=== PATIENT | male | born 1935 | race Caucasian/White ===

== ENCOUNTER 2016-10-09 11:25 | Inpatient (IN) | payer OTHER ==
[2016-10-09 11:46] VITALS: BMI 24.5
[2016-10-09] MEDS ORDERED: Sodium Chloride 0.9% 500 ML IV STA (12:02)
[2016-10-09] MEDS ORDERED: Iohexol 240 (50 ml) PO ONE (12:37)
[2016-10-09] MEDS ORDERED: Pantoprazole 40 MG in Sodium Chloride 0.9% 100 ML IVPB SCH (12:45)
--- NOTE | 2016-10-09 13:08 | ED PDOC ---
HPI: Abdomen Time Seen by Provider: 10/09/16 11:50 Chief Complaint (Nursing): Abdominal Pain Chief Complaint (Provider): Bloody Stool History Per: Patient History/Exam Limitations: no limitations Onset/Duration Of Symptoms: Days (x1) Current Symptoms Are (Timing): Still Present Severity: Mild Associated Symptoms: denies: Vomiting Additional Complaint(s): Patient is an 81 year old male, who has a history of GI bleed presents to the ED complaining of blood stool since yesterday. Patient also complains of red blood from his rectum and fatigue today. Patient states he has had shortness of breath for a while now. Denies abdominal pain, but states he had abdominal cramping last night. Denies vomiting or chest pain. PMD: none Past Medical History Reviewed: Historical Data, Nursing Documentation, Vital Signs Vital Signs: Last Vital Signs Temp 96.8 F L 10/09/16 15:05 Pulse 65 10/09/16 15:46 Resp 19 10/09/16 15:05 BP 118/59 L 10/09/16 15:05 Pulse Ox 100 10/09/16 15:46 - Medical History PMH: Arthritis, Diverticulitis, Emphysema, Fractures (Hx of Compression Vertebral Fx at T and L spine), HTN, Hypothyroidism, Osteoporosis (Chronically elevated WBCs) Denies: Chronic Kidney Disease - Surgical History Surgical History: Cholecystectomy - Family History Family History: States: No Known Family Hx - Home Medications Home Medications: Ambulatory Orders Medication Instructions Recorded Levothyroxine Sodium [Synthroid] 0.125 mg PO DAILY #30 tab 06/16/14 Allopurinol 100 mg PO DAILY 03/23/15 oxyCODONE/Acetaminophen [Percocet 1 ea PO Q6 #15 tab 03/23/15 5/325 mg Tab] - Allergies Allergies/Adverse Reactions: Allergies Allergy/AdvReac Type Severity Reaction Status Date / Time morphine Allergy URTICARIA Verified 10/09/16 11:55 vancomycin Allergy RASH Verified 10/09/16 11:55 Review of Systems ROS Statement: Except As Marked, All Systems Reviewed And Found Negative Cardiovascular: Negative for: Chest Pain Respiratory: Positive for: Shortness of Breath (chronic) Gastrointestinal: Positive for: Hematochezia. Negative for: Abdominal Pain Physical Exam - Reviewed Nursing Documentation Reviewed: Yes Vital Signs Reviewed: Yes - Physical Exam Appears: Positive for: Well, Non-toxic, No Acute Distress Head Exam: Positive for: ATRAUMATIC, NORMAL INSPECTION, NORMOCEPHALIC Skin: Positive for: Warm, Pallor Eye Exam: Positive for: EOMI, Normal appearance, PERRL Neck: Positive for: Normal, Painless ROM Cardiovascular/Chest: Positive for: Regular Rate, Rhythm. Negative for: Gallop , Murmur Respiratory: Positive for: Normal Breath Sounds. Negative for: Accessory Muscle Use, Rhonchi, Respiratory Distress Gastrointestinal/Abdominal: Positive for: Normal Exam, Soft. 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 Negative for: Black Stool, Hemorrhoids Extremity: Positive for: Normal ROM Neurologic/Psych: Positive for: Alert, Oriented - Laboratory Results Result Diagrams: 10/09/16 12:33 10/09/16 15:58 - ECG ECG: Positive for: Interpreted By Me, Viewed By Me ECG Rhythm: Positive for: Normal QRS, Normal ST Segment, Sinus Rhythm, Nonspecific Changes Rate: 65 O2 Sat by Pulse Oximetry: 100 (RA) Pulse Ox Interpretation: Normal - Radiology X-Ray: Viewed By Me, Read By Radiologist X-Ray Interpretation: No Acute Disease, Other (pulmonary nodule) - Critical Care Total Time (In Min): 60 Documented Critical Care: Time excludes all time spent performint seperately billable procedures Medical Decision Making Medical Decision Making: Time: 11:52 Impression: upper GI bleed v lower GI bleed Plan: Blood Type and Screen CT A/P EKG CMP Troponin CBC PTT/PT CXR IVF Pantoprazole 80 mg IV 14:35 Crossmatch blood Packed Cells Leukoreduced CT A/P Critical care consult PICC Albuterol 2.5 mg INH Calcium Gluconate IV Dextrose 50 ml IV Insulin human Regular 5 units IV Piperacillin IV Blood Culture calcium gluconate IV insulin 5 units and D50 IV albuterol INH ordered 14:40 Case discussed with critical care. Spoke with Dr. Sosa and will admit to ICU. Case discussed with family resident to admit to his service. Awaiting call from Dr. Vale. [address] Vale who will be on consult. Critical care note: Patient has one SIRS criteria WBC from worsened chronic leucocytosis (malignancy ?) and does not qualify for sepsis. Elevated lactic acid and hypotension is contributed by hemorrhagic shock from acute blood loss. Impression Hypovolemic hemorrhagic shock Scribe Attestation: Documented by Silva Walter acting as a scribe for Jesse Turner MD. Scribe Attestation: All medical record entries made by the Scribe were at my direction and personally dictated by me. I have reviewed the chart and agree that the record accurately reflects my personal performance of the history, physical exam, medical decision making, and the department course for this patient. I have also personally directed, reviewed, and agree with the discharge instructions and disposition. Disposition - Clinical Impression Clinical Impression: GI bleed, Hemorrhagic shock, Leukocytosis, Renal failure (ARF), acute on chronic, Hypovolemic shock, Elevated INR - Patient ED Disposition Is Patient to be Admitted: Yes Discussed With : Tato Lloyd Doctor Will See Patient In The: ED Counseled Patient/Family Regarding: Studies Performed, Diagnosis - Disposition Disposition Time: 14:00 Condition: CRITICAL - Pt Status Changed To: Hospital Disposition Of: Inpatient - Admit Certification Admit to Inpatient:: After my assessment, the patient will require hospitalization for at least two midnights. This is because of the severity of symptoms shown, intensity of services needed, and/or the medical risk in this patient being treated as an outpatient. - POA Present On Arrival: None
[2016-10-09 13:11] LABS: MEAN CORPUSCULAR HEMOGLOBIN 29.9 pg (27.0-31.0); MEAN PLATELET VOLUME 10.9 fl (7.2-11.7)
[2016-10-09 13:15] LABS: BASO # 0.4 K/uL (0.0-0.2); BASO % 0.7 % (0.0-2.0); EOS # 0.5 K/uL (0.0-0.7); EOS % 0.8 % (0.0-4.0); HEMATOCRIT 21.5 % (35.0-51.0); LYMPH # 3.2 K/uL (1.0-4.3); LYMPH % 4.9 % (20.0-40.0); MEAN CELL VOLUME 107.2 fl (80.0-94.0); MEAN CORPUSCULAR HGB CONC 27.9 g/dL (33.0-37.0); MONO # 2.7 K/uL (0.0-0.8); MONO % 4.1 % (0.0-10.0); NEUT # 58.6 K/uL (1.8-7.0); NEUT % 89.5 % (50.0-75.0); PLATELET COUNT 538 K/uL (130-400); RED CELL DISTRIBUTION WIDTH 19.4 % (11.5-14.5)
[2016-10-09 13:18] LABS: WHITE BLOOD COUNT 65.4 K/uL (4.8-10.8)
[2016-10-09 13:20] LABS: ALB/GLOB RATIO 1.1 (1.0-2.1); ALKALINE PHOSPHATASE 101 U/L (38-126); ALT/SGPT 20 U/L (21-72); AST/SGOT 33 U/L (17-59); BILIRUBIN,TOTAL 0.5 mg/dl (0.2-1.3); BLOOD UREA NITROGEN 62 mg/dl (9-20); CALCIUM 7.7 mg/dL (8.4-10.2); CHLORIDE 110 mmol/L (98-107); GFR AFRICAN-AMERICAN 33; GLUCOSE,RANDOM 84 mg/dL (75-110); SODIUM 142 mmol/l (132-148); TOTAL PROTEIN 6.4 G/DL (6.3-8.2)
[2016-10-09 13:25] LABS: PARTIAL THROMBOPLASTIN TIME 35.7 SECONDS (23.3-32.5)
[2016-10-09 13:34] LABS: VENOUS BLOOD GAS BASE EXCESS -13.6 mmol/L (0.0-2.0); VENOUS BLOOD GAS PCO2 39 mmHg (40-60); VENOUS BLOOD PH 7.16 (7.32-7.43)
[2016-10-09 13:39] LABS: CARBON DIOXIDE 11 mmol/L (22-30); POTASSIUM 6.3 MMOL/L (3.6-5.0)
--- NOTE | 2016-10-09 13:42 | RAD ---
HISTORY: dyspnea COMPARISON: 09/21/2014 FINDINGS: LUNGS: No infiltrate. 11 mm nodular opacity at left lung base, laterally. Possible nipple shadow. Recommend repeat radiograph with nipple markers. No other pulmonary nodule appreciated. PLEURA: No significant pleural effusion identified, no pneumothorax apparent. CARDIOVASCULAR: Normal. OSSEOUS STRUCTURES: No significant abnormalities. VISUALIZED UPPER ABDOMEN: Normal. OTHER FINDINGS: None. IMPRESSION: No infiltrate. 11 mm nodular opacity at left lung base. Possible nipple shadow. Recommend repeat frontal radiograph with nipple markers.
[2016-10-09] MEDS ORDERED: Piperacillin/Tazobact 3.375 GM in Sodium Chloride 0.9% 100 ML IVPB STA (14:12)
[2016-10-09] MEDS ORDERED: Iohexol 240 (50 ml) ONE (14:14)
[2016-10-09] MEDS ORDERED: Insulin Regular 100 units/ml IV STA (14:15)
[2016-10-09] MEDS ORDERED: Dextrose 50% SYRINGE Inj (50 ml) IVP ONE (14:15)
--- NOTE | 2016-10-09 14:23 | CARD ---
APPROVED REPORT EKG Measurement Heart [id number] <Conclusion> Sinus rhythm with premature supraventricular complexes Anterior infarct, age undetermined ST & T wave abnormality, consider lateral ischemia Abnormal ECG
[2016-10-09 14:24] LABS: EOSINOPHIL 1 % (0-7); METAMYELOCYTE 2 % (0-0); NEUTROPHIL 73 % (42-75)
[2016-10-09 14:25] LABS: GIANT PLATELETS PRESENT; LARGE PLATELETS PRESENT
[2016-10-09] MEDS ORDERED: Albuterol 0.083% Inhal Sol (2.5 mg/3 mL) UD INH ONE (14:26)
[2016-10-09 14:27] LABS: TOTAL CELLS COUNTED 100
[2016-10-09 14:31] LABS: MYELOCYTE 3 % (0-0)
[2016-10-09] MEDS ORDERED: Lidocaine 1% Inj (20ml) ONE (14:44)
--- NOTE | 2016-10-09 15:10 | CP.PCM.HP ---
History of Present Illness - History of Present Illness History of Present Illness: 81 yo , m , PMhx/o HTN, Diverticulitis, Emphysema, Arthritis, Gout, myelofibrosis, Hypothyroidism, Osteoporosis, Fractures (Hx of Compression Vertebral Fx at T and L spine), (Chronically elevated WBCs) presents to ED c/o bright bloody diarrhea started on saturday, small amount x 4 yesterday and 4 diarrhea today in the morning. Last diarrhea 9 am today. Patient also reports weakness since yesterday and SOB this morning. Denies Abd pain, Nausea, Vomiting, Hematemesis, fever, chest pain, palpitation, heartburn, abd trauma, dysuria. Denies sick contact, odd food. Reports recent travel from [facility] 3 weeks ago. PCP: Dr Lety Almazan PMHx: PMhx/o HTN, Diverticulitis, Emphysema, Arthritis, Gout, myelofibrosis, Hypothyroidism, Osteoporosis, Fractures (Hx of Compression Vertebral Fx at T and L spine), (Chronically elevated WBCs) Allergies: Morphine, Vancomycin Meds: Levothyroxine Sodium [Synthroid] 0.125 mg PO DAILY, Allopurinol 100 mg PO DAILY PSurgHx: Cholecystectomy,B/L knee meniscal tear PSHx: + ETOH, heavy drinker x 30 years. quit 6 years ago, smoker 2 PPD x 65 years. neg rect drugs. ED Course: VS: Stable Labs: WBC: 65.4 H.0 PLt: 538 INR: 1.56 AVG: PH 7.16 PCO2 39 HCO3: 13.7 Lactate: 6.1 K : 6.1 BUN/CR 65/2.2 Ca: 7.2 Ph: 6.3 Trop : neg EKG: sinus rhythm. buddy vent complex.ant infarct age undetermined. XR: 11 mm nodule left lung base. possible nipple shadow Present on Admission - Present on Admission Any Indicators Present on Admission: No History of DVT/PE: No History of Uncontrolled Diabetes: No Urinary Catheter: No Decubitus Ulcer Present: No Review of Systems - Constitutional Constitutional: As Per HPI - Gastrointestinal Gastrointestinal: Diarrhea. absent: Abdominal Pain, Dyspepsia, Dysphagia, Vomiting Additional comments: enterorrhagia Past Patient History - Infectious Disease Hx of Infectious Diseases: None - Tetanus Immunizations Tetanus Immunization: Unknown - Past Medical History & Family History Past Medical History?: Yes - Past Social History Smoking Status: Former Smoker - CARDIAC Hx Hypertension: Yes - PULMONARY Hx Emphysema: Yes - NEUROLOGICAL Hx Neurological Disorder: No - HEENT Other/Comment: red eyes - RENAL Hx Chronic Kidney Disease: No - ENDOCRINE/METABOLIC Hx Hypothyroidism: Yes - HEMATOLOGICAL/ONCOLOGICAL Hx Blood Disorders: Yes (chronic leukocytosis) - INTEGUMENTARY Hx Dermatological Problems: Yes Hx Psoriasis: Yes - MUSCULOSKELETAL/RHEUMATOLOGICAL Hx Arthritis: Yes Hx Fractures: Yes (Hx of Compression Vertebral Fx at T and L spine) Hx Osteoporosis: Yes (Chronically elevated WBCs) - GASTROINTESTINAL Hx Diverticulitis: Yes - GENITOURINARY/GYNECOLOGICAL Hx Genitourinary Disorders: No - PSYCHIATRIC Hx Psychophysiologic Disorder: No Hx Substance Use: No - SURGICAL HISTORY Hx Cholecystectomy: Yes - ANESTHESIA Hx Anesthesia: Yes Hx Anesthesia Reactions: No Meds Allergies/Adverse Reactions: Allergies Allergy/AdvReac Type Severity Reaction Status Date / Time morphine Allergy URTICARIA Verified 10/09/16 11:55 vancomycin Allergy RASH Verified 10/09/16 11:55 Physical Exam - Constitutional Appears: No Acute Distress - Head Exam Head Exam: ATRAUMATIC, NORMOCEPHALIC - Respiratory Exam Respiratory Exam: Rales. absent: Rhonchi, Wheezes Additional comments: right lung base rales - Cardiovascular Exam Cardiovascular Exam: +S1, +S2, Systolic Murmur Additional comments: Systolic murmur 3/6 - GI/Abdominal Exam GI & Abdominal Exam: Normal Bowel Sounds, Soft. absent: Guarding, Rebound Additional comments: RUQ surgical scar with ventral herniation - Rectal Exam Rectal Exam: absent: Hemorrhoids Additional comments: Perianal rectal bright blood. no active bleeding, no external hemorrhoids visible. - Extremities Exam Extremities exam: Positive for: normal inspection. Negative for: pedal edema Additional comments: right basilic vein PICC placed - Neurological Exam Neurological exam: Alert - Psychiatric Exam Psychiatric exam: Normal Affect - Skin Skin Exam: Intact, Pallor Results - Vital Signs Recent Vital Signs: Last Vital Signs Temp 97 F L 10/09/16 11:44 Pulse 62 10/09/16 13:22 Resp 16 10/09/16 13:22 BP 105/59 L 10/09/16 13:22 Pulse Ox 100 10/09/16 15:09 - Labs Result Diagrams: 10/09/16 12:33 10/09/16 15:58 Assessment & Plan - Assessment and Plan (Free Text) Plan: 81 yo , m , PMhx/o HTN, Diverticulitis, Emphysema, Arthritis, Gout, myelofibrosis, Hypothyroidism, Osteoporosis, Fractures (Hx of Compression Vertebral Fx at T and L spine), (Chronically elevated WBCs) presents to ED c/o bright bloody diarrhea Assessment/Plan 81 yo , m , PMhx/o HTN, Diverticulitis, Emphysema, Arthritis, Gout, myelofibrosis, Hypothyroidism, Osteoporosis, Fractures (Hx of Compression Vertebral Fx at T and L spine), (Chronically elevated WBCs) presents to ED c/o bright bloody diarrhea 1) Acute Lower GI Bleeding -Hx/o diverticulosis. possible secondary to diverticulosis or internal hemorrhoids. -CT Abd: 03/18/14 showed liver cirrhosis and possible portal HTN. 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 Last documented Heme/Onc consultation in February [address] Mcmahon with plan for hydroxyurea 500mg every other day but patient has not seen Heme/Onc provider since. -Hem-Onc consult suggested 8) Gout -Uric Acid - Allopurinol 100 mg P o daily 9) DVT Prophylaxis -SCD 10) GI prophylaxis -Pantoprazole 40 mg IV -
--- NOTE | 2016-10-09 15:11 | PCM.SURG1 ---
Surgeon's Initial Post Op Note - Surgeon's Notes Surgeon: Paula [employer] Assistant: None Type of Anesthesia: Local Pre-Operative Diagnosis: Sepsis Operative Findings: Patent right basilic vein Post-Operative Diagnosis: Sepsis Operation Performed: Right basilic vein 5F DL 32cm PICC placed. Specimen/Specimens Removed: None Estimated Blood Loss: EBL {In ML}: 1 Date of Surgery/Procedure: 10/09/16 Time of Surgery/Procedure: 15:05
[2016-10-09] MEDS ORDERED: Albuterol 0.083% Inhal Sol (2.5 mg/3 mL) UD ONE (15:25)
[2016-10-09] MEDS ORDERED: Piperacillin/Tazobact 3.375 gm Inj IVPB ONE (15:25)
[2016-10-09] MEDS ORDERED: Dextrose 50% SYRINGE Inj (50 ml) ONE (15:25)
[2016-10-09 16:20] LABS: CALCIUM 7.2 mg/dL (8.4-10.2); MAGNESIUM 1.8 MG/DL (1.6-2.3); PHOSPHOROUS 6.3 mg/dl (2.5-4.5)
[2016-10-09 16:28] LABS: POTASSIUM 6.1 MMOL/L (3.6-5.0)
--- NOTE | 2016-10-09 17:10 | CP.PCM.CON ---
<Mikal Hollingsworth - Last Filed: 10/09/16 17:18> History of Present Illness - History of Present Illness History of Present Illness: PGY4 GI Fellow Consult Note Patient is an 81yo Beninese-speaking male with PMHx significant for EtOH cirrhosis, ? myeloproliferative d/o with persistently elevated WBC (today 65K), gout, OA and hypothyroidism who presented to the ED with complaint of rectal bleeding. The patient suddenly developed bright red, loose stool yesterday and went on to have 9-10 episodes over the course of the day. This continued throughout the night and in to today with up to ten more episodes, becomming more watery with each episode. He was going up the staircase at home when he noted he was profoundly dyspneic and lightheaded. At that time, his convinced him to come to the ED for further evaluation. Initial lab work revealed a HGB of 6. Patient denies any weight loss, nausea, vomiting, hematemesis, dysphagia, h/o variceal banding. 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 absent: Chest Pain, Palpitations, Rapid Heart Rate - Respiratory Respiratory: Dyspnea, Dyspnea on Exertion. absent: Cough, Excessive Mucous Production - Gastrointestinal Gastrointestinal: Change in Bowel Habits, Cramping, Diarrhea, Hematochezia, Loose Stools. absent: Abdominal Pain, Coffee Ground Emesis, Constipation, Dyspepsia, Dysphagia, Hematemesis, Melena, Nausea, Odynophagia, Vomiting - Genitourinary Genitourinary: absent: Dysuria, Urinary Frequency, Urinary Urgency - Musculoskeletal Musculoskeletal: absent: Back Pain, Neck Pain - Integumentary Integumentary: absent: New Lesions, Rash - Neurological Neurological: absent: Dizziness, Numbness, Focal Weakness - Psychiatric Psychiatric: absent: Anxiety, Depression - Endocrine Endocrine: absent: Polydipsia, Polyphagia, Polyuria - Hematologic/Lymphatic Hematologic: absent: Easy Bleeding, Easy Bruising, Lymphadenopathy Past Patient History - Infectious Disease Hx of Infectious Diseases: None - Tetanus Immunizations Tetanus Immunization: Unknown - Past Medical History & Family History Past Medical History?: Yes - Past Social History Smoking Status: Former Smoker - CARDIAC Hx Hypertension: Yes - PULMONARY Hx Emphysema: Yes - NEUROLOGICAL Hx Neurological Disorder: No - HEENT Other/Comment: red eyes - RENAL Hx Chronic Kidney Disease: No - ENDOCRINE/METABOLIC Hx Hypothyroidism: Yes - HEMATOLOGICAL/ONCOLOGICAL Hx Blood Disorders: Yes (chronic leukocytosis) - INTEGUMENTARY Hx Dermatological Problems: Yes Hx Psoriasis: Yes - MUSCULOSKELETAL/RHEUMATOLOGICAL Hx Arthritis: Yes Hx Fractures: Yes (Hx of Compression Vertebral Fx at T and L spine) Hx Osteoporosis: Yes (Chronically elevated WBCs) - GASTROINTESTINAL Hx Diverticulitis: Yes - GENITOURINARY/GYNECOLOGICAL Hx Genitourinary Disorders: No - PSYCHIATRIC Hx Psychophysiologic Disorder: No Hx Substance Use: No - SURGICAL HISTORY Hx Cholecystectomy: Yes - ANESTHESIA Hx Anesthesia: Yes Hx Anesthesia Reactions: No Meds Allergies/Adverse Reactions: Allergies Allergy/AdvReac Type Severity Reaction Status Date / Time morphine Allergy URTICARIA Verified 10/09/16 11:55 vancomycin Allergy RASH Verified 10/09/16 11:55 - Medications Medications: Current Medications Pantoprazole Sodium 40 mg/ (Sodium Chloride) 100 mls @ 20 mls/hr IVPB CONT SATURNINO PRN Reason: 8 MG/HR Physical Exam - Constitutional Appears: In Acute Distress (dyspneic) - Eye Exam Eye Exam: EOMI, PERRL - ENT Exam ENT Exam: Mucous Membranes Dry - Respiratory Exam Respiratory Exam: Clear to Auscultation Bilateral. absent: Rales, Rhonchi, Wheezes - Cardiovascular Exam Cardiovascular Exam: Tachycardia, +S1, +S2, Systolic Murmur - GI/Abdominal Exam GI & Abdominal Exam: Hyperactive Bowel Sounds, Soft. absent: Distended, Firm, Guarding, Rigid, Tenderness - Rectal Exam Rectal Exam: Bloody Stool. absent: Hemorrhoids - Extremities Exam Extremities exam: Positive for: normal inspection. Negative for: pedal edema - Neurological Exam Neurological exam: Alert, Oriented x3 - Psychiatric Exam Psychiatric exam: Normal Affect, Normal Mood - Skin Skin Exam: Dry, Warm Results - Vital Signs Recent Vital Signs: Last Vital Signs Temp 96.8 F L 10/09/16 15:05 Pulse 65 10/09/16 15:46 Resp 19 10/09/16 15:05 BP 118/59 L 10/09/16 15:05 Pulse Ox 100 10/09/16 15:46 - Labs Result Diagrams: 10/09/16 12:33 10/09/16 15:58 Labs: Laboratory Results - last 24 hr 10/09/16 15:58 Sodium 134 Potassium 6.1 H Chloride 110 H Carbon Dioxide 14 L Anion Gap 16 BUN 65 H Creatinine 2.2 H Est GFR ( Amer) 35 Est GFR (Non-Af Amer) 29 Random Glucose 94 Calcium 7.2 L Phosphorus 6.3 H Magnesium 1.8 Assessment & Plan - Assessment and Plan (Free Text) Assessment: Patient is an 81yo Beninese-speaking male with PMHx significant for EtOH cirrhosis, ? myeloproliferative d/o with persistently elevated WBC (today 65K), gout, OA and hypothyroidism who presented to the ED with complaint of rectal bleeding. 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 -Unclear myeloproliferative D/O - family state w/u performed in [place] without clear etiology (included BM bx) -Thrombocytosis, reactive vs myeloproliferative Plan: -Pt s/p PICC line insertion by IR -Recommend aggressive IVF resuscitation -Patient needs stat PRBC transfusion, 3 units ordered -Will need to transfuse 1 unit FFP given coagulopathy 2/2 underlying cirrhosis -Patient will benefit from urgent EGD tomorrow morning once he has been adequately resuscitated -NPO after MN -Will also require colonoscopy (likely ) once patient can safely be given bowel purge -CT A/P recommended; eval liver given cirrhosis hx -Recommend ICU placement/monitoring -Recommend hematology consultation given ongoing, profound leukocytosis -Monitor CBC, CMP, INR *MELD-Na: 22 - Date & Time Date: 10/09/16 Time: 17:27 <Billy Vale MD - Last Filed: 10/09/16 21:53> Meds - Medications Medications: Current Medications Pantoprazole Sodium 40 mg/ (Sodium Chloride) 100 mls @ 20 mls/hr IVPB CONT SATURNINO PRN Reason: 8 MG/HR Last Admin: 10/09/16 20:16 Dose: 20 mls/hr Sodium Bicarbonate 150 meq/ (Dextrose) 1,150 mls @ 100 mls/hr IV .[id number] SATURNINO Last Admin: 10/09/16 18:25 Dose: 100 mls/hr Octreotide Acetate 1,250 mcg/ (Sodium Chloride) 252.5 mls @ 10.1 mls/hr IV .Q24H SATURNINO PRN Reason: 50 MCG/HR Stop: 10/14/16 18:46 Last Admin: 10/09/16 21:00 Dose: 10.1 mls/hr Levothyroxine Sodium (Synthroid) 50 mcg IVP DAILY SATURNINO Results - Vital Signs Recent Vital Signs: Last Vital Signs Temp 97.9 F 10/09/16 20:00 Pulse 58 L 10/09/16 21:00 Resp 18 10/09/16 21:00 BP 118/58 L 10/09/16 21:00 Pulse Ox 100 10/09/16 21:00 - Labs Result Diagrams: 10/09/16 12:33 10/09/16 15:58 Labs: Laboratory Results - last 24 hr 10/09/16 15:58 Sodium 134 Potassium 6.1 H Chloride 110 H Carbon Dioxide 14 L Anion Gap 16 BUN 65 H Creatinine 2.2 H Est GFR ( Amer) 35 Est GFR (Non-Af Amer) 29 Random Glucose 94 Calcium 7.2 L Phosphorus 6.3 H Magnesium 1.8 Attending/Attestation - Attestation I have personally seen and examined this patient.: Yes I have fully participated in the care of the patient.: Yes I have reviewed all pertinent clinical information: Yes Notes (Text): 10/09/16 21:47 Patient seen and examined this evening with GI fellow in [facility] this evening. Essentially this is a 81yo Beninese-speaking male with PMHx significant for EtOH cirrhosis, ? myeloproliferative d/o with persistently elevated WBC (today 65K), gout, OA and hypothyroidism who presented to the ED with complaint of rectal bleeding. H/Hct dropped by 4 gm/dl with BRBPR. Needs aggresive resuscitation as per cardiac and respiratory status prior to EGD in am. 2 large bore lines and MICU admission. Needs FFP transfusion given coagulopathy. If EGD is negative will plan on colonoscopy for . MELD 22. Recommend hematology consult. NPO and octreotide drip with bolus. Will follow closely
[2016-10-09] MEDS ORDERED: Insulin Regular 100 units/ml ONE (17:18)
[2016-10-09] MEDS ORDERED: Sodium Bicarbonate 8.4% 150 MEQ in Dextrose 5% In Water 1,000 ML IV SCH ×2 (18:00)
--- NOTE | 2016-10-09 18:07 | CT ---
PROCEDURE: CT Abdomen and Pelvis without IV contrast. HISTORY: abdominal pain GI bleed COMPARISON: CT abdomen and pelvis performed 06/11/13, CT abdomen performed 03/18/14 TECHNIQUE: Contiguous axial images of the abdomen and pelvis. Oral contrast was administered. No IV contrast given. Coronal and Sagittal reformats generated and reviewed. Radiation dose: Total exam DLP = 716.11 mGy-cm. FINDINGS: There is limited evaluation of the solid organs without the administration of IV contrast. LOWER THORAX: Small bilateral pleural effusions. Bibasilar atelectasis. No visible pneumothorax. Low attenuation of the cardiac chambers and aorta consistent with anemia. Correlate clinically. Small hiatal hernia/distal esophageal wall thickening. LIVER: Unremarkable unenhanced appearance. GALLBLADDER AND BILE DUCTS: Cholecystectomy. PANCREAS: Atrophy. SPLEEN: Marked splenomegaly. ADRENALS: Bilateral nodular adrenal gland hypertrophy. KIDNEYS AND URETERS: Innumerable low-density renal lesions, indeterminate. No hydronephrosis. No obstructing calculus. BLADDER: Thick-walled under distended urinary bladder. REPRODUCTIVE: Enlarged heterogeneous prostate gland. APPENDIX: The appendix is not identified. No secondary signs of acute appendicitis. BOWEL: The stomach is nondistended. Large bowel containing right anterior abdominal wall hernia without evidence of obstruction. Extensive diverticulosis of the sigmoid colon with subtle adjacent inflammatory changes; correlate clinically for possibility of acute diverticulitis. PERITONEUM: No significant free fluid. No definite free air. LYMPH NODES: Extensive indeterminate paraspinal soft tissue evident most notably at the T8 through L1 levels as well as L3 through S1 levels. Presacral soft tissue present. Soft tissue neoplasm possibly related to etiology such is leukemia/ lymphoma or bulky lymphadenopathy are considerations. VASCULATURE: Dense atherosclerotic calcifications of the aorta and branches. Linear calcification traversing the medial aspect of the left common iliac artery lumen may reflect small focal dissection versus calcification related to thrombus. BONES: Diffuse osseous demineralization limits evaluation for acute fracture lines. Severe L1 and L3 compression fracture deformities, age indeterminate. Right hip arthroplasty hardware with resultant streak artifact. OTHER FINDINGS: None. IMPRESSION: Extensive indeterminate paraspinal soft tissue evident most notably at the T8 through L1 levels as well as L3 through S1 levels. Presacral soft tissue present. Soft tissue neoplasm possibly related to etiology such is leukemia/ lymphoma or bulky lymphadenopathy are considerations. Large bowel containing right anterior abdominal wall hernia without evidence of obstruction. Extensive diverticulosis of the sigmoid colon with subtle adjacent inflammatory changes; correlate clinically for possibility of acute diverticulitis. Low attenuation of the cardiac chambers and aorta consistent with anemia. Correlate clinically. Marked splenomegaly. Extensive diverticulosis of the sigmoid colon with subtle adjacent inflammatory changes; correlate clinically for possibility of acute diverticulitis. Severe L1 and L3 compression fracture deformities, age indeterminate. Linear calcification traversing the medial aspect of the left common iliac artery lumen may reflect small focal dissection versus calcification related to thrombus. Similar findings evident on CT performed 03/18/14 Innumerable low-density renal lesions, indeterminate. Enlarged heterogeneous prostate gland. Recommend correlation with PSA. Additional incidental findings as above. Findings discussed with Dr. Turner on 10/09/16 at 6:03 p.m.
--- NOTE | 2016-10-09 18:17 | CP.PCM.CON ---
History of Present Illness - History of Present Illness History of Present Illness: This is an 81 year old male with PMH of "blood cancer" diagnosed 4 years ago at [facility]?, hypothyroidism, arthritis, cholecystectomy and bilateral meniscus removal of the knees in the past comes to the hospital after having bowel movements with fresh blood for the past week, neck, bilateral shoulder, lower back, toes pain as well. His jarvis noticed him being pale. The patient feels weak, mental status is wnl. Denies fever, petechia, anticoagulant ingestion. As per the the patient was told 4 years ago that he had a blood malignancy , but after a biopsy (taken from the back) he was told that no malignancy was seen in the biopsy, no follow up since then. Last laboratory results are from 2014 and show renal failure with Cr of 1.7, wbc count 39-79, uric acid elevated. Current labs show worsening of renal failure, hyperphosphatemia, hyperkalemia, decreased bicarbonate. History of alcohol abuse, sober for 15 years. Home meds: allopurinol 100 mg daily eutirox 100 mcg daily tylenol prn Please note that patient HALLUCINATES WITH MORPHINE AND BECOMES AGGRESSIVE 10 ros asked and negative except for above pe: bp 113/52 mmhg, hr 69 bpm, rr 16 bpm, O2 100% on 2 L NC, afebrile thin, pale elderly male lying in bed, does not seem to be in any acute distress aaox3 s1, s2 rrr lungs good bilateral air of entry abdomen soft, non tender, right upper quadrant mass, soft, chronic, seem to be a hernia mild leg edema skin old healed surgical ulcers, pale skin a/p: gi bleed for the past week protonix drip, npo, blood transfusion, coagulation profile with minimal elevation, will not benefit from FFP, add octreotide in view of prior history of cirrhosis. GI consulted patient. 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 spoke to Dr. Charlton, discussed case. Hyperkalemia most likely related to renal failure: bicarbonate drip, will also improve bicarbonate, check bmp every 6 hours. Hyperphosphatemia: due to renal failure. Hold calcium to keep Ph/Ca product down. Consulted renal in case he needs dialysis. Past Patient History - Infectious Disease Hx of Infectious Diseases: None - Tetanus Immunizations Tetanus Immunization: Unknown - Past Medical History & Family History Past Medical History?: Yes - Past Social History Smoking Status: Former Smoker - CARDIAC Hx Hypertension: Yes - PULMONARY Hx Emphysema: Yes - NEUROLOGICAL Hx Neurological Disorder: No - HEENT Other/Comment: red eyes - RENAL Hx Chronic Kidney Disease: No - ENDOCRINE/METABOLIC Hx Hypothyroidism: Yes - HEMATOLOGICAL/ONCOLOGICAL Hx Blood Disorders: Yes (chronic leukocytosis) - INTEGUMENTARY Hx Dermatological Problems: Yes Hx Psoriasis: Yes - MUSCULOSKELETAL/RHEUMATOLOGICAL Hx Arthritis: Yes Hx Fractures: Yes (Hx of Compression Vertebral Fx at T and L spine) Hx Osteoporosis: Yes (Chronically elevated WBCs) - GASTROINTESTINAL Hx Diverticulitis: Yes - GENITOURINARY/GYNECOLOGICAL Hx Genitourinary Disorders: No - PSYCHIATRIC Hx Psychophysiologic Disorder: No Hx Substance Use: No - SURGICAL HISTORY Hx Cholecystectomy: Yes - ANESTHESIA Hx Anesthesia: Yes Hx Anesthesia Reactions: No Meds Allergies/Adverse Reactions: Allergies Allergy/AdvReac Type Severity Reaction Status Date / Time morphine Allergy URTICARIA Verified 10/09/16 11:55 vancomycin Allergy RASH Verified 10/09/16 11:55 - Medications Medications: Current Medications Heparin Sodium (Porcine) (Heparin) 5,000 units SC Q8 SATURNINO PRN Reason: Protocol Pantoprazole Sodium 40 mg/ (Sodium Chloride) 100 mls @ 20 mls/hr IVPB CONT SATURNINO PRN Reason: 8 MG/HR Calcium Gluconate 1,000 mg/ (Sodium Chloride) 110 mls @ 110 mls/hr IV ONCE ONE Stop: 10/09/16 18:59 Sodium Bicarbonate 150 meq/ (Dextrose) 1,150 mls @ 100 mls/hr IV .[id number] [facility] Pantoprazole Sodium (Protonix Inj) 40 mg IVP DAILY [facility] Results - Vital Signs Recent Vital Signs: Last Vital Signs Temp 96.8 F L 10/09/16 15:05 Pulse 65 10/09/16 17:17 Resp 19 10/09/16 15:05 BP 118/59 L 10/09/16 15:05 Pulse Ox 100 10/09/16 17:17 - Labs Result Diagrams: 10/09/16 12:33 10/09/16 15:58 Labs: Laboratory Results - last 24 hr 10/09/16 15:58 Sodium 134 Potassium 6.1 H Chloride 110 H Carbon Dioxide 14 L Anion Gap 16 BUN 65 H Creatinine 2.2 H Est GFR ( Amer) 35 Est GFR (Non-Af Amer) 29 Random Glucose 94 Calcium 7.2 L Phosphorus 6.3 H Magnesium 1.8
[2016-10-09] MEDS: Pantoprazole 40 MG in Sodium Chloride 0.9% 100 ML IVPB SCH (20:16)
[2016-10-10 00:15] LABS: CALCIUM 7.1 mg/dL (8.4-10.2); URIC ACID 8.4 mg/Dl (3.5-8.5)
[2016-10-10 00:44] LABS: POTASSIUM 5.5 MMOL/L (3.6-5.0)
[2016-10-10] MEDS ORDERED: Sodium Bicarbonate 8.4% 150 MEQ in Dextrose 5% In Water 1,000 ML IV SCH (00:47)
[2016-10-10] MEDS: Pantoprazole 40 MG in Sodium Chloride 0.9% 100 ML IVPB SCH ×4 (01:20→20:00)
--- NOTE | 2016-10-10 02:00 | CP.PCM.CON ---
History of Present Illness - History of Present Illness History of Present Illness: 81 year old male with a history of ?myelofibrosis, admitted to GI bleeding, anemia, leukocytosis, coagulopathy. Per the patients family, he has been experiencing bloody bowel movements for several days. Due to progressive fatigue and weakness he was brought to the hospital and found to have a hgb of 6 and WBC of 65,000. A CT A/P revealed paraspinal soft tissue, renal lesions, and splenomegaly. His daughter reports his WBC has been high for over 10 years. He underwent bone marrow evaluation at [facility] and is unclear what the diagnosis was but did not require treatment. He has been losing weight and had night sweats. Past medical history: myelofibrosis Past surgical history: None Family history: Denies hematologic and oncologic problems Social history: Former tobacco and alcohol abuse. Allergies: Morphine, vancomycin Review of systems: All remaining review of systems including HEENT, cardiovascular, respiratory, gastrointestinal, genitourinary, musculoskeletal, dermatologic, neurologic, and psychiatric are negative unless mentioned in the history of present illness. Past Patient History - Infectious Disease Hx of Infectious Diseases: None - Tetanus Immunizations Tetanus Immunization: Unknown - Past Medical History & Family History Past Medical History?: Yes - Past Social History Smoking Status: Former Smoker - CARDIAC Hx Hypertension: Yes - PULMONARY Hx Emphysema: Yes Other/Comment: FORMER SMOKER - NEUROLOGICAL Hx Neurological Disorder: No - HEENT Other/Comment: red eyes - RENAL Other/Comment: CHRONIC KIDNEY DISEASE - ENDOCRINE/METABOLIC Hx Hypothyroidism: Yes - HEMATOLOGICAL/ONCOLOGICAL Hx Blood Disorders: Yes (chronic leukocytosis) - INTEGUMENTARY Hx Dermatological Problems: Yes Hx Psoriasis: Yes - MUSCULOSKELETAL/RHEUMATOLOGICAL Hx Arthritis: Yes Hx Falls: Yes Hx Fractures: Yes (Hx of Compression Vertebral Fx at T and L spine) Hx Gout: Yes Hx Osteoporosis: (Chronically elevated WBCs) - GASTROINTESTINAL Hx Diverticulitis: Yes Other/Comment: LIVER CIRRHOSIS - GENITOURINARY/GYNECOLOGICAL Hx Genitourinary Disorders: No - PSYCHIATRIC Hx Psychophysiologic Disorder: No Hx Substance Use: No - SURGICAL HISTORY Hx Cholecystectomy: Yes - ANESTHESIA Hx Anesthesia: Yes Hx Anesthesia Reactions: No Meds Allergies/Adverse Reactions: Allergies Allergy/AdvReac Type Severity Reaction Status Date / Time morphine Allergy URTICARIA Verified 10/09/16 11:55 vancomycin Allergy RASH Verified 10/09/16 11:55 - Medications Medications: Current Medications Pantoprazole Sodium 40 mg/ (Sodium Chloride) 100 mls @ 20 mls/hr IVPB CONT SATURNINO PRN Reason: 8 MG/HR Last Admin: 10/10/16 01:20 Dose: 20 mls/hr Octreotide Acetate 1,250 mcg/ (Sodium Chloride) 252.5 mls @ 10.1 mls/hr IV .Q24H SATRUNINO PRN Reason: 50 MCG/HR Stop: 10/14/16 18:46 Last Admin: 10/09/16 21:00 Dose: 10.1 mls/hr Sodium Bicarbonate 150 meq/ (Dextrose) 1,150 mls @ 150 mls/hr IV .Q7H40M SATURNINO Stop: 10/10/16 08:26 Levothyroxine Sodium (Synthroid) 50 mcg IVP DAILY [facility] Physical Exam - Head Exam Head Exam: ATRAUMATIC - Eye Exam Eye Exam: Normal appearance - ENT Exam ENT Exam: Mucous Membranes Dry - Respiratory Exam Respiratory Exam: NORMAL BREATHING PATTERN - Cardiovascular Exam Cardiovascular Exam: +S1, +S2 - GI/Abdominal Exam GI & Abdominal Exam: Normal Bowel Sounds - Extremities Exam Extremities exam: Positive for: pedal edema - Neurological Exam Neurological exam: Oriented x3 - Psychiatric Exam Psychiatric exam: Normal Affect, Normal Mood - Skin Skin Exam: Warm Results - Vital Signs Recent Vital Signs: Last Vital Signs Temp 98.5 F 10/10/16 00:00 Pulse 68 10/10/16 00:00 Resp 23 10/10/16 00:00 BP 108/52 L 10/10/16 00:00 Pulse Ox 100 10/10/16 00:00 - Labs Result Diagrams: 10/09/16 12:33 10/09/16 23:58 Labs: Laboratory Results - last 24 hr 10/09/16 10/09/16 15:58 23:58 Sodium 134 132 Potassium 6.1 H 5.5 H Chloride 110 H 109 H Carbon Dioxide 14 L 15 L Anion Gap 16 14 BUN 65 H 60 H Creatinine 2.2 H 2.2 H Est GFR ( Amer) 35 35 Est GFR (Non-Af Amer) 29 29 Random Glucose 94 106 Uric Acid 8.4 Calcium 7.2 L 7.1 L Phosphorus 6.3 H Magnesium 1.8 Assessment & Plan (1) Leukocytosis Assessment and Plan: likely related to myelofibrosis flow cytometery on peripheral blood sent may need bone marrow evaluation Status: Acute Priority: High (2) Anemia Assessment and Plan: GI bleeding will send ferritin, retic count, b12, folate, FOBT myelofibrosis Status: Acute (3) Coagulopathy Assessment and Plan: likely nutritional Thank you for this interesting consult. Status: Acute
[2016-10-10 02:07] LABS: BASO # 0.1 K/uL (0.0-0.2); BASO % 0.3 % (0.0-2.0); EOS # 0.2 K/uL (0.0-0.7); EOS % 0.8 % (0.0-4.0); HEMATOCRIT 19.5 % (35.0-51.0); LYMPH # 1.9 K/uL (1.0-4.3); LYMPH % 6.4 % (20.0-40.0); MEAN CELL VOLUME 94.8 fl (80.0-94.0); MEAN CORPUSCULAR HEMOGLOBIN 30.9 pg (27.0-31.0); MEAN CORPUSCULAR HGB CONC 32.6 g/dL (33.0-37.0); MEAN PLATELET VOLUME 9.8 fl (7.2-11.7); MONO # 1.9 K/uL (0.0-0.8); MONO % 6.6 % (0.0-10.0); NEUT # 24.7 K/uL (1.8-7.0); NEUT % 85.9 % (50.0-75.0); RED CELL DISTRIBUTION WIDTH 16.8 % (11.5-14.5); WHITE BLOOD COUNT 28.8 K/uL (4.8-10.8)
--- NOTE | 2016-10-10 07:34 | CP.CCUPN ---
<Dutch Agudelo T - Last Filed: 10/10/16 13:09> CCU Subjective - Physician Review Subjective (Free Text): Pt seen and examined at bedside in the ICU. Pt lying comfortably, AAO x3, w one episode of bright red blood per rectum. Additionally, he denies fevers/chills, n /v/d/c, headaches, dizziness, cp, sob, cough, abd pain, hematuria, dysuria, or myalgias. CCU Objective - Vital Signs / Intake & Output Vital Signs (Last 4 hours): Vital Signs Temp Pulse Resp BP Pulse Ox 10/10/16 06:00 98.3 F 69 23 114/64 100 10/10/16 04:00 68 18 112/55 L 100 Intake and Output (Last 8hrs): Intake & Output 10/09/16 10/10/16 10/10/16 22:59 06:59 14:59 Intake Total 695 1990 Output Total 780 Balance 695 1210 Weight 124 lb Intake: IV 300 1100 Intake, Piggyback 70 240 Blood Product 325 650 Output: Urine 780 Urine, Voided 780 Other: # Voids Urine, Voided 1 # Bowel Movements 1 - Physical Exam Head: Positive for: Atraumatic, Normocephalic Pupils: Positive for: PERRL Extroacular Muscles: Positive for: EOMI Conjunctiva: Positive for: Normal Mouth: Positive for: Dry Neck: Positive for: Normal Range of Motion. Negative for: MIDLINE TENDERNESS, JVD Respiratory/Chest: Positive for: Good Air Exchange. Negative for: Rales, Rhonchi Cardiovascular: Positive for: Regular Rate and Rhythm. Negative for: Tachycardic, Bradycardic Abdomen: Positive for: Normal Bowel Sounds. Negative for: Tenderness, Distention Upper Extremity: Positive for: Normal Inspection, Normal ROM. Negative for: Edema Lower Extremity: Positive for: Normal Inspection, Normal ROM. Negative for: Edema Neurological: Positive for: GCS=15, CN II-XII Intact Psychiatric: Positive for: Alert, Oriented x 3 - Medications Active Medications: Active Medications Generic Name Dose Route Start Last Admin Trade Name Freq PRN Reason Stop Dose Admin Pantoprazole Sodium 40 mg/ 100 mls @ 20 mls/hr 10/09/16 12:45 10/10/16 06:11 Sodium Chloride IVPB 20 mls/hr CONT SATURNINO Administration 8 MG/HR Octreotide Acetate 1,250 mcg/ 252.5 mls @ 10.1 mls/hr 10/09/16 18:45 10/09/16 21:00 Sodium Chloride IV 10/14/16 18:46 10.1 mls/hr .Q24H SATURNINO Administration 50 MCG/HR Sodium Bicarbonate 150 meq/ 1,150 mls @ 150 mls/hr 10/10/16 00:47 10/10/16 04: 00 Dextrose IV 10/10/16 08:26 150 mls/hr .Q7H40M SATURNINO Administration Levothyroxine Sodium 50 mcg 10/10/16 09:00 Synthroid IVP DAILY SATURNINO - Patient Studies Lab Studies: Lab Studies 10/10/16 10/09/16 10/09/16 Range/Units 02:03 23:58 15:58 WBC 28.8 H D (4.8-10.8) K/uL RBC 2.06 L (4.40-5.90) Mil/uL Hgb 6.4 L* (12.0-18.0) g/dL Hct 19.5 L (35.0-51.0) % MCV 94.8 H D (80.0-94.0) fl MCH 30.9 (27.0-31.0) pg MCHC 32.6 L (33.0-37.0) g/dL RDW 16.8 H (11.5-14.5) % Plt Count 362 D (130-400) K/uL MPV 9.8 (7.2-11.7) fl Neut % (Auto) 85.9 H (50.0-75.0) % Lymph % (Auto) 6.4 L (20.0-40.0) % [place] % (Auto) 6.6 (0.0-10.0) % Eos % (Auto) 0.8 (0.0-4.0) % Baso % (Auto) 0.3 (0.0-2.0) % Neut # 24.7 H (1.8-7.0) K/uL Lymph # 1.9 (1.0-4.3) K/uL [place] # 1.9 H (0.0-0.8) K/uL Eos # 0.2 (0.0-0.7) K/uL Baso # 0.1 (0.0-0.2) K/uL Sodium 132 134 (132-148) mmol/l Potassium 5.5 H 6.1 H (3.6-5.0) MMOL/L Chloride 109 H 110 H (98-107) mmol/L Carbon Dioxide 15 L 14 L (22-30) mmol/L Anion Gap 14 16 (10-20) BUN 60 H 65 H (9-20) mg/dl Creatinine 2.2 H 2.2 H (0.8-1.5) mg/dL Est GFR ( Amer) 35 35 Est GFR (Non-Af Amer) 29 29 Random Glucose 106 94 (75-110) mg/dL Uric Acid 8.4 (3.5-8.5) mg/Dl Calcium 7.1 L 7.2 L (8.4-10.2) mg/dL Phosphorus 6.3 H (2.5-4.5) mg/dl Magnesium 1.8 (1.6-2.3) MG/DL Laboratory Results - last 24 hr 10/09/16 10/09/16 10/10/16 15:58 23:58 02:03 WBC 28.8 H D RBC 2.06 L Hgb 6.4 L* Hct 19.5 L MCV 94.8 H D MCH 30.9 MCHC 32.6 L RDW 16.8 H Plt Count 362 D MPV 9.8 Neut % (Auto) 85.9 H Lymph % (Auto) 6.4 L [place] % (Auto) 6.6 Eos % (Auto) 0.8 Baso % (Auto) 0.3 Neut # 24.7 H Lymph # 1.9 [place] # 1.9 H Eos # 0.2 Baso # 0.1 Sodium 134 132 Potassium 6.1 H 5.5 H Chloride 110 H 109 H Carbon Dioxide 14 L 15 L Anion Gap 16 14 BUN 65 H 60 H Creatinine 2.2 H 2.2 H Est GFR ( Amer) 35 35 Est GFR (Non-Af Amer) 29 29 Random Glucose 94 106 Uric Acid 8.4 Calcium 7.2 L 7.1 L Phosphorus 6.3 H Magnesium 1.8 Review of Systems - Review of Systems Review of Systems: see HPI Critical Care Progress Note - Nutrition Nutrition: Nutrition Category Date Time Status NPO Diet [DIET] Diets 10/10/16 Breakfast Active Assessment/Plan - Assessment and Plan (Free Text) Plan: 81yo M w PMHx of CML, EtOH cirrhosis, gout, and hypothyroidism is admitted to ICU for GI bleed w an H/H 6.4/19.5 1) GI Bleed -Bright Red blood per rectum this AM -H/H 6.7/20.3 as of 8am following 3u pRCs, up from 6.4/19.5 at 2am -Octreotide 1250mcg @ 50 mcg/hr due to liver dysfunction -Hold off scope until h/h has increased to appropriate levels, GI will revisit topic tomorrow -FFP to be given to briefly increase coags for scope -Additional pRBCs and FFP were held due transfusion reaction -f/u Tag Bleeding Scan, as per GI -f/u Labs 2) Transfusion Reaction -Shortly after 10am, pt developed mild urticaria < 30 minutes after FFP transfusion -First pRBC had been given yesterday at 5pm -Benadryl 50mg IVP STAT given at first sign of reaction, transfusions momentarily held, and symptoms quickly resolved. Temp never jose c above 97.3F. -Pt briefly became tired w some slurring of speech within 1-2 minutes of receiving the Benadryl, but it resolved < 1 hr -Vitals remained normal, AAOx3 throughout, no focal deficits seen during serial examinations -Will continue transfusions w Solumedrol and Tylenol given before resuming -f/u CT Head to rule out differentials 3) CML -Hem/Onc Onboard 4) Hypothyroid -Levothyroxine 50mcg IVP Daily 5) DVT Prophylaxis -SCDs 6) PICC Line <Jw Sharif - Last Filed: 10/10/16 15:03> CCU Subjective - Physician Review Subjective (Free Text): Attestation: Patient seen and examined at the bedside with Resident Dr. Beatriz Agudelo; and I agree with his outline of plans and management documented below as discussed on AM rounds reflecting my review of all applicable clinical data, and participation in the care of the patient throughout the day in ICU; today, October 10, 2016. Re- Mr. Heath: All Nursing and Physician documentation reviewed to date. Discussed recent events this AM with GI- to transfuse additional PRBCs and FFP. Possible transfusion related allergic event with only mild symptoms involving localized urticaria macular erythematous skin changes over torso, relieved by IV Benadryl. But, possible new reaction to Benadryl noted involving mild speech slurring, which resolved within an hour. CT Brain obtained and negative for acute CARBIDE DIE MAKER event. Instead of anticipated EGD, patient will have a Nuclear tagged -RBC scan to try to delineate bleeding site. Additional PRBCs ordered after transfusion-reaction re-assessment for any new antibodies are negative. In any event, will also pre-medicate with Steroids, and acetaminophen before administering any blood-products and reserve [id number] for any acute urticaria. Repeat lactate level is 1.2 from 6.1 yesterday. Serial BUN/Cr levels show improvement with ongoing IVF hydration.
--- NOTE | 2016-10-10 07:52 | CP.PCM.PN ---
Subjective - Date & Time of Evaluation Date of Evaluation: 10/10/16 Time of Evaluation: 07:30 - Subjective Subjective: Patient seen and examined bedside. Looks more comfortable today. AAO x3. Denies abdominal pain, nausea, vomiting. 2 BM small bright red diarrhea last night. NPO. Scheduled for EGD today Objective - Vital Signs/Intake and Output Vital Signs (last 24 hours): Temp Pulse Resp BP Pulse Ox 98.3 F 69 23 114/64 100 10/10/16 06:00 10/10/16 06:00 10/10/16 06:00 10/10/16 06:00 10/10/16 06:00 Intake and Output: 10/10/16 10/10/16 06:59 18:59 Intake Total 2685 Output Total 780 Balance 1905 - Medications Medications: Current Medications Pantoprazole Sodium 40 mg/ (Sodium Chloride) 100 mls @ 20 mls/hr IVPB CONT SATURNINO PRN Reason: 8 MG/HR Last Admin: 10/10/16 06:11 Dose: 20 mls/hr Octreotide Acetate 1,250 mcg/ (Sodium Chloride) 252.5 mls @ 10.1 mls/hr IV .Q24H SATURNINO PRN Reason: 50 MCG/HR Stop: 10/14/16 18:46 Last Admin: 10/09/16 21:00 Dose: 10.1 mls/hr Sodium Bicarbonate 150 meq/ (Dextrose) 1,150 mls @ 150 mls/hr IV .Q7H40M SATURNINO Stop: 10/10/16 08:26 Last Admin: 10/10/16 04:00 Dose: 150 mls/hr Levothyroxine Sodium (Synthroid) 50 mcg IVP DAILY SATURNINO - Labs Labs: 10/10/16 02:03 10/09/16 23:58 PT 16.2 SECONDS (9.6-11.2) H 10/09/16 12:33 INR 1.56 (0.92-1.08) H 10/09/16 12:33 APTT 35.7 SECONDS (23.3-32.5) H 10/09/16 12:33 - Constitutional Appears: No Acute Distress - Respiratory Exam Respiratory Exam: Clear to Ausculation Bilateral. absent: Rales, Wheezes - Cardiovascular Exam Cardiovascular Exam: +S1, +S2, Murmur Additional comments: 3/6 systolic murmur - GI/Abdominal Exam GI & Abdominal Exam: Soft, Normal Bowel Sounds, Organomegaly. absent: Tenderness Additional comments: RUQ bulging secondary to ventral hernia. large splenomegaly - Extremities Exam Extremities Exam: Normal Inspection. absent: Pedal Edema - Neurological Exam Neurological Exam: Alert, Awake, Oriented x3 - Psychiatric Exam Psychiatric exam: Normal Mood - Skin Skin Exam: Intact, Pallor Assessment and Plan - Assessment and Plan (Free Text) Plan: 81 yo , m , PMhx/o HTN, Diverticulitis, Emphysema, Arthritis, Gout, myelofibrosis, Hypothyroidism, Osteoporosis, Fractures (Hx of Compression Vertebral Fx at T and L spine), (Chronically elevated WBCs) presents to ED c/o bright red bloody diarrhea 1) Acute Lower GI Bleeding -Hx/o diverticulosis. possible secondary to diverticulosis or internal hemorrhoids. -CT Abd: 03/18/14 showed liver cirrhosis and possible portal HTN. CT abd: 10/09: Diverticulosis of the sigmoid colon with subtle adjacent inflammatory changes; correlate clinically for possibility of acute diverticulitis. Marked splenomegaly.Severe L1 and L3 compression fracture deformities, age indeterminate.Enlarged heterogeneous prostate gland. Recommend correlation with PSA. Large bowel containing right anterior abdominal wall hernia without evidence of obstruction -Hb.0 on admission -S/P Transfused 3U rPBC. Hgb: 6.7. Possible hemodilution -GI consult appreciated: schedule EGD today and recommends colonoscopy -Octreotide Acetate IV 253.5 ml daily -Admit ICU -F/U CBC/Hct 2) Acute on chronic Anemia -secondary to low GI bleeding -Hgb: 6.0 on admission -Hgb: 02/24/16 10.8. 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 GFR 30 today -GFR 11/18/14 39 6) Hypothyroidism -TSH 0.3 02/24/16 - continue meds Synthroid 125 mcg PO daily 7) Hx/o Myelofibrosis -08/31/14 wbc baseline from 79 to 39.4 -PLT 538 -ECW Chart documents were reviewed revealing known history of chronic neutrophilia with baseline WBC in 40-50k range as far back as 2006. Last documented Heme/Onc consultation in February [address] Mcmahon with plan for hydroxyurea 500mg every other day but patient has not seen Heme/Onc provider since. -Hem-Onc consult appreciated: recommened flow cytometry, periph blood smear, bone marrow eval. Ferritin, ret count, B12, folate, FOBT 8) Gout -Uric Acid - Allopurinol 100 mg P o daily 9) DVT Prophylaxis -SCD 10) GI prophylaxis -Pantoprazole 40 mg IV -
[2016-10-10 08:44] LABS: HEMATOCRIT 20.3 % (35.0-51.0); MEAN CELL VOLUME 92.9 fl (80.0-94.0); MEAN CORPUSCULAR HEMOGLOBIN 30.5 pg (27.0-31.0); MEAN CORPUSCULAR HGB CONC 32.8 g/dL (33.0-37.0); RED CELL DISTRIBUTION WIDTH 16.7 % (11.5-14.5); WHITE BLOOD COUNT 24.8 K/uL (4.8-10.8)
[2016-10-10 08:56] LABS: ALKALINE PHOSPHATASE 72 U/L (38-126); ALT/SGPT 22 U/L (21-72); AST/SGOT 25 U/L (17-59); BILIRUBIN,TOTAL 0.3 mg/dl (0.2-1.3); BLOOD UREA NITROGEN 53 mg/dl (9-20); CARBON DIOXIDE 22 mmol/L (22-30); CHLORIDE 108 mmol/L (98-107); GFR AFRICAN-AMERICAN 37; GLUCOSE,RANDOM 145 mg/dL (75-110); POTASSIUM 4.5 MMOL/L (3.6-5.0); SODIUM 137 mmol/l (132-148); TOTAL PROTEIN 4.6 G/DL (6.3-8.2)
[2016-10-10 09:27] LABS: THYROID STIMULATING HORMONE 1.96 mIU/ML (0.46-4.68)
[2016-10-10] MEDS ORDERED: DiphenhydrAMINE 50 mg/ml Inj IVP STA (10:28)
[2016-10-10 11:30] LABS: HEMATOCRIT 19.8 % (35.0-51.0); MEAN CORPUSCULAR HEMOGLOBIN 31.3 pg (27.0-31.0); WHITE BLOOD COUNT 24.4 K/uL (4.8-10.8)
[2016-10-10 11:36] LABS: BILIRUBIN,TOTAL 0.4 mg/dl (0.2-1.3)
[2016-10-10] MEDS: Levothyroxine 100 mcg (0.1 mg) Inj IVP SCH (12:12)
[2016-10-10] MEDS ORDERED: Acetaminophen 650mg/20.3ml solution UD PO ONE (12:23)
[2016-10-10] MEDS ORDERED: methylPREDNISolone 40 MG in Sodium Chloride 0.9% 50 ML IVPB ONE (12:24)
[2016-10-10] MEDS ORDERED: MethylPREDNISolone 40 mg Vial ONE (12:50)
[2016-10-10 13:01] LABS: RBC URINE < 1 /hpf (0-3); URINE BILIRUBIN NEGATIVE (NEGATIVE); URINE BLOOD SMALL (NEGATIVE); URINE COLOR YELLOW (YELLOW); URINE GLUCOSE (UA) NEG (Normal); URINE KETONE NEGATIVE (NEGATIVE); URINE LEUKOCYTE ESTERASE NEG Leu/uL (Negative); URINE PROTEIN NEGATIVE (NEGATIVE); URINE UROBILINOGEN 0.2-1.0 mg/dL (0.2-1.0); WBC URINE < 1 /hpf (0-5)
--- NOTE | 2016-10-10 13:41 | CT ---
PROCEDURE: CT HEAD WITHOUT CONTRAST. HISTORY: r/in benadryl response COMPARISON: 03/16/2008 TECHNIQUE: Axial computed tomography images were obtained through the head/brain without intravenous contrast. Radiation dose: Total exam DLP = 956.30 mGy-cm. FINDINGS: HEMORRHAGE: No intracranial hemorrhage. BRAIN: No mass effect or edema. Mild to moderate diffuse age-appropriate atrophy. Moderate periventricular white matter lucency consistent with chronic microvascular ischemic change. No evidence of acute infarct. VENTRICLES: Unremarkable. No hydrocephalus. CALVARIUM: Unremarkable. PARANASAL SINUSES: There is extensive mucoperiosteal thickening in the right sphenoid sinus with thickening and sclerosis of the sinus larose, new since 2007. No expansion. Chronic left maxillary sinusitis peer MASTOID AIR CELLS: Unremarkable as visualized. No inflammatory changes. OTHER FINDINGS: None. IMPRESSION: No intracranial mass, hemorrhage or evidence of acute infarct. Age-appropriate involutional changes. Chronic paranasal sinusitis as above.
--- NOTE | 2016-10-10 16:27 | NM ---
PROCEDURE: Nuclear medicine gastrointestinal bleeding scan. HISTORY: GI bleed, hgb 6 COMPARISON: None available. TECHNIQUE: 4 cc of patient blood was withdrawn and mixed with 21 mCi of technetium ultra tagged. Images of the abdomen and pelvis were obtained in the anterior and posterior projection at 1 min intervals over a period of 45 min. FINDINGS: No abnormal extravasation of tracer was observed throughout the exam to indicate active bleeding within or outside the gastrointestinal tract. Physiologic activity was seen in the heart, liver, spleen and blood vessels. IMPRESSION: No evidence of active gastrointestinal bleeding.
--- NOTE | 2016-10-10 17:29 | CP.PCM.CON ---
History of Present Illness - History of Present Illness History of Present Illness: 81 y/o male with Hx/o Myelofibrosis,chronic leukocytosis,chronic kidney dis, Alcohol use & liver cirrhosis, Hypothyroidism,Osteoporosis with comression fractures of thoracic & lumbar spine, Gout is admitted to [facility] of lower GI bleed with low Hb. renal consultation is requested for evaluation of abnormal kidney function Family denied Hx/o kidney dis in the family. Past Patient History - Infectious Disease Hx of Infectious Diseases: None - Tetanus Immunizations Tetanus Immunization: Unknown - Past Medical History & Family History Past Medical History?: Yes - Past Social History Smoking Status: Former Smoker - CARDIAC Hx Hypertension: Yes - PULMONARY Hx Emphysema: Yes Other/Comment: FORMER SMOKER - NEUROLOGICAL Hx Neurological Disorder: No - HEENT Other/Comment: red eyes - RENAL Other/Comment: CHRONIC KIDNEY DISEASE - ENDOCRINE/METABOLIC Hx Hypothyroidism: Yes - HEMATOLOGICAL/ONCOLOGICAL Hx Blood Disorders: Yes (chronic leukocytosis) - INTEGUMENTARY Hx Dermatological Problems: Yes Hx Psoriasis: Yes - MUSCULOSKELETAL/RHEUMATOLOGICAL Hx Arthritis: Yes Hx Falls: Yes Hx Fractures: Yes (Hx of Compression Vertebral Fx at T and L spine) Hx Gout: Yes Hx Osteoporosis: (Chronically elevated WBCs) - GASTROINTESTINAL Hx Diverticulitis: Yes Other/Comment: LIVER CIRRHOSIS - GENITOURINARY/GYNECOLOGICAL Hx Genitourinary Disorders: No - PSYCHIATRIC Hx Psychophysiologic Disorder: No Hx Substance Use: No - SURGICAL HISTORY Hx Cholecystectomy: Yes - ANESTHESIA Hx Anesthesia: Yes Hx Anesthesia Reactions: No Meds Allergies/Adverse Reactions: Allergies Allergy/AdvReac Type Severity Reaction Status Date / Time morphine Allergy URTICARIA Verified 10/09/16 11:55 vancomycin Allergy RASH Verified 10/09/16 11:55 - Medications Medications: Current Medications Acetaminophen (Tylenol 650 Mg Supp) 650 mg HI ONCE PRN PRN Reason: Other Octreotide Acetate 1,250 mcg/ (Sodium Chloride) 252.5 mls @ 10.1 mls/hr IV .Q24H SATURNINO PRN Reason: 50 MCG/HR Stop: 10/14/16 18:46 Last Admin: 10/09/16 21:00 Dose: 10.1 mls/hr Pantoprazole Sodium 40 mg/ (Sodium Chloride) 100 mls @ 20 mls/hr IVPB Q5H SATURNINO PRN Reason: 8 MG/HR Levothyroxine Sodium (Synthroid) 50 mcg IVP DAILY [facility] Last Admin: 10/10/16 12:12 Dose: 50 mcg Physical Exam - Constitutional Appears: Chronically Ill - Head Exam Head Exam: ATRAUMATIC, NORMOCEPHALIC - Eye Exam Additional comments: Comjunctiva pale. Sclerae anicteric - ENT Exam ENT Exam: Mucous Membranes Moist - Neck Exam Neck exam: Positive for: Normal Inspection - Respiratory Exam Additional comments: Lungs clear - Cardiovascular Exam Cardiovascular Exam: REGULAR RHYTHM, Systolic Murmur Additional comments: harsh systolic murmur @ LSB - GI/Abdominal Exam GI & Abdominal Exam: Soft Additional comments: Abd nontender. No CVA tenderness - Rectal Exam Rectal Exam: Deferred - Extremities Exam Additional comments: No edema or cyanosis Results - Vital Signs Recent Vital Signs: Last Vital Signs Temp 97.7 F 10/10/16 12:00 Pulse 59 L 10/10/16 12:00 Resp 11 L 10/10/16 12:00 BP 112/53 L 10/10/16 12:00 Pulse Ox 100 10/10/16 12:00 - Labs Result Diagrams: 10/10/16 10:45 10/10/16 10:45 Labs: Laboratory Results - last 24 hr 10/09/16 10/09/16 10/10/16 16:00 23:58 02:03 WBC 28.8 H D RBC 2.06 L Hgb 6.4 L* Hct 19.5 L MCV 94.8 H D MCH 30.9 MCHC 32.6 L RDW 16.8 H Plt Count 362 D MPV 9.8 Neut % (Auto) 85.9 H Lymph % (Auto) 6.4 L [place] % (Auto) 6.6 Eos % (Auto) 0.8 Baso % (Auto) 0.3 Neut # 24.7 H Lymph # 1.9 [place] # 1.9 H Eos # 0.2 Baso # 0.1 Retic Count PT INR APTT Sodium 132 Potassium 5.5 H Chloride 109 H Carbon Dioxide 15 L Anion Gap 14 BUN 60 H Creatinine 2.2 H Est GFR ( Amer) 35 Est GFR (Non-Af Amer) 29 Random Glucose 106 Lactic Acid Uric Acid 8.4 Calcium 7.1 L Ferritin Total Bilirubin AST ALT Alkaline Phosphatase Total Protein Albumin Globulin Albumin/Globulin Ratio Vitamin B12 TSH 3rd Generation Urine Color Urine Clarity Urine pH Ur Specific [place] Urine Protein Urine Glucose (UA) Urine Ketones Urine Blood Urine Nitrate Urine Bilirubin Urine Urobilinogen Ur Leukocyte Esterase Urine RBC (Auto) Urine Microscopic WBC Hepatitis A IgM Ab Negative Hep Bs Antigen Negative Hep B Core IgM Ab Negative Hepatitis C Antibody Negative Reaction Clerical Check Pre-Trans Blood Type Pre-Trans Bld Appearanc Pre-Trans GREG[place]IA Post-Trans Blood Type Post-Trans Spec Appear Post-Trans G[place]IA 10/10/16 10/10/16 10/10/16 08:33 10:45 Unknown WBC 24.8 H 24.4 H RBC 2.18 L 2.15 L Hgb 6.7 L 6.7 L Hct 20.3 L 19.8 L MCV 92.9 92.0 MCH 30.5 31.3 H MCHC 32.8 L 34.0 RDW 16.7 H 17.0 H Plt Count 328 320 MPV Neut % (Auto) Lymph % (Auto) [place] % (Auto) Eos % (Auto) Baso % (Auto) Neut # Lymph # [place] # Eos # Baso # Retic Count 1.2 PT 17.1 H INR 1.64 H APTT 38.5 H Sodium 137 Potassium 4.5 Chloride 108 H Carbon Dioxide 22 Anion Gap 12 BUN 53 H 52 H Creatinine 2.1 H 2.0 H Est GFR ( Amer) 37 39 Est GFR (Non-Af Amer) 30 32 Random Glucose 145 H Lactic Acid 1.2 Uric Acid Calcium 7.0 L Ferritin 154.0 Total Bilirubin 0.3 0.4 AST 25 ALT 22 Alkaline Phosphatase 72 Total Protein 4.6 L Albumin 2.3 L D Globulin 2.3 Albumin/Globulin Ratio 1.0 Vitamin B12 > 1000 H TSH 3rd Generation 1.96 Urine Color Yellow Urine Clarity Clear Urine pH 8.0 Ur Specific [place] 1.006 Urine Protein Negative Urine Glucose (UA) Neg Urine Ketones Negative Urine Blood Small Urine Nitrate Negative Urine Bilirubin Negative Urine Urobilinogen 0.2-1.0 Ur Leukocyte Esterase Neg Urine RBC (Auto) < 1 Urine Microscopic WBC < 1 Hepatitis A IgM Ab Hep Bs Antigen Hep B Core IgM Ab Hepatitis C Antibody Reaction Clerical Check No discrepancy Pre-Trans Blood Type A POSITIVE Pre-Trans Bld [place] No hemolysis Pre-Trans [place] Negative Post-Trans Blood Type A POSITIVE Post-Trans Spec Appear No hemolysis Post-Trans [place] Negative Assessment & Plan - Assessment and Plan (Free Text) Assessment: Acute on chronic renal failure may be sec to GI bleed low density kidney lesions Lower GI bleed Liver Cirrhosis, coagulopathy Leukocytosis, Myelofibrosis Plan: Monitor renal function. Urine out put good CT of abdomen & pelvis report reviewed. Pt has numerous low density lesions in both kidneys. Will order renal US to evaluate for cysts
--- NOTE | 2016-10-10 18:24 | CP.PCM.PN ---
Subjective - Date & Time of Evaluation Date of Evaluation: 10/10/16 Time of Evaluation: 14:00 - Subjective Subjective: Tried to see patient. He was in Ct scan. Scheduled for EGd which was rescheduled for am due to neurology deficit and neurology clearance. Bleeding scan recommended for ongoing rectal bleeding. Will follow Objective - Vital Signs/Intake and Output Vital Signs (last 24 hours): Temp Pulse Resp BP Pulse Ox 97.7 F 59 L 11 L 112/53 L 100 10/10/16 12:00 10/10/16 12:00 10/10/16 12:00 10/10/16 12:00 10/10/16 12:00 Intake and Output: 10/10/16 10/10/16 06:59 18:59 Intake Total 2685 1165 Output Total 780 1100 Balance 1905 65 - Medications Medications: Current Medications Acetaminophen (Tylenol 650 Mg Supp) 650 mg MI ONCE PRN PRN Reason: Other Last Admin: 10/10/16 13:20 Dose: 650 mg Octreotide Acetate 1,250 mcg/ (Sodium Chloride) 252.5 mls @ 10.1 mls/hr IV .Q24H SATURNINO PRN Reason: 50 MCG/HR Stop: 10/14/16 18:46 Last Admin: 10/09/16 21:00 Dose: 10.1 mls/hr Pantoprazole Sodium 40 mg/ (Sodium Chloride) 100 mls @ 20 mls/hr IVPB Q5H SATURNINO PRN Reason: 8 MG/HR Levothyroxine Sodium (Synthroid) 50 mcg IVP DAILY SATURNINO Last Admin: 10/10/16 12:12 Dose: 50 mcg - Labs Labs: 10/10/16 10:45 10/10/16 10:45 PT 17.1 SECONDS (9.6-11.2) H 10/10/16 08:33 INR 1.64 (0.92-1.08) H 10/10/16 08:33 APTT 38.5 SECONDS (23.3-32.5) H 10/10/16 10:45
[2016-10-10 18:46] LABS: FOLATE > 20.0 ng/mL
[2016-10-11] MEDS: Pantoprazole 40 MG in Sodium Chloride 0.9% 100 ML IVPB SCH ×6 (00:23→22:51)
[2016-10-11 01:35] LABS: BASO # 0.3 K/uL (0.0-0.2); BASO % 0.7 % (0.0-2.0); EOS # 0.2 K/uL (0.0-0.7); EOS % 0.5 % (0.0-4.0); HEMATOCRIT 28.5 % (35.0-51.0); LYMPH # 1.9 K/uL (1.0-4.3); LYMPH % 4.1 % (20.0-40.0); MEAN CELL VOLUME 92.7 fl (80.0-94.0); MEAN CORPUSCULAR HGB CONC 31.2 g/dL (33.0-37.0); MEAN PLATELET VOLUME 10.4 fl (7.2-11.7); MONO # 0.9 K/uL (0.0-0.8); MONO % 1.9 % (0.0-10.0); NEUT # 42.4 K/uL (1.8-7.0); NEUT % 92.8 % (50.0-75.0); NRBC % 0.1 % (0.0-0.0); PLATELET COUNT 322 K/uL (130-400); RED CELL DISTRIBUTION WIDTH 17.3 % (11.5-14.5)
[2016-10-11 01:46] LABS: WHITE BLOOD COUNT 45.7 K/uL (4.8-10.8)
[2016-10-11 05:24] LABS: NEUTROPHIL 82 % (42-75); TOTAL CELLS COUNTED 100
[2016-10-11 06:56] LABS: BILIRUBIN,TOTAL 0.5 mg/dl (0.2-1.3); CALCIUM 7.4 mg/dL (8.4-10.2); POTASSIUM 4.5 MMOL/L (3.6-5.0); TOTAL PROTEIN 5.3 G/DL (6.3-8.2)
--- NOTE | 2016-10-11 07:27 | CP.CCUPN ---
CCU Subjective - Physician Review Subjective (Free Text): Pt seen and examined at bedside in the ICU. Pt states he had one episode yesterday evening and another early this morning of bright red blood per rectum. Currently, he denies fevers/chills, n/v/d/c, headaches, dizziness, cp, sob, cough, abd pain, hematuria, dysuria, or myalgias. CCU Objective - Vital Signs / Intake & Output Vital Signs (Last 4 hours): Vital Signs Temp Pulse Resp BP Pulse Ox 10/11/16 06:00 97.8 F 62 18 129/52 L 100 10/11/16 04:00 46 L 14 135/54 L 100 Intake and Output (Last 8hrs): Intake & Output 10/10/16 10/11/16 10/11/16 22:59 06:59 14:59 Intake Total 1140 450 Output Total 1125 450 Balance 15 0 Intake: IV 90 300 Oral 300 Blood Product 750 150 Output: Urine 1125 100 Urine, Voided 1125 100 Urine/Stool Mix 350 Other: # Voids Urine, Voided 2 # Bowel Movements 1 - Physical Exam Head: Positive for: Atraumatic, Normocephalic Pupils: Positive for: PERRL Extroacular Muscles: Positive for: EOMI Conjunctiva: Positive for: Normal Mouth: Positive for: Dry Neck: Positive for: Normal Range of Motion. Negative for: MIDLINE TENDERNESS, JVD Respiratory/Chest: Positive for: Good Air Exchange. Negative for: Rales, Rhonchi Cardiovascular: Positive for: Regular Rate and Rhythm. Negative for: Tachycardic, Bradycardic Abdomen: Positive for: Normal Bowel Sounds. Negative for: Tenderness, Distention Upper Extremity: Positive for: Normal Inspection, Normal ROM. Negative for: Edema Lower Extremity: Positive for: Normal Inspection, Normal ROM. Negative for: Edema Neurological: Positive for: GCS=15, CN II-XII Intact Psychiatric: Positive for: Alert, Oriented x 3 - Medications Active Medications: Active Medications Generic Name Dose Route Start Last Admin Trade Name Freq PRN Reason Stop Dose Admin Acetaminophen 650 mg 10/10/16 12:55 10/10/16 13:20 Tylenol 650 Mg Supp MS 650 mg ONCE PRN Administration Other Octreotide Acetate 1,250 mcg/ 252.5 mls @ 10.1 mls/hr 10/09/16 18:45 10/09/16 21:00 Sodium Chloride IV 10/14/16 18:46 10.1 mls/hr .Q24H SATURNINO Administration 50 MCG/HR Pantoprazole Sodium 40 mg/ 100 mls @ 20 mls/hr 10/10/16 13:00 10/11/16 06:40 Sodium Chloride IVPB 20 mls/hr Q5H SATURNINO Administration 8 MG/HR Levothyroxine Sodium 50 mcg 10/10/16 09:00 10/10/16 12:12 Synthroid IVP 50 mcg DAILY SATURNINO Administration - Patient Studies Lab Studies: Lab Studies 10/11/16 10/11/16 10/10/16 Range/Units 06:34 01:00 Unknown WBC 45.7 H* D (4.8-10.8) K/uL RBC 3.07 L (4.40-5.90) Mil/uL Hgb 8.9 L D (12.0-18.0) g/dL Hct 28.5 L (35.0-51.0) % MCV 92.7 (80.0-94.0) fl MCH 29.0 (27.0-31.0) pg MCHC 31.2 L (33.0-37.0) g/dL RDW 17.3 H (11.5-14.5) % Plt Count 322 (130-400) K/uL MPV 10.4 (7.2-11.7) fl Neut % (Auto) 92.8 H (50.0-75.0) % Lymph % (Auto) 4.1 L (20.0-40.0) % Maury % (Auto) 1.9 (0.0-10.0) % Eos % (Auto) 0.5 (0.0-4.0) % Baso % (Auto) 0.7 (0.0-2.0) % Neut # 42.4 H (1.8-7.0) K/uL Lymph # 1.9 (1.0-4.3) K/uL Maury # 0.9 H (0.0-0.8) K/uL Eos # 0.2 (0.0-0.7) K/uL Baso # 0.3 H (0.0-0.2) K/uL Neutrophils % (Manual) 82 H (42-75) % Band Neutrophils % 12 H* (0-2) % Lymphocytes % (Manual) 3 L (20-50) % Monocytes % (Manual) 3 (0-10) % Platelet Estimate Normal (NORMAL) Anisocytosis (manual) Slight Tear Drop Cells Slight Ovalocytes Slight Angel Cells Slight Schistocytes Slight Retic Count (0.5-1.5) % PT (9.6-11.2) SECONDS INR (0.92-1.08) APTT (23.3-32.5) SECONDS Sodium 139 (132-148) mmol/l Potassium 4.5 (3.6-5.0) MMOL/L Chloride 109 H (98-107) mmol/L Carbon Dioxide 20 L (22-30) mmol/L Anion Gap 15 (10-20) BUN 42 H (9-20) mg/dl Creatinine 1.9 H (0.8-1.5) mg/dL Est GFR ( Amer) 41 Est GFR (Non-Af Amer) 34 Random Glucose 126 H (75-110) mg/dL Lactic Acid (0.7-2.1) MMOL/L Calcium 7.4 L (8.4-10.2) mg/dL Ferritin ng/mL Total Bilirubin 0.5 (0.2-1.3) mg/dl AST 34 (17-59) U/L ALT 29 (21-72) U/L Alkaline Phosphatase 117 (38-126) U/L Total Protein 5.3 L (6.3-8.2) G/DL Albumin 2.7 L (3.5-5.0) g/dL Globulin 2.6 (2.2-3.9) gm/dL Albumin/Globulin Ratio 1.0 (1.0-2.1) Vitamin B12 (239-931) pg/mL Folate ng/mL TSH 3rd Generation (0.46-4.68) mIU/ML Urine Color Yellow (YELLOW) Urine Clarity Clear (Clear) Urine pH 8.0 (5.0-8.0) Ur Specific Nora 1.006 (1.003-1.030) Urine Protein Negative (NEGATIVE) mg/dL Urine Glucose (UA) Neg (Normal) mg/dL Urine Ketones Negative (NEGATIVE) mg/dL Urine Blood Small (NEGATIVE) Urine Nitrate Negative (NEGATIVE) Urine Bilirubin Negative (NEGATIVE) Urine Urobilinogen 0.2-1.0 (0.2-1.0) mg/dL Ur Leukocyte Esterase Neg (Negative) Valerie/uL Urine RBC (Auto) < 1 (0-3) /hpf Urine Microscopic WBC < 1 (0-5) /hpf Hepatitis A IgM Ab (NEGATIVE) Hep Bs Antigen (NEGATIVE) Hep B Core IgM Ab (NEGATIVE) Hepatitis C Antibody (NEGATIVE) Reaction Clerical Check (NO DISCREPA) Pre-Trans Blood Type Pre-Trans Bld Appearanc (NO HEMOLYSI) Pre-Trans GREGORIA (NEGATIVE) Post-Trans Blood Type Post-Trans Spec Appear (NO HEMOLYSI) Post-Trans GREG[place]IA (NEGATIVE) 10/10/16 10/10/16 10/09/16 Range/Units 10:45 08:33 16:00 WBC 24.4 H 24.8 H (4.8-10.8) K/uL RBC 2.15 L 2.18 L (4.40-5.90) Mil/uL Hgb 6.7 L 6.7 L (12.0-18.0) g/dL Hct 19.8 L 20.3 L (35.0-51.0) % MCV 92.0 92.9 (80.0-94.0) fl MCH 31.3 H 30.5 (27.0-31.0) pg MCHC 34.0 32.8 L (33.0-37.0) g/dL RDW 17.0 H 16.7 H (11.5-14.5) % Plt Count 320 328 (130-400) K/uL MPV (7.2-11.7) fl Neut % (Auto) (50.0-75.0) % Lymph % (Auto) (20.0-40.0) % Maury % (Auto) (0.0-10.0) % Eos % (Auto) (0.0-4.0) % Baso % (Auto) (0.0-2.0) % Neut # (1.8-7.0) K/uL Lymph # (1.0-4.3) K/uL Maury # (0.0-0.8) K/uL Eos # (0.0-0.7) K/uL Baso # (0.0-0.2) K/uL Neutrophils % (Manual) (42-75) % Band Neutrophils % (0-2) % Lymphocytes % (Manual) (20-50) % Monocytes % (Manual) (0-10) % Platelet Estimate (NORMAL) Anisocytosis (manual) Tear Drop Cells Ovalocytes Angel Cells Schistocytes Retic Count 1.2 (0.5-1.5) % PT 17.1 H (9.6-11.2) SECONDS INR 1.64 H (0.92-1.08) APTT 38.5 H (23.3-32.5) SECONDS Sodium 137 (132-148) mmol/l Potassium 4.5 (3.6-5.0) MMOL/L Chloride 108 H (98-107) mmol/L Carbon Dioxide 22 (22-30) mmol/L Anion Gap 12 (10-20) BUN 52 H 53 H (9-20) mg/dl Creatinine 2.0 H 2.1 H (0.8-1.5) mg/dL Est GFR ( Amer) 39 37 Est GFR (Non-Af Amer) 32 30 Random Glucose 145 H (75-110) mg/dL Lactic Acid 1.2 (0.7-2.1) MMOL/L Calcium 7.0 L (8.4-10.2) mg/dL Ferritin 154.0 ng/mL Total Bilirubin 0.4 0.3 (0.2-1.3) mg/dl AST 25 (17-59) U/L ALT 22 (21-72) U/L Alkaline Phosphatase 72 (38-126) U/L Total Protein 4.6 L (6.3-8.2) G/DL Albumin 2.3 L D (3.5-5.0) g/dL Globulin 2.3 (2.2-3.9) gm/dL Albumin/Globulin Ratio 1.0 (1.0-2.1) Vitamin B12 > 1000 H (239-931) pg/mL Folate > 20.0 ng/mL TSH 3rd Generation 1.96 (0.46-4.68) mIU/ML Urine Color (YELLOW) Urine Clarity (Clear) Urine pH (5.0-8.0) Ur Specific Nora (1.003-1.030) Urine Protein (NEGATIVE) mg/dL Urine Glucose (UA) (Normal) mg/dL Urine Ketones (NEGATIVE) mg/dL Urine Blood (NEGATIVE) Urine Nitrate (NEGATIVE) Urine Bilirubin (NEGATIVE) Urine Urobilinogen (0.2-1.0) mg/dL Ur Leukocyte Esterase (Negative) Valerie/uL Urine RBC (Auto) (0-3) /hpf Urine Microscopic WBC (0-5) /hpf Hepatitis A IgM Ab Negative (NEGATIVE) Hep Bs Antigen Negative (NEGATIVE) Hep B Core IgM Ab Negative (NEGATIVE) Hepatitis C Antibody Negative (NEGATIVE) Reaction Clerical Check No discrepancy (NO DISCREPA) Pre-Trans Blood Type A POSITIVE Pre-Trans Bld Appearanc No hemolysis (NO HEMOLYSI) Pre-Trans GREG[place]IA Negative (NEGATIVE) Post-Trans Blood Type A POSITIVE Post-Trans Spec Appear No hemolysis (NO HEMOLYSI) Post-Trans GREG[place]IA Negative (NEGATIVE) Laboratory Results - last 24 hr 10/09/16 10/10/16 10/10/16 16:00 08:33 10:45 WBC 24.8 H 24.4 H RBC 2.18 L 2.15 L Hgb 6.7 L 6.7 L Hct 20.3 L 19.8 L MCV 92.9 92.0 MCH 30.5 31.3 H MCHC 32.8 L 34.0 RDW 16.7 H 17.0 H Plt Count 328 320 MPV Neut % (Auto) Lymph % (Auto) Maury % (Auto) Eos % (Auto) Baso % (Auto) Neut # Lymph # Maury # Eos # Baso # Neutrophils % (Manual) Band Neutrophils % Lymphocytes % (Manual) Monocytes % (Manual) Platelet Estimate Anisocytosis (manual) Tear Drop Cells Ovalocytes Angel Cells Schistocytes Retic Count 1.2 PT 17.1 H INR 1.64 H APTT 38.5 H Sodium 137 Potassium 4.5 Chloride 108 H Carbon Dioxide 22 Anion Gap 12 BUN 53 H 52 H Creatinine 2.1 H 2.0 H Est GFR ( Amer) 37 39 Est GFR (Non-Af Amer) 30 32 Random Glucose 145 H Lactic Acid 1.2 Calcium 7.0 L Ferritin 154.0 Total Bilirubin 0.3 0.4 AST 25 ALT 22 Alkaline Phosphatase 72 Total Protein 4.6 L Albumin 2.3 L D Globulin 2.3 Albumin/Globulin Ratio 1.0 Vitamin B12 > 1000 H Folate > 20.0 TSH 3rd Generation 1.96 Urine Color Urine Clarity Urine pH Ur Specific Nora Urine Protein Urine Glucose (UA) Urine Ketones Urine Blood Urine Nitrate Urine Bilirubin Urine Urobilinogen Ur Leukocyte Esterase Urine RBC (Auto) Urine Microscopic WBC Hepatitis A IgM Ab Negative Hep Bs Antigen Negative Hep B Core IgM Ab Negative Hepatitis C Antibody Negative Reaction Clerical Check No discrepancy Pre-Trans Blood Type A POSITIVE Pre-Trans Bld Appearanc No hemolysis Pre-Trans GREG[place]IA Negative Post-Trans Blood Type A POSITIVE Post-Trans Spec Appear No hemolysis Post-Trans GREG[place]IA Negative 10/10/16 10/11/16 10/11/16 Unknown 01:00 06:34 WBC 45.7 H* D RBC 3.07 L Hgb 8.9 L D Hct 28.5 L MCV 92.7 MCH 29.0 MCHC 31.2 L RDW 17.3 H Plt Count 322 MPV 10.4 Neut % (Auto) 92.8 H Lymph % (Auto) 4.1 L Maury % (Auto) 1.9 Eos % (Auto) 0.5 Baso % (Auto) 0.7 Neut # 42.4 H Lymph # 1.9 Maury # 0.9 H Eos # 0.2 Baso # 0.3 H Neutrophils % (Manual) 82 H Band Neutrophils % 12 H* Lymphocytes % (Manual) 3 L Monocytes % (Manual) 3 Platelet Estimate Normal Anisocytosis (manual) Slight Tear Drop Cells Slight Ovalocytes Slight [place] Cells Slight Schistocytes Slight Retic Count PT INR APTT Sodium 139 Potassium 4.5 Chloride 109 H Carbon Dioxide 20 L Anion Gap 15 BUN 42 H Creatinine 1.9 H Est GFR ( Amer) 41 Est GFR (Non-Af Amer) 34 Random Glucose 126 H Lactic Acid Calcium 7.4 L Ferritin Total Bilirubin 0.5 AST 34 ALT 29 Alkaline Phosphatase 117 Total Protein 5.3 L Albumin 2.7 L Globulin 2.6 Albumin/Globulin Ratio 1.0 Vitamin B12 Folate TSH 3rd Generation Urine Color Yellow Urine Clarity Clear Urine pH 8.0 Ur Specific Nora 1.006 Urine Protein Negative Urine Glucose (UA) Neg Urine Ketones Negative Urine Blood Small Urine Nitrate Negative Urine Bilirubin Negative Urine Urobilinogen 0.2-1.0 Ur Leukocyte Esterase Neg Urine RBC (Auto) < 1 Urine Microscopic WBC < 1 Hepatitis A IgM Ab Hep Bs Antigen Hep B Core IgM Ab Hepatitis C Antibody Reaction Clerical Check Pre-Trans Blood Type Pre-Trans Bld Appearanc Pre-Trans GREGORIA Post-Trans Blood Type Post-Trans Spec Appear Post-Trans GREGORIA Review of Systems - Review of Systems Review of Systems: see HPI Critical Care Progress Note - Nutrition Nutrition: Nutrition Category Date Time Status Liquid Diet [DIET] Diets 10/10/16 Lunch Active Assessment/Plan - Assessment and Plan (Free Text) Plan: 81yo M w PMHx of CML, EtOH cirrhosis, gout, and hypothyroidism is admitted to ICU for GI bleed w an H/H 6.4/19.5 1) GI Bleed -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 Pt had been scheduled and brought to endoscopy suite, but egd was cancelled due to bradycardia that was noticed at the time. -Total of 5u pRBCs and 2 FFPs given thus far -H/H 9.2/28.6 as of this AM -PT/INR/PTT: 16.6 / 1.60 / 34.5 -[employer] GI Bleed Scan: No active GI bleed at the time --d/c'ed Octreotide on suspicion of being the culprit in the recent bradycardia -Ordered additional 2u FFP to provide additional clotting factors and prevent further bleeding with the d/c of Octreotide -f/u Labs 2) Bradycardia -d/c'ed Octreotide due to likelihood of causing bradycardia; upon chart review, pulse dipped shortly after administration of Octreotide -f/u Vitals -f/u TSH, FT3, FT4 -f/u Cardio Consult 3) CML -WBC 51.5 -Hem/Onc Onboard 4) Hypothyroid -Levothyroxine 50mcg IVP Daily -f/u TSH, T4 5) DVT Prophylaxis -SCDs 6) PICC Line
[2016-10-11 07:42] LABS: BASO # 0.2 K/uL (0.0-0.2); BASO % 0.3 % (0.0-2.0); EOS # 0.2 K/uL (0.0-0.7); EOS % 0.5 % (0.0-4.0); HEMATOCRIT 28.6 % (35.0-51.0); LYMPH # 1.2 K/uL (1.0-4.3); LYMPH % 2.3 % (20.0-40.0); MEAN CELL VOLUME 94.2 fl (80.0-94.0); MEAN CORPUSCULAR HEMOGLOBIN 30.2 pg (27.0-31.0); MEAN CORPUSCULAR HGB CONC 32.1 g/dL (33.0-37.0); MEAN PLATELET VOLUME 10.4 fl (7.2-11.7); MONO # 1.5 K/uL (0.0-0.8); MONO % 2.9 % (0.0-10.0); NEUT # 48.5 K/uL (1.8-7.0); NRBC % 0.1 % (0.0-0.0); RED CELL DISTRIBUTION WIDTH 17.7 % (11.5-14.5)
[2016-10-11 07:48] LABS: WHITE BLOOD COUNT 51.5 K/uL (4.8-10.8)
[2016-10-11] MEDS ORDERED: Etomidate 20 mg/10ml Inj IV ONE (08:18)
[2016-10-11] MEDS ORDERED: Propofol 10 mg/ml Inj (20 ML) ONE (08:18)
[2016-10-11] MEDS ORDERED: Sodium Chloride 0.9% 250 ML IV ONE (08:22)
[2016-10-11] MEDS: Levothyroxine 100 mcg (0.1 mg) Inj IVP SCH (09:38)
[2016-10-11 10:02] LABS: PARTIAL THROMBOPLASTIN TIME 34.5 SECONDS (23.3-32.5)
--- NOTE | 2016-10-11 10:44 | CP.PCM.CON ---
History of Present Illness - History of Present Illness History of Present Illness: Full Note Dictated GI Bleed (?? Source) ETOH induced Cirrhosis of the liver Aortic Stenosis Hypothyroidism Gout Myeloproliferative Disorder (??) Drug induced Bradycardia Reviewed Echo of 2013 ( Mild ), preserved LVEF Echo ordered Past Patient History - Infectious Disease Hx of Infectious Diseases: None - Tetanus Immunizations Tetanus Immunization: Unknown - Past Medical History & Family History Past Medical History?: Yes - Past Social History Smoking Status: Former Smoker - CARDIAC Hx Hypertension: Yes - PULMONARY Hx Emphysema: Yes Other/Comment: FORMER SMOKER - NEUROLOGICAL Hx Neurological Disorder: No - HEENT Other/Comment: red eyes - RENAL Other/Comment: CHRONIC KIDNEY DISEASE - ENDOCRINE/METABOLIC Hx Hypothyroidism: Yes - HEMATOLOGICAL/ONCOLOGICAL Hx Blood Disorders: Yes (chronic leukocytosis) - INTEGUMENTARY Hx Dermatological Problems: Yes Hx Psoriasis: Yes - MUSCULOSKELETAL/RHEUMATOLOGICAL Hx Arthritis: Yes Hx Falls: Yes Hx Fractures: Yes (Hx of Compression Vertebral Fx at T and L spine) Hx Gout: Yes Hx Osteoporosis: (Chronically elevated WBCs) - GASTROINTESTINAL Hx Diverticulitis: Yes Other/Comment: LIVER CIRRHOSIS - GENITOURINARY/GYNECOLOGICAL Hx Genitourinary Disorders: No - PSYCHIATRIC Hx Psychophysiologic Disorder: No Hx Substance Use: No - SURGICAL HISTORY Hx Cholecystectomy: Yes - ANESTHESIA Hx Anesthesia: Yes Hx Anesthesia Reactions: No Meds Allergies/Adverse Reactions: Allergies Allergy/AdvReac Type Severity Reaction Status Date / Time morphine Allergy URTICARIA Verified 10/09/16 11:55 vancomycin Allergy RASH Verified 10/09/16 11:55 - Medications Medications: Current Medications Acetaminophen (Tylenol 650 Mg Supp) 650 mg MD ONCE PRN PRN Reason: Other Last Admin: 10/10/16 13:20 Dose: 650 mg Pantoprazole Sodium 40 mg/ (Sodium Chloride) 100 mls @ 20 mls/hr IVPB Q5H SATURNINO PRN Reason: 8 MG/HR Last Admin: 10/11/16 06:40 Dose: 20 mls/hr Levothyroxine Sodium (Synthroid) 50 mcg IVP DAILY SATURNINO Last Admin: 10/11/16 09:38 Dose: 50 mcg Results - Vital Signs Recent Vital Signs: Last Vital Signs Temp 98.4 F 10/11/16 08:24 Pulse 40 L 10/11/16 08:24 Resp 19 10/11/16 08:24 BP 133/66 10/11/16 08:24 Pulse Ox 99 10/11/16 08:24 - Labs Result Diagrams: 10/11/16 06:34 10/11/16 06:34 Labs: Laboratory Results - last 24 hr 10/09/16 10/10/16 10/10/16 16:00 08:33 10:45 WBC 24.4 H RBC 2.15 L Hgb 6.7 L Hct 19.8 L MCV 92.0 MCH 31.3 H MCHC 34.0 RDW 17.0 H Plt Count 320 MPV Neut % (Auto) Lymph % (Auto) Swisher % (Auto) Eos % (Auto) Baso % (Auto) Neut # Lymph # Swisher # Eos # Baso # Total Counted Neutrophils % (Manual) Band Neutrophils % Lymphocytes % (Manual) Reactive Lymphs % Monocytes % (Manual) Eosinophils % (Manual) Basophils % (Manual) Metamyelocytes % Myelocytes % Promyelocytes % Blast Cells % Plasma Cell % (Manual) Nucleated RBC % Hypersegmented Polys Smudge Cells Toxic Granulation Dohle Bodies Dominga Rods Platelet Estimate Plt Clumps, EDTA Large Platelets Giant Platelets RBC Morphology Polychromasia Hypochromasia (manual) Poikilocytosis (manual Basophilic Stippling Anisocytosis (manual) Microcytosis (manual) Macrocytosis (manual) Spherocytes Sickle Cells Target Cells Tear Drop Cells Ovalocytes Stomatocytes Helmet Cells [place] Bodies Angel Cells Acanthocytes (Spur) Rouleaux Schistocytes PT INR APTT 38.5 H Sodium Potassium Chloride Carbon Dioxide Anion Gap BUN 52 H Creatinine 2.0 H Est GFR ( Amer) 39 Est GFR (Non-Af Amer) 32 Random Glucose Calcium Total Bilirubin 0.4 AST ALT Alkaline Phosphatase Total Protein Albumin Globulin Albumin/Globulin Ratio Folate > 20.0 Urine Color Urine Clarity Urine pH Ur Specific [place] Urine Protein Urine Glucose (UA) Urine Ketones Urine Blood Urine Nitrate Urine Bilirubin Urine Urobilinogen Ur Leukocyte Esterase Urine RBC (Auto) Urine Microscopic WBC Hepatitis A IgM Ab Negative Hep Bs Antigen Negative Hep B Core IgM Ab Negative Hepatitis C Antibody Negative Reaction Clerical Check No discrepancy Pre-Trans Blood Type A POSITIVE Pre-Trans Bld Appearanc No hemolysis Pre-Trans GREGORIA Negative Post-Trans Blood Type A POSITIVE Post-Trans Spec Appear No hemolysis Post-Trans GREG[place]IA Negative 10/10/16 10/11/16 10/11/16 Unknown 01:00 06:34 WBC 45.7 H* D 51.5 H* RBC 3.07 L 3.03 L Hgb 8.9 L D 9.2 L Hct 28.5 L 28.6 L MCV 92.7 94.2 H MCH 29.0 30.2 MCHC 31.2 L 32.1 L RDW 17.3 H 17.7 H Plt Count 322 351 MPV 10.4 10.4 Neut % (Auto) 92.8 H 94.0 H Lymph % (Auto) 4.1 L 2.3 L Swisher % (Auto) 1.9 2.9 Eos % (Auto) 0.5 0.5 Baso % (Auto) 0.7 0.3 Neut # 42.4 H 48.5 H Lymph # 1.9 1.2 Swisher # 0.9 H 1.5 H Eos # 0.2 0.2 Baso # 0.3 H 0.2 Total Counted Cancelled Neutrophils % (Manual) 82 H Cancelled Band Neutrophils % 12 H* Cancelled Lymphocytes % (Manual) 3 L Cancelled Reactive Lymphs % Cancelled Monocytes % (Manual) 3 Cancelled Eosinophils % (Manual) Cancelled Basophils % (Manual) Cancelled Metamyelocytes % Cancelled Myelocytes % Cancelled Promyelocytes % Cancelled Blast Cells % Cancelled Plasma Cell % (Manual) Cancelled Nucleated RBC % Cancelled Hypersegmented Polys Cancelled Smudge Cells Cancelled Toxic Granulation Cancelled Dohle Bodies Cancelled Dominga Rods Cancelled Platelet Estimate Normal Cancelled Plt Clumps, EDTA Cancelled Large Platelets Cancelled Giant Platelets Cancelled RBC Morphology Cancelled Polychromasia Cancelled Hypochromasia (manual) Cancelled Poikilocytosis (manual Cancelled Basophilic Stippling Cancelled Anisocytosis (manual) Slight Cancelled Microcytosis (manual) Cancelled Macrocytosis (manual) Cancelled Spherocytes Cancelled Sickle Cells Cancelled Target Cells Cancelled Tear Drop Cells Slight Cancelled Ovalocytes Slight Cancelled Stomatocytes Cancelled Helmet Cells Cancelled [place] Bodies Cancelled [place] Cells Slight Cancelled Acanthocytes (Spur) Cancelled Rouleaux Cancelled Schistocytes Slight Cancelled PT 16.6 H INR 1.60 H APTT 34.5 H Sodium 139 Potassium 4.5 Chloride 109 H Carbon Dioxide 20 L Anion Gap 15 BUN 42 H Creatinine 1.9 H Est GFR ( Amer) 41 Est GFR (Non-Af Amer) 34 Random Glucose 126 H Calcium 7.4 L Total Bilirubin 0.5 AST 34 ALT 29 Alkaline Phosphatase 117 Total Protein 5.3 L Albumin 2.7 L Globulin 2.6 Albumin/Globulin Ratio 1.0 Folate Urine Color Yellow Urine Clarity Clear Urine pH 8.0 Ur Specific [place] 1.006 Urine Protein Negative Urine Glucose (UA) Neg Urine Ketones Negative Urine Blood Small Urine Nitrate Negative Urine Bilirubin Negative Urine Urobilinogen 0.2-1.0 Ur Leukocyte Esterase Neg Urine RBC (Auto) < 1 Urine Microscopic WBC < 1 Hepatitis A IgM Ab Hep Bs Antigen Hep B Core IgM Ab Hepatitis C Antibody Reaction Clerical Check Pre-Trans Blood Type Pre-Trans Bld Appearanc Pre-Trans GREGORIA Post-Trans Blood Type Post-Trans Spec Appear Post-Trans GREGORIA
--- NOTE | 2016-10-11 11:46 | CP.PCM.PN ---
Subjective - Date & Time of Evaluation Date of Evaluation: 10/11/16 Time of Evaluation: 07:25 - Subjective Subjective: Patient seen and examined bedside. Agitation and combative last night. Haldol given. Patient had 1 rectal bleeding yesterday and today in the morning with visible moderate bright red rectal bleeding. AAO x3 now , responsive. Patient aware that is having rectal bleeding. Denies chest pain, SOB, nausea, vomiting. Objective - Vital Signs/Intake and Output Vital Signs (last 24 hours): Temp Pulse Resp BP Pulse Ox 98.4 F 40 L 19 133/66 99 10/11/16 08:24 10/11/16 08:24 10/11/16 08:24 10/11/16 08:24 10/11/16 08:24 Intake and Output: 10/11/16 10/11/16 06:59 18:59 Intake Total 780 0 Output Total 875 Balance -95 0 - Medications Medications: Current Medications Acetaminophen (Tylenol 650 Mg Supp) 650 mg IA ONCE PRN PRN Reason: Other Last Admin: 10/10/16 13:20 Dose: 650 mg Pantoprazole Sodium 40 mg/ (Sodium Chloride) 100 mls @ 20 mls/hr IVPB Q5H SATURNINO PRN Reason: 8 MG/HR Last Admin: 10/11/16 06:40 Dose: 20 mls/hr Levothyroxine Sodium (Synthroid) 50 mcg IVP DAILY [facility] Last Admin: 10/11/16 09:38 Dose: 50 mcg - Labs Labs: 10/11/16 06:34 10/11/16 06:34 PT 16.6 SECONDS (9.6-11.2) H 10/11/16 06:34 INR 1.60 (0.92-1.08) H 10/11/16 06:34 APTT 34.5 SECONDS (23.3-32.5) H 10/11/16 06:34 - Constitutional Appears: Non-toxic, No Acute Distress - Head Exam Head Exam: ATRAUMATIC - Respiratory Exam Respiratory Exam: Clear to Ausculation Bilateral. absent: Rales, Rhonchi, Wheezes - Cardiovascular Exam Cardiovascular Exam: REGULAR RHYTHM, +S1, +S2 Additional comments: 3/6 systolic murmur - GI/Abdominal Exam GI & Abdominal Exam: Soft, Normal Bowel Sounds, Organomegaly. absent: Tenderness, Rebound Additional comments: RUQ: bulging secondary to ventral hernia. splenomegaly - Extremities Exam Extremities Exam: Normal Inspection. absent: Calf Tenderness, Pedal Edema - Neurological Exam Neurological Exam: Alert, Awake, Oriented x3 - Psychiatric Exam Psychiatric exam: Normal Affect, Normal Mood - Skin Skin Exam: Intact Assessment and Plan - Assessment and Plan (Free Text) Plan: 81 yo , m , PMhx/o HTN, Diverticulitis, Emphysema, Arthritis, Gout, myelofibrosis, Hypothyroidism, Osteoporosis, Fractures (Hx of Compression Vertebral Fx at T and L spine), (Chronically elevated WBCs) presents to ED c/o bright red bloody diarrhea 1) Acute Lower GI Bleeding -Hx/o diverticulosis. possible secondary to diverticulosis, internal hemorrhoids or angiodysplasia. -CT Abd: 03/18/14 showed liver cirrhosis and possible portal HTN. CT abd: 10/09: Diverticulosis of the sigmoid colon with subtle adjacent inflammatory changes; correlate clinically for possibility of acute diverticulitis. Marked splenomegaly.Severe L1 and L3 compression fracture deformities, age indeterminate.Enlarged heterogeneous prostate gland. Recommend correlation with PSA. Large bowel containing right anterior abdominal wall hernia without evidence of obstruction -S/P Transfused 2 U rPBC yesterday . Hgb: 9.2 -GI consult appreciated: GI bleeding scan neg. EGD cancelled today due to bradycardia possible secondary to medication Octreotide -Octreotide Acetate hold -Cardio Consult Appreciated. Echo ordered -F/U CBC/Hct 2) Acute on chronic Anemia -secondary to low GI bleeding - s/p Transfused 2 U rPBC -Hgb: 9.2 -Hgb: 02/24/16 10.8. Hx/o myelofibrosis 3) Delirium Hyperactive -resolved. 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 GFR 34 today -GFR 11/18/14 39 -Nephro consult appreciated: Recommends renal US. 6) Hypothyroidism -TSH 0.3 02/24/16 - continue meds Synthroid 125 mcg PO daily 7) Hx/o Myelofibrosis -08/31/14 wbc baseline from 79 to 39.4 -PLT 538 -ECW Chart documents were reviewed revealing known history of chronic neutrophilia with baseline WBC in 40-50k range as far back as 2006. Last documented Heme/Onc consultation in February [address] Mcmahon with plan for hydroxyurea 500mg every other day but patient has not seen Heme/Onc provider since. -Hem-Onc consult appreciated: recommened flow cytometry, periph blood smear, bone marrow eval. Ferritin, ret count, B12, folate, FOBT -Serum protein electrophoresis 8) Gout -Uric Acid - Allopurinol 100 mg P o daily 9) DVT Prophylaxis -SCD 10) GI prophylaxis -Pantoprazole 40 mg IV -
--- NOTE | 2016-10-11 12:17 | CON ---
DATE: 10/11/2016 He is hospitalized under Dr. Strong's care in ICU. HISTORY OF PRESENT ILLNESS: An 81-year-old man came into the hospital with bouts of bright red recta l bleeding. He has a past history of alcohol-induced cirrhosis and hypothyroidism as well as gout. He has also history of possible myeloproliferative disorder. During today's endoscopic examination, the patient developed bradycardia and was promptly brought back to the intensive care unit. The proc edure was aborted. The patient was octreotide to control his rectal bleed. The patient was examined in the intensive care unit with his family around him. The history indicates that the patient has b een taking thyroid replacement medication and medication for gout for a number of years. He was not hypertensive or diabetic, was not a smoker, did not have prior heart illness, never suffered a myocar dial infarction or symptoms of congestive cardiac failure. The patient was hospitalized here in 2013 and underwent an echocardiogram at that time. PHYSICAL EXAMINATION: GENERAL: Shows an elderly man, lying comfortably in bed with sinus rhythm in the range of 45-55 beat s per minute, occasional premature atrial beat was noticed, a blocked premature atrial beat created a longer sinus pause. VITAL SIGNS: His blood pressure was 136/70 mmHg. NECK: His jugular venous pressure was not elevated. EXTREMITIES: There was no edema over his lower extremity. The pedal pulses were well felt. Extremi ties are warm, nailbeds are pink. There was no central or peripheral cyanosis. There was no clubbin g. HEART: The apex was in the 5th space. The first heart sound was normal. The second heart sound was virtually absent. There was an ejection systolic murmur in the aortic area conducted to the base of the neck. There was no S3 gallop. LUNGS: There were no rales. ABDOMEN: Soft. Liver and spleen were not palpable. His electrocardiogram taken this morning shows sinus rhythm with a QT interval of 475 milliseconds. The heart rate was 51 beats per minute while on octreotide, otherwise there were ST-T abnormalities, which were nonspecific. No Q-waves were detected indicative of a prior myocardial infarction. Carol sun of his echocardiogram from 2013 shows evidence of aortic valve sclerosis and a peak aortic valve gr adient of 35 mmHg with a mean aortic valve gradient of 19 mmHg. This translated in aortic valve area of approximately 1.5 square cm. His left ventricular systolic function was preserved. LABORATORY DATA: Noted. IMPRESSION: At this time is sinus bradycardia, probably drug induced with aortic stenosis in a patie nt with gastrointestinal bleed, possibly secondary to ethanol induced cirrhosis. The possibility of colonic AV malformations in presence of severe aortic stenosis should be kept in mind. This was disc ussed with the fire chief's aide. Also a diagnosis of possible myeloproliferative disease. At this juncture, the patient is not actively bleeding. He is hemodynamically stable. I have requested an echocardiogram to assess his left ventricular systolic function and his aortic valve gradient. The p atient has not had any symptoms pertaining to aortic valve in the form of chest pain or syncope or sy mptoms of heart failure. The pocket tried has been withheld. Luis Sevilla MD cc: 23 TT: 10/11/2016 12:16:41 Confirmation # [id number] Dictation # [id number]
--- NOTE | 2016-10-11 12:57 | CP.PCM.PN ---
Subjective - Date & Time of Evaluation Date of Evaluation: 10/11/16 Time of Evaluation: 10:00 - Subjective Subjective: Patient seen and examined in endoscopy this morning with daughter at bedside. Patient was scheduled for EGd yesterday which was cancelled by ansthesia for slurred speech and neurology clearance. Today EGd was scheduled again cancelled in event of severe bradycardia in endoscopy with PVC. Cardiology consult and ECHO pending. No overt GI bleeding currently. Objective - Vital Signs/Intake and Output Vital Signs (last 24 hours): Temp Pulse Resp BP Pulse Ox 98.4 F 40 L 19 133/66 99 10/11/16 08:24 10/11/16 08:24 10/11/16 08:24 10/11/16 08:24 10/11/16 08:24 Intake and Output: 10/11/16 10/11/16 06:59 18:59 Intake Total 780 0 Output Total 875 Balance -95 0 - Medications Medications: Current Medications Acetaminophen (Tylenol 650 Mg Supp) 650 mg LA ONCE PRN PRN Reason: Other Last Admin: 10/10/16 13:20 Dose: 650 mg Pantoprazole Sodium 40 mg/ (Sodium Chloride) 100 mls @ 20 mls/hr IVPB Q5H SATURNINO PRN Reason: 8 MG/HR Last Admin: 10/11/16 12:43 Dose: 20 mls/hr Levothyroxine Sodium (Synthroid) 50 mcg IVP DAILY [facility] Last Admin: 10/11/16 09:38 Dose: 50 mcg - Labs Labs: 10/11/16 06:34 10/11/16 06:34 PT 16.6 SECONDS (9.6-11.2) H 10/11/16 06:34 INR 1.60 (0.92-1.08) H 10/11/16 06:34 APTT 34.5 SECONDS (23.3-32.5) H 10/11/16 06:34 - Constitutional Appears: Well, No Acute Distress, Cachectic - Eye Exam Eye Exam: EOMI, Normal appearance, PERRL - Respiratory Exam Respiratory Exam: Clear to Ausculation Bilateral, NORMAL BREATHING PATTERN - Cardiovascular Exam Cardiovascular Exam: REGULAR RHYTHM, +S1, +S2. absent: Murmur - GI/Abdominal Exam GI & Abdominal Exam: Soft, Normal Bowel Sounds. absent: Tenderness - Neurological Exam Neurological Exam: Alert, Awake - Skin Skin Exam: Dry, Intact, Normal Color, Warm Assessment and Plan - Assessment and Plan (Free Text) Assessment: 81 yr old M with , myeloproliferative disorder and diverticulosis on colonoscopy and alcoholic cirrhosis admitted with rectal bleeidng. Bleeidng has progressively been decreasing. Responded to 3 units PRBC. EGd cancelled twice by anesthesia due to slurred speech and today due to severe bradycardia and PVC in endoscopy unit. Had detailed discussion with the daughter at the bedside- does not want invasive procedures unless cardiology has cleared him and if its high risk Plan: - Trend daily H/Hct - Transfusion as cardiac status permits - Reverse coagulopathy - Diet as tolerated - Prompt cardiology evaluation appreciated - ECHO - Rest of plan as per MICu and cardiology - If patient is cleared by cardiology will need anesthesia pre op assessment prior to scheduling and family has to agree - Bleeding scan done yesterday is negative - Will sign off now and please reconsult prn once above issues are resolved
--- NOTE | 2016-10-11 14:11 | CP.PCM.PN ---
Subjective - Date & Time of Evaluation Date of Evaluation: 10/11/16 Time of Evaluation: 02:00 - Subjective Subjective: Appears comfortable in bed BP 118/53 Objective - Vital Signs/Intake and Output Vital Signs (last 24 hours): Temp Pulse Resp BP Pulse Ox 98.4 F 40 L 19 133/66 99 10/11/16 08:24 10/11/16 08:24 10/11/16 08:24 10/11/16 08:24 10/11/16 08:24 Intake and Output: 10/11/16 10/11/16 06:59 18:59 Intake Total 780 0 Output Total 875 Balance -95 0 - Medications Medications: Current Medications Acetaminophen (Tylenol 650 Mg Supp) 650 mg SD ONCE PRN PRN Reason: Other Last Admin: 10/10/16 13:20 Dose: 650 mg Pantoprazole Sodium 40 mg/ (Sodium Chloride) 100 mls @ 20 mls/hr IVPB Q5H SATURNINO PRN Reason: 8 MG/HR Last Admin: 10/11/16 12:43 Dose: 20 mls/hr Levothyroxine Sodium (Synthroid) 50 mcg IVP DAILY [facility]URNINO Last Admin: 10/11/16 09:38 Dose: 50 mcg - Labs Labs: 10/11/16 06:34 10/11/16 06:34 PT 16.6 SECONDS (9.6-11.2) H 10/11/16 06:34 INR 1.60 (0.92-1.08) H 10/11/16 06:34 APTT 34.5 SECONDS (23.3-32.5) H 10/11/16 06:34 - Respiratory Exam Additional comments: Lungs cllear - Cardiovascular Exam Cardiovascular Exam: REGULAR RHYTHM Additional comments: SM @ LSB - GI/Abdominal Exam GI & Abdominal Exam: Soft - Extremities Exam Additional comments: No edema Assessment and Plan - Assessment and Plan (Free Text) Assessment: Acute on CRF Renal function continues to improve Renal cysts Lower GI bleed Liver cirrhosis Plan: Continue to monitor renal functionb Renal US pending
--- NOTE | 2016-10-11 15:11 | VASCULAR ---
Procedure: Ultrasound and fluoroscopically placed Right upper extremity PICC. Clinical indication: Long-term IV antibiotics. Technique: The relative risks and indications of the procedure were explained to the patient and written informed consent obtained. The patient was placed supine on the angiographic table and the right arm prepped and draped in the usual sterile fashion. A tourniquet was applied to the right axilla. 1% lidocaine was used to anesthetize the skin and soft tissues at the puncture site above the elbow. The right basilic vein was punctured under direct ultrasound guidance with a micropuncture set. A permanent image was stored. A 0.018 guidewire was advanced centrally and used to measure the length to the SVC/RA junction. A 5 Lithuanian dual-lumen PICC, size 32 cm, was advanced to the SVC/RA junction under fluoroscopic guidance. The catheter was flushed and secured. The patient tolerated the procedure well. Postprocedure chest image was obtained to ensure location of the catheter tip at the SVC right atrial junction. Impression: Ultrasound and fluoroscopically placed right upper extremity PICC. A 5 Lithuanian dual-lumen PICC, size 32 cm was advanced to the SVC/RA junction. PICC ready for use.
--- NOTE | 2016-10-11 18:21 | US ---
PROCEDURE: Ultrasound of the Kidneys HISTORY: renal lesions, SERGE COMPARISON: None available. TECHNIQUE: Sonogram of the kidneys. FINDINGS: RIGHT KIDNEY: Measures: 8.2 cm. Small in size in size and there is diffuse increased echogenicity. No stone, solid mass lesion or hydronephrosis visualized. There is a 1.2 x 0.9 x 1.3 cm simple cyst in the interpolar region and a 2.3 x 1.7 x 1.2 cm cyst in the upper pole. LEFT KIDNEY: Measures: 9.8 cm. Normal in size and there is diffuse increased echogenicity. No stone, solid mass lesion or hydronephrosis visualized. There is a 9 x 6 x 8 mm simple cyst in the interpolar region. OTHER FINDINGS: None. IMPRESSION: Medical renal disease and small right kidney. Few simple cysts in both kidneys, the largest in the right upper pole measures 2.3 cm.
--- NOTE | 2016-10-11 22:20 | CP.PCM.PN ---
Subjective - Date & Time of Evaluation Date of Evaluation: 10/11/16 Time of Evaluation: 19:40 - Subjective Subjective: No complaints, appears comfortable Objective - Vital Signs/Intake and Output Vital Signs (last 24 hours): Temp Pulse Resp BP Pulse Ox 97.7 F 58 L 15 113/81 100 10/11/16 20:00 10/11/16 20:00 10/11/16 20:00 10/11/16 20:00 10/11/16 20:00 Intake and Output: 10/11/16 10/12/16 18:59 06:59 Intake Total 0 314 Output Total 400 Balance -400 314 - Medications Medications: Current Medications Acetaminophen (Tylenol 650 Mg Supp) 650 mg MO ONCE PRN PRN Reason: Other Last Admin: 10/10/16 13:20 Dose: 650 mg Haloperidol Lactate (Haldol) 0.5 mg IVP Q6 PRN PRN Reason: Agitation Pantoprazole Sodium 40 mg/ (Sodium Chloride) 100 mls @ 20 mls/hr IVPB Q5H SATURNINO PRN Reason: 8 MG/HR Last Admin: 10/11/16 17:47 Dose: 20 mls/hr Levothyroxine Sodium (Synthroid) 50 mcg IVP DAILY [facility] [place] Last Admin: 10/11/16 09:38 Dose: 50 mcg - Labs Labs: 10/11/16 06:34 10/11/16 06:34 PT 16.6 SECONDS (9.6-11.2) H 10/11/16 06:34 INR 1.60 (0.92-1.08) H 10/11/16 06:34 APTT 34.5 SECONDS (23.3-32.5) H 10/11/16 06:34 - Head Exam Head Exam: ATRAUMATIC - Eye Exam Eye Exam: Normal appearance - ENT Exam ENT Exam: Mucous Membranes Dry - Respiratory Exam Respiratory Exam: NORMAL BREATHING PATTERN - Cardiovascular Exam Cardiovascular Exam: +S1, +S2 - GI/Abdominal Exam GI & Abdominal Exam: Normal Bowel Sounds - Extremities Exam Extremities Exam: Pedal Edema Assessment and Plan (1) Leukocytosis Assessment & Plan: chronic, likely from myelofibrosis Status: Acute (2) Anemia Assessment & Plan: GI blood loss GI evaluation H/H fairly stable with PRBC transfusion Status: Acute (3) Coagulopathy Assessment & Plan: nutritional Status: Acute
[2016-10-12] MEDS: Pantoprazole 40 MG in Sodium Chloride 0.9% 100 ML IVPB SCH ×4 (03:39→20:41)
[2016-10-12 05:47] LABS: BASO # 0.1 K/uL (0.0-0.2); BASO % 0.2 % (0.0-2.0); EOS # 0.3 K/uL (0.0-0.7); EOS % 0.7 % (0.0-4.0); HEMATOCRIT 27.1 % (35.0-51.0); LYMPH # 1.5 K/uL (1.0-4.3); LYMPH % 4.3 % (20.0-40.0); MEAN CELL VOLUME 93.7 fl (80.0-94.0); MEAN CORPUSCULAR HEMOGLOBIN 30.2 pg (27.0-31.0); MEAN CORPUSCULAR HGB CONC 32.2 g/dL (33.0-37.0); MEAN PLATELET VOLUME 9.3 fl (7.2-11.7); MONO # 0.1 K/uL (0.0-0.8); MONO % 0.2 % (0.0-10.0); NEUT # 34.1 K/uL (1.8-7.0); NEUT % 94.6 % (50.0-75.0); NRBC % 0.1 % (0.0-0.0); PLATELET COUNT 272 K/uL (130-400); RED CELL DISTRIBUTION WIDTH 17.1 % (11.5-14.5)
[2016-10-12 05:56] LABS: BILIRUBIN,TOTAL 0.4 mg/dl (0.2-1.3); CALCIUM 7.4 mg/dL (8.4-10.2); POTASSIUM 4.6 MMOL/L (3.6-5.0); TOTAL PROTEIN 5.3 G/DL (6.3-8.2)
--- NOTE | 2016-10-12 08:01 | CP.PCM.PN ---
Subjective - Date & Time of Evaluation Date of Evaluation: 10/12/16 Time of Evaluation: 07:20 - Subjective Subjective: Patient seen and examined bedside felling better. Reports he had 1 event of bright red rectal bleeding small amount last night 8 pm. No overnight events. AAO x3. Denies chest pain, palpitation, SOB, nausea, abd pain. Grandson present during interview. Objective - Vital Signs/Intake and Output Vital Signs (last 24 hours): Temp Pulse Resp BP Pulse Ox 99.6 F 58 L 17 139/63 98 10/12/16 06:00 10/12/16 06:00 10/12/16 06:00 10/12/16 06:00 10/12/16 06:00 Intake and Output: 10/12/16 10/12/16 06:59 18:59 Intake Total 434 Output Total 520 100 Balance -86 -100 - Medications Medications: Current Medications Acetaminophen (Tylenol 650 Mg Supp) 650 mg IN ONCE PRN PRN Reason: Other Last Admin: 10/10/16 13:20 Dose: 650 mg Haloperidol Lactate (Haldol) 0.5 mg IVP Q6 PRN PRN Reason: Agitation Pantoprazole Sodium 40 mg/ (Sodium Chloride) 100 mls @ 20 mls/hr IVPB Q5H SATURNINO PRN Reason: 8 MG/HR Last Admin: 10/12/16 03:39 Dose: 20 mls/hr Levothyroxine Sodium (Synthroid) 50 mcg IVP DAILY [facility] Last Admin: 10/11/16 09:38 Dose: 50 mcg - Labs Labs: 10/12/16 04:30 10/12/16 04:30 PT 16.6 SECONDS (9.6-11.2) H 10/11/16 06:34 INR 1.60 (0.92-1.08) H 10/11/16 06:34 APTT 34.5 SECONDS (23.3-32.5) H 10/11/16 06:34 - Constitutional Appears: Non-toxic, No Acute Distress - Head Exam Head Exam: ATRAUMATIC, NORMOCEPHALIC - Respiratory Exam Respiratory Exam: absent: Rales, Rhonchi, Wheezes Additional comments: Picc line - Cardiovascular Exam Cardiovascular Exam: REGULAR RHYTHM, +S1, +S2, Murmur Additional comments: systolic murmur 3/6 - GI/Abdominal Exam GI & Abdominal Exam: Soft, Normal Bowel Sounds. absent: Tenderness Additional comments: RUQ bulging secondary to ventral hernia - Extremities Exam Extremities Exam: Normal Inspection. absent: Pedal Edema - Neurological Exam Neurological Exam: Alert, Awake, Oriented x3 - Psychiatric Exam Psychiatric exam: Normal Affect - Skin Skin Exam: Pallor Assessment and Plan - Assessment and Plan (Free Text) Plan: 81 yo , m , PMhx/o HTN, Diverticulitis, Emphysema, Arthritis, Gout, myelofibrosis, Hypothyroidism, Osteoporosis, Fractures (Hx of Compression Vertebral Fx at T and L spine), (Chronically elevated WBCs) presents to ED c/o bright red bloody diarrhea 1) Acute Lower GI Bleeding -Hx/o diverticulosis. possible secondary to diverticulosis, internal hemorrhoids or angiodysplasia. -CT Abd: 03/18/14 showed liver cirrhosis and possible portal HTN. CT abd: 10/09: Diverticulosis of the sigmoid colon with subtle adjacent inflammatory changes; correlate clinically for possibility of acute diverticulitis. Marked splenomegaly.Severe L1 and L3 compression fracture deformities, age indeterminate.Enlarged heterogeneous prostate gland. Recommend correlation with PSA. Large bowel containing right anterior abdominal wall hernia without evidence of obstruction -S/P Transfusion 3 U in ER and 2 U ICU rPBC . Hgb: 8.7 -GI consult appreciated: GI bleeding scan neg. EGD elective for Saturday -Octreotide Acetate hold -Cardio Consult Appreciated. cleared for EGD -F/U CBC/Hct 2) Acute on chronic Anemia -secondary to lower GI bleeding - s/p Transfused 2 U rPBC -Hgb: 8.7 -Hgb: 10.8 on 02/24/16 Hx/o myelofibrosis 3) Delirium Hyperactive -resolved. -Haldol Prn 4) Bradycardia -HR: 56 -possible secondary to octreotide administration -Cardologist consult appreciated Echo: Severe aortic valve stenosis. 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 7) Hypothyroidism -TSH 0.3 02/24/16 - continue meds Synthroid 125 mcg PO daily 8) Hx/o Myelofibrosis -08/31/14 wbc baseline from 79 to 39.4 -WBC 36 -PLT 351 -ECW Chart documents were reviewed revealing known history of chronic neutrophilia with baseline WBC in 40-50k range as far back as 2006. Last documented Heme/Onc consultation in February [address] Mcmahon with plan for hydroxyurea 500mg every other day but patient has not seen Heme/Onc provider since. -Hem-Onc consult appreciated: recommend flow cytometry, periph blood smear, bone marrow eval. Ferritin, ret count, B12, folate, FOBT -Serum protein electrophoresis 9) Gout -Uric Acid - Allopurinol 100 mg P o daily 10) DVT Prophylaxis -SCD 11) GI prophylaxis -Pantoprazole 40 mg IV
--- NOTE | 2016-10-12 08:04 | CP.CCUPN ---
<Dutch Agudelo T - Last Filed: 10/12/16 12:37> CCU Subjective - Physician Review Subjective (Free Text): Pt seen and examined at bedside in the ICU. Pt states he had one episode of nonbloody, regular stool yesterday evening and denies any bright red blood per rectum. Currently, he denies fevers/chills, n/v/d/c, headaches, dizziness, cp, sob, cough, abd pain, hematuria, dysuria, or myalgias. CCU Objective - Vital Signs / Intake & Output Vital Signs (Last 4 hours): Vital Signs Temp Pulse Resp BP Pulse Ox 10/12/16 06:00 99.6 F 58 L 17 139/63 98 10/12/16 04:00 98.5 F 52 L 15 153/56 H 100 Intake and Output (Last 8hrs): Intake & Output 10/11/16 10/12/16 10/12/16 22:59 06:59 14:59 Intake Total 314 120 Output Total 400 520 100 Balance -86 -400 -100 Intake: Intake, Piggyback 60 120 Blood Product 254 Output: Urine 400 520 100 Urine, Voided 400 520 100 Other: # Voids Urine, Voided 2 1 # Bowel Movements 1 - Physical Exam Head: Positive for: Atraumatic, Normocephalic Pupils: Positive for: PERRL Extroacular Muscles: Positive for: EOMI Conjunctiva: Positive for: Normal Mouth: Positive for: Dry Neck: Positive for: Normal Range of Motion. Negative for: MIDLINE TENDERNESS, JVD Respiratory/Chest: Positive for: Good Air Exchange. Negative for: Rales, Rhonchi Cardiovascular: Positive for: Regular Rate and Rhythm. Negative for: Tachycardic, Bradycardic Abdomen: Positive for: Normal Bowel Sounds. Negative for: Tenderness, Distention Upper Extremity: Positive for: Normal Inspection, Normal ROM. Negative for: Edema Lower Extremity: Positive for: Normal Inspection, Normal ROM. Negative for: Edema Neurological: Positive for: GCS=15, CN II-XII Intact Psychiatric: Positive for: Alert, Oriented x 3 - Medications Active Medications: Active Medications Generic Name Dose Route Start Last Admin Trade Name Freq PRN Reason Stop Dose Admin Acetaminophen 650 mg 10/10/16 12:55 10/10/16 13:20 Tylenol 650 Mg Supp [place] 650 mg ONCE PRN Administration Other Haloperidol Lactate 0.5 mg 10/11/16 17:26 Haldol IVP Q6 PRN Agitation Pantoprazole Sodium 40 mg/ 100 mls @ 20 mls/hr 10/10/16 13:00 10/12/16 03:39 Sodium Chloride IVPB 20 mls/hr Q5H SATURNINO Administration 8 MG/HR Levothyroxine Sodium 50 mcg 10/10/16 09:00 10/11/16 09:38 Synthroid IVP 50 mcg DAILY SATURNINO Administration - Patient Studies Lab Studies: Microbiology Studies 10/09/16 20:30 MRSA Culture (Admit) - Final Naris MRSA NOT DETECTED Lab Studies 10/12/16 10/11/16 10/11/16 Range/Units 04:30 11:35 11:01 WBC 36.0 H (4.8-10.8) K/uL RBC 2.89 L (4.40-5.90) Mil/uL Hgb 8.7 L (12.0-18.0) g/dL Hct 27.1 L (35.0-51.0) % MCV 93.7 (80.0-94.0) fl MCH 30.2 (27.0-31.0) pg MCHC 32.2 L (33.0-37.0) g/dL RDW 17.1 H (11.5-14.5) % Plt Count 272 (130-400) K/uL MPV 9.3 (7.2-11.7) fl Neut % (Auto) 94.6 H (50.0-75.0) % Lymph % (Auto) 4.3 L (20.0-40.0) % [place] % (Auto) 0.2 (0.0-10.0) % Eos % (Auto) 0.7 (0.0-4.0) % Baso % (Auto) 0.2 (0.0-2.0) % Neut # 34.1 H (1.8-7.0) K/uL Lymph # 1.5 (1.0-4.3) K/uL [place] # 0.1 (0.0-0.8) K/uL Eos # 0.3 (0.0-0.7) K/uL Baso # 0.1 (0.0-0.2) K/uL Total Counted Neutrophils % (Manual) Band Neutrophils % Lymphocytes % (Manual) Reactive Lymphs % Monocytes % (Manual) Eosinophils % (Manual) Basophils % (Manual) Metamyelocytes % Myelocytes % Promyelocytes % Blast Cells % Plasma Cell % (Manual) Nucleated RBC % Hypersegmented Polys Smudge Cells Toxic Granulation Dohle Bodies [place] Rods Platelet Estimate Plt Clumps, EDTA Large Platelets Giant Platelets RBC Morphology Polychromasia Hypochromasia (manual) Poikilocytosis (manual Basophilic Stippling Anisocytosis (manual) Microcytosis (manual) Macrocytosis (manual) Spherocytes Sickle Cells Target Cells Tear Drop Cells Ovalocytes Stomatocytes Helmet Cells [place] Bodies [place] Cells Acanthocytes (Spur) Rouleaux Schistocytes PT (9.6-11.2) SECONDS INR (0.92-1.08) APTT (23.3-32.5) SECONDS Sodium 142 (132-148) mmol/l Potassium 4.6 (3.6-5.0) MMOL/L Chloride 109 H (98-107) mmol/L Carbon Dioxide 24 (22-30) mmol/L Anion Gap 14 (10-20) BUN 39 H (9-20) mg/dl Creatinine 2.1 H (0.8-1.5) mg/dL Est GFR ( Amer) 37 Est GFR (Non-Af Amer) 30 Random Glucose 92 (75-110) mg/dL Calcium 7.4 L (8.4-10.2) mg/dL Total Bilirubin 0.4 (0.2-1.3) mg/dl AST 26 (17-59) U/L ALT 29 (21-72) U/L Alkaline Phosphatase 83 (38-126) U/L Total Protein 5.3 L (6.3-8.2) G/DL Albumin 2.7 L (3.5-5.0) g/dL Globulin 2.6 (2.2-3.9) gm/dL Albumin/Globulin Ratio 1.0 (1.0-2.1) Free T4 1.13 (0.78-2.19) ng/dL TSH 3rd Generation 0.79 (0.46-4.68) mIU/ML Blood Type A POSITIVE Antibody Screen Negative BBK History Checked Patient has bt 03/23/17 Range/Units 06:34 WBC 51.5 H* (4.8-10.8) K/uL RBC 3.03 L (4.40-5.90) Mil/uL Hgb 9.2 L (12.0-18.0) g/dL Hct 28.6 L (35.0-51.0) % MCV 94.2 H (80.0-94.0) fl MCH 30.2 (27.0-31.0) pg MCHC 32.1 L (33.0-37.0) g/dL RDW 17.7 H (11.5-14.5) % Plt Count 351 (130-400) K/uL MPV 10.4 (7.2-11.7) fl Neut % (Auto) 94.0 H (50.0-75.0) % Lymph % (Auto) 2.3 L (20.0-40.0) % [place] % (Auto) 2.9 (0.0-10.0) % Eos % (Auto) 0.5 (0.0-4.0) % Baso % (Auto) 0.3 (0.0-2.0) % Neut # 48.5 H (1.8-7.0) K/uL Lymph # 1.2 (1.0-4.3) K/uL [place] # 1.5 H (0.0-0.8) K/uL Eos # 0.2 (0.0-0.7) K/uL Baso # 0.2 (0.0-0.2) K/uL Total Counted Cancelled Neutrophils % (Manual) Cancelled Band Neutrophils % Cancelled Lymphocytes % (Manual) Cancelled Reactive Lymphs % Cancelled Monocytes % (Manual) Cancelled Eosinophils % (Manual) Cancelled Basophils % (Manual) Cancelled Metamyelocytes % Cancelled Myelocytes % Cancelled Promyelocytes % Cancelled Blast Cells % Cancelled Plasma Cell % (Manual) Cancelled Nucleated RBC % Cancelled Hypersegmented Polys Cancelled Smudge Cells Cancelled Toxic Granulation Cancelled Dohle Bodies Cancelled [place] Rods Cancelled Platelet Estimate Cancelled Plt Clumps, EDTA Cancelled Large Platelets Cancelled Giant Platelets Cancelled RBC Morphology Cancelled Polychromasia Cancelled Hypochromasia (manual) Cancelled Poikilocytosis (manual Cancelled Basophilic Stippling Cancelled Anisocytosis (manual) Cancelled Microcytosis (manual) Cancelled Macrocytosis (manual) Cancelled Spherocytes Cancelled Sickle Cells Cancelled Target Cells Cancelled Tear Drop Cells Cancelled Ovalocytes Cancelled Stomatocytes Cancelled Helmet Cells Cancelled [place] Bodies Cancelled [place] Cells Cancelled Acanthocytes (Spur) Cancelled Rouleaux Cancelled Schistocytes Cancelled PT 16.6 H (9.6-11.2) SECONDS INR 1.60 H (0.92-1.08) APTT 34.5 H (23.3-32.5) SECONDS Sodium (132-148) mmol/l Potassium (3.6-5.0) MMOL/L Chloride (98-107) mmol/L Carbon Dioxide (22-30) mmol/L Anion Gap (10-20) BUN (9-20) mg/dl Creatinine (0.8-1.5) mg/dL Est GFR ( Amer) Est GFR (Non-Af Amer) Random Glucose (75-110) mg/dL Calcium (8.4-10.2) mg/dL Total Bilirubin (0.2-1.3) mg/dl AST (17-59) U/L ALT (21-72) U/L Alkaline Phosphatase (38-126) U/L Total Protein (6.3-8.2) G/DL Albumin (3.5-5.0) g/dL Globulin (2.2-3.9) gm/dL Albumin/Globulin Ratio (1.0-2.1) Free T4 (0.78-2.19) ng/dL TSH 3rd Generation (0.46-4.68) mIU/ML Blood Type Antibody Screen BBK History Checked Laboratory Results - last 24 hr 10/11/16 10/11/16 10/11/16 06:34 11:01 11:35 WBC 51.5 H* RBC 3.03 L Hgb 9.2 L Hct 28.6 L MCV 94.2 H MCH 30.2 MCHC 32.1 L RDW 17.7 H Plt Count 351 MPV 10.4 Neut % (Auto) 94.0 H Lymph % (Auto) 2.3 L [place] % (Auto) 2.9 Eos % (Auto) 0.5 Baso % (Auto) 0.3 Neut # 48.5 H Lymph # 1.2 [place] # 1.5 H Eos # 0.2 Baso # 0.2 Total Counted Cancelled Neutrophils % (Manual) Cancelled Band Neutrophils % Cancelled Lymphocytes % (Manual) Cancelled Reactive Lymphs % Cancelled Monocytes % (Manual) Cancelled Eosinophils % (Manual) Cancelled Basophils % (Manual) Cancelled Metamyelocytes % Cancelled Myelocytes % Cancelled Promyelocytes % Cancelled Blast Cells % Cancelled Plasma Cell % (Manual) Cancelled Nucleated RBC % Cancelled Hypersegmented Polys Cancelled Smudge Cells Cancelled Toxic Granulation Cancelled Dohle Bodies Cancelled [place] Rods Cancelled Platelet Estimate Cancelled Plt Clumps, EDTA Cancelled Large Platelets Cancelled Giant Platelets Cancelled RBC Morphology Cancelled Polychromasia Cancelled Hypochromasia (manual) Cancelled Poikilocytosis (manual Cancelled Basophilic Stippling Cancelled Anisocytosis (manual) Cancelled Microcytosis (manual) Cancelled Macrocytosis (manual) Cancelled Spherocytes Cancelled Sickle Cells Cancelled Target Cells Cancelled Tear Drop Cells Cancelled Ovalocytes Cancelled Stomatocytes Cancelled Helmet Cells Cancelled [place] Bodies Cancelled [place] Cells Cancelled Acanthocytes (Spur) Cancelled Rouleaux Cancelled Schistocytes Cancelled PT 16.6 H INR 1.60 H APTT 34.5 H Sodium Potassium Chloride Carbon Dioxide Anion Gap BUN Creatinine Est GFR ( Amer) Est GFR (Non-Af Amer) Random Glucose Calcium Total Bilirubin AST ALT Alkaline Phosphatase Total Protein Albumin Globulin Albumin/Globulin Ratio Free T4 1.13 TSH 3rd Generation 0.79 Blood Type A POSITIVE Antibody Screen Negative BBK History Checked Patient has bt 10/12/16 04:30 WBC 36.0 H RBC 2.89 L Hgb 8.7 L Hct 27.1 L MCV 93.7 MCH 30.2 MCHC 32.2 L RDW 17.1 H Plt Count 272 MPV 9.3 Neut % (Auto) 94.6 H Lymph % (Auto) 4.3 L [place] % (Auto) 0.2 Eos % (Auto) 0.7 Baso % (Auto) 0.2 Neut # 34.1 H Lymph # 1.5 [place] # 0.1 Eos # 0.3 Baso # 0.1 Total Counted Neutrophils % (Manual) Band Neutrophils % Lymphocytes % (Manual) Reactive Lymphs % Monocytes % (Manual) Eosinophils % (Manual) Basophils % (Manual) Metamyelocytes % Myelocytes % Promyelocytes % Blast Cells % Plasma Cell % (Manual) Nucleated RBC % Hypersegmented Polys Smudge Cells Toxic Granulation Dohle Bodies [place] Rods Platelet Estimate Plt Clumps, EDTA Large Platelets Giant Platelets RBC Morphology Polychromasia Hypochromasia (manual) Poikilocytosis (manual Basophilic Stippling Anisocytosis (manual) Microcytosis (manual) Macrocytosis (manual) Spherocytes Sickle Cells Target Cells Tear Drop Cells Ovalocytes Stomatocytes Helmet Cells [place] Bodies [place] Cells Acanthocytes (Spur) Rouleaux Schistocytes PT INR APTT Sodium 142 Potassium 4.6 Chloride 109 H Carbon Dioxide 24 Anion Gap 14 BUN 39 H Creatinine 2.1 H Est GFR ( Amer) 37 Est GFR (Non-Af Amer) 30 Random Glucose 92 Calcium 7.4 L Total Bilirubin 0.4 AST 26 ALT 29 Alkaline Phosphatase 83 Total Protein 5.3 L Albumin 2.7 L Globulin 2.6 Albumin/Globulin Ratio 1.0 Free T4 TSH 3rd Generation Blood Type Antibody Screen BBK History Checked Review of Systems - Review of Systems Review of Systems: see HPI Critical Care Progress Note - Nutrition Nutrition: Nutrition Category Date Time Status Regular Diet [DIET] Diets 10/11/16 Lunch Active Assessment/Plan - Assessment and Plan (Free Text) Plan: 81yo M w PMHx of CML, EtOH cirrhosis, gout, and hypothyroidism is admitted to ICU for GI bleed w an H/H 6.4/19.5 1) GI Bleed -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; pt has h/o aortic stenosis and intermittent GI bleeding -No episodes of acute bleeding overnight, though 1 dark BM -Due to bradycardia, egd has been postponed until this can be addressed -Octreotide d/efrem yesterday due to bradycardia, as it is a known side effect -2u FFPs given yesterday afternoon/evening in place of octreotide -H/H 8.7/27.7 as of this AM -PT/INR/PTT: 16.6 / 1.60 / 34.5 -f/u Labs -f/u GI Consult -f/u Cardio Consult 2) Bradycardia -50s - 60s today -Octreotide d/c'ed due to likelihood of causing bradycardia; upon chart review, pulse did drop after administration of Octreotide -TSH, FT4: wnl -Cardiac Echo (10/11): Severe aortic valve stenosis. LV normal size, thickness, LF fcn is low-normal, EF 45-50% -f/u Vitals -f/u Cardio Consult 3) Leukocytosis w ?h/o CML -WBC 51.5 -Consider BCR-ABL, will f/u w Hem/Onc -f/u Flow Results 4) Moderate CKD; Stage 3B -GFR 30 this AM, GFR 34 yesterday 5) Hypothyroid -Levothyroxine 50mcg IVP Daily -TSH, FT4: wnl 6) DVT Prophylaxis -SCDs -b/l LE U/S to r/o any new DVTs 7) PICC Line <Jw Sharif - Last Filed: 10/12/16 15:04> CCU Subjective - Physician Review Subjective (Free Text): Attestation: Patient seen and examined at the bedside with Resident Dr. Beatriz Agudelo; and I agree with his outline of plans and management documented below as discussed on AM rounds reflecting my review of all applicable clinical data, and participation in the care of the patient throughout the day in ICU; today, October 12, 2016.
--- NOTE | 2016-10-12 08:09 | CARD ---
APPROVED REPORT EKG Measurement Heart [id number] <Conclusion> Sinus bradycardia ST & T wave abnormality, consider anterolateral ischemia Prolonged QT Abnormal ECG
--- NOTE | 2016-10-12 09:05 | CARD ---
APPROVED REPORT EXAM: Two-dimensional and M-mode echocardiogram with Doppler and color Doppler. Other Information Quality : GoodRhythm : NSR INDICATION Aortic Valve Disease 2D DIMENSIONS IVSd0.88 (0.7-1.1cm)LVDd4.68 (3.9-5.9cm) LVOT Diameter1.89 (1.8-2.4cm)PWd0.90 (0.7-1.1cm) IVSs0.93 (0.8-1.2cm)LVDs3.74 (2.5-4.0cm) FS (%) 20.1 %PWs1.17 (0.8-1.2cm) M-Mode DIMENSIONS Left Atrium (MM)5.41 (2.5-4.0cm)Aortic Root3.70 (2.2-3.7cm) Aortic Cusp Exc.1.61 (1.5-2.0cm) Aortic Valve AoV Peak Wgssubqt810.8cm/sAoV VTI75.6cmAO Peak GR.35mmHg LVOT Peak Igauvvek53.5cm/sLVOT VTI21.66cmAO Mean GR.20mmHg KALEY (VMAX)0.47bx8VVP (VTI)0.23gt2DA P 1/2 [id number] Mitral Valve MV E Rzhyermd60.6cm/sMV DECEL [id number] A Uczoqfjo97.0cm/s MV UTN75djS/A ratio1.1MVA (PHT)2.77cm2 TDI E/Lateral E'0.0E/Medial E'0.0 Tricuspid Valve TR Peak Onhpvjqn037lv/sRAP AHMINBTM21fqXjUK Peak Gr.24mmHg [id number] LEFT VENTRICLE The left ventricle is normal size. There is normal left ventricular wall thickness. Left ventricle systolic function is low normal. The Ejection Fraction is 45-50%. The LV wall motion was adequate. Transmitral Doppler flow pattern is Grade I-abnormal relaxation pattern. RIGHT VENTRICLE The right ventricle is normal size. There is normal right ventricular wall thickness. The right ventricular systolic function is normal. ATRIA The left atrium is mildly dilated. The right atrium size is normal. AORTIC VALVE The aortic valve is moderately sclerotic. There is moderate aortic regurgitation. There was severe aortic valve stenosis. Calculated aortic valve area is 0.89 cm2 with maximum pressure gradient of 41 mmHg and mean pressure gradient of 21 mmHg. MITRAL VALVE Mitral annular calcification is mild. There is no evidence of mitral valve prolapse. There is no mitral valve stenosis. Mitral regurgitation is mild. TRICUSPID VALVE The tricuspid valve is normal in structure. There is mild tricuspid regurgitation. Right ventricular systolic pressure is estimated at 35 mmHg. There is mild pulmonary hypertension. PULMONIC VALVE The pulmonary valve is normal in structure and function. There is no pulmonic valvular regurgitation. GREAT VESSELS The aortic root is normal in size. Due to poor image quality, the IVC could not be assessed. PERICARDIAL EFFUSION The pericardium appears normal. <Conclusion> The left ventricle is normal size. There is normal left ventricular wall thickness. The LV wall motion was adequate. Left ventricle systolic function is low normal. The Ejection Fraction is 45-50%. Transmitral Doppler flow pattern is Grade I-abnormal relaxation pattern. The left atrium is mildly dilated. The aortic valve is moderately sclerotic. There is moderate aortic regurgitation. There was severe aortic valve stenosis. Calculated aortic valve area is 0.89 cm2 with maximum pressure gradient of 41 mmHg and mean pressure gradient of 21 mmHg.
[2016-10-12] MEDS: Levothyroxine 100 mcg (0.1 mg) Inj IVP SCH (10:09)
--- NOTE | 2016-10-12 10:14 | CP.PCM.PN ---
Subjective - Date & Time of Evaluation Date of Evaluation: 10/12/16 Time of Evaluation: 09:23 - Subjective Subjective: Patient and bed reported to have good appetite Vital sign noted to be okay Daughter at the bedside Objective - Vital Signs/Intake and Output Vital Signs (last 24 hours): Temp Pulse Resp BP Pulse Ox 97.8 F 55 L 23 141/61 99 10/12/16 08:00 10/12/16 08:00 10/12/16 08:00 10/12/16 08:00 10/12/16 08:00 Intake and Output: 10/12/16 10/12/16 06:59 18:59 Intake Total 434 Output Total 520 100 Balance -86 -100 - Medications Medications: Current Medications Acetaminophen (Tylenol 650 Mg Supp) 650 mg NE ONCE PRN PRN Reason: Other Last Admin: 10/10/16 13:20 Dose: 650 mg Haloperidol Lactate (Haldol) 0.5 mg IVP Q6 PRN PRN Reason: Agitation Pantoprazole Sodium 40 mg/ (Sodium Chloride) 100 mls @ 20 mls/hr IVPB Q5H SATURNINO PRN Reason: 8 MG/HR Last Admin: 10/12/16 10:08 Dose: 20 mls/hr Levothyroxine Sodium (Synthroid) 50 mcg IVP DAILY SATURNINO Last Admin: 10/12/16 10:09 Dose: 50 mcg - Labs Labs: 10/12/16 04:30 10/12/16 04:30 PT 16.6 SECONDS (9.6-11.2) H 10/11/16 06:34 INR 1.60 (0.92-1.08) H 10/11/16 06:34 APTT 34.5 SECONDS (23.3-32.5) H 10/11/16 06:34 - Constitutional Appears: No Acute Distress - ENT Exam ENT Exam: Mucous Membranes Moist - GI/Abdominal Exam GI & Abdominal Exam: absent: Guarding Additional comments: abdominal hernia noted - Extremities Exam Extremities Exam: absent: Calf Tenderness - Back Exam Back Exam: absent: CVA tenderness (L), CVA tenderness (R) - Neurological Exam Neurological Exam: Alert Assessment and Plan (1) Renal failure (ARF), acute on chronic Assessment & Plan: Probably acute kidney injury superimposed on chronic kidney disease as noted. Serum creatinine stable around 2+ minus As noted by the oncology Ultrasound of the kidney as notedPROCEDURE: Ultrasound of the Kidneys HISTORY: renal lesions, SERGE COMPARISON: None available. TECHNIQUE: Sonogram of the kidneys. FINDINGS: RIGHT KIDNEY: Measures: 8.2 cm. Small in size in size and there is diffuse increased echogenicity. No stone, solid mass lesion or hydronephrosis visualized. There is a 1.2 x 0.9 x 1.3 cm simple cyst in the interpolar region and a 2.3 x 1.7 x 1.2 cm cyst in the upper pole. LEFT KIDNEY: Measures: 9.8 cm. Normal in size and there is diffuse increased echogenicity. No stone, solid mass lesion or hydronephrosis visualized. There is a 9 x 6 x 8 mm simple cyst in the interpolar region. OTHER FINDINGS: None. IMPRESSION: Medical renal disease and small right kidney. Few simple cysts in both kidneys, the largest in the right upper pole measures 2.3 cm. Continue monitoring Status: Acute
[2016-10-12 10:37] LABS: EOSINOPHIL 1 % (0-7); NEUTROPHIL 85 % (42-75); TOTAL CELLS COUNTED 100
[2016-10-12 11:49] LABS: PARTIAL THROMBOPLASTIN TIME 32.6 SECONDS (23.3-32.5)
--- NOTE | 2016-10-12 12:31 | CP.PCM.PN ---
Subjective - Date & Time of Evaluation Date of Evaluation: 10/12/16 Time of Evaluation: 12:15 - Subjective Subjective: Has been stable overnight Mild bradycardia (Sinus rate 57-64 BPM) BP 110/70 mm Hg No signs of CHF Echo shows AV gradient of 41 mm Hg with prserved LV syst function (Active bleeding seems to have receded) Pt stable to have endoscopy under IV sedation if needed Discussed with GI and Unclaimed Property Officer. Objective - Vital Signs/Intake and Output Vital Signs (last 24 hours): Temp Pulse Resp BP Pulse Ox 97.8 F 64 14 130/60 99 10/12/16 08:00 10/12/16 10:00 10/12/16 10:00 10/12/16 10:00 10/12/16 10:00 Intake and Output: 10/12/16 10/12/16 06:59 18:59 Intake Total 434 Output Total 520 100 Balance -86 -100 - Medications Medications: Current Medications Acetaminophen (Tylenol 650 Mg Supp) 650 mg [place] ONCE PRN PRN Reason: Other Last Admin: 10/10/16 13:20 Dose: 650 mg Haloperidol Lactate (Haldol) 0.5 mg IVP Q6 PRN PRN Reason: Agitation Pantoprazole Sodium 40 mg/ (Sodium Chloride) 100 mls @ 20 mls/hr IVPB Q5H SATURNINO PRN Reason: 8 MG/HR Last Admin: 10/12/16 10:08 Dose: 20 mls/hr Levothyroxine Sodium (Synthroid) 50 mcg PO DAILY@0630 [facility] - Labs Labs: 10/12/16 04:30 10/12/16 04:30 PT 15.9 SECONDS (9.6-11.2) H 10/12/16 11:26 INR 1.53 (0.92-1.08) H 10/12/16 11:26 APTT 32.6 SECONDS (23.3-32.5) H 10/12/16 11:26
--- NOTE | 2016-10-12 15:44 | CP.PCM.PN ---
Subjective - Date & Time of Evaluation Date of Evaluation: 10/12/16 Time of Evaluation: 11:30 - Subjective Subjective: Patient seen and examined. No acute events. Reportedly with less frequent stools, no blood this morning. No abdominal pain. HR improved, now in 50s- 60s. No nausea or vomiting. He ate breakfast this morning without difficulty. No fever ROS otherwise negative in detail Objective - Vital Signs/Intake and Output Vital Signs (last 24 hours): Temp Pulse Resp BP Pulse Ox 98.3 F 64 21 125/68 93 L 10/12/16 12:00 10/12/16 14:00 10/12/16 14:00 10/12/16 14:00 10/12/16 14:00 Intake and Output: 10/12/16 10/12/16 06:59 18:59 Intake Total 434 Output Total 520 100 Balance -86 -100 - Medications Medications: Current Medications Acetaminophen (Tylenol 650 Mg Supp) 650 mg [place] ONCE PRN PRN Reason: Other Last Admin: 10/10/16 13:20 Dose: 650 mg Haloperidol Lactate (Haldol) 0.5 mg IVP Q6 PRN PRN Reason: Agitation Pantoprazole Sodium 40 mg/ (Sodium Chloride) 100 mls @ 20 mls/hr IVPB Q5H SATURNINO PRN Reason: 8 MG/HR Last Admin: 10/12/16 10:08 Dose: 20 mls/hr Levothyroxine Sodium (Synthroid) 50 mcg PO DAILY@0630 [facility] - Labs Labs: 10/12/16 04:30 10/12/16 04:30 PT 15.9 SECONDS (9.6-11.2) H 10/12/16 11:26 INR 1.53 (0.92-1.08) H 10/12/16 11:26 APTT 32.6 SECONDS (23.3-32.5) H 10/12/16 11:26 - Constitutional Appears: No Acute Distress - Head Exam Additional comments: +alopecia - Eye Exam Eye Exam: absent: Scleral icterus - ENT Exam ENT Exam: Mucous Membranes Moist - Respiratory Exam Respiratory Exam: Clear to Ausculation Bilateral - Cardiovascular Exam Cardiovascular Exam: +S1, +S2 - GI/Abdominal Exam Additional comments: abdomen soft, non tender to palpation, no rebound or guarding, bowel sounds present - Extremities Exam Extremities Exam: Pedal Edema - Neurological Exam Neurological Exam: Alert - Skin Skin Exam: Dry Assessment and Plan - Assessment and Plan (Free Text) Assessment: This is an 81 yr old male with aortic stenosis, myeloproliferative disorder, diverticulosis who is admitted with GI bleeding/hematochezia, possibly diverticular in origin. Bleeding scan negative. His bleeding seems to have slowed, H/H stable. EGD cancelled yesterday due to bradycardia. Plan: Continue supportive care Monitor H/H, transfuse as needed Monitor for frequency of bleeding Maintain IV access Family agreeable to endoscopic evaluation--would plan for elective procedure ( possibly Saturday) if bleeding remains stable and cleared from cardiology/ anesthesia perspective PPI BID Discussed case with cardiology and ICU team
--- NOTE | 2016-10-12 16:53 | US ---
Bilateral lower extremity ultrasound. Indication: Evaluate for DVTs Technique: Duplex ultrasound evaluation of the lower extremity Comparison: None available Findings: There is normal flow, compressibility, and augmentation of the bilateral common femoral, femoral, and popliteal veins. The bilateral posterior tibial veins appear patent. Impression: No evidence of deep venous thrombosis in the bilateral lower extremities.
[2016-10-13] MEDS: Pantoprazole 40 MG in Sodium Chloride 0.9% 100 ML IVPB SCH ×2 (02:04→06:40)
[2016-10-13 03:26] LABS: TOTAL PROTEIN, SERUM 5.1 g/dL (6.1-8.1)
[2016-10-13 04:44] LABS: CREATININE, RANDOM URINE 45 mg/dL (20-370)
[2016-10-13] MEDS: Levothyroxine 50 MCG TAB PO SCH (06:41)
[2016-10-13 06:44] LABS: BASO # 0.2 K/uL (0.0-0.2); BASO % 0.6 % (0.0-2.0); EOS # 0.3 K/uL (0.0-0.7); EOS % 1.1 % (0.0-4.0); HEMATOCRIT 26.5 % (35.0-51.0); LYMPH # 1.6 K/uL (1.0-4.3); LYMPH % 5.6 % (20.0-40.0); MEAN CELL VOLUME 93.3 fl (80.0-94.0); MEAN CORPUSCULAR HEMOGLOBIN 30.4 pg (27.0-31.0); MEAN CORPUSCULAR HGB CONC 32.6 g/dL (33.0-37.0); MONO # 1.3 K/uL (0.0-0.8); MONO % 4.8 % (0.0-10.0); NEUT # 24.7 K/uL (1.8-7.0); NEUT % 87.9 % (50.0-75.0); RED CELL DISTRIBUTION WIDTH 17.2 % (11.5-14.5); WHITE BLOOD COUNT 28.1 K/uL (4.8-10.8)
[2016-10-13 06:45] LABS: BILIRUBIN,TOTAL 0.6 mg/dl (0.2-1.3); CALCIUM 7.4 mg/dL (8.4-10.2); TOTAL PROTEIN 5.2 G/DL (6.3-8.2)
[2016-10-13 07:00] LABS: PARTIAL THROMBOPLASTIN TIME 34.8 SECONDS (23.3-32.5)
--- NOTE | 2016-10-13 07:34 | CP.CCUPN ---
CCU Subjective - Physician Review Subjective (Free Text): MISCELLANEOUS MACHINE OPERATOR PROGRESS NOTE Patient examined, interim events reviewed: Awake and alert, non-distressed, no agitative episodes overnight. No further BRBPR. T= 99.4F, 126/66, HR 66, RR=25, SPO2= 94% on RA. No recurrent episodes of severe bradycardia. ROS: as above, no other obtainable pertinent negs or positives on 10 system review. PMFSH: all nursing and historical notes reviewed, no new pertinent data relevant to current problems. No other distress noted: EXAM- HEENT: no icterus, pupils equal and reactive NECK: no visible JVD, supple, carotids equal upstroke bilat/no bruits CHEST: decreased BS bases, no wheezes audible HEART: regular, distant, S1S2, no murmur audible, no rubs. ABD: soft, no increased distention, no focal tenderness, no HSM. BS hypoactive , EXT: no increase in leg edema, no peripheral/ digital cyanosis, no calf tenderness or palpable cords, distal pulses intact and symmetrical NEURO: oriented to person and place; no gross focal motor deficits SKIN: no rashes LABS: WBC= 28.1 HGB= 8.6 PLTs= 231K Na= 145 K= 4.0 HCO3= 23 BUN/Cr= 41/2.1 BS= 99 CXR: ETT position OK above ester, no new infiltrates or consolidation, increased interstitial changes left lung periphery (? technique). (my interp). Assessment: 1. GI Bleed, 2' ?UGI source, vs. Diverticular bleed/ AVM 2. Acute Anemia 2' #1 3. Azotemia / Dehydration, r/o CKD 4. Myelofibrosis 5. Bradycardia 6. Severe PLAN: 1. Stable GI status with no recurrent active bleeding. GI re-eval reviewed, for Endoscopy on 10/15/16 . 2. IVF Hydration 3. Serial CBC monitoring 4. Stable for regular bed.
--- NOTE | 2016-10-13 08:10 | CP.PCM.PN ---
Subjective - Date & Time of Evaluation Date of Evaluation: 10/13/16 Time of Evaluation: 07:45 - Subjective Subjective: Patient seen and examined bedside feeling better. AAO x 3. No overnight events. Reports 1 BM nonbloddy today in the morning. Denies chest pain, SOB, abd pain, N /V. Spoke with the nurse and confirm 1 BM formed w/o blood. Objective - Vital Signs/Intake and Output Vital Signs (last 24 hours): Temp Pulse Resp BP Pulse Ox 99.4 F 66 25 H 126/66 94 L 10/13/16 04:00 10/13/16 06:00 10/13/16 06:00 10/13/16 06:00 10/13/16 06:00 Intake and Output: 10/13/16 10/13/16 06:59 18:59 Intake Total 220 20 Output Total 700 100 Balance -480 -80 - Medications Medications: Current Medications Acetaminophen (Tylenol 650 Mg Supp) 650 mg [place] ONCE PRN PRN Reason: Other Last Admin: 10/10/16 13:20 Dose: 650 mg Haloperidol Lactate (Haldol) 0.5 mg IVP Q6 PRN PRN Reason: Agitation Pantoprazole Sodium 40 mg/ (Sodium Chloride) 100 mls @ 20 mls/hr IVPB Q5H [facility] PRN Reason: 8 MG/HR Last Admin: 10/13/16 06:40 Dose: 20 mls/hr Levothyroxine Sodium (Synthroid) 50 mcg PO DAILY@0630 [facility] Last Admin: 10/13/16 06:41 Dose: 50 mcg - Labs Labs: 10/13/16 05:30 10/13/16 05:30 PT 16.1 SECONDS (9.6-11.2) H 10/13/16 05:30 INR 1.55 (0.92-1.08) H 10/13/16 05:30 APTT 34.8 SECONDS (23.3-32.5) H 10/13/16 05:30 - Constitutional Appears: Non-toxic, No Acute Distress - Head Exam Head Exam: ATRAUMATIC, NORMOCEPHALIC - Eye Exam Eye Exam: Normal appearance - Respiratory Exam Respiratory Exam: Decreased Breath Sounds. absent: Rales, Rhonchi, Wheezes Additional comments: decrease breath sound lung bases. no rales. - Cardiovascular Exam Cardiovascular Exam: REGULAR RHYTHM, +S1, +S2, Murmur Additional comments: systolic murmur / - GI/Abdominal Exam GI & Abdominal Exam: Soft, Normal Bowel Sounds, Organomegaly. absent: Tenderness Additional comments: splenomegaly. RUQ: bulging related with ventral hernia - Extremities Exam Extremities Exam: Normal Inspection. absent: Calf Tenderness, Pedal Edema - Neurological Exam Neurological Exam: Alert, Awake, Oriented x3 - Psychiatric Exam Psychiatric exam: Normal Affect, Normal Mood - Skin Skin Exam: Intact Assessment and Plan - Assessment and Plan (Free Text) Plan: 81 yo , m , PMhx/o HTN, Diverticulitis, Emphysema, Arthritis, Gout, myelofibrosis, Hypothyroidism, Osteoporosis, Fractures (Hx of Compression Vertebral Fx at T and L spine), (Chronically elevated WBCs) presents to ED c/o bright red bloody diarrhea 1) Acute Lower GI Bleeding -Hx/o diverticulosis. possible secondary to diverticulosis, internal hemorrhoids or angiodysplasia. -CT Abd: 03/18/14 showed liver cirrhosis and possible portal HTN. CT abd: 10/09: Diverticulosis of the sigmoid colon with subtle adjacent inflammatory changes; correlate clinically for possibility of acute diverticulitis. Marked splenomegaly.Severe L1 and L3 compression fracture deformities, age indeterminate.Enlarged heterogeneous prostate gland. Recommend correlation with PSA. Large bowel containing right anterior abdominal wall hernia without evidence of obstruction -S/P Transfusion 3 U in ER and 2 U ICU rPBC . Hgb: 8.6 -GI consult appreciated: GI bleeding scan neg. EGD elective for Saturday. questionable sigmoidoscopy -Cardio Consult Appreciated. cleared for EGD -F/U CBC/Hct 2) Acute on chronic Anemia -secondary to lower GI bleeding - s/p Transfused 2 U rPBC -Hgb: 8.6 -Hgb: 10.8 on 02/24/16 Hx/o myelofibrosis 3) Delirium Hyperactive -resolved. -Haldol Prn 4) Bradycardia -resolved -HR: 75 -possible secondary to octreotide administration -Cardologist consult appreciated: Patient cleared for EGD Echo: Severe aortic valve stenosis. 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 Few simple cysts in both kidneys, the largest in the right upper pole measures 2.3 cm. 6) Hypothyroidism -TSH 0.3 02/24/16 - continue meds Synthroid 125 mcg PO daily 7) Hx/o Myelofibrosis -08/31/14 wbc baseline from 79 to 39.4 -WBC 36 -PLT 351 -ECW Chart documents were reviewed revealing known history of chronic neutrophilia with baseline WBC in 40-50k range as far back as 2006. Last documented Heme/Onc consultation in February [address] Mcmahon with plan for hydroxyurea 500mg every other day but patient has not seen Heme/Onc provider since. -Hem-Onc consult appreciated: recommend flow cytometry, periph blood smear, bone marrow eval. -Serum protein electrophoresis pending 8) Gout -Uric Acid - Allopurinol 100 mg P o daily 9) DVT Prophylaxis -SCD 10) GI prophylaxis -Pantoprazole 40 mg IV
--- NOTE | 2016-10-13 12:26 | CP.PCM.PN ---
Subjective - Date & Time of Evaluation Date of Evaluation: 10/13/16 Time of Evaluation: 11:30 - Subjective Subjective: Comfortable in bed eels better Objective - Vital Signs/Intake and Output Vital Signs (last 24 hours): Temp Pulse Resp BP Pulse Ox 98.2 F 75 21 129/66 95 10/13/16 08:00 10/13/16 10:00 10/13/16 10:00 10/13/16 10:00 10/13/16 10:00 Intake and Output: 10/13/16 10/13/16 06:59 18:59 Intake Total 220 260 Output Total 700 100 Balance -480 160 - Medications Medications: Current Medications Acetaminophen (Tylenol 650 Mg Supp) 650 mg [place] ONCE PRN PRN Reason: Other Last Admin: 10/10/16 13:20 Dose: 650 mg Haloperidol Lactate (Haldol) 0.5 mg IVP Q6 PRN PRN Reason: Agitation Pantoprazole Sodium 40 mg/ (Sodium Chloride) 100 mls @ 20 mls/hr IVPB Q5H [facility] PRN Reason: 8 MG/HR Last Admin: 10/13/16 06:40 Dose: 20 mls/hr Levothyroxine Sodium (Synthroid) 50 mcg PO DAILY@0630 [facility] Last Admin: 10/13/16 06:41 Dose: 50 mcg Pantoprazole Sodium (Protonix Inj) 40 mg IVP Q12 [facility] - Labs Labs: 10/13/16 05:30 10/13/16 05:30 PT 16.1 SECONDS (9.6-11.2) H 10/13/16 05:30 INR 1.55 (0.92-1.08) H 10/13/16 05:30 APTT 34.8 SECONDS (23.3-32.5) H 10/13/16 05:30 - Respiratory Exam Additional comments: Lungs clear - Cardiovascular Exam Cardiovascular Exam: REGULAR RHYTHM - Extremities Exam Additional comments: No edema Assessment and Plan - Assessment and Plan (Free Text) Assessment: Chronic renal failure. Creatinine is stable Plan: Renal function is stable . Continue to mpnitor
[2016-10-13 12:45] VITALS: RESP 20
[2016-10-13] MEDS ORDERED: Influenza Vaccine(5yr & older) 0.5 ML/45 MCG IM ONE (14:56)
--- NOTE | 2016-10-13 17:12 | CP.PCM.PN ---
Subjective - Date & Time of Evaluation Date of Evaluation: 10/13/16 Time of Evaluation: 11:30 - Subjective Subjective: Patient seen and examined. No new complaints. No current abdominal pain, nausea or vomiting. He is tolerating diet. No reported bloody stool. ROS otherwise negative in detail Objective - Vital Signs/Intake and Output Vital Signs (last 24 hours): Temp Pulse Resp BP Pulse Ox 98.7 F 79 20 136/80 96 10/13/16 16:59 10/13/16 16:59 10/13/16 16:59 10/13/16 16:59 10/13/16 16:59 Intake and Output: 10/13/16 10/13/16 06:59 18:59 Intake Total 220 260 Output Total 700 100 Balance -480 160 - Medications Medications: Current Medications Acetaminophen (Tylenol 650 Mg Supp) 650 mg [place] ONCE PRN PRN Reason: Other Last Admin: 10/10/16 13:20 Dose: 650 mg Haloperidol Lactate (Haldol) 0.5 mg IVP Q6 PRN PRN Reason: Agitation Pantoprazole Sodium 40 mg/ (Sodium Chloride) 100 mls @ 20 mls/hr IVPB Q5H [facility] PRN Reason: 8 MG/HR Last Admin: 10/13/16 06:40 Dose: 20 mls/hr Levothyroxine Sodium (Synthroid) 50 mcg PO DAILY@0630 [facility] Last Admin: 10/13/16 06:41 Dose: 50 mcg Pantoprazole Sodium (Protonix Inj) 40 mg IVP Q12 [facility] - Labs Labs: 10/13/16 05:30 10/13/16 05:30 PT 16.1 SECONDS (9.6-11.2) H 10/13/16 05:30 INR 1.55 (0.92-1.08) H 10/13/16 05:30 APTT 34.8 SECONDS (23.3-32.5) H 10/13/16 05:30 - Constitutional Appears: No Acute Distress, Chronically Ill - Eye Exam Eye Exam: absent: Scleral icterus - ENT Exam ENT Exam: Mucous Membranes Moist - Respiratory Exam Respiratory Exam: Clear to Ausculation Bilateral - Cardiovascular Exam Cardiovascular Exam: +S1, +S2 - GI/Abdominal Exam Additional comments: abdomen soft, non tender to palpation, no rebound or guarding, bowel sounds present - Extremities Exam Extremities Exam: Pedal Edema - Neurological Exam Neurological Exam: Alert - Skin Skin Exam: Dry Assessment and Plan - Assessment and Plan (Free Text) Assessment: This is an 81 yr old male with aortic stenosis, myeloproliferative disorder, diverticulosis who is admitted with GI bleeding/hematochezia, possibly diverticular in origin. Bleeding scan negative. H/H currently stable. Plan: Monitor H/H, transfuse as needed PPI BID Monitor for rebleeding Diet as tolerated Family agreeable to endoscopic evaluation Cardiology cleared patient for endoscopy Plan for possible EGD Saturday pending clinical course, anesthesia evaluation
[2016-10-14] MEDS: Levothyroxine 50 MCG TAB PO SCH (07:18)
--- NOTE | 2016-10-14 10:26 | CP.PCM.PN ---
Subjective - Date & Time of Evaluation Date of Evaluation: 10/14/16 Time of Evaluation: 08:25 - Subjective Subjective: Last BM yesterday- no blood in it's contents. Reported at formed stool. Denies nausea, vomiting, diarrhea. Afebrile. No chest pain, palpitations, shortness of breath. Alert, oriented. Tolerating PO intake without difficulty. Objective - Vital Signs/Intake and Output Vital Signs (last 24 hours): Temp Pulse Resp BP Pulse Ox 98.2 F 63 20 123/63 98 10/14/16 08:40 10/14/16 08:40 10/14/16 08:40 10/14/16 08:40 10/14/16 08:40 Intake and Output: 10/14/16 10/14/16 06:59 18:59 Intake Total 180 Output Total 500 Balance -320 - Medications Medications: Current Medications Acetaminophen (Tylenol 650 Mg Supp) 650 mg [place] ONCE PRN PRN Reason: Other Last Admin: 10/10/16 13:20 Dose: 650 mg Haloperidol Lactate (Haldol) 0.5 mg IVP Q6 PRN PRN Reason: Agitation Levothyroxine Sodium (Synthroid) 50 mcg PO DAILY@0630 [facility] Last Admin: 10/14/16 07:18 Dose: 50 mcg Pantoprazole Sodium (Protonix Inj) 40 mg IVP Q12 [facility] Last Admin: 10/14/16 09:06 Dose: 40 mg - Labs Labs: 10/13/16 05:30 10/13/16 05:30 PT 16.1 SECONDS (9.6-11.2) H 10/13/16 05:30 INR 1.55 (0.92-1.08) H 10/13/16 05:30 APTT 34.8 SECONDS (23.3-32.5) H 10/13/16 05:30 - Head Exam Head Exam: ATRAUMATIC, NORMOCEPHALIC - Eye Exam Eye Exam: EOMI, Normal appearance - ENT Exam ENT Exam: Mucous Membranes Moist - Respiratory Exam Respiratory Exam: NORMAL BREATHING PATTERN. absent: Rales, Rhonchi, Wheezes, Respiratory Distress - Cardiovascular Exam Cardiovascular Exam: REGULAR RHYTHM, +S1, +S2, Murmur (Systolic ejection 3/6) - GI/Abdominal Exam GI & Abdominal Exam: Soft, Hernia (Vental, reducible). absent: Distended, Tenderness - Extremities Exam Extremities Exam: absent: Pedal Edema - Neurological Exam Neurological Exam: Alert, Normal Gait, Oriented x3 Assessment and Plan - Assessment and Plan (Free Text) Plan: 1. Acute Anemia Hemodynamically stable Likely secondary to acute blood loss from lower GI tract Etiology: Diverticulosis v. internal hemorrhoids v. angiodysplasia or combination CT Abd: 03/18/14 showed liver cirrhosis and possible portal HTN CT Abd: 10/09: Diverticulosis of the sigmoid colon with subtle adjacent inflammatory changes; correlate clinically for possibility of acute diverticulitis. Marked splenomegaly.Severe L1 and L3 compression fracture deformities, age indeterminate.Enlarged heterogeneous prostate gland. Recommend correlation with PSA. Large bowel containing right anterior abdominal wall hernia without evidence of obstruction Status post 5 PRBC and 4 FFP GI consult appreciated: GI bleeding scan neg. EGD elective for Saturday possible Sigmoidoscopy Cardio Consult Appreciated. Optimized for EGD/ Sigmoidoscopy Monitor for recurrence of bleeding Transfuse if inidicated Monitor INR 2. 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 Few simple cysts in both kidneys, the largest in the right upper pole measures 2.3 cm. Renal function improving Follow up BUN/Cr and GFR Nephrology on board, consult appreciated 3. Aortic Stenosis Cardologist consult appreciated: Dr. Sevilla Echo: Severe aortic valve stenosis. LV normal size, thickness, LF fcn is low- normal, EF 45-50% 4. Hypothyroidism, controlled - continue meds Synthroid 125 mcg PO daily 5. Myelofibrosis ECW Chart documents were reviewed revealing known history of chronic neutrophilia with baseline WBC in 40-50k range as far back as 2006. Last documented Heme/Onc consultation in February [address] Mcmahon with plan for hydroxyurea 500mg every other day but patient has not seen Heme/Onc provider since. Hem-Onc consult appreciated: recommend flow cytometry, periph blood smear, bone marrow eval. Serum protein electrophoresis pending 6. Gout, stable Allopurinol 100 mg P o daily 7. DVT Prophylaxis SCD 8. GI prophylaxis Pantoprazole 40 mg IV
[2016-10-14 12:36] LABS: BASO # 0.1 K/uL (0.0-0.2); BASO % 0.2 % (0.0-2.0); EOS # 0.3 K/uL (0.0-0.7); EOS % 1.2 % (0.0-4.0); HEMATOCRIT 27.1 % (35.0-51.0); LYMPH # 1.4 K/uL (1.0-4.3); LYMPH % 5.5 % (20.0-40.0); MEAN CELL VOLUME 94.8 fl (80.0-94.0); MEAN CORPUSCULAR HEMOGLOBIN 30.1 pg (27.0-31.0); MEAN CORPUSCULAR HGB CONC 31.8 g/dL (33.0-37.0); MEAN PLATELET VOLUME 10.9 fl (7.2-11.7); MONO # 1.5 K/uL (0.0-0.8); MONO % 5.6 % (0.0-10.0); NEUT # 22.5 K/uL (1.8-7.0); NEUT % 87.5 % (50.0-75.0); RED CELL DISTRIBUTION WIDTH 17.7 % (11.5-14.5); WHITE BLOOD COUNT 25.7 K/uL (4.8-10.8)
--- NOTE | 2016-10-14 13:07 | CP.PCM.PN ---
Subjective - Date & Time of Evaluation Date of Evaluation: 10/14/16 Time of Evaluation: 20:00 - Subjective Subjective: Alert . NAD Objective - Vital Signs/Intake and Output Vital Signs (last 24 hours): Temp Pulse Resp BP Pulse Ox 98.2 F 63 20 123/63 98 10/14/16 08:40 10/14/16 08:40 10/14/16 08:40 10/14/16 08:40 10/14/16 08:40 Intake and Output: 10/14/16 10/14/16 06:59 18:59 Intake Total 180 200 Output Total 500 500 Balance -320 -300 - Medications Medications: Current Medications Acetaminophen (Tylenol 650 Mg Supp) [address] ONCE PRN PRN Reason: Other Last Admin: 10/10/16 13:20 Dose: 650 mg Haloperidol Lactate (Haldol) 0.5 mg IVP Q6 PRN PRN Reason: Agitation Levothyroxine Sodium (Synthroid) 50 mcg PO DAILY@0630 [facility] Last Admin: 10/14/16 07:18 Dose: 50 mcg Pantoprazole Sodium (Protonix Inj) 40 mg IVP Q12 [facility] Last Admin: 10/14/16 09:06 Dose: 40 mg - Labs Labs: 10/14/16 12:30 10/13/16 05:30 PT 15.4 SECONDS (9.6-11.2) H 10/14/16 12:30 INR 1.48 (0.92-1.08) H 10/14/16 12:30 APTT 33.0 SECONDS (23.3-32.5) H 10/14/16 12:30 - Respiratory Exam Additional comments: Lungs clear - Cardiovascular Exam Cardiovascular Exam: REGULAR RHYTHM - Extremities Exam Additional comments: No edema Assessment and Plan - Assessment and Plan (Free Text) Assessment: CKD Creat is stable Proteinuria Low CH50 & C3. Etiology? check JENNIFER,DNA,C4 Leukocytosis Liver cirrhosis Plan: S & U IF pending F/b Heme/Onc
[2016-10-14 13:48] LABS: CALCIUM 7.2 mg/dL (8.4-10.2); POTASSIUM 3.9 MMOL/L (3.6-5.0)
--- NOTE | 2016-10-14 15:29 | CP.PCM.PN ---
<Mikal Hollingsworth - Last Filed: 10/14/16 15:29> Subjective - Date & Time of Evaluation Date of Evaluation: 10/14/16 Time of Evaluation: 11:40 - Subjective Subjective: PGY4 GI Fellow Progress Note Patient seen and examined bedside this morning. The patient denies any complaints at this time. He has been transferred to the medical floor from ICU. He denies any further episodes of rectal bleeding which has been confirmed by nursign staff. He is also off Protonix gtt. Denies any fever, chills, abdominal pain, nausea, vomiting. 12 system ROS performed and negative except where stated. Objective - Vital Signs/Intake and Output Vital Signs (last 24 hours): Temp Pulse Resp BP Pulse Ox 98.2 F 63 20 123/63 98 10/14/16 08:40 10/14/16 08:40 10/14/16 08:40 10/14/16 08:40 10/14/16 08:40 Intake and Output: 10/14/16 10/14/16 06:59 18:59 Intake Total 180 200 Output Total 500 500 Balance -320 -300 - Medications Medications: Current Medications Acetaminophen (Tylenol 650 Mg Supp) 650 mg [place] ONCE PRN PRN Reason: Other Last Admin: 10/10/16 13:20 Dose: 650 mg Haloperidol Lactate (Haldol) 0.5 mg IVP Q6 PRN PRN Reason: Agitation Levothyroxine Sodium (Synthroid) 50 mcg PO DAILY@0630 [facility] Last Admin: 10/14/16 07:18 Dose: 50 mcg Pantoprazole Sodium (Protonix Inj) 40 mg IVP Q12 [facility] Last Admin: 10/14/16 09:06 Dose: 40 mg - Labs Labs: 10/14/16 12:30 10/14/16 12:30 PT 15.4 SECONDS (9.6-11.2) H 10/14/16 12:30 INR 1.48 (0.92-1.08) H 10/14/16 12:30 APTT 33.0 SECONDS (23.3-32.5) H 10/14/16 12:30 - Constitutional Appears: Non-toxic, No Acute Distress - Eye Exam Eye Exam: EOMI, PERRL - ENT Exam ENT Exam: Mucous Membranes Moist - Respiratory Exam Respiratory Exam: Clear to Ausculation Bilateral. absent: Rales, Rhonchi, Wheezes - Cardiovascular Exam Cardiovascular Exam: RRR, +S1, +S2, Murmur (holosystolic) - GI/Abdominal Exam GI & Abdominal Exam: Soft, Normal Bowel Sounds. absent: Distended, Firm, Guarding, Rigid, Tenderness, Organomegaly - Extremities Exam Extremities Exam: Normal Inspection. absent: Pedal Edema - Neurological Exam Neurological Exam: Alert, Awake, Oriented x3 - Psychiatric Exam Psychiatric exam: Normal Affect, Normal Mood - Skin Skin Exam: Dry, Warm Assessment and Plan - Assessment and Plan (Free Text) Assessment: Patient is an 81yo Yakut-speaking male with PMHx significant for EtOH cirrhosis, aortic stenosis, unclear myeloproliferative d/, gout, OA and hypothyroidism who presented to the ED with complaint of rectal bleeding. 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 -Unclear myeloproliferative D/O - family state w/u performed in [place] without clear etiology (included BM bx) Plan: -HGB stable, transferred to the medical floor from ICU -Protonix gtt discontinued yesterday; now on Protonix 40mg IV BIDAC -No further evidence of bleeding -Consider dx of Heyde syndrome in setting of aortic stenosis -Family agrees to endoscopic evaluation -NPO past MN with plan for EGD tomorrow -Cardiology cleared patient for endoscopy, please see Dr Sevilla's note -Case discussed with anesthesia, Dr Mane, who is aware of case <Rene Varner - Last Filed: 10/14/16 16:00> Objective - Vital Signs/Intake and Output Vital Signs (last 24 hours): Temp Pulse Resp BP Pulse Ox 98.2 F 63 20 123/63 98 10/14/16 08:40 10/14/16 08:40 10/14/16 08:40 10/14/16 08:40 10/14/16 08:40 Intake and Output: 10/14/16 10/14/16 06:59 18:59 Intake Total 180 200 Output Total 500 500 Balance -320 -300 - Medications Medications: Current Medications Acetaminophen (Tylenol 650 Mg Supp) 650 mg [place] ONCE PRN PRN Reason: Other Last Admin: 10/10/16 13:20 Dose: 650 mg Haloperidol Lactate (Haldol) 0.5 mg IVP Q6 PRN PRN Reason: Agitation Levothyroxine Sodium (Synthroid) 50 mcg PO DAILY@0630 [facility] Last Admin: 10/14/16 07:18 Dose: 50 mcg Pantoprazole Sodium (Protonix Inj) 40 mg IVP Q12 [facility] Last Admin: 10/14/16 09:06 Dose: 40 mg - Labs Labs: 10/14/16 12:30 10/14/16 12:30 PT 15.4 SECONDS (9.6-11.2) H 10/14/16 12:30 INR 1.48 (0.92-1.08) H 10/14/16 12:30 APTT 33.0 SECONDS (23.3-32.5) H 10/14/16 12:30 Attending/Attestation - Attestation I have personally seen and examined this patient.: Yes I have fully participated in the care of the patient.: Yes I have reviewed all pertinent clinical information, including history, physical exam and plan: Yes Notes (Text): Patient seen and examined with GI fellow. Agree with his note as documented above with the following additions/exceptions. This is an 81 yr old male with aortic stenosis, myeloproliferative disorder, diverticulosis who is admitted with GI bleeding/hematochezia, possibly diverticular in origin. Bleeding scan negative. H/H currently stable and no further bleeding episodes. Cardiology evaluation appreciated, clear for endoscopic evaluation. Continue BID PPI for now. Keep NPO p MN for EGD tomorrow. 10/14/16 15:59
--- NOTE | 2016-10-15 01:52 | CP.PCM.PN ---
Subjective - Date & Time of Evaluation Date of Evaluation: 10/14/16 Time of Evaluation: 13:15 - Subjective Subjective: No complaints. Objective - Vital Signs/Intake and Output Vital Signs (last 24 hours): Temp Pulse Resp BP Pulse Ox 99.5 F 70 20 115/60 98 10/14/16 17:00 10/14/16 17:00 10/14/16 17:00 10/14/16 17:00 10/14/16 08:40 Intake and Output: 10/14/16 10/15/16 18:59 06:59 Intake Total 200 Output Total 500 Balance -300 - Medications Medications: Current Medications Acetaminophen (Tylenol 650 Mg Supp) [address] ONCE PRN PRN Reason: Other Last Admin: 10/10/16 13:20 Dose: 650 mg Haloperidol Lactate (Haldol) 0.5 mg IVP Q6 PRN PRN Reason: Agitation Levothyroxine Sodium (Synthroid) 50 mcg PO DAILY@0630 [facility] Last Admin: 10/14/16 07:18 Dose: 50 mcg Pantoprazole Sodium (Protonix Inj) 40 mg IVP Q12 [facility] Last Admin: 10/14/16 21:39 Dose: 40 mg - Labs Labs: 10/14/16 12:30 10/14/16 12:30 PT 15.4 SECONDS (9.6-11.2) H 10/14/16 12:30 INR 1.48 (0.92-1.08) H 10/14/16 12:30 APTT 33.0 SECONDS (23.3-32.5) H 10/14/16 12:30 - Head Exam Head Exam: ATRAUMATIC - Eye Exam Eye Exam: Normal appearance - ENT Exam ENT Exam: Mucous Membranes Dry - Respiratory Exam Respiratory Exam: NORMAL BREATHING PATTERN - Cardiovascular Exam Cardiovascular Exam: +S1, +S2 - GI/Abdominal Exam GI & Abdominal Exam: Normal Bowel Sounds - Extremities Exam Extremities Exam: Normal Inspection Assessment and Plan (1) Leukocytosis Assessment & Plan: secondary to myeloproliferative disorder Status: Acute (2) Anemia Assessment & Plan: GI bleeding appears to have resolved Status: Acute (3) Coagulopathy Assessment & Plan: nutritional Status: Acute
[2016-10-15] MEDS: Levothyroxine 50 MCG TAB PO SCH (06:29)
[2016-10-15 07:20] LABS: PARTIAL THROMBOPLASTIN TIME 38.7 SECONDS (23.3-32.5)
[2016-10-15 07:26] LABS: BILIRUBIN,TOTAL 0.7 mg/dl (0.2-1.3); CALCIUM 7.2 mg/dL (8.4-10.2); MAGNESIUM 1.4 MG/DL (1.6-2.3); PHOSPHOROUS 3.4 mg/dl (2.5-4.5); TOTAL PROTEIN 5.5 G/DL (6.3-8.2)
[2016-10-15 07:44] LABS: BASO # 0.1 K/uL (0.0-0.2); BASO % 0.4 % (0.0-2.0); EOS # 0.3 K/uL (0.0-0.7); EOS % 1.3 % (0.0-4.0); HEMATOCRIT 26.5 % (35.0-51.0); LYMPH # 1.7 K/uL (1.0-4.3); LYMPH % 6.5 % (20.0-40.0); MEAN CELL VOLUME 94.8 fl (80.0-94.0); MEAN CORPUSCULAR HEMOGLOBIN 30.4 pg (27.0-31.0); MEAN CORPUSCULAR HGB CONC 32.1 g/dL (33.0-37.0); MEAN PLATELET VOLUME 11.5 fl (7.2-11.7); MONO # 1.6 K/uL (0.0-0.8); MONO % 6.1 % (0.0-10.0); NEUT # 22.7 K/uL (1.8-7.0); NEUT % 85.7 % (50.0-75.0); PLATELET COUNT 242 K/uL (130-400); RED CELL DISTRIBUTION WIDTH 17.9 % (11.5-14.5); WHITE BLOOD COUNT 26.5 K/uL (4.8-10.8)
--- NOTE | 2016-10-15 09:34 | CP.PCM.PN ---
Subjective - Date & Time of Evaluation Date of Evaluation: 10/15/16 Time of Evaluation: 07:40 - Subjective Subjective: Patient seen and examined bedside feeling better. Patient is scheduled today for EGD. AAO x3. Denies abd pain, rectal bleeding, chest pain, SOB. NPO waiting for EGD procedure. Objective - Vital Signs/Intake and Output Vital Signs (last 24 hours): Temp Pulse Resp BP Pulse Ox 98.8 F 67 20 121/63 96 10/15/16 08:25 10/15/16 08:25 10/15/16 08:25 10/15/16 08:25 10/15/16 08:25 - Medications Medications: Current Medications Acetaminophen (Tylenol 650 Mg Supp) 650 mg [place] ONCE PRN PRN Reason: Other Last Admin: 10/10/16 13:20 Dose: 650 mg Haloperidol Lactate (Haldol) 0.5 mg IVP Q6 PRN PRN Reason: Agitation Levothyroxine Sodium (Synthroid) 50 mcg PO DAILY@0630 [facility] Last Admin: 10/15/16 06:29 Dose: 50 mcg Pantoprazole Sodium (Protonix Inj) 40 mg IVP Q12 [facility] Last Admin: 10/15/16 08:40 Dose: 40 mg - Labs Labs: 10/15/16 05:55 10/15/16 05:55 PT 15.8 SECONDS (9.6-11.2) H 10/15/16 05:55 INR 1.52 (0.92-1.08) H 10/15/16 05:55 APTT 38.7 SECONDS (23.3-32.5) H 10/15/16 05:55 - Constitutional Appears: Non-toxic, No Acute Distress - Head Exam Head Exam: ATRAUMATIC, NORMOCEPHALIC - Eye Exam Eye Exam: Normal appearance - Respiratory Exam Respiratory Exam: Clear to Ausculation Bilateral. absent: Rales - Cardiovascular Exam Cardiovascular Exam: REGULAR RHYTHM, +S1, +S2, Murmur Additional comments: 3/6 systolic murmur - GI/Abdominal Exam GI & Abdominal Exam: Soft, Normal Bowel Sounds. absent: Tenderness Additional comments: RUQ: bulging mass secondary to ventral hernia - Extremities Exam Extremities Exam: Normal Inspection. absent: Calf Tenderness, Pedal Edema - Neurological Exam Neurological Exam: Alert, Awake, Oriented x3 Assessment and Plan - Assessment and Plan (Free Text) Plan: 81 yo , m , PMhx/o HTN, Diverticulitis, Emphysema, Arthritis, Gout, myelofibrosis, Hypothyroidism, Osteoporosis, Fractures (Hx of Compression Vertebral Fx at T and L spine), (Chronically elevated WBCs) presents to ED c/o bright red bloody diarrhea 1. Acute Anemia Hemodynamically stable Likely secondary to acute blood loss from lower GI tract Etiology: Diverticulosis v. internal hemorrhoids v. angiodysplasia or combination CT Abd: 03/18/14 showed liver cirrhosis and possible portal HTN CT Abd: 10/09: Diverticulosis of the sigmoid colon with subtle adjacent inflammatory changes; correlate clinically for possibility of acute diverticulitis. Marked splenomegaly.Severe L1 and L3 compression fracture deformities, age indeterminate.Enlarged heterogeneous prostate gland. Recommend correlation with PSA. Large bowel containing right anterior abdominal wall hernia without evidence of obstruction Status post 5 PRBC and 4 FFP GI consult appreciated: GI bleeding scan neg. EGD elective for today and possible Sigmoidoscopy Cardio Consult Appreciated. Optimized for EGD/ Sigmoidoscopy Monitor for recurrence of bleeding Transfuse if inidicated Monitor INR 2. 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 Few simple cysts in both kidneys, the largest in the right upper pole measures 2.3 cm. Renal function improving Follow up BUN/Cr and GFR Nephrology on board, consult appreciated 3. Aortic Stenosis Cardologist consult appreciated: Dr. Sevilla Echo: Severe aortic valve stenosis. LV normal size, thickness, LF fcn is low- normal, EF 45-50% 4. Hypothyroidism, controlled - continue meds Synthroid 125 mcg PO daily 5. Myelofibrosis ECW Chart documents were reviewed revealing known history of chronic neutrophilia with baseline WBC in 40-50k range as far back as 2006. Last documented Heme/Onc consultation in February [address] Mcmahon with plan for hydroxyurea 500mg every other day but patient has not seen Heme/Onc provider since. Hem-Onc consult appreciated: recommend flow cytometry, periph blood smear, bone marrow eval. Serum protein electrophoresis pending 6. Gout, stable Allopurinol 100 mg P o daily 7. DVT Prophylaxis SCD 8. GI prophylaxis Pantoprazole 40 mg IV
--- NOTE | 2016-10-15 10:51 | CP.PCM.PN ---
Subjective - Date & Time of Evaluation Date of Evaluation: 10/15/16 Time of Evaluation: 10:49 - Subjective Subjective: No new changes noted overnight Clinically appears to be stable no chest pain no shortness of breath Vital sign noted to be stable. Serum creatinine stabilized around 1.7 Chest clear Heart no rubs Abdomen soft Extremity no edema Impression and plan Stable CK D stage III at this point waiting for Jose double-stranded DNA and complement. Objective - Vital Signs/Intake and Output Vital Signs (last 24 hours): Temp Pulse Resp BP Pulse Ox 98.8 F 67 20 121/63 96 10/15/16 08:25 10/15/16 08:25 10/15/16 08:25 10/15/16 08:25 10/15/16 08:25 - Medications Medications: Current Medications Acetaminophen (Tylenol 650 Mg Supp) 650 mg [place] ONCE PRN PRN Reason: Other Last Admin: 10/10/16 13:20 Dose: 650 mg Haloperidol Lactate (Haldol) 0.5 mg IVP Q6 PRN PRN Reason: Agitation Levothyroxine Sodium (Synthroid) 50 mcg PO DAILY@0630 [facility] Last Admin: 10/15/16 06:29 Dose: 50 mcg Pantoprazole Sodium (Protonix Inj) 40 mg IVP Q12 [facility] Last Admin: 10/15/16 08:40 Dose: 40 mg - Labs Labs: 10/15/16 05:55 10/15/16 05:55 PT 15.8 SECONDS (9.6-11.2) H 10/15/16 05:55 INR 1.52 (0.92-1.08) H 10/15/16 05:55 APTT 38.7 SECONDS (23.3-32.5) H 10/15/16 05:55 Assessment and Plan (1) Renal failure (ARF), acute on chronic Status: Acute
[2016-10-15 11:56] LABS: EOSINOPHIL 3 % (0-7); METAMYELOCYTE 2 % (0-0); NEUTROPHIL 78 % (42-75); TOTAL CELLS COUNTED 100
[2016-10-15 11:59] LABS: LARGE PLATELETS PRESENT
[2016-10-15] MEDS ORDERED: Sodium Chloride 0.9% 250 ML IV ONE (13:33)
[2016-10-15] MEDS ORDERED: ISOPROPYL ALCOHOL TP ONE (13:45)
--- NOTE | 2016-10-15 14:39 | CP.PCM.DIS ---
Provider - Provider Date of Admission: 10/09/16 14:39 Attending physician: Helena Strong MD Primary care physician: Lety Almazan MD Time Spent in preparation of Discharge (in minutes): 40 Diagnosis - Discharge Diagnosis (1) Anemia Status: Chronic (2) GI bleed Status: Resolved (3) Renal failure (ARF), acute on chronic Status: Chronic (4) Gout Status: Chronic (5) Liver cirrhosis Status: Chronic Priority: Medium (6) Aortic stenosis Status: Chronic (7) Myelofibrosis Status: Chronic (8) Hypothyroidism Status: Chronic Hospital Course - Lab Results Lab Results: Micro Results 10/13/16 14:54 Naris MRSA Culture (Admit) - Final MRSA NOT DETECTED 10/09/16 20:30 Naris MRSA Culture (Admit) - Final MRSA NOT DETECTED Most Recent Lab Values WBC 26.5 K/uL (4.8-10.8) H 10/15/16 05:55 RBC 2.80 Mil/uL (4.40-5.90) L 10/15/16 05:55 Hgb 8.5 g/dL (12.0-18.0) L 10/15/16 05:55 Hct 26.5 % (35.0-51.0) L 10/15/16 05:55 MCV 94.8 fl (80.0-94.0) H 10/15/16 05:55 MCH 30.4 pg (27.0-31.0) 10/15/16 05:55 MCHC 32.1 g/dL (33.0-37.0) L 10/15/16 05:55 RDW 17.9 % (11.5-14.5) H 10/15/16 05:55 Plt Count 242 K/uL (130-400) 10/15/16 05:55 MPV 11.5 fl (7.2-11.7) 10/15/16 05:55 Neut % (Auto) 85.7 % (50.0-75.0) H 10/15/16 05:55 Lymph % (Auto) 6.5 % (20.0-40.0) L 10/15/16 05:55 [place] % (Auto) 6.1 % (0.0-10.0) 10/15/16 05:55 Eos % (Auto) 1.3 % (0.0-4.0) 10/15/16 05:55 Baso % (Auto) 0.4 % (0.0-2.0) 10/15/16 05:55 Neut # 22.7 K/uL (1.8-7.0) H 10/15/16 05:55 Lymph # 1.7 K/uL (1.0-4.3) 10/15/16 05:55 [place] # 1.6 K/uL (0.0-0.8) H 10/15/16 05:55 Eos # 0.3 K/uL (0.0-0.7) 10/15/16 05:55 Baso # 0.1 K/uL (0.0-0.2) 10/15/16 05:55 Total Counted Cancelled 10/11/16 06:34 Neutrophils % (Manual) 78 % (42-75) H 10/15/16 05:55 Band Neutrophils % 5 % (0-2) H 10/15/16 05:55 Lymphocytes % (Manual) 5 % (20-50) L 10/15/16 05:55 Reactive Lymphs % Cancelled 10/11/16 06:34 Monocytes % (Manual) 7 % (0-10) 10/15/16 05:55 Eosinophils % (Manual) 3 % (0-7) 10/15/16 05:55 Basophils % (Manual) Cancelled 10/11/16 06:34 Metamyelocytes % 2 % (0-0) H 10/15/16 05:55 Myelocytes % 3 % (0-0) H 10/09/16 12:33 Promyelocytes % Cancelled 10/11/16 06:34 Blast Cells % Cancelled 10/11/16 06:34 Plasma Cell % (Manual) Cancelled 10/11/16 06:34 Nucleated RBC % Cancelled 10/11/16 06:34 Hypersegmented Polys Cancelled 10/11/16 06:34 Smudge Cells Cancelled 10/11/16 06:34 Toxic Granulation Present 10/15/16 05:55 Dohle Bodies Cancelled 10/11/16 06:34 Dominga Rods Cancelled 10/11/16 06:34 Platelet Estimate Normal (NORMAL) 10/15/16 05:55 Plt Clumps, EDTA Cancelled 10/11/16 06:34 Large Platelets Present 10/15/16 05:55 Giant Platelets Present 10/09/16 12:33 RBC Morphology Cancelled 10/11/16 06:34 Polychromasia Slight 10/15/16 05:55 Hypochromasia (manual) Slight 10/15/16 05:55 Poikilocytosis (manual Slight 10/15/16 05:55 Basophilic Stippling Cancelled 10/11/16 06:34 Anisocytosis (manual) Slight 10/15/16 05:55 Microcytosis (manual) Cancelled 10/11/16 06:34 Macrocytosis (manual) Moderate 10/09/16 12:33 Spherocytes Cancelled 10/11/16 06:34 Sickle Cells Cancelled 10/11/16 06:34 Target Cells Cancelled 10/11/16 06:34 Tear Drop Cells Slight 10/15/16 05:55 Ovalocytes Slight 10/15/16 05:55 Stomatocytes Cancelled 10/11/16 06:34 Helmet Cells Cancelled 10/11/16 06:34 Forbes-Gilliam Bodies Cancelled 10/11/16 06:34 [place] Cells Slight 10/11/16 01:00 Acanthocytes (Spur) Cancelled 10/11/16 06:34 Rouleaux Cancelled 10/11/16 06:34 Schistocytes Slight 10/15/16 05:55 ESR 14 mm/hr (0-20) 10/14/16 16:03 Retic Count 1.2 % (0.5-1.5) 10/10/16 08:33 PT 15.8 SECONDS (9.6-11.2) H 10/15/16 05:55 INR 1.52 (0.92-1.08) H 10/15/16 05:55 APTT 38.7 SECONDS (23.3-32.5) H 10/15/16 05:55 pO2 29 mm/Hg (30-55) L 10/09/16 13:25 VBG pH 7.16 (7.32-7.43) L* 10/09/16 13:25 VBG pCO2 39 mmHg (40-60) L 10/09/16 13:25 VBG HCO3 13.7 mmol/L 10/09/16 13:25 VBG Total CO2 15.1 mmol/L (22-28) L 10/09/16 13:25 VBG O2 Sat (Calc) 46.3 % (40-65) 10/09/16 13:25 VBG Base Excess -13.6 mmol/L (0.0-2.0) L 10/09/16 13:25 VBG Potassium 5.9 mmol/L (3.6-5.2) H 10/09/16 13:25 Sodium 137.0 mmol/L (132-148) 10/09/16 13:25 Chloride 112.0 mmol/L (98-107) H 10/09/16 13:25 Glucose 102 mg/dL (75-110) 10/09/16 13:25 Lactate 6.1 mmol/L (0.7-2.1) H* 10/09/16 13:25 FiO2 21.0 % 10/09/16 13:25 Blood Gas Comments Vbg 10/09/16 13:25 Crit Value Called To Lynda valentino r.n. 10/09/16 13:25 Crit Value Called By Petra 10/09/16 13:25 Crit Value Read Back Y 10/09/16 13:25 Blood Gas Notified Time 1334 10/09/16 13:25 Sodium 144 mmol/l (132-148) 10/15/16 05:55 Potassium 4.0 MMOL/L (3.6-5.0) 10/15/16 05:55 Chloride 110 mmol/L (98-107) H 10/15/16 05:55 Carbon Dioxide 20 mmol/L (22-30) L 10/15/16 05:55 Anion Gap 18 (10-20) 10/15/16 05:55 BUN 35 mg/dl (9-20) H 10/15/16 05:55 Creatinine 1.7 mg/dL (0.8-1.5) H 10/15/16 05:55 Est GFR ( Amer) 47 10/15/16 05:55 Est GFR (Non-Af Amer) 39 10/15/16 05:55 Random Glucose 84 mg/dL (75-110) 10/15/16 05:55 Lactic Acid 1.2 MMOL/L (0.7-2.1) 10/10/16 08:33 Uric Acid 8.4 mg/Dl (3.5-8.5) 10/09/16 23:58 Calcium 7.2 mg/dL (8.4-10.2) L 10/15/16 05:55 Phosphorus 3.4 mg/dl (2.5-4.5) 10/15/16 05:55 Magnesium 1.4 MG/DL (1.6-2.3) L 10/15/16 05:55 Ferritin 154.0 ng/mL 10/10/16 08:33 Total Bilirubin 0.7 mg/dl (0.2-1.3) 10/15/16 05:55 AST 18 U/L (17-59) 10/15/16 05:55 ALT 25 U/L (21-72) 10/15/16 05:55 Alkaline Phosphatase 88 U/L (38-126) 10/15/16 05:55 Troponin I < 0.0120 ng/mL (0.00-0.120) 10/09/16 12:33 Total Protein 5.5 G/DL (6.3-8.2) L 10/15/16 05:55 Total Protein (PEP) 5.1 g/dL (6.1-8.1) L 10/12/16 04:30 Albumin 2.7 g/dL (3.5-5.0) L 10/15/16 05:55 Globulin 2.8 gm/dL (2.2-3.9) 10/15/16 05:55 Albumin/Globulin Ratio 1.0 (1.0-2.1) 10/15/16 05:55 Alpha Fetoprotein < 0.8 IU/mL (0.0-7.22) 10/12/16 04:30 Vitamin B12 > 1000 pg/mL (239-931) H 10/10/16 08:33 Folate > 20.0 ng/mL 10/10/16 08:33 Free T4 1.13 ng/dL (0.78-2.19) 10/11/16 11:35 TSH 3rd Generation 0.79 mIU/ML (0.46-4.68) 10/11/16 11:01 Venous Blood Potassium 5.9 mmol/L (3.6-5.2) H 10/09/16 13:25 Urine Color Yellow (YELLOW) 10/10/16 Unknown Urine Clarity Clear (Clear) 10/10/16 Unknown Urine pH 8.0 (5.0-8.0) 10/10/16 Unknown Ur Specific Richardson 1.006 (1.003-1.030) 10/10/16 Unknown Urine Protein Negative mg/dL (NEGATIVE) 10/10/16 Unknown Urine Glucose (UA) Neg mg/dL (Normal) 10/10/16 Unknown Urine Ketones Negative mg/dL (NEGATIVE) 10/10/16 Unknown Urine Blood Small (NEGATIVE) 10/10/16 Unknown Urine Nitrate Negative (NEGATIVE) 10/10/16 Unknown Urine Bilirubin Negative (NEGATIVE) 10/10/16 Unknown Urine Urobilinogen 0.2-1.0 mg/dL (0.2-1.0) 10/10/16 Unknown Ur Leukocyte Esterase Neg Valerie/uL (Negative) 10/10/16 Unknown Urine RBC (Auto) < 1 /hpf (0-3) 10/10/16 Unknown Urine Microscopic WBC < 1 /hpf (0-5) 10/10/16 Unknown Ur Random Creatinine 45 mg/dL (20-370) 10/12/16 09:03 U Random Total Protein 969 mg/g creat (22-128) H 10/12/16 09:03 Rheum Arthritis Panel Positive (NEGATIVE) H 10/14/16 16:03 Complement C3 < 40.0 mg/dL (88.0-165.0) L 10/12/16 04:30 Complement C4 19.4 mg/dL (14.0-44.0) 10/14/16 17:28 Tot Complement (CH50) 28 U/mL (31-60) L 10/12/16 04:30 Hepatitis A IgM Ab Negative (NEGATIVE) 10/09/16 16:00 Hep Bs Antigen Negative (NEGATIVE) 10/09/16 16:00 Hep B Core IgM Ab Negative (NEGATIVE) 10/09/16 16:00 Hepatitis C Antibody Negative (NEGATIVE) 10/09/16 16:00 Blood Type A POSITIVE 10/11/16 11:35 Antibody Screen Negative 10/11/16 11:35 Crossmatch See Detail 10/09/16 12:33 Reaction Clerical Check No discrepancy (NO DISCREPA) 10/10/16 10:45 Pre-Trans Blood Type A POSITIVE 10/10/16 10:45 Pre-Trans Bld Appearanc No hemolysis (NO HEMOLYSI) 10/10/16 10:45 Pre-Trans GREGORIA Negative (NEGATIVE) 10/10/16 10:45 Post-Trans Blood Type A POSITIVE 10/10/16 10:45 Post-Trans Spec Appear No hemolysis (NO HEMOLYSI) 10/10/16 10:45 Post-Trans GREGORIA Negative (NEGATIVE) 10/10/16 10:45 Reaction Pathol Review Allergic H 10/10/16 10:45 BBK History Checked Patient has bt 10/11/16 11:35 - Hospital Course Hospital Course: 81 yo , m , PMhx/o HTN, Diverticulitis, Emphysema, Arthritis, Gout, myelofibrosis, Hypothyroidism, Osteoporosis, aortic stenosis, Fractures (Hx of Compression Vertebral Fx at T and L spine), (Chronically elevated WBCs) admitted for low GI bleeding and acute on chronic anemia. Patient received transfusion in 2 occasions and FFP transfusion. GI , Clinical Project Coordinator on board. No rectal bleeding for 48 hours. Hemodynamically stable. Hgb 8.5 mg/dl. Patient scheduled for EGD but patient and family refuse to rescind DNR status and therefore EGD is cancelled. F/U GI within 2 weeks. F/U [facility] within 7 days. Rx Pantoprazol 40 mg Po daily , Ferrous Sulfate 325 mg PO BID, Colace 100 mg PO daily Discharge Exam - Head Exam Head Exam: ATRAUMATIC, NORMOCEPHALIC - Eye Exam Eye Exam: Normal appearance - Respiratory Exam Respiratory Exam: absent: Rales, Rhonchi, Wheezes - Cardiovascular Exam Cardiovascular Exam: REGULAR RHYTHM, +S1, +S2, Systolic Murmur Additional comments: 3/6 systolic murmur - GI/Abdominal Exam GI & Abdominal Exam: Normal Bowel Sounds. absent: Guarding, Rebound Additional comments: RUQ bulging mass secondary to reducible ventral hernia. - Extremities Exam Extremities exam: normal inspection - Neurological Exam Neurological exam: Alert, Oriented x3 - Psychiatric Exam Psychiatric exam: Normal Affect, Normal Mood - Skin Skin Exam: Intact Discharge Plan - Discharge Medications Prescriptions: Docusate [Colace] 100 mg PO DAILY #30 cap Ferrous Sulfate [Feosol] 325 mg PO BID #60 tab Pantoprazole [Protonix] 40 mg PO DAILY #30 ect - Follow Up Plan Condition: CRITICAL Disposition: HOME/ ROUTINE Instructions: Gastrointestinal Bleeding (DC) Additional Instructions: -Follow Up CBC within 7 days. -Follow up [facility] within 7 days -Follow up Manager Social Services within 2 weeks -Ferrous Sulfate 325 mg BID -Colace 100 mg PO daily -IF severe rectal bleeding, pass out, come to ER. Referrals: Akanksha VAZQUEZ,MD Billy [Medical Doctor] - Lety Almazan MD [Primary Care Provider] -
--- NOTE | 2016-10-15 15:35 | CP.PCM.PN ---
Subjective - Date & Time of Evaluation Date of Evaluation: 10/15/16 Time of Evaluation: 14:00 - Subjective Subjective: Patient was brought to endoscopy for EGD. patients daughter and were explained the procedure. The family decided to not reverse DNR/DNI for the procedure. They were also explained that this is not urgent life saving procedure as he does not have active GIB. The family refused the procedure and wanted discharge instead after discussing anesthesia side effects and complications Objective - Vital Signs/Intake and Output Vital Signs (last 24 hours): Temp Pulse Resp BP Pulse Ox 98.8 F 67 20 121/63 96 10/15/16 08:25 10/15/16 08:25 10/15/16 08:25 10/15/16 08:25 10/15/16 08:25 - Medications Medications: Current Medications Acetaminophen (Tylenol 650 Mg Supp) 650 mg [place] ONCE PRN PRN Reason: Other Last Admin: 10/10/16 13:20 Dose: 650 mg Haloperidol Lactate (Haldol) 0.5 mg IVP Q6 PRN PRN Reason: Agitation Levothyroxine Sodium (Synthroid) 50 mcg PO DAILY@0630 [facility] Last Admin: 10/15/16 06:29 Dose: 50 mcg Pantoprazole Sodium (Protonix Inj) 40 mg IVP Q12 [facility] Last Admin: 10/15/16 08:40 Dose: 40 mg - Labs Labs: 10/15/16 05:55 10/15/16 05:55 PT 15.8 SECONDS (9.6-11.2) H 10/15/16 05:55 INR 1.52 (0.92-1.08) H 10/15/16 05:55 APTT 38.7 SECONDS (23.3-32.5) H 10/15/16 05:55 - Constitutional Appears: Confused, Cachectic - Neck Exam Neck Exam: Full ROM - Respiratory Exam Respiratory Exam: Clear to Ausculation Bilateral, NORMAL BREATHING PATTERN - Cardiovascular Exam Cardiovascular Exam: REGULAR RHYTHM, RRR, +S1, +S2 - GI/Abdominal Exam GI & Abdominal Exam: Soft, Normal Bowel Sounds Additional comments: Non tender. No guarding - Neurological Exam Neurological Exam: Alert, Awake Assessment and Plan - Assessment and Plan (Free Text) Assessment: 81yo Sinhala-speaking male with PMHx significant for EtOH cirrhosis, aortic stenosis, unclear myeloproliferative d/, gout, OA and hypothyroidism who presented to the ED with complaint of rectal bleeding now resolved. Hospital course complicated with bradycardia. Now was cleared by cardiology for upper endoscopy but family today refused to reverse the DNR/DNI for the procedure and refused it after discussing with anesthesia regarding anesthesia complications. Plan: -HGB stable -Protonix 40mg IV BIDAC -No further evidence of bleeding - Diet as tolerated - Discussed with hospitalist - Thank you for letting us participate in the care of this patient
--- NOTE | 2016-10-15 15:41 | CP.PCM.PCO ---
Assessment/Plan - Assessment and Plan (Free Text) Assessment: Called by Dr. Capone. Pt is a DNR and family refuses to rescind the DNR during the procedure. Family prefers to take the patient home Spoke at length to family and grandson, Sudarshan, [phone] Admits family misunderstood the protocol ( rescinding DNR during procedures) . Family is more calm but still would prefer to take the patient home without the procedure. Risk/benefits reviewed. Also rec followup with GI as oupt. Sudarshan seemsed overwhlemed by family at that moment and was unable to commit. Rx po IRon. check cbc as outpt in 1-2 weeks as well.
[2016-10-15 16:57] VITALS: BP 104/62; PULSE 92; TEMP 97.6; O2SAT 98
[2016-10-17 11:33] LABS: GAMMA GLOBULIN 32.3 Relative % (())
== END 2016-10-15 17:56 | disposition home or self-care (01) | DRG 552 ==
LOC: H.ER 11:25 → H.ERHOLD 14:39 → H.ICU/CCU 18:11 → H.MEDSURG1 10-13 12:33
PROVIDERS: ADMIT Family Medicine Geriatric Medicine; ATTEND Family Medicine Geriatric Medicine
PROC: 30233K1 Transfusion of Nonautologous Frozen Plasma into Peripheral Vein, Percutaneous Approach (ICD-10-PCS; 2016-10-09)
PROC: 30233N1 Transfusion of Nonautologous Red Blood Cells into Peripheral Vein, Percutaneous Approach (ICD-10-PCS; 2016-10-09)
PROC: 02HV33Z Insertion of Infusion Device into Superior Vena Cava, Percutaneous Approach (ICD-10-PCS; 2016-10-09)
PROC: 3E0234Z Introduction of Serum, Toxoid and Vaccine into Muscle, Percutaneous Approach (ICD-10-PCS; principal; 2016-10-14)
DX: K92.2 Gastrointestinal hemorrhage, unspecified (principal); N17.9 Acute kidney failure, unspecified; R57.1 Hypovolemic shock; D68.4 Acquired coagulation factor deficiency; D75.81 Myelofibrosis; E87.2 Acidosis; N18.4 Chronic kidney disease, stage 4 (severe); R00.1 Bradycardia, unspecified; F05 Delirium due to known physiological condition; N28.1 Cyst of kidney, acquired; K70.30 Alcoholic cirrhosis of liver without ascites; E87.5 Hyperkalemia; J43.9 Emphysema, unspecified; E86.0 Dehydration; I35.0 Nonrheumatic aortic (valve) stenosis; I12.9 Hypertensive chronic kidney disease with stage 1 through stage 4 chronic kidney disease, or unspecified chronic kidney disease; Z23 Encounter for immunization; Z88.1 Allergy status to other antibiotic agents; Z88.5 Allergy status to narcotic agent; D62 Acute posthemorrhagic anemia; E03.9 Hypothyroidism, unspecified; M10.9 Gout, unspecified; M19.90 Unspecified osteoarthritis, unspecified site; M81.0 Age-related osteoporosis without current pathological fracture; D47.3 Essential (hemorrhagic) thrombocythemia; E83.39 Other disorders of phosphorus metabolism; Z87.891 Personal history of nicotine dependence; Z53.8 Procedure and treatment not carried out for other reasons; Z85.6 Personal history of leukemia; T80.89XA Other complications following infusion, transfusion and therapeutic injection, initial encounter; L50.9 Urticaria, unspecified; T38.995A Adverse effect of other hormone antagonists, initial encounter; K57.32 Diverticulitis of large intestine without perforation or abscess without bleeding; R47.81 Slurred speech

== ENCOUNTER 2016-10-31 12:40 | Emergency (ER) | payer SELFPAY ==
[2016-10-31 12:40] VITALS: BMI 24.5
[2016-10-31 12:49] VITALS: O2SAT 99
[2016-10-31] MEDS ORDERED: Oxycodone/Acetaminophen 5/325 mg Tab PO STA (14:31)
--- NOTE | 2016-10-31 15:13 | ED PDOC ---
Upper Extremity Pain/Injury Time Seen by Provider: 10/31/16 13:03 Chief Complaint (Nursing): Upper Extremity Problem/Injury Chief Complaint (Provider): Upper Extremity Problem/Injury History Per: Patient History/Exam Limitations: no limitations Onset/Duration Of Symptoms: Hrs Current Symptoms Are (Timing): Still Present Quality: "Pain" Severity: Moderate Exacerbating Factor(s): Movement Additional Complaint(s): Patient is a 81 year old male who presents to ED for multiple injuries s/p fall last night. Patient states he suffered a mechanical fall last night, striking posterior head, right knee, right chest and landing on his out stretch right hand resulting in a wrist injury. Patient denies LOC or headache but states complains of continued right wrist pain and deformity. Past Medical History Reviewed: Historical Data, Nursing Documentation, Vital Signs Vital Signs: Last Vital Signs Temp 97.5 F L 10/31/16 12:44 Pulse 69 10/31/16 12:44 Resp 20 10/31/16 12:44 BP 128/67 10/31/16 12:44 Pulse Ox 99 10/31/16 12:44 - Medical History PMH: Arthritis, Diverticulitis, Emphysema, Fractures (Hx of Compression Vertebral Fx at T and L spine), HTN, Hypothyroidism Denies: Chronic Kidney Disease Comment Only: Osteoporosis (Chronically elevated WBCs) - Surgical History Surgical History: Cholecystectomy - Family History Family History: States: No Known Family Hx - Living Arrangements Living Arrangements: With Family - Home Medications Home Medications: Ambulatory Orders Medication Instructions Recorded Docusate [Colace] 100 mg PO DAILY #30 cap 10/15/16 Ferrous Sulfate [Feosol] 325 mg PO BID #60 tab 10/15/16 Pantoprazole [Protonix] 40 mg PO DAILY #30 ect 10/15/16 Allopurinol [Zyloprim] 100 mg PO DAILY 10/31/16 Levothyroxine Sodium [Levo-T] 100 mcg PO ACBL 10/31/16 - Allergies Allergies/Adverse Reactions: Allergies Allergy/AdvReac Type Severity Reaction Status Date / Time morphine Allergy URTICARIA Verified 10/31/16 12:44 vancomycin Allergy RASH Verified 10/31/16 12:44 iohexol [From Omnipaque] AdvReac VOMITING Verified 10/31/16 14:56 Review of Systems ROS Statement: Except As Marked, All Systems Reviewed And Found Negative Eyes: Negative for: Vision Change Cardiovascular: Positive for: Chest Pain Respiratory: Negative for: Shortness of Breath Gastrointestinal: Negative for: Nausea, Vomiting, Abdominal Pain Musculoskeletal: Positive for: Arm Pain, Hand Pain, Leg Pain. Negative for: Neck Pain, Back Pain Neurological: Negative for: Weakness, Numbness Physical Exam - Reviewed Nursing Documentation Reviewed: Yes Vital Signs Reviewed: Yes - Physical Exam Appears: Positive for: Non-toxic, No Acute Distress Head Exam: Positive for: ATRAUMATIC, NORMAL INSPECTION, NORMOCEPHALIC Skin: Positive for: Normal Color, Warm Eye Exam: Positive for: Normal appearance, EOMI, PERRL Neck: Positive for: Normal, Painless ROM, Supple Cardiovascular/Chest: Positive for: Regular Rate, Rhythm, Chest Non Tender. Negative for: Murmur Respiratory: Positive for: Normal Breath Sounds. Negative for: Respiratory Distress Gastrointestinal/Abdominal: Positive for: Normal Exam, Hernia (periumbilical (+ ) soft and easily reducible). Negative for: Tenderness Back: Positive for: Normal Inspection Extremity: Positive for: Normal ROM, Other (Right wrist: (+) swelling deformity and tenderness. Shoulder: Normal ROM. Right knee: swelling with tenderness and eccymosis). Negative for: Pedal Edema, Calf Tenderness Neurologic/Psych: Positive for: Alert, Oriented. Negative for: Motor/Sensory Deficits - Laboratory Results Result Diagrams: 10/31/16 14:57 10/31/16 14:57 - ECG O2 Sat by Pulse Oximetry: 99 (RA) Pulse Ox Interpretation: Normal Medical Decision Making Medical Decision Making: Time: 1410 Initial impression: Fall injury r/o fracture and intracranial bleed Initial plan: -- CT head -- BMP --Troponin -- CBC -- PT/PTT -- CXR -- Knee, Wrist Xray -- Percocet PO Time: 1550 CT-head results reviewed PROCEDURE: CT HEAD WITHOUT CONTRAST. HISTORY: head injury COMPARISON: None available. TECHNIQUE: Axial computed tomography images were obtained through the head/brain without intravenous contrast. Radiation dose: Total exam DLP = 718 mGy-cm. This CT exam was performed using one or more of the following dose reduction techniques: Automated exposure control, adjustment of the mA and/or kV according to patient size, and/or use of iterative reconstruction technique. FINDINGS: HEMORRHAGE: No intracranial hemorrhage. BRAIN: No mass effect or edema. No atrophy or chronic microvascular ischemic changes. VENTRICLES: Unremarkable. No hydrocephalus. CALVARIUM: Unremarkable. PARANASAL SINUSES: Unremarkable as visualized. No significant inflammatory changes. MASTOID AIR CELLS: Unremarkable as visualized. No inflammatory changes. OTHER FINDINGS: None. IMPRESSION: Normal CT of the Head. Scribe Attestation: Documented by Neelima Mao acting as a scribe for Jesse Turner MD MD Scribe Attestation: All medical record entries made by the Scribe were at my direction and personally dictated by me. I have reviewed the chart and agree that the record accurately reflects my personal performance of the history, physical exam, medical decision making, and the department course for this patient. I have also personally directed, reviewed, and agree with the discharge instructions and disposition. Disposition - Clinical Impression Clinical Impression: Wrist fracture, right, Knee injury - Patient ED Disposition Is Patient to be Admitted: Transfer of Care Counseled Patient/Family Regarding: Studies Performed, Diagnosis - Disposition Referrals: Varghese Spring MD [Staff Provider] - Disposition: Transfer of Care Disposition Time: 17:00 Condition: FAIR
[2016-10-31 15:24] LABS: BASO # 0.1 K/uL (0.0-0.2); BASO % 0.5 % (0.0-2.0); EOS # 0.3 K/uL (0.0-0.7); EOS % 0.8 % (0.0-4.0); LYMPH % 6.7 % (20.0-40.0); MEAN CELL VOLUME 95.7 fl (80.0-94.0); MEAN CORPUSCULAR HEMOGLOBIN 29.8 pg (27.0-31.0); MEAN CORPUSCULAR HGB CONC 31.1 g/dL (33.0-37.0); MONO # 1.9 K/uL (0.0-0.8); MONO % 6.3 % (0.0-10.0); NEUT # 25.3 K/uL (1.8-7.0); NEUT % 85.7 % (50.0-75.0); PLATELET COUNT 381 K/uL (130-400); RED CELL DISTRIBUTION WIDTH 20.5 % (11.5-14.5); WHITE BLOOD COUNT 29.6 K/uL (4.8-10.8)
[2016-10-31 15:44] LABS: PARTIAL THROMBOPLASTIN TIME 37.1 SECONDS (23.3-32.5)
--- NOTE | 2016-10-31 15:50 | CT ---
PROCEDURE: CT HEAD WITHOUT CONTRAST. HISTORY: head injury COMPARISON: None available. TECHNIQUE: Axial computed tomography images were obtained through the head/brain without intravenous contrast. Radiation dose: Total exam DLP = 718 mGy-cm. This CT exam was performed using one or more of the following dose reduction techniques: Automated exposure control, adjustment of the mA and/or kV according to patient size, and/or use of iterative reconstruction technique. FINDINGS: HEMORRHAGE: No intracranial hemorrhage. BRAIN: No mass effect or edema. No atrophy or chronic microvascular ischemic changes. VENTRICLES: Unremarkable. No hydrocephalus. CALVARIUM: Unremarkable. PARANASAL SINUSES: Unremarkable as visualized. No significant inflammatory changes. MASTOID AIR CELLS: Unremarkable as visualized. No inflammatory changes. OTHER FINDINGS: None. IMPRESSION: Normal CT of the Head.
[2016-10-31 16:17] LABS: BLOOD UREA NITROGEN 45 mg/dl (9-20); CALCIUM 8.4 mg/dL (8.4-10.2); CARBON DIOXIDE 21 mmol/L (22-30); CHLORIDE 108 mmol/L (98-107); GFR AFRICAN-AMERICAN 50; GLUCOSE,RANDOM 76 mg/dL (75-110); POTASSIUM 4.8 MMOL/L (3.6-5.0); SODIUM 140 mmol/l (132-148)
--- NOTE | 2016-10-31 16:48 | RAD ---
PROCEDURE: CHEST RADIOGRAPH, 1 VIEW HISTORY: chest pain COMPARISON: 10/09/2016. FINDINGS: LUNGS: Clear. PLEURA: No pneumothorax or pleural fluid seen. CARDIOVASCULAR: Cardiomegaly. No evidence of acute, significant cardiovascular disease. OSSEOUS STRUCTURES: No significant abnormalities. VISUALIZED UPPER ABDOMEN: Normal. OTHER FINDINGS: None. IMPRESSION: No active disease. No acute/significant interval changes.
--- NOTE | 2016-10-31 16:49 | ED PDOC ---
- Laboratory Results Result Diagrams: 10/31/16 14:57 10/31/16 14:57 - ECG O2 Sat by Pulse Oximetry: 99 (RA) - Progress ED Course And Treament: 1648: Stable. AAOx3. Pending ct of knee for eval of knee fx. Took over care from Dr. Turner. 1955: Stable. AAOx3. Spoke with Dr. Spring. Made aware of ct. States to put in knee immobilizer as tolerated. Pt. fu for patella fx and wrist fx in 2- 3 days. Family agree with plan. Want refill alopurinol and levothyroxin. Will fu with pcp clinic as well. Disposition - Clinical Impression Clinical Impression: Wrist fracture, right, Patella fracture - POA Present On Arrival: Falls Or Trauma - Disposition Referrals: Varghese Spring MD [Staff Provider] - 11/02/16 [facility] [Outside] - 11/01/16 Disposition: Routine/Home Disposition Time: 20:01 Condition: FAIR Additional Instructions: Return if not better in 3 days. See the orthopedic doctor without fail. Prescriptions: Levothyroxine [Synthroid] 100 mcg PO DAILY 5 Days Allopurinol [Zyloprim] 100 mg PO DAILY 5 Days Instructions: Wrist Fracture in Adults (ED), Patellar Fracture (ED) Procedures - Splinting Location: knee R Pre-Made Type: immobilizer Pre-Proc Neuro Vasc Exam: normal Post-Proc Neuro Vasc Exam: normal Progress: tolerated well. weight on leg as tolerated.
--- NOTE | 2016-10-31 16:58 | RAD ---
PROCEDURE: Right Wrist Radiographs. HISTORY: right wrist pain injury COMPARISON: None. FINDINGS: BONES: Impacted, comminuted fracture distal right radius. Anatomic alignment of major fracture fragments. Incompletely visualized ulnar styloid fracture. Profound osteopenia. JOINTS: No acute findings SOFT TISSUES: Normal. OTHER FINDINGS: None. IMPRESSION: Acute fractures distal radius and ulna/ulnar styloid.
--- NOTE | 2016-10-31 17:00 | RAD ---
PROCEDURE: Right Knee Radiographs. HISTORY: knee pain injury COMPARISON: 10/31/2016. FINDINGS: BONES: No acute fracture. Profound osteopenia. Orthopedic hardware lateral tibial plateau. Cortical irregularity medial tibial plateau region. This does not appear to represent an acute fracture, similar findings identified previously. JOINTS: Profound multi compartment degenerative changes. . JOINT EFFUSION: Small suprapatellar joint effusion. OTHER FINDINGS: Soft tissue swelling adjacent, proximal to the medial femoral condyles. IMPRESSION: Soft tissue swelling without acute articular or osseous abnormality.
--- NOTE | 2016-10-31 18:54 | CT ---
PROCEDURE: CT of the Right knee. HISTORY: knee pain injury non weight bearing COMPARISON: None available. TECHNIQUE: Contiguous axial images of the right knee were obtained. Coronal and sagittal reformats were generated. Radiation dose [address] exam was performed using one or more of the following dose reduction techniques: Automated exposure control, adjustment of the mA and/or kV according to patient size, and/or use of iterative reconstruction technique. FINDINGS: BONES: Nondisplaced fracture of the patellar apex. Postsurgical changes of the right lateral tibia. Markedly severe tricompartmental osteoarthritis with compartmental narrowing intra and marginal spur formation. SOFT TISSUES: Large joint effusion. IMPRESSION: Nondisplaced fracture of the patella apex. Large joint effusion. Severe tricompartmental osteoarthritis/degenerative disease.
[2016-10-31 19:09] VITALS: RESP 16; TEMP 98.1
[2016-10-31 20:00] LABS: EOSINOPHIL 1 % (0-7); METAMYELOCYTE 2 % (0-0); MYELOCYTE 1 % (0-0); NEUTROPHIL 72 % (42-75); TOTAL CELLS COUNTED 100
[2016-10-31 20:05] LABS: GIANT PLATELETS PRESENT; LARGE PLATELETS PRESENT
[2016-10-31 20:25] VITALS: BP 127/66; PULSE 69
--- NOTE | 2016-10-31 21:20 | CARD ---
APPROVED REPORT EKG Measurement Heart [id number] [id number] <Conclusion> Normal sinus rhythm Septal infarct, age undetermined ST & T wave abnormality, consider lateral ischemia Abnormal ECG
== END 2016-10-31 20:55 | disposition home or self-care (01) ==
LOC: H.ER 12:40
DX: S62.101A Fracture of unspecified carpal bone, right wrist, initial encounter for closed fracture (principal); S62.001A Unspecified fracture of navicular [scaphoid] bone of right wrist, initial encounter for closed fracture; S09.90XA Unspecified injury of head, initial encounter; R07.9 Chest pain, unspecified; W19.XXXA Unspecified fall, initial encounter; Y92.89 Other specified places as the place of occurrence of the external cause; E03.9 Hypothyroidism, unspecified; I10 Essential (primary) hypertension; J43.9 Emphysema, unspecified

== ENCOUNTER 2017-03-17 14:15 | Inpatient (IN) | payer SELFPAY ==
[2017-03-17 14:15] VITALS: BMI 24.5
--- NOTE | 2017-03-17 14:50 | ED PDOC ---
Lower Extremity Pain/Injury Time Seen by Provider: 03/17/17 14:30 Chief Complaint (Nursing): Lower Extremity Problem/Injury Chief Complaint (Provider): Right leg redness and pain History Per: Patient History/Exam Limitations: no limitations Onset/Duration Of Symptoms: Days (x 2) Current Symptoms Are (Timing): Still Present Additional Complaint(s): Ty is an 81 y/o male with a past medical history of thyroid disease and gout, who presents complaining of progressively worsening redness and pain to the right leg, onset yesterday. At first his family assumed it was related to his gout but it worsened overnight, traveling up the right knee. Patient reports increasing pain to the affected area. Denies any associated fall, injury , fever, or chills. No recent travel. PMD: Rachana Nair Past Medical History Reviewed: Historical Data, Nursing Documentation, Vital Signs Vital Signs: Last Vital Signs Temp 97.5 F L 03/17/17 14:19 Pulse 68 03/17/17 14:19 Resp 19 03/17/17 14:19 BP 125/64 03/17/17 14:19 Pulse Ox 100 03/17/17 14:19 - Medical History PMH: Arthritis, Diverticulitis, Emphysema, Fractures (Hx of Compression Vertebral Fx at T and L spine), HTN, Hypothyroidism Denies: Chronic Kidney Disease Comment Only: Osteoporosis (Chronically elevated WBCs) Other PMH: Gout - Surgical History Surgical History: Cholecystectomy - Family History Family History: States: No Known Family Hx - Home Medications Home Medications: Ambulatory Orders Medication Instructions Recorded Docusate [Colace] 100 mg PO DAILY #30 cap 10/15/16 Ferrous Sulfate [Feosol] 325 mg PO BID #60 tab 10/15/16 Pantoprazole [Protonix] 40 mg PO DAILY #30 ect 10/15/16 Allopurinol [Zyloprim] 100 mg PO DAILY 10/31/16 Allopurinol [Zyloprim] 100 mg PO DAILY 5 Days 10/31/16 Levothyroxine Sodium [Levo-T] 100 mcg PO ACBL 10/31/16 Levothyroxine [Synthroid] 100 mcg PO DAILY 5 Days 10/31/16 - Allergies Allergies/Adverse Reactions: Allergies Allergy/AdvReac Type Severity Reaction Status Date / Time morphine Allergy URTICARIA Verified 10/31/16 12:44 vancomycin Allergy RASH Verified 10/31/16 12:44 iohexol [From Omnipaque] AdvReac VOMITING Verified 10/31/16 14:56 Review of Systems ROS Statement: Except As Marked, All Systems Reviewed And Found Negative Constitutional: Negative for: Fever, Chills Musculoskeletal: Positive for: Leg Pain (Right leg redness and pain, from ankle to above the knee) Physical Exam - Reviewed Nursing Documentation Reviewed: Yes Vital Signs Reviewed: Yes - Physical Exam Appears: Positive for: Non-toxic, No Acute Distress Head Exam: Positive for: ATRAUMATIC, NORMAL INSPECTION, NORMOCEPHALIC Skin: Positive for: Warm, Dry Eye Exam: Positive for: EOMI, Normal appearance, PERRL Neck: Positive for: Normal, Painless ROM, Supple Cardiovascular/Chest: Positive for: Regular Rate, Rhythm. Negative for: Murmur Respiratory: Positive for: Normal Breath Sounds (Lungs clear to auscultation). Negative for: Accessory Muscle Use, Respiratory Distress Gastrointestinal/Abdominal: Positive for: Normal Exam, Soft. Negative for: Tenderness Back: Positive for: Normal Inspection. Negative for: Vertebral Tenderness Extremity: Positive for: Pedal Edema (1+ edema of right foot and leg, hot to touch, with erythema and tenderness from the ankle to knee. Streaking noted above knee.) Neurologic/Psych: Positive for: Alert, Oriented. Negative for: Motor/Sensory Deficits - Laboratory Results Result Diagrams: 03/17/17 16:11 03/17/17 16:11 - ECG ECG Rhythm: Positive for: Sinus Rhythm (nsr 65bpm; no ectopy; t wave inv V3-V6) O2 Sat by Pulse Oximetry: 100 (RA) Pulse Ox Interpretation: Normal - Progress ED Course And Treament: BC x 2 venous blood gas: lactate wnl EKG: NSR 65bpm; t wave invesrion V4-V6 old compared to EKG 10/2016 Duplex: nonocclusive acute distal superficial femoral vein thrombosis Patient's INR noted elevated 2.0 (also noted past INR this year around 1.5) Patient's hgb 8.1 (also noted past Hgb 8--9 this year) Patient's creatinine 1.6 (noted in past history as well) Patient's wbc elevated 18 (noted in past history as high as 25) Has h/o INR elevated secondary to nutritional deficiency and Myeloproliferative anemia. d/w Dr. Contreras d/w [facility] resident Admit to Dr. Woodard d/w Dr. Saleh. Recommends heparin bolus/infusion as per hospital protocol (d/w [facility] resident) Medical Decision Making Medical Decision Making: Time: 14:38 Initial Plan: --BMP --CBC --PTT --Prothrombin time --Blood culture --VBG --EKG --Given Ancef, 1 gm IV --X-Ray Right Tibia Fibula --US Duplex Right Lower Extremity --Pending reevaluation and disposition Time: 15:12 X-Ray Tibia Fibula: FINDINGS: BONES: There is diffuse bone demineralization. There is no acute fracture or bone destruction. Status post internal fixation of an old lateral tibial plateau fracture. JOINT SPACES: Unremarkable. OTHER FINDINGS: Atherosclerotic vascular calcifications are present. There is mild subcutaneous edema. IMPRESSION: No acute fracture or bone destruction. No radiographic evidence for osteomyelitis. Time: 16:04 US Duplex Right Lower Extremity: FINDINGS: COMMON FEMORAL VEIN: Normal compressibility and color flow. SUPERFICIAL FEMORAL VEIN: Normal compressibility and color flow in the proximal and mid superficial femoral vein. There is an acute partially occlusive thrombus in the distal superficial femoral vein. POPLITEAL VEIN: Normal compressibility and color flow. POSTERIOR TIBIAL VEIN: Normal compressibility and color flow. OTHER FINDINGS: There is mild subcutaneous edema in the ankle and in the region of the popliteal fossa. IMPRESSION: Acute nonocclusive thrombus in the right distal superficial femoral vein. Findings were conveyed to SURINDER Solitario on 03/17/2017 at 4 p.m. by cardiopulmonary technologist chief Michelle. Scribe Attestation: Documented by Mary Kay Weiner, acting as a scribe for Ángel Solitario PA-C Provider Scribe Attestation: All medical record entries made by the Scribe were at my direction and personally dictated by me. I have reviewed the chart and agree that the record accurately reflects my personal performance of the history, physical exam, medical decision making, and the department course for this patient. I have also personally directed, reviewed, and agree with the discharge instructions and disposition. Disposition - Clinical Impression Clinical Impression: Dvt femoral (deep venous thrombosis) - Patient ED Disposition Is Patient to be Admitted: Yes - Disposition Disposition Time: 17:12 Condition: FAIR - Pt Status Changed To: Hospital Disposition Of: Inpatient - Admit Certification Admit to Inpatient:: After my assessment, the patient will require hospitalization for at least two midnights. This is because of the severity of symptoms shown, intensity of services needed, and/or the medical risk in this patient being treated as an outpatient.
[2017-03-17] MEDS: ceFAZolin 1 GM in Sodium Chloride 0.9% 100 ML IVPB ONE ×2 (15:11→16:14)
--- NOTE | 2017-03-17 15:13 | RAD ---
PROCEDURE: Radiographs of the right tibia and fibula. HISTORY: CELLULITIS COMPARISON: None available. TECHNIQUE: Frontal and lateral views obtained. FINDINGS: BONES: There is diffuse bone demineralization. There is no acute fracture or bone destruction. Status post internal fixation of an old lateral tibial plateau fracture. JOINT SPACES: Unremarkable. OTHER FINDINGS: Atherosclerotic vascular calcifications are present. There is mild subcutaneous edema. IMPRESSION: No acute fracture or bone destruction. No radiographic evidence for osteomyelitis.
--- NOTE | 2017-03-17 16:06 | US ---
PROCEDURE: Right lower extremity venous duplex Doppler. HISTORY: R/O DVT COMPARISON: None available. TECHNIQUE: Common femoral, superficial femoral, popliteal and posterior tibial veins were evaluated. Flow was assessed with color Doppler, compressibility, assessment of phasic flow and augmentation response. FINDINGS: COMMON FEMORAL VEIN: Normal compressibility and color flow. SUPERFICIAL FEMORAL VEIN: Normal compressibility and color flow in the proximal and mid superficial femoral vein. There is an acute partially occlusive thrombus in the distal superficial femoral vein. POPLITEAL VEIN: Normal compressibility and color flow. POSTERIOR TIBIAL VEIN: Normal compressibility and color flow. OTHER FINDINGS: There is mild subcutaneous edema in the ankle and in the region of the popliteal fossa. IMPRESSION: Acute nonocclusive thrombus in the right distal superficial femoral vein. Findings were conveyed to SURINDER Solitario on 03/17/2017 at 4 p.m. by histotechnologist Michelle.
[2017-03-17 16:22] LABS: BASO # 0.1 K/uL (0.0-0.2); BASO % 0.3 % (0.0-2.0); EOS # 0.2 K/uL (0.0-0.7); LYMPH # 1.3 K/uL (1.0-4.3); LYMPH % 7.1 % (20.0-40.0); MEAN CELL VOLUME 109.8 fl (80.0-94.0); MEAN CORPUSCULAR HEMOGLOBIN 34.3 pg (27.0-31.0); MEAN CORPUSCULAR HGB CONC 31.3 g/dL (33.0-37.0); MEAN PLATELET VOLUME 10.9 fl (7.2-11.7); MONO # 2.6 K/uL (0.0-0.8); MONO % 13.8 % (0.0-10.0); NEUT # 14.7 K/uL (1.8-7.0); NEUT % 77.8 % (50.0-75.0); PLATELET COUNT 322 K/uL (130-400); RED CELL DISTRIBUTION WIDTH 19.6 % (11.5-14.5); WHITE BLOOD COUNT 18.9 K/uL (4.8-10.8)
[2017-03-17 16:30] LABS: VENOUS BLOOD GAS BASE EXCESS -7.1 mmol/L (0.0-2.0); VENOUS BLOOD GAS PCO2 38 mmHg (40-60)
[2017-03-17 16:43] LABS: POTASSIUM 5.1 MMOL/L (3.6-5.0)
[2017-03-17 16:46] LABS: PARTIAL THROMBOPLASTIN TIME 48.1 Seconds (25.6-37.1)
[2017-03-17 18:15] LABS: EOSINOPHIL 2 % (0-7); NEUTROPHIL 71 % (42-75); TOTAL CELLS COUNTED 100
[2017-03-17 18:20] LABS: SMUDGE CELLS PRESENT
--- NOTE | 2017-03-17 19:27 | CP.PCM.HP ---
<Karen Davison - Last Filed: 03/17/17 21:36> History of Present Illness - History of Present Illness History of Present Illness: 81 yo , m , PMhx/o HTN, Diverticulosis, CKD,severe aortic stenosis, Emphysema, Arthritis, Gout, unclear myeloproliferative disorder, Hypothyroidism, Osteoporosis, Fractures (Hx of Compression Vertebral Fx at T and L spine), ( Chronically elevated WBCs) presents to ED brought by his family who c/o right leg swelling for the last 2 days associated with lateral calf redness, leg and right knee tenderness intermittent, partially alleviated with tylenol. As per family patient has been minimal ambulating for the last 2 months, sitting long hours on chair and laying down on bed. Family thought that leg swelling was an acute gout flaring but as leg swelling got worse, they decided to bring patient to the ED. Patient denies fever, N/V/Abd pain, chest pain, SOB, recent trauma, recent surgery and reports normal appetite. PCP: Dr infante PMHx: PMhx/o HTN, Diverticulosis, Emphysema, Arthritis, Gout, myelofibrosis, Hypothyroidism, Osteoporosis, Fractures (Hx of Compression Vertebral Fx at T and L spine), (Chronically elevated WBCs) Allergies: Morphine, Vancomycin Meds: Levothyroxine Sodium [Synthroid] 100 mcg PO DAILY, Allopurinol 100 mg PO DAILY PSurgHx: Cholecystectomy,B/L knee meniscal tear PSHx: + ETOH, heavy drinker x 30 years. quit 6 years ago, smoker 2 PPD x 65 years. neg rect drugs. ED course VS: afebrile,o2 sat 100, BP:125/64 HR: 68 PE: CV: 4/6 systolic murmur more aortic area and left sternal border. LE: right leg lateral diffuse erythema, warm, pedal edema 2+. no adam sign Labs: 18.9>8.1/26.0<322 PT:21.3 INr:2.0 PTT:48.1 Bun/Cr:44/1.6 GFR:42 Imaging: EKG: NSR 65bpm; t wave invesrion V4-V6 old compared to EKG 10/2016 XR tibia fibula: There is no acute fracture or bone destruction. Status post internal fixation of an old lateral tibial plateau fracture.No acute fracture or bone destruction. No radiographic evidence for osteomyelitis. Duplex: nonocclusive acute distal superficial femoral vein thrombosis Meds: Ancef 1g IV Present on Admission - Present on Admission Any Indicators Present on Admission: No History of DVT/PE: No History of Uncontrolled Diabetes: No Urinary Catheter: No Decubitus Ulcer Present: No Review of Systems - Musculoskeletal Musculoskeletal: Other (leg swelling ) Past Patient History - Infectious Disease Hx of Infectious Diseases: None - Tetanus Immunizations Tetanus Immunization: Unknown - Past Medical History & Family History Past Medical History?: Yes - Past Social History Smoking Status: Former Smoker - CARDIAC Hx Hypertension: Yes - PULMONARY Hx Emphysema: Yes - NEUROLOGICAL Hx Neurological Disorder: No - HEENT Other/Comment: red eyes - RENAL Hx Chronic Kidney Disease: No - ENDOCRINE/METABOLIC Hx Hypothyroidism: Yes - HEMATOLOGICAL/ONCOLOGICAL Hx Blood Disorders: Yes (chronic leukocytosis) - INTEGUMENTARY Hx Dermatological Problems: Yes Hx Psoriasis: Yes - MUSCULOSKELETAL/RHEUMATOLOGICAL Hx Arthritis: Yes Hx Fractures: Yes (Hx of Compression Vertebral Fx at T and L spine) Hx Osteoporosis: (Chronically elevated WBCs) - GASTROINTESTINAL Hx Diverticulitis: Yes - GENITOURINARY/GYNECOLOGICAL Hx Genitourinary Disorders: No - PSYCHIATRIC Hx Psychophysiologic Disorder: No Hx Substance Use: No - SURGICAL HISTORY Hx Cholecystectomy: Yes - ANESTHESIA Hx Anesthesia: Yes Hx Anesthesia Reactions: No Meds Allergies/Adverse Reactions: Allergies Allergy/AdvReac Type Severity Reaction Status Date / Time morphine Allergy URTICARIA Verified 10/31/16 12:44 vancomycin Allergy RASH Verified 10/31/16 12:44 iohexol [From Omnipaque] AdvReac VOMITING Verified 10/31/16 14:56 Physical Exam - Head Exam Head Exam: ATRAUMATIC, NORMOCEPHALIC - Eye Exam Eye Exam: EOMI - ENT Exam ENT Exam: Mucous Membranes Moist - Respiratory Exam Respiratory Exam: Clear to Auscultation Bilateral. absent: Rales, Rhonchi, Wheezes - Cardiovascular Exam Cardiovascular Exam: REGULAR RHYTHM, +S1, +S2, Systolic Murmur (4/6 systolic murmur aortic area and left sternal border) - GI/Abdominal Exam GI & Abdominal Exam: Hernia (RUQ ventral hernia s/p cholecystectomy), Normal Bowel Sounds, Soft. absent: Distended, Tenderness - Expanded Lower Extremities Exam Right Lower Leg Exam: erythema, swelling, tenderness. absent: Adam's sign - Neurological Exam Neurological exam: Alert, Oriented x3 - Psychiatric Exam Psychiatric exam: Normal Affect, Normal Mood - Skin Skin Exam: Pallor, Warm (right lateral leg) Results - Vital Signs Recent Vital Signs: Last Vital Signs Temp 99.6 F 03/17/17 18:24 Pulse 69 03/17/17 18:24 Resp 18 03/17/17 18:24 BP 117/59 L 03/17/17 18:24 Pulse Ox 99 03/17/17 18:24 - Labs Result Diagrams: 03/17/17 16:11 03/17/17 16:11 Assessment & Plan - Assessment and Plan (Free Text) Plan: 81 yo , m , PMhx/o HTN, Diverticulosis, CKD,severe aortic stenosis, Emphysema, Arthritis, Gout, unclear myeloproliferative disorder, Hypothyroidism, Osteoporosis, Fractures (Hx of Compression Vertebral Fx at T and L spine), ( Chronically elevated WBCs) presents to ED for right leg swelling, erythema and pain started 2 days ago. Patient admitted for DVT. Patient had prior admission 10/15 in ICU for Lower GI bleeding,needing transfusion, FFP, unable to scope for refusal of the family. Assessment/Plan 1) Right leg DVT -Right LEg Duplex: nonocclusive acute distal superficial femoral vein thrombosis -Hemo-onc Dr Charlton consulted by phone and suggested to hold anticoagulation due to prior admission and hx/o lower GI bleeding of unclear etiology. 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 EF 45-50% 6) Hypothyroidism -c/w levothyroxin 100 mc po daily 7) Gout Allopurinol 100 mg Po daily hold -f/u uric acid 8) DVT prophylaxis No SCD due to DVT, no anticoagulation -to discuss IVC filter placement <Nhung Woodard - Last Filed: 03/18/17 07:19> Physical Exam - Skin Additional comments: ADDENDUM ATTENDING NOTE CHART REVIEWED. CASE DISCUSSED AT LENGTH WITH RESIDENT. AGREE WITH PLAN AND CURRENT TREATMENT. Results - Vital Signs Recent Vital Signs: Last Vital Signs Temp 98.5 F 03/18/17 04:44 Pulse 71 03/18/17 04:44 Resp 19 03/18/17 04:44 BP 118/60 03/18/17 04:44 Pulse Ox 98 03/18/17 04:44 - Labs Result Diagrams: 03/18/17 05:25 03/18/17 05:25 Labs: Laboratory Results - last 24 hr 03/18/17 03/18/17 03/18/17 05:25 05:25 05:25 WBC 13.5 H RBC 1.93 L Hgb 6.8 L Hct 20.7 L MCV 107.4 H D MCH 35.0 H MCHC 32.6 L RDW 19.2 H Plt Count 299 Sodium 136 Potassium 4.9 Chloride 108 H Carbon Dioxide 16 L Anion Gap 17 BUN 44 H Creatinine 2.0 H Est GFR ( Amer) 39 Est GFR (Non-Af Amer) 32 Random Glucose 86 Uric Acid 8.5 Calcium 7.9 L Total Bilirubin 0.7 AST 28 ALT 21 Alkaline Phosphatase 79 Total Protein 6.2 L Albumin 3.1 L Globulin 3.1 Albumin/Globulin Ratio 1.0 Free T4 1.38
[2017-03-17] MEDS: Tmp-Smz 400 mg-80 mg SS Tab PO SCH (21:51)
[2017-03-18 06:19] LABS: HEMATOCRIT 20.7 % (35.0-51.0); MEAN CELL VOLUME 107.4 fl (80.0-94.0); MEAN CORPUSCULAR HGB CONC 32.6 g/dL (33.0-37.0); RED CELL DISTRIBUTION WIDTH 19.2 % (11.5-14.5); WHITE BLOOD COUNT 13.5 K/uL (4.8-10.8)
[2017-03-18 06:33] LABS: BILIRUBIN,TOTAL 0.7 mg/dl (0.2-1.3); CALCIUM 7.9 mg/dL (8.4-10.2); POTASSIUM 4.9 MMOL/L (3.6-5.0); TOTAL PROTEIN 6.2 G/DL (6.3-8.2); URIC ACID 8.5 mg/Dl (3.5-8.5)
--- NOTE | 2017-03-18 09:21 | CP.PCM.PN ---
<Jose Leonard - Last Filed: 03/18/17 16:11> Subjective - Date & Time of Evaluation Date of Evaluation: 03/18/17 Time of Evaluation: 06:45 - Subjective Subjective: Patient seen and examined today at bedside, no acute overnight events, denies leg pain at this time, states good appetite, slept well through night. Denies chest pain, sob, palpitations, no fever, nausea, vomiting, no abdominal pain. No urinary symptoms. Denies any recent injury or trauma. Objective - Vital Signs/Intake and Output Vital Signs (last 24 hours): Temp Pulse Resp BP Pulse Ox 98.1 F 67 18 107/53 L 100 03/18/17 08:08 03/18/17 08:08 03/18/17 08:08 03/18/17 08:08 03/18/17 08:08 - Medications Medications: Current Medications Acetaminophen (Tylenol 325mg Tab) 650 mg PO Q6 PRN PRN Reason: Pain, moderate (4-7) Trimethoprim/Sulfamethoxazole (Bactrim Ss Tab) 1 tab PO Q12 SATURNINO Last Admin: 03/17/17 21:51 Dose: 1 tab - Labs Labs: 03/18/17 05:25 03/18/17 05:25 PT 21.3 Seconds (9.8-13.1) H 03/17/17 16:11 INR 2.0 (0.9-1.2) H 03/17/17 16:11 APTT 48.1 Seconds (25.6-37.1) H 03/17/17 16:11 - Constitutional Appears: Well, No Acute Distress - Head Exam Head Exam: ATRAUMATIC, NORMOCEPHALIC - Eye Exam Eye Exam: EOMI, Normal appearance, PERRL - ENT Exam ENT Exam: Mucous Membranes Moist - Neck Exam Neck Exam: Full ROM. absent: Lymphadenopathy, Thyromegaly - Respiratory Exam Respiratory Exam: Clear to Ausculation Bilateral. absent: Rales, Rhonchi, Wheezes - Cardiovascular Exam Cardiovascular Exam: REGULAR RHYTHM, +S1, +S2 Additional comments: systolic murmur 4/6 aortic area and left sternal border - GI/Abdominal Exam GI & Abdominal Exam: Soft, Normal Bowel Sounds. absent: Tenderness Additional comments: RUQ ventral hernia s/p cholecystectomy. - Rectal Exam Rectal Exam: NORMAL INSPECTION. absent: Black Stool, Bloody Stool, Hemorrhoids - Extremities Exam Extremities Exam: absent: Calf Tenderness Additional comments: R lower leg: erythema, swelling, tenderness, warm. absent: Winsome's sign - Back Exam Back Exam: NORMAL INSPECTION. absent: vertebral tenderness - Neurological Exam Neurological Exam: Alert, Awake, CN II-XII Intact, Oriented x3 - Psychiatric Exam Psychiatric exam: Normal Mood - Skin Skin Exam: Dry, Pallor, Warm Assessment and Plan - Assessment and Plan (Free Text) Assessment: 81 yo M with PMH of HTN, Diverticulosis, CKD, severe , Emphysema, Arthritis, Gout, unclear myeloproliferative disorder, Hypothyroidism, Osteoporosis, Fractures (Hx of Compression Vertebral Fx at T and L spine) admitted for R lower leg DVT. 1) Right leg DVT -Right LEg Duplex: nonocclusive acute distal superficial femoral vein thrombosis -Heme-onc Dr Charlton recommends to hold anticoagulation due to prior admission and hx/o lower GI bleeding of unclear etiology. To discuss with family IVC filter placement. -IR consult apreciated 2) Right leg cellulitis -possible secondary to trombophlebitis -chronic high wbc 13.9 no left shift deviation -Procalcitonin level wnl -Ancef 1gm IV Q12 -Bactrim SS renal dose 1 tab BID -ESR 34 3) Anemia/ Worsening -Hgb from 8.1 yesterday to 6.9 today. -Check Iron, folate, TIBC, Vit B12 level. -FOBT done today. -type and screen A+ -RBC 3 units today 3) CKD3 B -GFR 32 -Bun/Cr: 44/2.0 -CR cl: 21 4)Myeloproliferative disorder -unclear diagnosis -chronic high wbc 13.9, no left shift deviation -Dr Charlton Heme/ onco consulted 5) Severe aortic stenosis -Echo 10/05 showed severe aortic stenosis. EF 45-50% 6) Hypothyroidism -c/w levothyroxin 100 mc po daily 7) Gout Allopurinol 100 mg Po daily hold -f/u uric acid 8) DVT prophylaxis -prior admission 10/15 in ICU for Lower GI bleeding,needing transfusion, FFP, unable to scope for refusal of the family. -No SCD due to DVT - no anticoagulation -to discuss IVC filter placement <Nhung Woodard - Last Filed: 03/19/17 08:15> Objective - Vital Signs/Intake and Output Vital Signs (last 24 hours): Temp Pulse Resp BP Pulse Ox 97.5 F L 64 18 125/63 99 03/19/17 05:08 03/19/17 05:08 03/19/17 05:08 03/19/17 05:08 03/19/17 05:08 - Medications Medications: Current Medications Acetaminophen (Tylenol 325mg Tab) 650 mg PO Q4 PRN PRN Reason: Fever >100.4 F Acetaminophen (Tylenol 325mg Tab) 650 mg PO Q4 PRN PRN Reason: Pain, moderate (4-7) Cefazolin Sodium 1 gm/ Sodium (Chloride) 100 mls @ 100 mls/hr IVPB Q12 SATURNINO Last Admin: 03/18/17 21:44 Dose: 100 mls/hr Trimethoprim/Sulfamethoxazole (Bactrim Ss Tab) 1 tab PO Q12 SATURNINO Last Admin: 03/18/17 21:44 Dose: 1 tab - Labs Labs: 03/19/17 05:30 03/19/17 05:30 PT 21.3 Seconds (9.8-13.1) H 03/17/17 16:11 INR 2.0 (0.9-1.2) H 03/17/17 16:11 APTT 48.1 Seconds (25.6-37.1) H 03/17/17 16:11 - Skin Additional comments: ADDENDUM ATTENDING NOTE PATIENT SEEN AND EXAMINED. CASE DISCUSSED WITH RESIDENT. AGREE WITH FINDINGS AND PLAN. 3 UNITES TRANSFUSION PRBCS TODAY. IR CONSULT. LESS PAIN CELLULITIS, CONTINUE ANTIBIOTICS.
[2017-03-18 09:49] LABS: THYROID STIMULATING HORMONE 2.16 mIU/ML (0.46-4.68)
[2017-03-18] MEDS: Tmp-Smz 400 mg-80 mg SS Tab PO SCH ×2 (10:03→21:44)
[2017-03-18] MEDS ORDERED: Chlorhexidine Gluconate 1 APPL/PKT TP ONE (10:22)
[2017-03-18 10:45] LABS: BASO # 0.2 K/uL (0.0-0.2); BASO % 1.2 % (0.0-2.0); EOS # 0.1 K/uL (0.0-0.7); EOS % 0.8 % (0.0-4.0); HEMATOCRIT 21.4 % (35.0-51.0); LYMPH # 1.1 K/uL (1.0-4.3); LYMPH % 7.7 % (20.0-40.0); MEAN CELL VOLUME 108.3 fl (80.0-94.0); MEAN CORPUSCULAR HEMOGLOBIN 34.8 pg (27.0-31.0); MEAN CORPUSCULAR HGB CONC 32.1 g/dL (33.0-37.0); MEAN PLATELET VOLUME 10.9 fl (7.2-11.7); MONO % 14.5 % (0.0-10.0); NEUT # 10.5 K/uL (1.8-7.0); NEUT % 75.8 % (50.0-75.0); PLATELET COUNT 282 K/uL (130-400); RED CELL DISTRIBUTION WIDTH 19.4 % (11.5-14.5); WHITE BLOOD COUNT 13.9 K/uL (4.8-10.8)
[2017-03-18 11:23] LABS: ERYTHROCYTE SEDIMENTATION RATE 34 mm/hr (0-20)
[2017-03-18] MEDS ORDERED: ceFAZolin 1 GM in Sodium Chloride 0.9% 100 ML IVPB SCH (11:45)
[2017-03-18 11:49] LABS: NEUTROPHIL 85 % (42-75); TOTAL CELLS COUNTED 100
[2017-03-18 11:50] LABS: LARGE PLATELETS PRESENT; SPHEROCYTES SLIGHT
[2017-03-18] MEDS: ceFAZolin 1 GM in Sodium Chloride 0.9% 100 ML IVPB SCH ×2 (13:22→21:44)
[2017-03-18 14:00] LABS: IRON 28 ug/dL (49-181)
--- NOTE | 2017-03-18 21:53 | CARD ---
APPROVED REPORT EKG Measurement Heart [id number] <Conclusion> Normal sinus rhythm Anterior infarct, age undetermined T wave abnormality, consider lateral ischemia Abnormal ECG
[2017-03-18 22:09] LABS: FOLATE 10.2 ng/mL
--- NOTE | 2017-03-19 02:04 | CP.PCM.CON ---
History of Present Illness - History of Present Illness History of Present Illness: 81 year old male with a history of myelofibrosis, GI bleeding, anemia, leukocytosis, coagulopathy, admitted with leg pain and swelling, found to have a right femoral DVT. The patient has been more sedentary in the last 2-3 months and spends the majority of his time in the chair or bed. His daughter reports his WBC has been high for over 10 years. He underwent bone marrow evaluation at [facility] which led to his myelofibrosis diagnosis. Past medical history: myelofibrosis Past surgical history: None Family history: Denies hematologic and oncologic problems Social history: Former tobacco and alcohol abuse. Allergies: Morphine, vancomycin Review of systems: All remaining review of systems including HEENT, cardiovascular, respiratory, gastrointestinal, genitourinary, musculoskeletal, dermatologic, neurologic, and psychiatric are negative unless mentioned in the history of present illness. Past Patient History - Infectious Disease Hx of Infectious Diseases: None - Tetanus Immunizations Tetanus Immunization: Unknown - Past Medical History & Family History Past Medical History?: Yes - Past Social History Smoking Status: Former Smoker - CARDIAC Hx Hypertension: Yes - PULMONARY Hx Emphysema: Yes - NEUROLOGICAL Hx Neurological Disorder: No - HEENT Other/Comment: red eyes - RENAL Hx Chronic Kidney Disease: No - ENDOCRINE/METABOLIC Hx Hypothyroidism: Yes - HEMATOLOGICAL/ONCOLOGICAL Hx Blood Disorders: Yes (chronic leukocytosis) - INTEGUMENTARY Hx Dermatological Problems: Yes Hx Psoriasis: Yes - MUSCULOSKELETAL/RHEUMATOLOGICAL Hx Arthritis: Yes Hx Fractures: Yes (Hx of Compression Vertebral Fx at T and L spine) Hx Osteoporosis: (Chronically elevated WBCs) - GASTROINTESTINAL Hx Diverticulitis: Yes - GENITOURINARY/GYNECOLOGICAL Hx Genitourinary Disorders: No - PSYCHIATRIC Hx Psychophysiologic Disorder: No Hx Substance Use: No - SURGICAL HISTORY Hx Cholecystectomy: Yes - ANESTHESIA Hx Anesthesia: Yes Hx Anesthesia Reactions: No Meds Allergies/Adverse Reactions: Allergies Allergy/AdvReac Type Severity Reaction Status Date / Time morphine Allergy URTICARIA Verified 10/31/16 12:44 vancomycin Allergy RASH Verified 10/31/16 12:44 iohexol [From Omnipaque] AdvReac VOMITING Verified 10/31/16 14:56 - Medications Medications: Current Medications Acetaminophen (Tylenol 325mg Tab) 650 mg PO Q4 PRN PRN Reason: Fever >100.4 F Acetaminophen (Tylenol 325mg Tab) 650 mg PO Q4 PRN PRN Reason: Pain, moderate (4-7) Cefazolin Sodium 1 gm/ Sodium (Chloride) 100 mls @ 100 mls/hr IVPB Q12 SATURNINO Last Admin: 03/18/17 21:44 Dose: 100 mls/hr Trimethoprim/Sulfamethoxazole (Bactrim Ss Tab) 1 tab PO Q12 SATURNINO Last Admin: 03/18/17 21:44 Dose: 1 tab Physical Exam - Head Exam Head Exam: ATRAUMATIC - Eye Exam Eye Exam: Normal appearance - ENT Exam ENT Exam: Mucous Membranes Dry - Respiratory Exam Respiratory Exam: NORMAL BREATHING PATTERN - Cardiovascular Exam Cardiovascular Exam: +S1, +S2 - GI/Abdominal Exam GI & Abdominal Exam: Normal Bowel Sounds - Extremities Exam Extremities exam: Positive for: pedal edema Results - Vital Signs Recent Vital Signs: Last Vital Signs Temp 98.4 F 03/19/17 00:17 Pulse 68 03/19/17 00:17 Resp 18 03/19/17 00:17 BP 125/65 03/19/17 00:17 Pulse Ox 98 03/19/17 00:17 - Labs Result Diagrams: 03/18/17 10:39 03/18/17 05:25 Labs: Laboratory Results - last 24 hr 03/18/17 03/18/17 03/18/17 05:25 05:25 05:25 WBC 13.5 H RBC 1.93 L Hgb 6.8 L Hct 20.7 L MCV 107.4 H D MCH 35.0 H MCHC 32.6 L RDW 19.2 H Plt Count 299 MPV Neut % (Auto) Lymph % (Auto) [place] % (Auto) Eos % (Auto) Baso % (Auto) Neut # Lymph # [place] # Eos # Baso # Neutrophils % (Manual) Band Neutrophils % Lymphocytes % (Manual) Monocytes % (Manual) Platelet Estimate Large Platelets Hypochromasia (manual) Poikilocytosis (manual Anisocytosis (manual) Macrocytosis (manual) Spherocytes Ovalocytes Schistocytes ESR Sodium 136 Potassium 4.9 Chloride 108 H Carbon Dioxide 16 L Anion Gap 17 BUN 44 H Creatinine 2.0 H Est GFR ( Amer) 39 Est GFR (Non-Af Amer) 32 Random Glucose 86 Uric Acid 8.5 Calcium 7.9 L Iron TIBC % Saturation Total Bilirubin 0.7 AST 28 ALT 21 Alkaline Phosphatase 79 C-React Prot High Sens Total Protein 6.2 L Albumin 3.1 L Globulin 3.1 Albumin/Globulin Ratio 1.0 Vitamin B12 Folate Procalcitonin Free T4 1.38 TSH 3rd Generation 2.16 Blood Type Antibody Screen Crossmatch BBK History Checked 03/18/17 03/18/17 03/18/17 05:30 10:34 10:39 WBC 13.9 H RBC 1.98 L Hgb 6.9 L Hct 21.4 L MCV 108.3 H MCH 34.8 H MCHC 32.1 L RDW 19.4 H Plt Count 282 MPV 10.9 Neut % (Auto) 75.8 H Lymph % (Auto) 7.7 L [place] % (Auto) 14.5 H Eos % (Auto) 0.8 Baso % (Auto) 1.2 Neut # 10.5 H Lymph # 1.1 [place] # 2.0 H Eos # 0.1 Baso # 0.2 Neutrophils % (Manual) 85 H Band Neutrophils % 4 H Lymphocytes % (Manual) 3 L Monocytes % (Manual) 8 Platelet Estimate Slightly decreased L Large Platelets Present Hypochromasia (manual) Slight Poikilocytosis (manual Moderate Anisocytosis (manual) Moderate Macrocytosis (manual) Slight Spherocytes Slight Ovalocytes Moderate Schistocytes Slight ESR 34 H Sodium Potassium Chloride Carbon Dioxide Anion Gap BUN Creatinine Est GFR ( Amer) Est GFR (Non-Af Amer) Random Glucose Uric Acid Calcium Iron TIBC % Saturation Total Bilirubin AST ALT Alkaline Phosphatase C-React Prot High Sens Total Protein Albumin Globulin Albumin/Globulin Ratio Vitamin B12 Folate Procalcitonin 0.48 Free T4 TSH 3rd Generation Blood Type A POSITIVE Antibody Screen Negative Crossmatch See Detail BBK History Checked Patient has bt 03/18/17 03/18/17 03/18/17 10:39 13:10 13:34 WBC RBC Hgb Hct MCV MCH MCHC RDW Plt Count MPV Neut % (Auto) Lymph % (Auto) [place] % (Auto) Eos % (Auto) Baso % (Auto) Neut # Lymph # [place] # Eos # Baso # Neutrophils % (Manual) Band Neutrophils % Lymphocytes % (Manual) Monocytes % (Manual) Platelet Estimate Large Platelets Hypochromasia (manual) Poikilocytosis (manual Anisocytosis (manual) Macrocytosis (manual) Spherocytes Ovalocytes Schistocytes ESR Sodium Potassium Chloride Carbon Dioxide Anion Gap BUN Creatinine Est GFR ( Amer) Est GFR (Non-Af Amer) Random Glucose Uric Acid Calcium Iron 28 L TIBC 231 L % Saturation 12 L Total Bilirubin AST ALT Alkaline Phosphatase C-React Prot High Sens > 15.00 H Total Protein Albumin Globulin Albumin/Globulin Ratio Vitamin B12 > 1000 H Folate 10.2 Procalcitonin Free T4 TSH 3rd Generation Blood Type Antibody Screen Crossmatch BBK History Checked Assessment & Plan (1) DVT (deep venous thrombosis) Assessment and Plan: likely provoked from immobility high risk for anticoagulation given prior GI bleeding consider IR evaluation for IVC filter if family agreeable Status: Acute (2) Anemia Assessment and Plan: check ferritin, retic count, b12, folate, FOBT to further characterize recommend transfusing 2U PRBC Status: Chronic (3) Leukocytosis Assessment and Plan: chronic secondary to myelofibrosis Status: Acute Priority: High (4) Myelofibrosis Assessment and Plan: outpatient f/u Thank you for this interesting consult. Status: Chronic
[2017-03-19 06:33] LABS: HEMATOCRIT 29.2 % (35.0-51.0); MEAN CELL VOLUME 101.7 fl (80.0-94.0); MEAN CORPUSCULAR HEMOGLOBIN 33.5 pg (27.0-31.0); RED CELL DISTRIBUTION WIDTH 20.2 % (11.5-14.5); WHITE BLOOD COUNT 15.8 K/uL (4.8-10.8)
[2017-03-19 06:36] LABS: CALCIUM 7.9 mg/dL (8.4-10.2)
--- NOTE | 2017-03-19 08:52 | CP.PCM.PN ---
<Jose Leonard - Last Filed: 03/19/17 14:01> Subjective - Date & Time of Evaluation Date of Evaluation: 03/19/17 Time of Evaluation: 06:50 - Subjective Subjective: Patient seen and examined this morning at bedside, no acute overnight events, reports pain at R ankle level, states good appetite, slept well through night. Denies chest pain, sob, palpitations, no fever, nausea, vomiting, no abdominal pain. No urinary symptoms. Denies any recent injury or trauma. Objective - Vital Signs/Intake and Output Vital Signs (last 24 hours): Temp Pulse Resp BP Pulse Ox 98.2 F 65 18 116/63 97 03/19/17 08:14 03/19/17 08:14 03/19/17 08:14 03/19/17 08:14 03/19/17 08:14 - Medications Medications: Current Medications Acetaminophen (Tylenol 325mg Tab) 650 mg PO Q4 PRN PRN Reason: Fever >100.4 F Acetaminophen (Tylenol 325mg Tab) 650 mg PO Q4 PRN PRN Reason: Pain, moderate (4-7) Cefazolin Sodium 1 gm/ Sodium (Chloride) 100 mls @ 100 mls/hr IVPB Q12 [facility] Last Admin: 03/18/17 21:44 Dose: 100 mls/hr Trimethoprim/Sulfamethoxazole (Bactrim Ss Tab) 1 tab PO Q12 [facility] Last Admin: 03/18/17 21:44 Dose: 1 tab - Labs Labs: 03/19/17 05:30 03/19/17 05:30 PT 21.3 Seconds (9.8-13.1) H 03/17/17 16:11 INR 2.0 (0.9-1.2) H 03/17/17 16:11 APTT 48.1 Seconds (25.6-37.1) H 03/17/17 16:11 - Constitutional Appears: Well, No Acute Distress - Head Exam Head Exam: ATRAUMATIC, NORMOCEPHALIC - Eye Exam Eye Exam: EOMI, Normal appearance, PERRL - Neck Exam Neck Exam: Full ROM - Respiratory Exam Respiratory Exam: Clear to Ausculation Bilateral, NORMAL BREATHING PATTERN - Cardiovascular Exam Cardiovascular Exam: REGULAR RHYTHM, +S1, +S2, Murmur - GI/Abdominal Exam GI & Abdominal Exam: Soft, Normal Bowel Sounds. absent: Tenderness, Organomegaly - Extremities Exam Additional comments: R leg erythema, warm, swelling up to ankle level, mild tenderness to palpation on ankle area, no calf tenderness. PT/DP present b/l. - Back Exam Back Exam: NORMAL INSPECTION. absent: vertebral tenderness - Neurological Exam Neurological Exam: Alert, Awake, CN II-XII Intact, Oriented x3 Assessment and Plan - Assessment and Plan (Free Text) Assessment: 81 yo M with PMH of HTN, Diverticulosis, CKD, severe , Emphysema, Arthritis, Gout, Myelofibrosis, Hypothyroidism, Osteoporosis, Fractures (Hx of Compression Vertebral Fx at T and L spine) admitted for R lower leg DVT. Prior admission 10/15 in ICU for Lower GI bleeding needing transfusion and FFP, unable to scope for refusal of the family. 1) Right leg DVT -Right LEg Duplex: nonocclusive acute distal superficial femoral vein thrombosis (which is a deep vein) -Heme-onc Dr Charlton recommended to hold anticoagulation due to hx/o lower GI bleeding of unclear etiology. Recommends IVC filter due to high risk for anticoagulation. -IVC placement discussed with daughter and patient, they agree with procedure. -IR consult appreciated 2) Right leg cellulitis -possible secondary to trombophlebitis - wbc 15.9 (chronic elevation) afebrile -d/c Ancef 1gm IV Q12 -ID consulted Dr Freire recommends start vancomicyn 750 mg IV Q12h as no allergy as per daughter. Will change frequency to Q24h due to GFR 30. -Bactrim SS renal dose 1 tab BID -ESR 34 -blood cx pending 3) Anemia/ Improving s/p PRBC 3 units -Hgb 9.6 today - Iron 28(low), TIBC 231(low), ferritin wnl, Vit B12 level >1000, folate wnl -FOBT negative, repeat pending 3) CKD3 B -GFR 32 -Bun/Cr: 46/2.2 -CR cl: 22 4)Myelofibrosis -unclear diagnosis -chronic high wbc no left shift deviation -Dr Charlton Heme/ onco on board. 5) Severe aortic stenosis -Echo 10/05 showed severe aortic stenosis. EF 45-50% 6) Hypothyroidism -c/w levothyroxin 100 mc po daily 7) Gout Allopurinol 100 mg Po daily hold -f/u uric acid 8) DVT prophylaxis -No SCD due to DVT - no anticoagulation due to INR 2.0 <Nhung Woodard - Last Filed: 03/20/17 07:41> Objective - Vital Signs/Intake and Output Vital Signs (last 24 hours): Temp Pulse Resp BP Pulse Ox 97.5 F L 63 18 125/65 99 03/20/17 05:08 03/20/17 05:08 03/20/17 05:08 03/20/17 05:08 03/20/17 05:08 - Medications Medications: Current Medications Acetaminophen (Tylenol 325mg Tab) 650 mg PO Q4 PRN PRN Reason: Fever >100.4 F Acetaminophen (Tylenol 325mg Tab) 650 mg PO Q4 PRN PRN Reason: Pain, moderate (4-7) Last Admin: 03/19/17 17:26 Dose: 650 mg Piperacillin Sod/Tazobactam (Sod 3.375 gm/ Sodium Chloride) 100 mls @ 100 mls/ hr IVPB Q6 [facility] Last Admin: 03/20/17 04:37 Dose: 100 mls/hr Vancomycin HCl 750 mg/ Sodium (Chloride) 250 mls @ 83.333 mls/hr IVPB DAILY [facility] Last Admin: 03/19/17 19:21 Dose: Not Given Trimethoprim/Sulfamethoxazole (Bactrim Ss Tab) 1 tab PO Q12 [facility] Last Admin: 03/19/17 21:12 Dose: 1 tab - Labs Labs: 03/19/17 11:50 03/19/17 05:30 PT 21.3 Seconds (9.8-13.1) H 03/17/17 16:11 INR 2.0 (0.9-1.2) H 03/17/17 16:11 APTT 48.1 Seconds (25.6-37.1) H 03/17/17 16:11 - Skin Additional comments: ADDENDUM ATTENDING NOTE PATIENT SEEN AND EXAMINED. CHART REVIEWED. CASE DISCUSSED WITH RESIDENT. AGREE WITH FINDINGS AND PLAN.
[2017-03-19] MEDS: ceFAZolin 1 GM in Sodium Chloride 0.9% 100 ML IVPB SCH ×2 (09:28→09:58)
[2017-03-19] MEDS ORDERED: Clindamycin 600 MG in Sodium Chloride 0.9% 100 ML IVPB SCH (10:00)
[2017-03-19 12:34] LABS: HEMATOCRIT 29.5 % (35.0-51.0); MEAN CELL VOLUME 100.8 fl (80.0-94.0); MEAN CORPUSCULAR HEMOGLOBIN 32.8 pg (27.0-31.0); MEAN CORPUSCULAR HGB CONC 32.6 g/dL (33.0-37.0); RED CELL DISTRIBUTION WIDTH 20.3 % (11.5-14.5); WHITE BLOOD COUNT 15.8 K/uL (4.8-10.8)
[2017-03-19] MEDS: Piperacillin/Tazobact 3.375 GM in Sodium Chloride 0.9% 100 ML IVPB SCH ×4 (12:58→21:12)
--- NOTE | 2017-03-19 13:25 | CP.PCM.CON ---
History of Present Illness - History of Present Illness History of Present Illness: 81 y old with pmhx of multiple medical problems presents with swelling erythema and tenderness in his right leg for the past 2 days. No fever Past Patient History - Infectious Disease Hx of Infectious Diseases: None - Tetanus Immunizations Tetanus Immunization: Unknown - Past Medical History & Family History Past Medical History?: Yes - Past Social History Smoking Status: Former Smoker - CARDIAC Hx Hypertension: Yes - PULMONARY Hx Emphysema: Yes - NEUROLOGICAL Hx Neurological Disorder: No - HEENT Other/Comment: red eyes - RENAL Hx Chronic Kidney Disease: No - ENDOCRINE/METABOLIC Hx Hypothyroidism: Yes - HEMATOLOGICAL/ONCOLOGICAL Hx Blood Disorders: Yes (chronic leukocytosis) - INTEGUMENTARY Hx Dermatological Problems: Yes Hx Psoriasis: Yes - MUSCULOSKELETAL/RHEUMATOLOGICAL Hx Arthritis: Yes Hx Fractures: Yes (Hx of Compression Vertebral Fx at T and L spine) Hx Osteoporosis: (Chronically elevated WBCs) - GASTROINTESTINAL Hx Diverticulitis: Yes - GENITOURINARY/GYNECOLOGICAL Hx Genitourinary Disorders: No - PSYCHIATRIC Hx Psychophysiologic Disorder: No Hx Substance Use: No - SURGICAL HISTORY Hx Cholecystectomy: Yes - ANESTHESIA Hx Anesthesia: Yes Hx Anesthesia Reactions: No Meds Allergies/Adverse Reactions: Allergies Allergy/AdvReac Type Severity Reaction Status Date / Time morphine Allergy URTICARIA Verified 10/31/16 12:44 vancomycin Allergy RASH Verified 10/31/16 12:44 iohexol [From Omnipaque] AdvReac VOMITING Verified 10/31/16 14:56 - Medications Medications: Current Medications Acetaminophen (Tylenol 325mg Tab) 650 mg PO Q4 PRN PRN Reason: Fever >100.4 F Acetaminophen (Tylenol 325mg Tab) 650 mg PO Q4 PRN PRN Reason: Pain, moderate (4-7) Piperacillin Sod/Tazobactam (Sod 3.375 gm/ Sodium Chloride) 100 mls @ 100 mls/ hr IVPB Q6 [facility] Last Admin: 03/19/17 12:58 Dose: 100 mls/hr Trimethoprim/Sulfamethoxazole (Bactrim Ss Tab) 1 tab PO Q12 [facility] Last Admin: 03/18/17 21:44 Dose: 1 tab Physical Exam - Extremities Exam Additional comments: right lateral leg with erythema, tiny pointed lesions, tenderness, no mass or fluctuation Results - Vital Signs Recent Vital Signs: Last Vital Signs Temp 98 F 03/19/17 12:00 Pulse 66 03/19/17 12:00 Resp 18 03/19/17 12:00 BP 117/61 03/19/17 12:00 Pulse Ox 97 03/19/17 12:00 - Labs Result Diagrams: 03/19/17 11:50 03/19/17 05:30 Labs: Laboratory Results - last 24 hr 03/18/17 03/18/17 03/18/17 10:34 10:39 13:10 WBC RBC Hgb Hct MCV MCH MCHC RDW Plt Count Sodium Potassium Chloride Carbon Dioxide Anion Gap BUN Creatinine Est GFR ( Amer) Est GFR (Non-Af Amer) Random Glucose Calcium Iron TIBC % Saturation Ferritin C-React Prot High Sens > 15.00 H Vitamin B12 > 1000 H Folate 10.2 Stool Occult Blood Blood Type A POSITIVE Antibody Screen Negative Crossmatch See Detail BBK History Checked Patient has bt 03/18/17 03/18/17 03/19/17 13:34 20:00 05:30 WBC 15.8 H RBC 2.87 L Hgb 9.6 L D Hct 29.2 L MCV 101.7 H D MCH 33.5 H MCHC 33.0 RDW 20.2 H Plt Count 289 Sodium Potassium Chloride Carbon Dioxide Anion Gap BUN Creatinine Est GFR ( Amer) Est GFR (Non-Af Amer) Random Glucose Calcium Iron 28 L TIBC 231 L % Saturation 12 L Ferritin C-React Prot High Sens Vitamin B12 Folate Stool Occult Blood Negative Blood Type Antibody Screen Crossmatch BBK History Checked 03/19/17 03/19/17 05:30 11:50 WBC 15.8 H RBC 2.93 L Hgb 9.6 L Hct 29.5 L MCV 100.8 H MCH 32.8 H MCHC 32.6 L RDW 20.3 H Plt Count 306 Sodium 138 Potassium 5.0 Chloride 111 H Carbon Dioxide 14 L Anion Gap 18 BUN 46 H Creatinine 2.2 H Est GFR ( Amer) 35 Est GFR (Non-Af Amer) 29 Random Glucose 86 Calcium 7.9 L Iron TIBC % Saturation Ferritin 156.0 C-React Prot High Sens Vitamin B12 Folate Stool Occult Blood Blood Type Antibody Screen Crossmatch BBK History Checked Assessment & Plan - Assessment and Plan (Free Text) Assessment: Right lower leg cellulitis, 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 Begin Vancomycin 750 mg i v q 12h
[2017-03-19] MEDS: Tmp-Smz 400 mg-80 mg SS Tab PO SCH ×2 (13:47→21:12)
[2017-03-19] MEDS ORDERED: Lidocaine 1% Inj (20ml) ONE (14:40)
--- NOTE | 2017-03-19 15:05 | PCM.SURG1 ---
Surgeon's Initial Post Op Note - Surgeon's Notes Surgeon: Adonay Trujillo MD Manager Heavy Equipment: NONE Type of Anesthesia: Local Pre-Operative Diagnosis: Distal femoral vein DVT, bleeding risk Operative Findings: Patent right common femoral vein. Post-Operative Diagnosis: DVT, bleeding risk Operation Performed: Retrievable IVC filter placed at level of L2. Position of the renal veins were anatomically confimred with prior CT scan of the abdomen. Specimen/Specimens Removed: None Estimated Blood Loss: EBL {In ML}: 2 Drains Used: No Drains Post-Op Condition: Fair Date of Surgery/Procedure: 03/19/17 Time of Surgery/Procedure: 15:05
--- NOTE | 2017-03-19 21:17 | CP.PCM.PN ---
Subjective - Date & Time of Evaluation Date of Evaluation: 03/19/17 Time of Evaluation: 11:30 - Subjective Subjective: Appears comfortable, daughter at bedside Objective - Vital Signs/Intake and Output Vital Signs (last 24 hours): Temp Pulse Resp BP Pulse Ox 98.7 F 62 14 111/53 L 98 03/19/17 20:11 03/19/17 20:11 03/19/17 20:11 03/19/17 20:11 03/19/17 20:11 - Medications Medications: Current Medications Acetaminophen (Tylenol 325mg Tab) 650 mg PO Q4 PRN PRN Reason: Fever >100.4 F Acetaminophen (Tylenol 325mg Tab) 650 mg PO Q4 PRN PRN Reason: Pain, moderate (4-7) Last Admin: 03/19/17 17:26 Dose: 650 mg Piperacillin Sod/Tazobactam (Sod 3.375 gm/ Sodium Chloride) 100 mls @ 100 mls/ hr IVPB Q6 [facility] Last Admin: 03/19/17 19:22 Dose: Not Given Vancomycin HCl 750 mg/ Sodium (Chloride) 250 mls @ 83.333 mls/hr IVPB DAILY [facility] Last Admin: 03/19/17 19:21 Dose: Not Given Trimethoprim/Sulfamethoxazole (Bactrim Ss Tab) 1 tab PO Q12 [facility] Last Admin: 03/19/17 13:47 Dose: 1 tab - Labs Labs: 03/19/17 11:50 03/19/17 05:30 PT 21.3 Seconds (9.8-13.1) H 03/17/17 16:11 INR 2.0 (0.9-1.2) H 03/17/17 16:11 APTT 48.1 Seconds (25.6-37.1) H 03/17/17 16:11 - Head Exam Head Exam: ATRAUMATIC - Eye Exam Eye Exam: Normal appearance - ENT Exam ENT Exam: Mucous Membranes Dry - Respiratory Exam Respiratory Exam: NORMAL BREATHING PATTERN - Cardiovascular Exam Cardiovascular Exam: +S1, +S2 - GI/Abdominal Exam GI & Abdominal Exam: Normal Bowel Sounds - Extremities Exam Extremities Exam: Pedal Edema Assessment and Plan (1) DVT (deep venous thrombosis) Assessment & Plan: provoked from immobility high risk for bleeding with anticoagulation pt and daughter agreeable for IVC filter Status: Acute (2) Anemia Assessment & Plan: myelofibrosis, splenic sequestration f/u iron/b12/folate stores transfusion support PRN Status: Chronic (3) Leukocytosis Assessment & Plan: secondary to myelofibrosis Status: Acute (4) Myelofibrosis Assessment & Plan: outpatient f/u Status: Chronic
[2017-03-20] MEDS: Piperacillin/Tazobact 3.375 GM in Sodium Chloride 0.9% 100 ML IVPB SCH (04:37)
--- NOTE | 2017-03-20 08:09 | CP.PCM.PN ---
<Jose Leonard - Last Filed: 03/20/17 16:01> Subjective - Date & Time of Evaluation Date of Evaluation: 03/20/17 Time of Evaluation: 06:40 - Subjective Subjective: Patient seen and examined today at bedside, no acute overnight events. States mild pain on R ankle and lateral part of R low leg. Denies fever, chills, nausea , vomiting, chest pain, palpitations, sob, no calf pain or abdominal pain. States good appetite, sleeping well. IVC filter placed yesterday, procedure well tolerated. Last BM yesterday, no urinary symptoms. Objective - Vital Signs/Intake and Output Vital Signs (last 24 hours): Temp Pulse Resp BP Pulse Ox 97.5 F L 63 18 125/65 99 03/20/17 05:08 03/20/17 05:08 03/20/17 05:08 03/20/17 05:08 03/20/17 05:08 - Medications Medications: Current Medications Acetaminophen (Tylenol 325mg Tab) 650 mg PO Q4 PRN PRN Reason: Fever >100.4 F Acetaminophen (Tylenol 325mg Tab) 650 mg PO Q4 PRN PRN Reason: Pain, moderate (4-7) Last Admin: 03/19/17 17:26 Dose: 650 mg Piperacillin Sod/Tazobactam (Sod 3.375 gm/ Sodium Chloride) 100 mls @ 100 mls/ hr IVPB Q6 [facility] Last Admin: 03/20/17 04:37 Dose: 100 mls/hr Vancomycin HCl 750 mg/ Sodium (Chloride) 250 mls @ 83.333 mls/hr IVPB DAILY [facility] Last Admin: 03/19/17 19:21 Dose: Not Given Trimethoprim/Sulfamethoxazole (Bactrim Ss Tab) 1 tab PO Q12 [facility] Last Admin: 03/19/17 21:12 Dose: 1 tab - Labs Labs: 03/19/17 11:50 03/19/17 05:30 PT 21.3 Seconds (9.8-13.1) H 03/17/17 16:11 INR 2.0 (0.9-1.2) H 03/17/17 16:11 APTT 48.1 Seconds (25.6-37.1) H 03/17/17 16:11 - Constitutional Appears: Well, Non-toxic, No Acute Distress - Head Exam Head Exam: ATRAUMATIC, NORMOCEPHALIC - Eye Exam Eye Exam: EOMI, Normal appearance, PERRL. absent: Nystagmus - Neck Exam Neck Exam: Full ROM. absent: Lymphadenopathy - Respiratory Exam Respiratory Exam: Clear to Ausculation Bilateral. absent: Rales, Rhonchi, Wheezes - Cardiovascular Exam Cardiovascular Exam: REGULAR RHYTHM, +S1, +S2, Murmur - GI/Abdominal Exam GI & Abdominal Exam: Soft, Normal Bowel Sounds. absent: Tenderness Additional comments: Ventral hernia in RUQ after cholecystectomy. - Extremities Exam Additional comments: R leg erythema, warm, swelling up to ankle level, mild tenderness to palpation on ankle area, no calf tenderness. PT/DP present b/l. - Back Exam Back Exam: NORMAL INSPECTION. absent: vertebral tenderness - Neurological Exam Neurological Exam: Alert, Awake, CN II-XII Intact, Oriented x3 Assessment and Plan - Assessment and Plan (Free Text) Assessment: 81 yo M with PMH of HTN, Diverticulosis, CKD, severe , Emphysema, Arthritis, Gout, Myelofibrosis, Hypothyroidism, Osteoporosis, Fractures (Hx of Compression Vertebral Fx at T and L spine) admitted for R lower leg DVT. Prior admission 10/15 in ICU for Lower GI bleeding needing transfusion and FFP, unable to scope for refusal of the family. 1) Right leg DVT -Right LEg Duplex: nonocclusive acute distal superficial femoral vein thrombosis (which is a deep vein) -Heme-onc Dr Charlton recommended to hold anticoagulation due to hx/o lower GI bleeding of unclear etiology. Recommends IVC filter due to high risk for anticoagulation. -IVC placed yesterday, no complications, procedure well tolerated. -OT/PT evaluation 2) Right leg cellulitis -possible secondary to trombophlebitis -wbc 15.9 (chronic elevation) afebrile -c/w vancomicyn IV Q24h due to GFR 30. -d/c zosyn -Bactrim SS renal dose 1 tab BID -ESR 34 -blood cx pending 3) Anemia/ Improving s/p PRBC 3 units -Hgb 9.6 today -Iron 28(low), TIBC 231(low), ferritin wnl, Vit B12 level >1000, folate wnl -FOBT x 1 negative, repeat pending -CBC, BMP ordered 3) CKD3 B -GFR 32 -Bun/Cr: 46/2.2 -CR cl: 22 4)Myelofibrosis -unclear diagnosis -chronic high wbc no left shift deviation -Dr Charlton Heme/ onco on board. 5) Severe aortic stenosis -Echo 10/05 showed severe aortic stenosis. EF 45-50% 6) Hypothyroidism -c/w levothyroxin 100 mc po daily 7) Gout Allopurinol 100 mg Po daily hold -f/u uric acid 8) DVT prophylaxis -No SCD due to DVT - no anticoagulation due to INR 2.0 <Nhung Woodard - Last Filed: 03/22/17 09:04> Objective - Vital Signs/Intake and Output Vital Signs (last 24 hours): Temp Pulse Resp BP Pulse Ox 97.9 F 62 18 119/64 99 03/22/17 08:06 03/22/17 08:06 03/22/17 08:06 03/22/17 08:06 03/22/17 08:06 Intake and Output: 03/22/17 03/22/17 06:59 18:59 Intake Total 250 Output Total 200 Balance 50 - Medications Medications: Current Medications Acetaminophen (Tylenol 325mg Tab) 650 mg PO Q4 PRN PRN Reason: Pain, moderate (4-7) Last Admin: 03/20/17 20:37 Dose: 650 mg Allopurinol (Zyloprim) 100 mg PO DAILY [facility] Last Admin: 03/21/17 08:34 Dose: 100 mg Vancomycin HCl 750 mg/ Sodium (Chloride) 250 mls @ 83.333 mls/hr IVPB DAILY [facility] Last Admin: 03/21/17 08:34 Dose: 83.333 mls/hr Levothyroxine Sodium (Synthroid) 100 mcg PO DAILY@0630 [facility] Last Admin: 03/22/17 06:29 Dose: 100 mcg - Labs Labs: 03/22/17 04:50 03/22/17 04:50 PT 21.3 Seconds (9.8-13.1) H 03/17/17 16:11 INR 2.0 (0.9-1.2) H 03/17/17 16:11 APTT 48.1 Seconds (25.6-37.1) H 03/17/17 16:11 - Skin Additional comments: ADDENDUM ATTENDING NOTE PATIENT SEEN AND EXAMINED. CASE DISCUSSED WITH RESIDENT. NO ANTICOAGULANTS BECAUSE OF RECENT GI BLEED. HAS MYELOFIBROSIS. BEING CLOSELY FOLLOWED BY HEME ONC.. IVC FILTER PLACED.
[2017-03-20 10:57] LABS: BASO # 0.1 K/uL (0.0-0.2); BASO % 1.1 % (0.0-2.0); EOS # 0.2 K/uL (0.0-0.7); EOS % 1.3 % (0.0-4.0); HEMATOCRIT 29.7 % (35.0-51.0); LYMPH # 0.9 K/uL (1.0-4.3); LYMPH % 7.2 % (20.0-40.0); MEAN CELL VOLUME 102.8 fl (80.0-94.0); MEAN CORPUSCULAR HGB CONC 32.1 g/dL (33.0-37.0); MEAN PLATELET VOLUME 11.1 fl (7.2-11.7); MONO # 1.7 K/uL (0.0-0.8); MONO % 13.1 % (0.0-10.0); NEUT # 10.1 K/uL (1.8-7.0); NEUT % 77.3 % (50.0-75.0); RED CELL DISTRIBUTION WIDTH 20.6 % (11.5-14.5); WHITE BLOOD COUNT 13.1 K/uL (4.8-10.8)
[2017-03-20 12:48] LABS: CALCIUM 7.8 mg/dL (8.4-10.2); POTASSIUM 4.9 MMOL/L (3.6-5.0)
[2017-03-21] MEDS: Levothyroxine 100 MCG TAB PO SCH (05:51)
--- NOTE | 2017-03-21 09:49 | CP.PCM.PN ---
Subjective - Date & Time of Evaluation Date of Evaluation: 03/21/17 Time of Evaluation: 06:35 - Subjective Subjective: Patient seen and examined today at bedside, no overnight events, reports feeling well, still has mild pain in left lower leg particularly when touched. States good appetite, slept well, last BM yesterday. Denies calf pain, no CP, sob, palpitations, no fever, nausea, vomiting, no abdominal pain. No urinary symptoms. Objective - Vital Signs/Intake and Output Vital Signs (last 24 hours): Temp Pulse Resp BP Pulse Ox 97.6 F 63 18 113/68 99 03/21/17 08:12 03/21/17 08:12 03/21/17 08:12 03/21/17 08:12 03/21/17 08:12 Intake and Output: 03/21/17 03/21/17 06:59 18:59 Intake Total 300 Output Total 250 Balance 50 - Medications Medications: Current Medications Acetaminophen (Tylenol 325mg Tab) 650 mg PO Q4 PRN PRN Reason: Pain, moderate (4-7) Last Admin: 03/20/17 20:37 Dose: 650 mg Allopurinol (Zyloprim) 100 mg PO DAILY [facility] Last Admin: 03/21/17 08:34 Dose: 100 mg Vancomycin HCl 750 mg/ Sodium (Chloride) 250 mls @ 83.333 mls/hr IVPB DAILY [facility] Last Admin: 03/21/17 08:34 Dose: 83.333 mls/hr Levothyroxine Sodium (Synthroid) 100 mcg PO DAILY@0630 [facility] Last Admin: 03/21/17 05:51 Dose: 100 mcg - Labs Labs: 03/20/17 10:51 03/20/17 12:17 PT 21.3 Seconds (9.8-13.1) H 03/17/17 16:11 INR 2.0 (0.9-1.2) H 03/17/17 16:11 APTT 48.1 Seconds (25.6-37.1) H 03/17/17 16:11 - Constitutional Appears: Well, Non-toxic, No Acute Distress - Head Exam Head Exam: ATRAUMATIC, NORMOCEPHALIC - Eye Exam Eye Exam: EOMI, Normal appearance, PERRL. absent: Nystagmus - Respiratory Exam Respiratory Exam: Clear to Ausculation Bilateral, NORMAL BREATHING PATTERN - Cardiovascular Exam Cardiovascular Exam: RRR, +S1, +S2 - GI/Abdominal Exam GI & Abdominal Exam: Soft, Normal Bowel Sounds. absent: Tenderness Additional comments: Ventral hernia RUQ. - Extremities Exam Additional comments: R lower leg erythema, warm, moderate swelling at ankle level, tender to palpation lateral aspect. - Neurological Exam Neurological Exam: Alert, Awake, CN II-XII Intact, Oriented x3 Assessment and Plan - Assessment and Plan (Free Text) Assessment: 81 yo M with PMH of HTN, Diverticulosis, CKD, severe , Emphysema, Arthritis, Gout, Myelofibrosis, Hypothyroidism, Osteoporosis, Fractures (Hx of Compression Vertebral Fx at T and L spine) admitted for R lower leg DVT. Prior admission 10/15 in ICU for Lower GI bleeding needing transfusion and FFP, unable to scope for refusal of the family. Anticoagulation holded, IVC filter placed 03/19/17. 1) Right leg DVT -Right LEg Duplex: nonocclusive acute distal superficial femoral vein thrombosis (which is a deep vein) -OT/PT evaluation 2) Right leg cellulitis -possible secondary to trombophlebitis -wbc 13.1 (chronic elevation) afebrile -c/w vancomicyn 750mg IV Q24h due to GFR 32 (day 3). Continue 5-7 days as per ID -Vancomicyn trough tomorrow -Bactrim SS renal dose 1 tab BID -ESR 34 -blood cx pending 3) Anemia/ Improving s/p PRBC 3 units -Hgb 9.6 today -FOBT x 1 negative, repeat pending -CBC, BMP ordered 3) CKD3 B -GFR 32 -Bun/Cr: 42/2.0 -CR cl: 24 4)Myelofibrosis -unclear diagnosis -chronic high wbc no left shift deviation -Dr Charlton Heme/ onco on board. 5) Severe aortic stenosis -Echo 10/05 showed severe aortic stenosis. EF 45-50% 6) Hypothyroidism -c/w levothyroxin 100 mc po daily 7) Gout -Allopurinol 100 mg PO daily holded -f/u uric acid 8) DVT prophylaxis -No SCD due to DVT -no anticoagulation due to INR 2.0
[2017-03-22 05:59] LABS: HEMATOCRIT 28.7 % (35.0-51.0); MEAN CORPUSCULAR HEMOGLOBIN 33.5 pg (27.0-31.0); MEAN CORPUSCULAR HGB CONC 32.8 g/dL (33.0-37.0); RED CELL DISTRIBUTION WIDTH 20.4 % (11.5-14.5); WHITE BLOOD COUNT 10.2 K/uL (4.8-10.8)
[2017-03-22] MEDS: Levothyroxine 100 MCG TAB PO SCH (06:29)
[2017-03-22 06:39] LABS: CALCIUM 7.8 mg/dL (8.4-10.2); POTASSIUM 4.9 MMOL/L (3.6-5.0)
--- NOTE | 2017-03-22 11:24 | VASCULAR ---
PROCEDURE: Date of procedure: 03/19/2017 Procedure: Inferior vena cava filter insertion, CPT 63435 Medications: 7cc 1% lidocaine HISTORY: DVT, hematuria unable to anticoagulate, h/o GI bleed TECHNIQUE: Following informed consent and procedure time-out, the patient is placed supine on the interventional table. Patient right groin was prepped and draped in the usual sterile fashion. Ultrasound showed a compressible and patent right common femoral vein. After skin was anesthetized with 1% lidocaine, the femoral vein was accessed with micropuncture technique. The introducer sheath of an IVC filter was advanced over wire and positioned within the inferior vena cava. Correlation was made with the previous CT scan of the abdomen. The inflow of the renal veins were noted on CT scan to be above L2. A retrievable IVC filter was placed at the level of L2. Contrast was not utilized during this procedure as patient has renal insufficiency. Following IVC filter placement, the sheath was removed and pressure was applied to Pt's right groin until hemostasis was achieved. A dressing was applied. IMPRESSION: Placement of retrievable filter within the infrarenal IVC.
--- NOTE | 2017-03-22 11:59 | CP.PCM.PN ---
Subjective - Date & Time of Evaluation Date of Evaluation: 03/22/17 Time of Evaluation: 09:00 - Subjective Subjective: 81 y/o M examined at bedside today. Pt resting comfortably resting in bed, reports feeling well with NO overnight events. Pt explains R lower leg pain is present but improving. Pt tolerating PO, reports good appetite, last BM yesterday. Pt in observation for R lower leg cellulitis and s/p IVC filter placement. Pt denies CP, SOB, palpitations, fever, nausea, vomiting, abdominal pain or urinary complaints. Objective - Vital Signs/Intake and Output Vital Signs (last 24 hours): Temp Pulse Resp BP Pulse Ox 97.9 F 62 18 119/64 99 03/22/17 08:06 03/22/17 08:06 03/22/17 08:06 03/22/17 08:06 03/22/17 08:06 Intake and Output: 03/22/17 03/22/17 06:59 18:59 Intake Total 250 Output Total 200 Balance 50 - Medications Medications: Current Medications Acetaminophen (Tylenol 325mg Tab) 650 mg PO Q4 PRN PRN Reason: Pain, moderate (4-7) Last Admin: 03/22/17 10:13 Dose: 650 mg Allopurinol (Zyloprim) 100 mg PO DAILY [facility] Last Admin: 03/22/17 10:14 Dose: 100 mg Vancomycin HCl 750 mg/ Sodium (Chloride) 250 mls @ 83.333 mls/hr IVPB DAILY [facility] Last Admin: 03/22/17 10:15 Dose: 83.333 mls/hr Levothyroxine Sodium (Synthroid) 100 mcg PO DAILY@0630 [facility] Last Admin: 03/22/17 06:29 Dose: 100 mcg - Labs Labs: 03/22/17 04:50 03/22/17 04:50 PT 21.3 Seconds (9.8-13.1) H 03/17/17 16:11 INR 2.0 (0.9-1.2) H 03/17/17 16:11 APTT 48.1 Seconds (25.6-37.1) H 03/17/17 16:11 - Constitutional Appears: Well - Head Exam Head Exam: NORMAL INSPECTION - Eye Exam Eye Exam: EOMI, PERRL - ENT Exam ENT Exam: Mucous Membranes Moist - Neck Exam Neck Exam: Full ROM - Respiratory Exam Respiratory Exam: NORMAL BREATHING PATTERN - Cardiovascular Exam Cardiovascular Exam: REGULAR RHYTHM, Murmur - Extremities Exam Additional comments: R lower leg: presence of erythema, warm, moderate, tender to palpation lateral aspect; swelling and erythema improving in comparison with previous days. Assessment and Plan - Assessment and Plan (Free Text) Assessment: 81 yo M with PMH of HTN, CKD, severe , Arthritis, Gout, Myelofibrosis, Osteoporosis and IVC filter placement is admitted for R lower leg DVT. Plan: 1) Right leg DVT -Right LEg Duplex on 03/17: non-occlusive acute distal superficial femoral vein thrombosis (which is a deep vein) -Anticoagulation contraindicated. Prior admission 10/15 in ICU for Lower GI bleeding needing transfusion and FFP, unable to scope due to refusal of the family, IVC filter placed 03/19/17. -As per OT/PT evaluation: Pt with with impaired strength, balance, pain, and endurance which limits functional mobility. Physical therapy 6 times per week recommended, discharge with home services. 2) Right leg cellulitis -possible secondary to trombophlebitis -WBC 10.2 (Hx of chronic elevation) afebrile. -c/w Vancomicyn 750mg IV Q24h. (DAY 4) Continue 5-7 days as per ID -Vancomycin 16.1 today - in therapeutic range, as per pharmacy, given clinical picture. -Vancomicyn trough tomorrow ordered for Saturday at 08:30. -ESR 34 on 03/18. -blood cx: NO growth after 4 days. 3) Anemia/ Improving s/p PRBC 3 units -Hgb 9.4 today -FOBT x 1 negative on 03/18. -Follow on CBC and BMP ordered today. 3) CKD3 B -GFR 44 today. -Bun/Cr: 42/1.8 today. -Follow on BMP ordered today. 4)Myelofibrosis -unclear diagnosis -chronic high wbc no left shift deviation -Dr Charlton Heme/ onco on board. 5) Severe aortic stenosis -Echo 10/05 showed severe aortic stenosis. EF 45-50% 6) Hypothyroidism -c/w levothyroxin 100 mc po daily 7) Gout -Allopurinol 100 mg PO daily on hold -uric acid 8.5-low on 03/18. 8) DVT prophylaxis -No SCD due to DVT -no anticoagulation due to INR 2.0
[2017-03-23] MEDS: Levothyroxine 100 MCG TAB PO SCH (05:31)
[2017-03-23 07:28] LABS: HEMATOCRIT 27.9 % (35.0-51.0); MEAN CELL VOLUME 103.5 fl (80.0-94.0); MEAN CORPUSCULAR HEMOGLOBIN 34.1 pg (27.0-31.0); MEAN CORPUSCULAR HGB CONC 32.9 g/dL (33.0-37.0); RED CELL DISTRIBUTION WIDTH 20.4 % (11.5-14.5); WHITE BLOOD COUNT 9.8 K/uL (4.8-10.8)
[2017-03-23 07:40] LABS: POTASSIUM 4.8 MMOL/L (3.6-5.0)
--- NOTE | 2017-03-23 08:34 | CP.PCM.PN ---
Subjective - Date & Time of Evaluation Date of Evaluation: 03/23/17 Time of Evaluation: 08:00 - Subjective Subjective: Pt seen and examined at bedside. No new overnight pain, problems, or other complaints. Still appreciates RLE pain, albeit mildly. Denies fevers/chills, n/v /d, respiratory problems, or abdominal pain. Objective - Vital Signs/Intake and Output Vital Signs (last 24 hours): Temp Pulse Resp BP Pulse Ox 97.2 F L 62 20 113/62 98 03/23/17 07:54 03/23/17 07:54 03/23/17 07:54 03/23/17 07:54 03/23/17 07:54 - Medications Medications: Current Medications Acetaminophen (Tylenol 325mg Tab) 650 mg PO Q4 PRN PRN Reason: Pain, moderate (4-7) Last Admin: 03/22/17 10:13 Dose: 650 mg Allopurinol (Zyloprim) 100 mg PO DAILY [facility] Last Admin: 03/22/17 10:14 Dose: 100 mg Vancomycin HCl 750 mg/ Sodium (Chloride) 250 mls @ 83.333 mls/hr IVPB DAILY [facility] Last Admin: 03/22/17 10:15 Dose: 83.333 mls/hr Levothyroxine Sodium (Synthroid) 100 mcg PO DAILY@0630 [facility] Last Admin: 03/23/17 05:31 Dose: 100 mcg - Labs Labs: 03/23/17 06:00 03/23/17 06:00 PT 21.3 Seconds (9.8-13.1) H 03/17/17 16:11 INR 2.0 (0.9-1.2) H 03/17/17 16:11 APTT 48.1 Seconds (25.6-37.1) H 03/17/17 16:11 - Constitutional Appears: Non-toxic, No Acute Distress - Head Exam Head Exam: ATRAUMATIC, NORMOCEPHALIC - Eye Exam Eye Exam: EOMI - ENT Exam ENT Exam: Mucous Membranes Moist - Respiratory Exam Respiratory Exam: Clear to Ausculation Bilateral, NORMAL BREATHING PATTERN - Cardiovascular Exam Cardiovascular Exam: REGULAR RHYTHM, +S1, +S2 - GI/Abdominal Exam GI & Abdominal Exam: Soft, Hernia (RUQ; painless), Normal Bowel Sounds. absent : Tenderness - Neurological Exam Neurological Exam: Alert, Oriented x3 - Skin Skin Exam: Dry, Intact, Normal Color, Warm Assessment and Plan - Assessment and Plan (Free Text) Plan: 81 yo M with PMH of HTN, CKD, severe , Arthritis, Gout, Myelofibrosis, Osteoporosis and IVC filter placement is admitted for R lower leg DVT. 1) Right leg DVT -Right Leg Duplex (03/17): non-occlusive acute distal superficial femoral vein thrombosis (which is a deep vein) -Anticoagulation contraindicated due to h/o Sep ICU admission for Lower GI bleeding requiring transfusion and FFP; unable to scope due to refusal of family -IVC filter placed 03/19/17 -OT/PT: PT 6 times per week recommended, discharge with home services -f/u Social Work 2) Right leg cellulitis -Possibly 08/23 to trombophlebitis -Afebrile -WBC 9.8 and continuing downward trend -BCx (03/17) final negative x2 -Vancomicyn 750mg IV Q24H (Day 5) ---Continue 5-7 days as per ID -Vancomycin 16.1 (03/22) - in therapeutic range given clinical picture, as per pharmacy -f/u Vancomicyn trough ordered for Saturday at 08:30 -f/u RLE U/S for fluctuance, r/o abscess 3) Anemia/ Stable s/p PRBC 3 units -H/H (03/23): 9.2/27.9 -f/u CBC 3) CKD3 B -GFR 44 today. -Bun/Cr: 46/1.8 today. -f/u BMP 4)Myelofibrosis -unclear diagnosis -previously elevated wbc w/o left shift deviation -Dr Charlton Heme/ onco on board -f/u CBC 5) Severe aortic stenosis -Echo 10/05 showed severe aortic stenosis. EF 45-50% 6) Hypothyroidism -c/w levothyroxin 100 mcg po daily 7) Gout -Allopurinol 100 mg PO daily 8) DVT prophylaxis -No SCD due to DVT -no anticoagulation due to INR 2.0
[2017-03-24] MEDS: Levothyroxine 100 MCG TAB PO SCH (06:34)
[2017-03-24 07:58] LABS: BASO # 0.1 K/uL (0.0-0.2); BASO % 0.6 % (0.0-2.0); EOS # 0.1 K/uL (0.0-0.7); EOS % 1.2 % (0.0-4.0); HEMATOCRIT 29.6 % (35.0-51.0); LYMPH # 1.2 K/uL (1.0-4.3); LYMPH % 9.9 % (20.0-40.0); MEAN CELL VOLUME 103.1 fl (80.0-94.0); MEAN CORPUSCULAR HEMOGLOBIN 33.1 pg (27.0-31.0); MEAN CORPUSCULAR HGB CONC 32.1 g/dL (33.0-37.0); MEAN PLATELET VOLUME 10.6 fl (7.2-11.7); MONO # 1.1 K/uL (0.0-0.8); MONO % 9.6 % (0.0-10.0); NEUT # 9.3 K/uL (1.8-7.0); NEUT % 78.7 % (50.0-75.0); NRBC % 0.1 % (0.0-0.0); PLATELET COUNT 272 K/uL (130-400); RED CELL DISTRIBUTION WIDTH 20.6 % (11.5-14.5); WHITE BLOOD COUNT 11.8 K/uL (4.8-10.8)
[2017-03-24 08:15] LABS: CALCIUM 8.2 mg/dL (8.4-10.2); POTASSIUM 4.9 MMOL/L (3.6-5.0)
[2017-03-24 13:04] LABS: BASOPHIL 1 % (0-2); EOSINOPHIL 1 % (0-7); NEUTROPHIL 88 % (42-75); TOTAL CELLS COUNTED 100
[2017-03-24 13:08] LABS: LARGE PLATELETS PRESENT
--- NOTE | 2017-03-24 13:56 | CP.PCM.PN ---
Subjective - Date & Time of Evaluation Date of Evaluation: 03/24/17 Time of Evaluation: 09:00 - Subjective Subjective: 81 y/o M examined bedside. Pt reports feeling well, tolerating PO, with NO overnight events. Pt under evaluation for R leg cellulitis, pt under going RLE US study today. RLE pain is tolerable and improving with provided medications. Pt denies fever, CP, SOB, abdominal pain, chnage in bowel movement. Objective - Vital Signs/Intake and Output Vital Signs (last 24 hours): Temp Pulse Resp BP Pulse Ox 97.8 F 68 20 111/54 L 99 03/24/17 12:25 03/24/17 12:25 03/24/17 12:25 03/24/17 12:25 03/24/17 12:25 - Medications Medications: Current Medications Acetaminophen (Tylenol 325mg Tab) 650 mg PO Q4 PRN PRN Reason: Pain, moderate (4-7) Last Admin: 03/22/17 10:13 Dose: 650 mg Allopurinol (Zyloprim) 100 mg PO DAILY [facility] Last Admin: 03/24/17 08:51 Dose: 100 mg Vancomycin HCl 750 mg/ Sodium (Chloride) 250 mls @ 83.333 mls/hr IVPB DAILY [facility] Last Admin: 03/24/17 08:53 Dose: 83.333 mls/hr Levothyroxine Sodium (Synthroid) 100 mcg PO DAILY@0630 [facility] Last Admin: 03/24/17 06:34 Dose: 100 mcg - Labs Labs: 03/24/17 06:00 03/24/17 06:00 PT 21.3 Seconds (9.8-13.1) H 03/17/17 16:11 INR 2.0 (0.9-1.2) H 03/17/17 16:11 APTT 48.1 Seconds (25.6-37.1) H 03/17/17 16:11 - Constitutional Appears: Well, Non-toxic, No Acute Distress - Head Exam Head Exam: ATRAUMATIC - Eye Exam Eye Exam: EOMI, PERRL - Neck Exam Neck Exam: Full ROM - Respiratory Exam Respiratory Exam: Clear to Ausculation Bilateral, NORMAL BREATHING PATTERN - Cardiovascular Exam Cardiovascular Exam: REGULAR RHYTHM, Murmur - Extremities Exam Extremities Exam: Tenderness (R lower leg: presence of erythema, warm, moderate , tender to palpation lateral aspect; swelling and erythema improving in comparison with previous days. Presence of fluctuance over lower anterior R leg. ) Assessment and Plan - Assessment and Plan (Free Text) Assessment: 81 yo M with PMH of HTN, CKD, severe , Arthritis, Gout, Myelofibrosis, Osteoporosis and IVC filter placement is admitted for R lower leg DVT. Plan: 1) Right leg DVT -Right Leg Duplex (03/17): non-occlusive acute distal superficial femoral vein thrombosis (which is a deep vein) -Anticoagulation contraindicated due to h/o Sep ICU admission for Lower GI bleeding requiring transfusion and FFP; unable to scope due to refusal of family -IVC filter placed 03/19/17 -OT/PT: PT 6 times per week recommended, discharge with home services -f/u Social Work and pending R leg US final report (performed today) 2) Right leg cellulitis -Possibly 2/ to trombophlebitis -Afebrile -WBC 11.8 today. -BCx (03/17) final negative x2 -Vancomicyn 750mg IV Q24H (Day 6) ---Continue 5-7 days as per ID -Vancomycin 16.5 (on 03/22); 16.6 (on 03/24) - in therapeutic range given clinical picture, as per pharmacy -f/u RLE U/S for fluctuance (performed today), r/o abscess 3) Anemia/ Stable s/p PRBC 3 units -H/H (03/23): 9.2/27.9; H/H (03/24): 9.5/19.6. -f/u CBC 3) CKD3 B -GFR 47 today. -Bun/Cr: 45/1.7 today. -f/u BMP 4)Myelofibrosis -unclear diagnosis -previously elevated wbc w/o left shift deviation -Dr Charlton Heme/Onco on board -f/u CBC 5) Severe aortic stenosis -Echo 10/05 showed severe aortic stenosis. EF 45-50% 6) Hypothyroidism -c/w levothyroxin 100 mcg po daily 7) Gout -Allopurinol 100 mg PO daily 8) DVT prophylaxis -No SCD due to DVT -no anticoagulation due to INR 2.0
--- NOTE | 2017-03-24 14:39 | US ---
PROCEDURE: Right lower extremity venous duplex Doppler. HISTORY: RLE posterior AND anterior areas of fluctuance COMPARISON: None available. TECHNIQUE: Common femoral, superficial femoral, popliteal and posterior tibial veins were evaluated. Flow was assessed with color Doppler, compressibility, assessment of phasic flow and augmentation response. FINDINGS: COMMON FEMORAL VEIN: Unremarkable. SUPERFICIAL FEMORAL VEIN: Unremarkable. . Previously noted partially occlusive thrombus distal superficial femoral vein no longer visible. POPLITEAL VEIN: Unremarkable. POSTERIOR TIBIAL VEIN: Unremarkable. OTHER FINDINGS: No edema. IMPRESSION: No evidence of deep venous thrombosis in the right lower extremity. . Previously noted partially occlusive thrombus distal superficial femoral vein no longer visible. No edema seen.
[2017-03-24] MEDS: Tmp-Smz 400 mg-80 mg SS Tab PO SCH (21:08)
[2017-03-25] MEDS: Levothyroxine 100 MCG TAB PO SCH (05:56)
[2017-03-25 06:47] LABS: POTASSIUM 5.2 MMOL/L (3.6-5.0)
[2017-03-25 06:50] LABS: MEAN CELL VOLUME 101.8 fl (80.0-94.0); MEAN CORPUSCULAR HEMOGLOBIN 34.8 pg (27.0-31.0); MEAN CORPUSCULAR HGB CONC 34.1 g/dL (33.0-37.0); RED CELL DISTRIBUTION WIDTH 19.9 % (11.5-14.5); WHITE BLOOD COUNT 10.1 K/uL (4.8-10.8)
--- NOTE | 2017-03-25 07:38 | CP.PCM.PN ---
Subjective - Date & Time of Evaluation Date of Evaluation: 03/25/17 Time of Evaluation: 08:00 - Subjective Subjective: 81 [facility] Pt reports feeling well, NO pain on bilateral legs and NO overnight events. Pt able to eat, good appetite, ambulate slowly, NO urinary complaints, last bowel movement 2 days ago with NO difficulties. Pt denies fever, headache, CP, SOB or N/V. Objective - Vital Signs/Intake and Output Vital Signs (last 24 hours): Temp Pulse Resp BP Pulse Ox 98.3 F 64 20 117/60 99 03/25/17 05:00 03/25/17 05:00 03/25/17 05:00 03/25/17 05:00 03/25/17 05:00 - Medications Medications: Current Medications Acetaminophen (Tylenol 325mg Tab) 650 mg PO Q4 PRN PRN Reason: Pain, moderate (4-7) Last Admin: 03/22/17 10:13 Dose: 650 mg Allopurinol (Zyloprim) 100 mg PO DAILY [facility] Last Admin: 03/24/17 08:51 Dose: 100 mg Vancomycin HCl 750 mg/ Sodium (Chloride) 250 mls @ 83.333 mls/hr IVPB DAILY [facility] Last Admin: 03/24/17 08:53 Dose: 83.333 mls/hr Levothyroxine Sodium (Synthroid) 100 mcg PO DAILY@0630 [facility] Last Admin: 03/25/17 05:56 Dose: 100 mcg Trimethoprim/Sulfamethoxazole (Bactrim Ss Tab) 1 tab PO Q12 [facility] Last Admin: 03/24/17 21:08 Dose: 1 tab - Labs Labs: 03/25/17 05:50 03/25/17 05:50 PT 21.3 Seconds (9.8-13.1) H 03/17/17 16:11 INR 2.0 (0.9-1.2) H 03/17/17 16:11 APTT 48.1 Seconds (25.6-37.1) H 03/17/17 16:11 - Constitutional Appears: Well, Non-toxic, No Acute Distress - Head Exam Head Exam: NORMAL INSPECTION, NORMOCEPHALIC - Eye Exam Eye Exam: EOMI, Normal appearance, PERRL - ENT Exam ENT Exam: Mucous Membranes Moist - Neck Exam Neck Exam: Full ROM - Respiratory Exam Respiratory Exam: Clear to Ausculation Bilateral, NORMAL BREATHING PATTERN - Cardiovascular Exam Cardiovascular Exam: REGULAR RHYTHM, +S1, +S2, Murmur - Extremities Exam Extremities Exam: Tenderness Additional comments: R lower leg: presence of erythema, warm, moderate, tender to palpation on lateral aspect. Assessment and Plan - Assessment and Plan (Free Text) Assessment: 81 yo M with PMH of HTN, CKD, severe , Arthritis, Gout, Myelofibrosis, Osteoporosis and IVC filter placement is admitted for R lower leg DVT. Plan: 1) Right leg DVT -Right Leg Duplex (03/17): non-occlusive acute distal superficial femoral vein thrombosis (which is a deep vein) -US Doppler on 03/24: NO evidence of DVT in RLE. Thrombus in distal superficial femoral vein no longer visible. -Anticoagulation contraindicated due to h/o Sep ICU admission for Lower GI bleeding requiring transfusion and FFP; unable to scope due to refusal of family -IVC filter placed 03/19/17 -OT/PT: PT 6 times per week recommended, discharge with home services -f/u Social Work. 2) Right leg cellulitis -Possibly 2/2 to trombophlebitis -Afebrile -WBC 10.1-WNL today. -BCx (03/17) final negative x2 -Vancomicyn 750mg IV Q24H (Day 7, last dosage today). Stopped today. -Will inititiate today Cephalexin 500 mg Q12h PO and continue Bactrim PO. -US Doppler on 03/24: NO evidence of DVT in RLE. Thrombus in distal superficial femoral vein no longer visible. No abscess -f/u pts symptoms. 3) Anemia/ Stable s/p PRBC 3 units -H/H (03/23): 9.2/27.9; H/H (03/24): 9.5/19.6. H/H 9.2/27.0 (03/25) -Will order CBC tomorrow. 4) Hyperkalemia -K+ 5.2 - elevated today. -f/u serum potassium later today and BMP tomorrow. 5) CKD3 B -GFR: 41 (today); 47 (on 03/24). -Bun/Cr: 42/1.9 (today); 45/1.7 (on 03/24). -Will inititiate Cephalexin 500 mg Q12h PO and Bactrim PO today. -f/u BMP due to antibiotic's nephrotoxicity side effect. 6)Myelofibrosis -unclear diagnosis -previously elevated wbc w/o left shift deviation -Dr Chralton Heme/Onco on board -Will order CBC tomorrow. 7) Severe aortic stenosis -Echo 10/05 showed severe aortic stenosis. EF 45-50% 8) Hypothyroidism -c/w levothyroxin 100 mcg po daily 9) Gout -Allopurinol 100 mg PO daily 10) DVT prophylaxis -No SCD due to DVT -no anticoagulation due to INR 2.0
[2017-03-25] MEDS: Tmp-Smz 400 mg-80 mg SS Tab PO SCH ×2 (09:09→21:18)
[2017-03-25] MEDS ORDERED: Sod Polystyrene Sulf 15 gm/60 ml Oral Susp PO ONE (17:37)
[2017-03-26] MEDS: Levothyroxine 100 MCG TAB PO SCH (06:30)
[2017-03-26 06:42] LABS: CALCIUM 7.8 mg/dL (8.4-10.2)
--- NOTE | 2017-03-26 07:36 | CP.PCM.PN ---
Objective - Vital Signs/Intake and Output Vital Signs (last 24 hours): Temp Pulse Resp BP Pulse Ox 98.5 F 67 20 114/68 98 03/26/17 05:00 03/26/17 05:00 03/26/17 05:00 03/26/17 05:00 03/26/17 05:00 - Medications Medications: Current Medications Acetaminophen (Tylenol 325mg Tab) 650 mg PO Q4 PRN PRN Reason: Pain, moderate (4-7) Last Admin: 03/22/17 10:13 Dose: 650 mg Allopurinol (Zyloprim) 100 mg PO DAILY [facility] Last Admin: 03/25/17 09:10 Dose: 100 mg Cephalexin Monohydrate (Keflex) 500 mg PO Q12 [facility] Last Admin: 03/25/17 21:18 Dose: 500 mg Levothyroxine Sodium (Synthroid) 100 mcg PO DAILY@0630 [facility] Last Admin: 03/26/17 06:30 Dose: 100 mcg Trimethoprim/Sulfamethoxazole (Bactrim Ss Tab) 1 tab PO Q12 [facility] Last Admin: 03/25/17 21:18 Dose: 1 tab - Labs Labs: 03/25/17 05:50 03/26/17 04:30 PT 21.3 Seconds (9.8-13.1) H 03/17/17 16:11 INR 2.0 (0.9-1.2) H 03/17/17 16:11 APTT 48.1 Seconds (25.6-37.1) H 03/17/17 16:11 Assessment and Plan - Assessment and Plan (Free Text) Assessment: 81 yo M with PMH of HTN, CKD, severe , Arthritis, Gout, Myelofibrosis, Osteoporosis and IVC filter placement is admitted for R lower leg DVT and R lower leg cellulitis. Plan: 1) Right leg DVT -Right Leg Duplex (03/17): non-occlusive acute distal superficial femoral vein thrombosis (which is a deep vein) -US Doppler on 03/24: NO evidence of DVT in RLE. Thrombus in distal superficial femoral vein no longer visible. -Anticoagulation contraindicated due to h/o Sep ICU admission for Lower GI bleeding requiring transfusion and FFP; unable to scope due to refusal of family -IVC filter placed 03/19/17 -OT/PT: PT 6 times per week recommended, discharge with home services -f/u Social Work. 2) Right leg cellulitis -Possibly 2/2 to trombophlebitis -Afebrile -WBC 10.1-WNL today. -BCx (03/17) final negative x2 -Vancomicyn 750mg IV Q24H (Day 7, last dosage today). Stopped today. -Will inititiate today Cephalexin 500 mg Q12h PO and continue Bactrim PO. -US Doppler on 03/24: NO evidence of DVT in RLE. Thrombus in distal superficial femoral vein no longer visible. No abscess -f/u pts symptoms. 3) Anemia/ Stable s/p PRBC 3 units -H/H (03/23): 9.2/27.9; H/H (03/24): 9.5/19.6. H/H 9.2/27.0 (03/25) -Will order CBC tomorrow. 4) Hyperkalemia -K+ 5.2 - elevated today. -f/u serum potassium later today and BMP tomorrow. 5) CKD3 B -GFR: 41 (today); 47 (on 03/24). -Bun/Cr: 42/1.9 (today); 45/1.7 (on 03/24). -Will inititiate Cephalexin 500 mg Q12h PO and Bactrim PO today. -f/u BMP due to antibiotic's nephrotoxicity side effect. 6)Myelofibrosis -unclear diagnosis -previously elevated wbc w/o left shift deviation -Dr Latesha Minor/Onco on board -Will order CBC tomorrow. 7) Severe aortic stenosis -Echo 10/05 showed severe aortic stenosis. EF 45-50% 8) Hypothyroidism -c/w levothyroxin 100 mcg po daily 9) Gout -Allopurinol 100 mg PO daily 10) DVT prophylaxis -No SCD due to DVT -no anticoagulation due to INR 2.0
[2017-03-26 08:03] VITALS: RESP 18
[2017-03-26] MEDS: Tmp-Smz 400 mg-80 mg SS Tab PO SCH (08:58)
[2017-03-26 11:59] VITALS: BP 102/61; PULSE 68; TEMP 97.8; O2SAT 100
--- NOTE | 2017-03-26 12:58 | CP.PCM.DIS ---
Provider - Provider Date of Admission: 03/17/17 17:12 Attending physician: Nhung Woodard MD Primary care physician: [facility] Consults: ID: Olga Lidia Vallecillo Heme: Chetan Flores Time Spent in preparation of Discharge (in minutes): 30 Diagnosis - Discharge Diagnosis (1) Cellulitis of right lower leg Status: Acute (2) Dvt femoral (deep venous thrombosis) Status: Acute Hospital Course - Lab Results Lab Results: Micro Results 03/17/17 17:43 Blood-Venous Blood Culture - Final NO GROWTH AFTER 5 DAYS 03/17/17 17:43 Blood-Venous Gram Stain - Final TEST NOT PERFORMED Most Recent Lab Values WBC 10.1 K/uL (4.8-10.8) 03/25/17 05:50 RBC 2.65 Mil/uL (4.40-5.90) L 03/25/17 05:50 Hgb 9.2 g/dL (12.0-18.0) L 03/25/17 05:50 Hct 27.0 % (35.0-51.0) L 03/25/17 05:50 MCV 101.8 fl (80.0-94.0) H 03/25/17 05:50 MCH 34.8 pg (27.0-31.0) H 03/25/17 05:50 MCHC 34.1 g/dL (33.0-37.0) 03/25/17 05:50 RDW 19.9 % (11.5-14.5) H 03/25/17 05:50 Plt Count 250 K/uL (130-400) 03/25/17 05:50 MPV 10.6 fl (7.2-11.7) 03/24/17 06:00 Neut % (Auto) 78.7 % (50.0-75.0) H 03/24/17 06:00 Lymph % (Auto) 9.9 % (20.0-40.0) L 03/24/17 06:00 [place] % (Auto) 9.6 % (0.0-10.0) 03/24/17 06:00 Eos % (Auto) 1.2 % (0.0-4.0) 03/24/17 06:00 Baso % (Auto) 0.6 % (0.0-2.0) 03/24/17 06:00 Neut # 9.3 K/uL (1.8-7.0) H 03/24/17 06:00 Lymph # 1.2 K/uL (1.0-4.3) 03/24/17 06:00 [place] # 1.1 K/uL (0.0-0.8) H 03/24/17 06:00 Eos # 0.1 K/uL (0.0-0.7) 03/24/17 06:00 Baso # 0.1 K/uL (0.0-0.2) 03/24/17 06:00 Neutrophils % (Manual) 88 % (42-75) H 03/24/17 06:00 Band Neutrophils % 1 % (0-2) 03/24/17 06:00 Lymphocytes % (Manual) 5 % (20-50) L 03/24/17 06:00 Monocytes % (Manual) 4 % (0-10) 03/24/17 06:00 Eosinophils % (Manual) 1 % (0-7) 03/24/17 06:00 Basophils % (Manual) 1 % (0-2) 03/24/17 06:00 Smudge Cells Present 03/17/17 16:11 Platelet Estimate Normal (NORMAL) 03/24/17 06:00 Large Platelets Present 03/24/17 06:00 Hypochromasia (manual) Slight 03/24/17 06:00 Poikilocytosis (manual Moderate 03/18/17 10:39 Anisocytosis (manual) Moderate 03/24/17 06:00 Macrocytosis (manual) Slight 03/24/17 06:00 Spherocytes Slight 03/18/17 10:39 Tear Drop Cells Slight 03/24/17 06:00 Ovalocytes Slight 03/24/17 06:00 Schistocytes Slight 03/24/17 06:00 ESR 34 mm/hr (0-20) H 03/18/17 10:39 PT 21.3 Seconds (9.8-13.1) H 03/17/17 16:11 INR 2.0 (0.9-1.2) H 03/17/17 16:11 APTT 48.1 Seconds (25.6-37.1) H 03/17/17 16:11 pO2 19 mm/Hg (30-55) L 03/17/17 16:25 VBG pH 7.30 (7.32-7.43) L 03/17/17 16:25 VBG pCO2 38 mmHg (40-60) L 03/17/17 16:25 VBG HCO3 17.4 mmol/L 03/17/17 16:25 VBG Total CO2 19.9 mmol/L (22-28) L 03/17/17 16:25 VBG O2 Sat (Calc) 29.6 % (40-65) L 03/17/17 16:25 VBG Base Excess -7.1 mmol/L (0.0-2.0) L 03/17/17 16:25 VBG Potassium 5.0 mmol/L (3.6-5.2) 03/17/17 16:25 Sodium 132.0 mmol/L (132-148) 03/17/17 16:25 Chloride 107.0 mmol/L (98-107) 03/17/17 16:25 Glucose 85 mg/dL (75-110) 03/17/17 16:25 Lactate 1.6 mmol/L (0.7-2.1) 03/17/17 16:25 FiO2 21.0 % 03/17/17 16:25 Sodium 138 mmol/l (132-148) 03/26/17 04:30 Potassium 5.0 MMOL/L (3.6-5.0) 03/26/17 04:30 Chloride 110 mmol/L (98-107) H 03/26/17 04:30 Carbon Dioxide 17 mmol/L (22-30) L 03/26/17 04:30 Anion Gap 16 (10-20) 03/26/17 04:30 BUN 43 mg/dl (9-20) H 03/26/17 04:30 Creatinine 2.0 mg/dL (0.8-1.5) H 03/26/17 04:30 Est GFR ( Amer) 39 03/26/17 04:30 Est GFR (Non-Af Amer) 32 03/26/17 04:30 Random Glucose 79 mg/dL (75-110) 03/26/17 04:30 Uric Acid 8.5 mg/Dl (3.5-8.5) 03/18/17 05:25 Calcium 7.8 mg/dL (8.4-10.2) L 03/26/17 04:30 Iron 28 ug/dL (49-181) L 03/18/17 13:34 TIBC 231 ug/dL (250-450) L 03/18/17 13:34 % Saturation 12 % (20-55) L 03/18/17 13:34 Ferritin 156.0 ng/mL 03/19/17 05:30 Total Bilirubin 0.7 mg/dl (0.2-1.3) 03/18/17 05:25 AST 28 U/L (17-59) 03/18/17 05:25 ALT 21 U/L (21-72) 03/18/17 05:25 Alkaline Phosphatase 79 U/L (38-126) 03/18/17 05:25 C-React Prot High Sens > 15.00 mg/L (1.00-3.00) H 03/18/17 10:39 Total Protein 6.2 G/DL (6.3-8.2) L 03/18/17 05:25 Albumin 3.1 g/dL (3.5-5.0) L 03/18/17 05:25 Globulin 3.1 gm/dL (2.2-3.9) 03/18/17 05:25 Albumin/Globulin Ratio 1.0 (1.0-2.1) 03/18/17 05:25 Vitamin B12 > 1000 pg/mL (239-931) H 03/18/17 13:10 Folate 10.2 ng/mL 03/18/17 13:10 Procalcitonin 0.48 NG/ML (0.19-0.49) 03/18/17 05:30 Free T4 1.38 ng/dL (0.78-2.19) 03/18/17 05:25 TSH 3rd Generation 2.16 mIU/ML (0.46-4.68) 03/18/17 05:25 Venous Blood Potassium 5.0 mmol/L (3.6-5.2) 03/17/17 16:25 Stool Occult Blood Negative (NEGATIVE) 03/18/17 20:00 Vancomycin Trough 16.6 ug/mL (5.0-10.0) H 03/24/17 06:00 Blood Type A POSITIVE 03/18/17 10:34 Antibody Screen Negative 03/18/17 10:34 Crossmatch See Detail 03/18/17 10:34 BBK History Checked Patient has bt 03/18/17 10:34 - Hospital Course Hospital Course: -81 y/o M with a PMHx of HTN, Aortic Stenosis, Gout, CKD, myeloproliferative disorder, hypothyroidism and osteoporosis admitted for Right femoral superficial DVT (diagnosed w/ doppler US) and R lower leg cellulitis. -ID and Heme were consulted. -Right IVC filter placed on 03/17; pt was NOT on anticoagulation due to INR 2.0 and a recent episode of lower GI bleeding. -Pt finished 7 days Vancomycin therapy in hospital and discharged on renal dosed PO Cefoxitin and Bactrim for 7 days. -Pt's grand son was contacted for discharge plan. Upon discharged, pt was eating well, good appetite, R lower leg showed erythema and warm, but remarkable improvement was noticeable. -Pt was discharged on mentioned antibiotics, and 30-days supply of Allopurinol, Levothyroxine, Iron Sulfate, Colace and Tylenol. Follow up appointment on Apr 05 at 2:20 pm w/ Dr Chi. Home care and ER instructions discussed with pt. -Physical Therapy recommended home services upon discharge, family declined it because a family member is a therapeutist and could performed exercises at home. - Date & Time of H&P Date of H&P: 03/17/17 Time of H&P: 19:27 Discharge Exam - Head Exam Head Exam: NORMAL INSPECTION, NORMOCEPHALIC - Eye Exam Eye Exam: EOMI, PERRL - ENT Exam ENT Exam: Mucous Membranes Moist - Neck Exam Neck exam: Full Rom - Respiratory Exam Respiratory Exam: NORMAL BREATHING PATTERN - Cardiovascular Exam Cardiovascular Exam: REGULAR RHYTHM, +S1, +S2 - Skin Skin Exam: Dry (R lower leg: presence of erythema, warm, non-tender to palpation on lateral aspect.), Warm Discharge Plan - Discharge Medications Prescriptions: Allopurinol [Zyloprim] 100 mg PO DAILY #30 tab Cephalexin [Keflex] 500 mg PO Q12 #14 cap Sulfamethoxazole/Trimethoprim [Bactrim SS Tab] 1 tab PO Q12 7 Days - Follow Up Plan Condition: FAIR Disposition: HOME/ ROUTINE Patient education suggested?: Yes Instructions: Inferior Vena Cava Filter Placement (DC) Additional Instructions: -Follow up appointment at [facility] on Apr 05 at 2:20pm. -Please finish antibiotics, Cephalexin and Bactrim for 7 days, stay well- hydrated, well-balanced healthy diet and continue home care cautions. -Continue home medications. Allopurinol, Levothyroxine, Iron Sulfate, Colace and Tylenol prescribed. -Return to ER if severe leg pain, swelling, any bleeding, fever or altered mental status.
== END 2017-03-26 14:30 | disposition home or self-care (01) | DRG 478 ==
LOC: H.ER 14:15 → H.ERHOLD 17:12 → H.TEL 18:44
PROVIDERS: ADMIT Emergency Medicine; ATTEND Emergency Medicine
PROC: 30233N1 Transfusion of Nonautologous Red Blood Cells into Peripheral Vein, Percutaneous Approach (ICD-10-PCS; 2017-03-17)
PROC: 06H03DZ Insertion of Intraluminal Device into Inferior Vena Cava, Percutaneous Approach (ICD-10-PCS; principal; 2017-03-19)
DX: I82.411 Acute embolism and thrombosis of right femoral vein (principal); L03.115 Cellulitis of right lower limb; C91.10 Chronic lymphocytic leukemia of B-cell type not having achieved remission; D68.9 Coagulation defect, unspecified; N18.3 Chronic kidney disease, stage 3 (moderate); D75.81 Myelofibrosis; E87.5 Hyperkalemia; J43.9 Emphysema, unspecified; I35.0 Nonrheumatic aortic (valve) stenosis; D64.9 Anemia, unspecified; E03.9 Hypothyroidism, unspecified; I12.9 Hypertensive chronic kidney disease with stage 1 through stage 4 chronic kidney disease, or unspecified chronic kidney disease; K57.90 Diverticulosis of intestine, part unspecified, without perforation or abscess without bleeding; M10.9 Gout, unspecified; M19.90 Unspecified osteoarthritis, unspecified site; M81.0 Age-related osteoporosis without current pathological fracture; Z87.891 Personal history of nicotine dependence; Z88.1 Allergy status to other antibiotic agents; Z90.49 Acquired absence of other specified parts of digestive tract; L40.9 Psoriasis, unspecified; M79.661 Pain in right lower leg; M79.662 Pain in left lower leg

== ENCOUNTER 2017-06-19 19:40 | Inpatient (IN) | payer SELFPAY ==
[2017-06-19 19:40] VITALS: BMI 24.5
--- NOTE | 2017-06-19 20:46 | ED PDOC ---
HPI: General Adult Time Seen by Provider: 06/19/17 19:47 Chief Complaint (Nursing): Cough, Cold, Congestion Chief Complaint (Provider): Hemoptysis History Per: Patient History/Exam Limitations: no limitations Onset/Duration Of Symptoms: Days (1) Additional Complaint(s): Patient is an 82 y/o male with a past medical history of deep vein thrombosis, hypothyroidism, and gout presenting to the emergency department for hemoptysis ongoing for one day with an associated cough that started four days ago and is worse today. Per family, patient coughed up what appeared to be a blood clot. Patient's pallor also appears worse today. Also notes anterior chest discomfort. Denies associated fever, nausea, vomiting, diarrhea, bloody stool, abdominal pain, or other complaints. PCP: none provided. Past Medical History Reviewed: Historical Data, Nursing Documentation, Vital Signs Vital Signs: Last Vital Signs Temp 101.2 F H 06/19/17 20:54 Pulse 90 06/19/17 19:43 Resp 22 06/19/17 19:43 BP 102/45 L 06/19/17 19:43 Pulse Ox 92 L 06/19/17 23:39 - Medical History PMH: Arthritis, Diverticulitis, Emphysema, Fractures (Hx of Compression Vertebral Fx at T and L spine), HTN, Hypothyroidism Denies: Chronic Kidney Disease Comment Only: Osteoporosis (Chronically elevated WBCs) - Surgical History Surgical History: Cholecystectomy Other surgeries: Bilateral knee surgery - Family History Family History: States: Unknown Family Hx - Social History Current smoker - smoking cessation education provided: No Ex-Smoker (has not smoked in the last 12 months): No Alcohol: None Drugs: Denies - Home Medications Home Medications: Ambulatory Orders Medication Instructions Recorded Levothyroxine [Synthroid] 100 mcg PO DAILY 5 Days tab 10/31/16 Allopurinol [Zyloprim] 100 mg PO DAILY #30 tab 03/26/17 - Allergies Allergies/Adverse Reactions: Allergies Allergy/AdvReac Type Severity Reaction Status Date / Time morphine Allergy URTICARIA Verified 10/31/16 12:44 iohexol [From Omnipaque] AdvReac VOMITING Verified 10/31/16 14:56 Review of Systems ROS Statement: Except As Marked, All Systems Reviewed And Found Negative Constitutional: Negative for: Fever Cardiovascular: Positive for: Other (anterior chest discomfort) Respiratory: Positive for: Cough, Hemoptysis Gastrointestinal: Negative for: Nausea, Vomiting, Abdominal Pain, Diarrhea, Hematochezia Skin: Positive for: Other (worse pallor) Physical Exam - Reviewed Nursing Documentation Reviewed: Yes Vital Signs Reviewed: Yes - Physical Exam Appears: Positive for: No Acute Distress (febrile, low grade) Head Exam: Positive for: ATRAUMATIC, NORMAL INSPECTION, NORMOCEPHALIC Skin: Positive for: Warm, Dry, Pallor (mild) Eye Exam: Positive for: Normal appearance Neck: Positive for: Normal Cardiovascular/Chest: Positive for: Regular Rate, Rhythm, Other (IVC filter noted). Negative for: Murmur Respiratory: Positive for: Crackles (mild, at bases bilaterally). Negative for : Accessory Muscle Use, Respiratory Distress Gastrointestinal/Abdominal: Positive for: Normal Exam, Soft. Negative for: Tenderness Extremity: Positive for: Normal ROM Neurologic/Psych: Positive for: Alert, Oriented (x3) - Laboratory Results Result Diagrams: 06/19/17 22:35 - ECG O2 Sat by Pulse Oximetry: 92 (RA) Pulse Ox Interpretation: Normal - Critical Care Total Time (In Min): 60 Medical Decision Making Medical Decision Making: Time: 19:54 Initial impression: Patient is an 82 y/o male with hemoptysis in the setting of previous DVT and known pallor. Initial plan: Labs: CMP, Lactic acid, CBC, PTT and Prothrombin Time, Troponin Angio chest CT EKG Chest X-ray Influenza test Blood culture Reevaluation Time: 23:09 Clinical Impression: CHF, pneumonia, ACS, anemia Plan: Case discussed with Dr. Malik and Dr. Vela. Labs reviewed and found significant for elevated troponin and proBNP levels. Patient noted to have marked leukocytosis and anemia. Patient received 2 units of packed red blood cells. Administered Rocephin, Zithromax, and Aspirin. Chest X-ray shows bilateral infiltrates. Patient will be admitted to ICU for further treatment. Scribe Attestation: Documented by Radha Torre, acting as a scribe for Chay London MD. Provider Scribe Attestation: All medical record entries made by the Scribe were at my direction and personally dictated by me. I have reviewed the chart and agree that the record accurately reflects my personal performance of the history, physical exam, medical decision making, and the department course for this patient. I have also personally directed, reviewed, and agree with the discharge instructions and disposition. Disposition - Clinical Impression Clinical Impression: CHF (congestive heart failure), Pneumonia, Anemia, ACS (acute coronary syndrome ) - Patient ED Disposition Is Patient to be Admitted: Yes Counseled Patient/Family Regarding: Studies Performed, Diagnosis - Disposition Disposition Time: 23:09 Condition: STABLE - Pt Status Changed To: Hospital Disposition Of: Inpatient - Admit Certification Admit to Inpatient:: After my assessment, the patient will require hospitalization for at least two midnights. This is because of the severity of symptoms shown, intensity of services needed, and/or the medical risk in this patient being treated as an outpatient.
[2017-06-19] MEDS ORDERED: cefTRIAXone IV 1 gm in Dextros 50 ML IVPB STA (21:49)
[2017-06-19] MEDS ORDERED: Azithromycin 500 MG in Sodium Chloride 0.9% 250 ML IVPB ONE (22:00)
[2017-06-19] MEDS ORDERED: Azithromycin 500 MG IV IVPB ONE (22:34)
[2017-06-19] MEDS ORDERED: cefTRIAXone IV 1 gm in Dextros 50 ML IVPB ONE (22:34)
[2017-06-19 22:41] LABS: BASO # 0.2 K/uL (0.0-0.2); BASO % 0.5 % (0.0-2.0); EOS # 0.2 K/uL (0.0-0.7); EOS % 0.7 % (0.0-4.0); HEMATOCRIT 18.6 % (35.0-51.0); LYMPH # 1.7 K/uL (1.0-4.3); LYMPH % 4.6 % (20.0-40.0); MEAN CELL VOLUME 115.1 fl (80.0-94.0); MEAN CORPUSCULAR HEMOGLOBIN 34.4 pg (27.0-31.0); MEAN CORPUSCULAR HGB CONC 29.9 g/dL (33.0-37.0); MEAN PLATELET VOLUME 11.1 fl (7.2-11.7); MONO # 0.3 K/uL (0.0-0.8); MONO % 0.8 % (0.0-10.0); NEUT # 33.9 K/uL (1.8-7.0); NEUT % 93.4 % (50.0-75.0); NRBC % 0.3 % (0.0-0.0); PLATELET COUNT 319 K/uL (130-400); RED CELL DISTRIBUTION WIDTH 22.1 % (11.5-14.5)
--- NOTE | 2017-06-19 22:52 | CP.PCM.CON ---
History of Present Illness - History of Present Illness History of Present Illness: CC: cough/hemoptysis, fever HPI: This is an 82 y/o male with MHx for Aortic stenosis, DVT (s/p IVC filter), gout, hypothyroid, osteoarthritis, ?COPD, and CKD who is presenting with cough and hemoptysis and going on for past four and one days respectively, progressively worsening. Some anterior chest discomfort. Denies f/c/n/v/d. Patient is not on any blood thinner/antiplatelet medications at home. No other significant bleeding. No recent foreign travel, no recent exposures to situations with high risk for TB, no past history of TB. ROS: 14 systems reviewed, negative other than HPI MHx: Aortic stenosis, DVT (s/p IVC filter), gout, osteoarthritis, ?COPD, CKD, hypothyroid, diverticulosis, ?myeloproliferative disorder (WC always elevated), and osteoporosis with multiple compression vertebral fx SHx: IVC filter Allergies: Morphine, iohexol Medications: as per med rec Family Hx: No relevant history Social Hx: Lives with family, Hx of heavy EtOH use but quit 6 years ago, smokes > 1 PPD for 60+ years Surrogate: daughter, info in chart Past Patient History - Infectious Disease Hx of Infectious Diseases: None - Tetanus Immunizations Tetanus Immunization: Unknown - Past Medical History & Family History Past Medical History?: Yes - Past Social History Alcohol: None Drugs: Denies - CARDIAC Hx Hypertension: Yes - PULMONARY Hx Emphysema: Yes - NEUROLOGICAL Hx Neurological Disorder: No - HEENT Other/Comment: red eyes - RENAL Hx Chronic Kidney Disease: No - ENDOCRINE/METABOLIC Hx Hypothyroidism: Yes - HEMATOLOGICAL/ONCOLOGICAL Hx Blood Disorders: Yes (chronic leukocytosis) - INTEGUMENTARY Hx Dermatological Problems: Yes Hx Psoriasis: Yes - MUSCULOSKELETAL/RHEUMATOLOGICAL Hx Arthritis: Yes Hx Fractures: Yes (Hx of Compression Vertebral Fx at T and L spine) Hx Osteoporosis: (Chronically elevated WBCs) - GASTROINTESTINAL Hx Diverticulitis: Yes - GENITOURINARY/GYNECOLOGICAL Hx Genitourinary Disorders: No - PSYCHIATRIC Hx Psychophysiologic Disorder: No Hx Substance Use: No - SURGICAL HISTORY Hx Cholecystectomy: Yes - ANESTHESIA Hx Anesthesia: Yes Hx Anesthesia Reactions: No Meds Allergies/Adverse Reactions: Allergies Allergy/AdvReac Type Severity Reaction Status Date / Time morphine Allergy URTICARIA Verified 10/31/16 12:44 iohexol [From Omnipaque] AdvReac VOMITING Verified 10/31/16 14:56 - Medications Medications: Current Medications Azithromycin 500 mg/ Sodium (Chloride) 250 mls @ 250 mls/hr IVPB ONCE ONE PRN Reason: Protocol Stop: 06/19/17 22:59 Physical Exam - Constitutional Appears: No Acute Distress, Cachectic, Chronically Ill - Head Exam Head Exam: ATRAUMATIC, NORMOCEPHALIC - Eye Exam Eye Exam: EOMI, PERRL - ENT Exam ENT Exam: Mucous Membranes Moist - Neck Exam Neck exam: Positive for: Full Rom - Respiratory Exam Respiratory Exam: Clear to Auscultation Bilateral, NORMAL BREATHING PATTERN - Cardiovascular Exam Cardiovascular Exam: REGULAR RHYTHM, +S1, +S2 - GI/Abdominal Exam GI & Abdominal Exam: Hyperactive Bowel Sounds, Soft - Extremities Exam Extremities exam: Positive for: full ROM, pedal edema - Neurological Exam Neurological exam: Alert, CN II-XII Intact, Oriented x3 - Psychiatric Exam Psychiatric exam: Normal Affect, Normal Mood - Skin Skin Exam: Dry, Warm Results - Vital Signs Recent Vital Signs: Last Vital Signs Temp 101.2 F H 06/19/17 20:54 Pulse 90 06/19/17 19:43 Resp 22 06/19/17 19:43 BP 102/45 L 06/19/17 19:43 Pulse Ox 92 L 06/19/17 20:56 - Labs Result Diagrams: 06/19/17 22:35 Labs: Laboratory Results - last 24 hr 06/19/17 06/19/17 19:59 21:03 Lactic Acid 1.9 Influenza Typ A,B (EIA) Negative for flu a/b - EKG Data EKG Interpreted by: Myself EKG shows normal: Sinus rhythm Rate: Normal - EKG Data EKG comments: poor R wave progression, lateral ST changes - Imaging and Cardiology Chest x-ray Status: Image reviewed by me (bilat opacities, likely vol o/l as well) Assessment & Plan (1) Community acquired bacterial pneumonia Assessment and Plan: 82 y/o male admitted for what appears to be CAP with hemoptysis, also with elevated troponins, elevated BNP, and CKD. Given age and complex medical history , being admitted to ICU. 1) Hemoptysis/CAP -Admit to ICU -Consider V/Q scan in AM to r/u PE -f/u non con CT chest -f/u cultures -Continue duonebs q6h PRN -Continue antibiotics as started in ER (Ceftriaxone, Azithromycin IV) 2) Elevated trop/ACS, BNP -Patient received 325 ASA in ER, would not give further antiplatelet/blood thinning agents at this time -AM EKG -Serial trops -Echo in AM -Cardiology consult per primary team; awaiting response -Will give 20 mg IV lasix prior to transfusion given potential for vol overload 3) Severe anemia -t/f as per primary team - 2 U PRBC -repeat CBC in AM 4) CKD, slightly worse than baseline -dose all medications renally -Lasix IV as above to prevent worsening fluid overload 5) DVT PPx -- SCDs only for now, given hemoptysis Status: Acute (2) Hemoptysis Status: Acute (3) Cough Status: Acute (4) CKD (chronic kidney disease) Status: Acute (5) ACS (acute coronary syndrome) Status: Acute (6) CHF (congestive heart failure) Status: Acute (7) DVT prophylaxis Status: Acute
[2017-06-19 23:01] LABS: TROPONIN I 3.57 ng/mL (0.00-0.120)
[2017-06-19 23:03] LABS: WHITE BLOOD COUNT 36.3 K/uL (4.8-10.8)
--- NOTE | 2017-06-20 00:20 | CT ---
EXAM: CT Chest Without Intravenous Contrast CLINICAL HISTORY: 82 years old, male; Signs and symptoms; Cough; Cough with hemorrhage; Additional info: Cough/hemoptysis TECHNIQUE: Axial computed tomography images of the chest without intravenous contrast. All CT scans at this facility use one or more dose reduction techniques, viz.: automated exposure control; ma/kV adjustment per patient size (including targeted exams where dose is matched to indication; i.e. head); or iterative reconstruction technique. Coronal and sagittal reformatted images were created and reviewed. COMPARISON: CT - CHEST W/O CONTRAST 2014-03-18 16:00 FINDINGS: Lungs: No mass. Patchy groundglass consolidation of the bilateral lung reyna, sparing the periphery. Trace bilateral pleural effusions are identified, with adjacent compressive atelectasis. Pleural spaces: As above. Heart: The heart is significantly enlarged, without pericardial effusion. Vasculature: No aortic aneurysm. Calcified atherosclerotic disease. Lymph nodes: No pathologically enlarged lymph nodes. Bones: No acute fracture. IMPRESSION: Findings suggesting moderate pulmonary edema, as detailed above.
--- NOTE | 2017-06-20 00:33 | CP.PCM.HP ---
History of Present Illness - History of Present Illness History of Present Illness: 81 y/o M with a PMHx remarkable for Aortic Stenosis, Gout, Chronic kidney disease, DVT s/p IVC filter, myeloproliferative disorder, hypothyroidism and osteoporosis presents complaining of a 3 week history of cough with acute worsening of SOB and hemoptysis. Cough started approx 3 weeks ago, w/o inciting illness or cause and has gradually worsened till Tuesday 06/19. Cough was dry/ nonproductive for approx 2.5 weeks but became productive this week. Cough was associated with scant clearish/occasionally yellow phelgm with subjective chills and myalgias. Cough was and is still worse at night. On the night of , pt reports having several episodes of hemoptysis. This morning (06/19) the cough was associated with blood streaked phelgm as well as worsening SOB which caused the pt to come in for evaluation. Pt reports that today, he did also have several episodes of anterior chest discomfort, which is located around his sternum and is nonradiating. Pt is intermittent. Denies exacerbating/ alleviating factors. Upon further questioning, pt denies any changes in exertional dyspnea but reports he has been sleeping almost completely upright because he cannot lay flat. Denies any sick contacts/travel, NSAID/ASA usage. Denies recent ETOH abuse. He denies any fevers, night sweats, generalized pruritus, N/V/D/C, urinary symptoms, melena, hematochezia, hematuria, changes in appetite, unintentional weight loss, calf pain, numbness/tingling. ROS: as per HPI, 10 systems reviewed PMD: [facility], last visit 12/18/2016, never followed up post-february 2017 discharge PMHx: aortic stenosis, gout, CKD, DVT, myeloproliferative disorder, hypothyroidism, osteoporosis Meds: Levothyroxine 100mcg QD, Allopurinol 100mg QD ALL: morphine (pruritus, agitation) PHospHx: DVT, acute GI bleed, multiple transfusions, cellulitis PsurgHx; Henria repair, IVC filter (2017), R THR SocialHx: former heavy smoker, >1PPD for >60 years, quit 2 years ago. Former heavy ETOH abuser, sober 8 years. Denies illicit drug abuse -lives in [place] with brother, former chung -POA: daughter and mother. Daughter Rossy: [phone] -Code status: upon questioning, pt wishes to be a DNI/DNR. FamilyHx: denies hx of cancer, CAD, SD, Stroke. ED Course: Vitals: 101.2, HR: 90, BP: 102/45, RR:22 POX: 92% RA Labs: CBC: 36.3>5.5/18.6<319 CMP: K+ 5.7, BUN/Cr: 55/2.1 Troponin I: 3.5700 NT-Pro-BNP: 27948 COA.9/2.1/41.6 Type and screen HIV: neg ESR: 43 Lactic acid: 1.9 then 1.0 Influenza A/B: negative Imaging: EKG: ~95 BPM, regular, LAD, poor R-wave progression, 1st degree AV block (PA ~ 244), lateral lead ST-changes (V5 depression) (as interpreted by me) CXR: b/l pneumonia, cardiomegaly, pulmonary congestion (as interpreted by me) Noncontrast chest ct: No mass, b/l pleural effusions, impression: findings suggestive of pulmonary edema Meds: Ceftriaxone IV 1 gm Azithromycin IV 500mg Lasix 20mg IVP just before tranfusion 2 units PRBCs ordered Consent signed pt seen and Case discussed with hospitalist tanning consultant, Dr. Vela, pt sent to ICU. Present on Admission - Present on Admission Any Indicators Present on Admission: Yes History of DVT/PE: Yes History of Uncontrolled Diabetes: No Urinary Catheter: No Decubitus Ulcer Present: No Past Patient History - Infectious Disease Hx of Infectious Diseases: None - Tetanus Immunizations Tetanus Immunization: Unknown - Past Medical History & Family History Past Medical History?: Yes - Past Social History Alcohol: None Drugs: Denies - CARDIAC Hx Hypertension: Yes - PULMONARY Hx Emphysema: Yes - NEUROLOGICAL Hx Neurological Disorder: No - HEENT Other/Comment: red eyes - RENAL Hx Chronic Kidney Disease: No - ENDOCRINE/METABOLIC Hx Hypothyroidism: Yes - HEMATOLOGICAL/ONCOLOGICAL Hx Blood Disorders: Yes (chronic leukocytosis) - INTEGUMENTARY Hx Dermatological Problems: Yes Hx Psoriasis: Yes - MUSCULOSKELETAL/RHEUMATOLOGICAL Hx Arthritis: Yes Hx Fractures: Yes (Hx of Compression Vertebral Fx at T and L spine) Hx Osteoporosis: (Chronically elevated WBCs) - GASTROINTESTINAL Hx Diverticulitis: Yes - GENITOURINARY/GYNECOLOGICAL Hx Genitourinary Disorders: No - PSYCHIATRIC Hx Psychophysiologic Disorder: No Hx Substance Use: No - SURGICAL HISTORY Hx Cholecystectomy: Yes - ANESTHESIA Hx Anesthesia: Yes Hx Anesthesia Reactions: No Meds Allergies/Adverse Reactions: Allergies Allergy/AdvReac Type Severity Reaction Status Date / Time morphine Allergy URTICARIA Verified 10/31/16 12:44 iohexol [From Omnipaque] AdvReac VOMITING Verified 10/31/16 14:56 Physical Exam - Constitutional Appears: Non-toxic, No Acute Distress, Chronically Ill - Head Exam Head Exam: ATRAUMATIC, NORMOCEPHALIC - Eye Exam Eye Exam: EOMI. absent: Conjunctival injection, Scleral icterus Pupil Exam: PERRL - ENT Exam ENT Exam: Mucous Membranes Moist - Neck Exam Neck exam: Positive for: Full Rom. Negative for: Lymphadenopathy, Tenderness - Respiratory Exam Respiratory Exam: Wheezes, NORMAL BREATHING PATTERN. absent: Accessory Muscle Use, Chest Wall Tenderness, Clear to Auscultation Bilateral, Rales, Rhonchi, Respiratory Distress Additional comments: scattered expiratory wheezes b/l - Cardiovascular Exam Cardiovascular Exam: REGULAR RHYTHM, RRR, +S1, +S2, Systolic Murmur. absent: Gallop, JVD, Rubs Additional comments: grade II holosystolic murmur appreciated at aortic area with radiation to left upper sternal border. - GI/Abdominal Exam GI & Abdominal Exam: Normal Bowel Sounds, Soft. absent: Hernia, Organomegaly, Pulsatile Mass, Rebound, Rigid, Tenderness - Extremities Exam Extremities exam: Positive for: full ROM, normal capillary refill, pedal edema ( 1+ pedal edema b/l), pedal pulses present (diminished DP pulses, approx 1+ b/l) . Negative for: calf tenderness, tenderness Additional comments: homans neg b/l - Back Exam Back exam: absent: CVA tenderness (L), CVA tenderness (R) - Neurological Exam Neurological exam: Alert, CN II-XII Intact, Oriented x3, Reflexes Normal - Psychiatric Exam Psychiatric exam: Normal Affect, Normal Mood - Skin Skin Exam: Dry, Intact, Pallor, Warm Results - Vital Signs Recent Vital Signs: Last Vital Signs Temp 100.4 F H 06/20/17 00:24 Pulse 83 06/20/17 00:17 Resp 18 06/20/17 00:17 BP 91/41 L 06/20/17 00:17 Pulse Ox 100 06/20/17 00:17 - Labs Result Diagrams: 06/19/17 22:35 06/20/17 00:47 Labs: Laboratory Results - last 24 hr 06/19/17 06/19/17 06/19/17 19:59 21:03 22:35 WBC RBC Hgb Hct MCV MCH MCHC RDW Plt Count MPV Neut % (Auto) Lymph % (Auto) Faulk % (Auto) Eos % (Auto) Baso % (Auto) Neut # Lymph # Faulk # Eos # Baso # Lactic Acid 1.9 Troponin I 3.5700 H* NT-Pro-B Natriuret Pep 22909 H Influenza Typ A,B (EIA) Negative for flu a/b 06/19/17 22:35 WBC 36.3 H D RBC 1.61 L Hgb 5.5 L* D Hct 18.6 L MCV 115.1 H D MCH 34.4 H MCHC 29.9 L RDW 22.1 H Plt Count 319 MPV 11.1 Neut % (Auto) 93.4 H Lymph % (Auto) 4.6 L Faulk % (Auto) 0.8 Eos % (Auto) 0.7 Baso % (Auto) 0.5 Neut # 33.9 H Lymph # 1.7 Faulk # 0.3 Eos # 0.2 Baso # 0.2 Lactic Acid Troponin I NT-Pro-B Natriuret Pep Influenza Typ A,B (EIA) Assessment & Plan - Assessment and Plan (Free Text) Assessment: Assessment: 82 y/o male with extensive PMHx being admitted for suspected CAP with hemoptysis , as well as suspected acute heart failure with elevated troponin. Plan: 1) Suspected Community Acquired Pneumonia with Hemoptysis -Admitted to ICU for close monitoring given multiple comorbitities -WBC: 36.6 -ESR: 43 -HIV: negative -f/u CBC in AM ordered -lactic acid: 1.0 -ABG: ordered -Tylenol 650mg Q6H: fever -Consider V/Q scan in AM to r/u PE -Blood/sputum cx: ordered -sputum cytology ordered due to hx of tobacco abuse -Continue duonebs Q6h PRN -Ceftriaxone IV 1gm QD -Azithromycin IV 500mg QD 2) Acute Congestive Heart Failure/ACS -unknown whether systolic/diastolic or combined -Nt-pro-bnp: 27534, prior value in 02/2016: 4200 -troponin on presentation: 3.5700 -ECHO on 09/2016: shows LVEF 45-50%, low normal systolic function, mild left atrial dilation, moderate aortic regurg, severe aortic valve stenosis, -s/p 325 ASA in ER -EKG on 03/17: showed NSR, PA interval of 192, with T-wave abnormalities, considered lateral ischemia. -AM EKG ordered -Troponin q8H: ordered -Echo ordered for AM -Cardiology consult, contacted Dr. Dalton Sevilla, answering service aware, awaiting recommendations -given 20 mg IV Lasix given before transfusion to prevent volume overload -Tramadol 50mg PRN severe pain 3) Severe anemia with macrocytosis -Hb 5.5, Hb on 03/2017 was 9.2 -MCV: >115 -denies melena/hematochezia/hematuria -no hx of colonscopy -B12/Folate level ordered -FOBT: ordered -Type and screen -consent signed -ordered 2 units PRBCs -repeat CBC in AM 4) Hyperkalemia: -K+ in ED 5.7, likely secondary to CKD -Lasix 20mg IV -f/u CMP in am 5) Chronic Kidney Disease -does not appear to be acute on chronic as prior BUN/Cr was 43/2.0 in September -renal dosing of medications -correct Ca: 8.9 -Lasix IV as above to prevent worsening fluid overload 6) Hypothyroidism -TSH: pending -c/w with home med in AM 7) Gout: -stable -c/w home med in AM 8) Diet -renal/heart healthy 9) Code Status: -pt wishes to be DNR/DNI in the event of cardiac arrest 10) DVT Prophylaxis: -hemoptysis -IVC filter -SCDs only for now
[2017-06-20] MEDS ORDERED: Sodium Chloride 3% for Inhalation 4 ML VIAL.NEB IH PRN (00:36)
[2017-06-20 00:51] LABS: PARTIAL THROMBOPLASTIN TIME 41.6 Seconds (25.6-37.1)
[2017-06-20 00:58] LABS: ALB/GLOB RATIO 1.1 (1.0-2.1); BILIRUBIN,TOTAL 0.9 mg/dl (0.2-1.3); CALCIUM 7.7 mg/dL (8.4-10.2); POTASSIUM 5.7 MMOL/L (3.6-5.0); TOTAL PROTEIN 6.8 G/DL (6.3-8.2)
[2017-06-20] MEDS ORDERED: Albuterol-Ipratrop 3 mg / 0.5 (3 ml) UD INH PRN (02:46)
[2017-06-20] MEDS ORDERED: Pneumococcal 23-Valent Vaccine IM ONE (06:00)
[2017-06-20 09:41] LABS: TROPONIN I 6.58 ng/mL (0.00-0.120)
[2017-06-20 09:43] LABS: POTASSIUM 5.1 MMOL/L (3.6-5.0)
[2017-06-20 09:44] LABS: ALB/GLOB RATIO 1.1 (1.0-2.1); BILIRUBIN,TOTAL 1.2 mg/dl (0.2-1.3); CALCIUM 7.7 mg/dL (8.4-10.2); TOTAL PROTEIN 6.3 G/DL (6.3-8.2)
[2017-06-20] MEDS: Azithromycin 500 MG in Sodium Chloride 0.9% 250 ML IVPB SCH (09:45)
[2017-06-20] MEDS ORDERED: Influenza Vaccine 18yr & older 0.5 ML/45 MCG SYR IM ONE (10:00)
--- NOTE | 2017-06-20 10:11 | RAD ---
HISTORY: chest pain COMPARISON: Chest radiograph dated 10/31/2016 FINDINGS: LUNGS: Bilateral airspace opacities which may represent edema. PLEURA: No significant pleural effusion identified, no pneumothorax apparent. CARDIOVASCULAR: Atherosclerotic aortic calcifications. Cardiomediastinal silhouette stably prominent. OSSEOUS STRUCTURES: Unchanged. VISUALIZED UPPER ABDOMEN: Normal. OTHER FINDINGS: Right upper quadrant surgical clips redemonstrated. Inferior vena cava filter. IMPRESSION: Bilateral airspace opacities which may represent pulmonary edema.
[2017-06-20 10:14] LABS: CHOLESTEROL 58 mg/dL (0-199)
--- NOTE | 2017-06-20 10:22 | CP.PCM.CON ---
History of Present Illness - History of Present Illness History of Present Illness: This 82-year-old man came into the emergency room complaining of a persistent cough and extreme shortness of breath both of which have significantly resolved after he received intravenous diuretics and diuresed profusely overnight. The patient was hospitalized in September of this year with GI bleed and at that time an echocardiogram had revealed presence of aortic stenosis and a borderline left ventricular systolic function. The patient is an ex-smoker and has severe chronic lung disease as well as liver disease secondary to chronic alcohol use which he has quit using more than 10 years back. He denies any history of chest pain of having suffered a myocardial infarction. Physical examination shows an elderly man sitting up in the bed complaining of being extremely hungry and is anxiously eating his breakfast. He can carry on a conversation and his respiratory rate was 16-18 breaths per minute. His heart rate was 74 bpm and regular and his blood pressure was 100/70 mmHg. He is jugular venous pressure was not elevated and there was no edema over his lower extremities. The apex was heaving in character with an ejection systolic murmur in the aortic area conducted to the base of the neck and virtually absent second heart sound. There were coarse crepitations at both bases. His pulse oximetry revealed an oxygen saturation of 99% on room air. His electrocardiogram showed sinus rhythm with poor progression of R wave from V1 to V3, a pattern similar seen on 10/09/2016. An echocardiogram done at that time revealed a sclerotic aortic valve with a peak aortic gradient of 41 mmHg and a borderline left ventricular systolic function and ejection fraction estimated at approximately 50%. Chest x-ray did done in the emergency room shows cardiomegaly and evidence of congestive cardiac failure. His lab data shows a hemoglobin of 5.5 g with an MCV of 115. His WBC count was 36,300 and platelet count was 390,000. His BUN and creatinine were 60 and 2.2 mg percent with a serum potassium level of 5.1 mg/L. He is AST was elevated. Troponin levels at admission and subsequently were also elevated with a proBNP of 46,700 pg per mL. Impression: Pulmonary edema in a patient with borderline left ventricular systolic function and aortic stenosis. Severe anemia in a patient with a history of myelo proliferative disease and a history of GI bleed. 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 Hypothyroidism and gout. The patient is in the process of receiving packed red blood cells. I will reorder an echocardiogram to evaluate his left ventricular systolic function. Given the presence of aortic stenosis the issue of possibly requiring heart valve replacement would be discussed with his daughter. Past Patient History - Infectious Disease Hx of Infectious Diseases: None - Tetanus Immunizations Tetanus Immunization: Unknown - Past Medical History & Family History Past Medical History?: Yes - Past Social History Alcohol: None Drugs: Denies - CARDIAC Hx Hypertension: Yes - PULMONARY Hx Emphysema: Yes - NEUROLOGICAL Hx Neurological Disorder: No - HEENT Other/Comment: red eyes - RENAL Hx Chronic Kidney Disease: No - ENDOCRINE/METABOLIC Hx Hypothyroidism: Yes - HEMATOLOGICAL/ONCOLOGICAL Hx Blood Disorders: Yes (chronic leukocytosis) - INTEGUMENTARY Hx Dermatological Problems: Yes Hx Psoriasis: Yes - MUSCULOSKELETAL/RHEUMATOLOGICAL Hx Arthritis: Yes Hx Fractures: Yes (Hx of Compression Vertebral Fx at T and L spine) Hx Osteoporosis: (Chronically elevated WBCs) - GASTROINTESTINAL Hx Diverticulitis: Yes - GENITOURINARY/GYNECOLOGICAL Hx Genitourinary Disorders: No - PSYCHIATRIC Hx Psychophysiologic Disorder: No Hx Substance Use: No - SURGICAL HISTORY Hx Cholecystectomy: Yes - ANESTHESIA Hx Anesthesia: Yes Hx Anesthesia Reactions: No Meds Allergies/Adverse Reactions: Allergies Allergy/AdvReac Type Severity Reaction Status Date / Time morphine Allergy URTICARIA Verified 10/31/16 12:44 iohexol [From Omnipaque] AdvReac VOMITING Verified 10/31/16 14:56 - Medications Medications: Current Medications Acetaminophen (Tylenol 325mg Tab) 650 mg PO Q6H PRN PRN Reason: Fever >100.4 F Albuterol/Ipratropium (Duoneb 3 Mg/0.5 Mg (3 Ml) Ud) 3 ml INH RQ6 PRN PRN Reason: Shortness of Breath Ceftriaxone Sodium 1 gm/ (Sodium Chloride) 100 mls @ 100 mls/hr IVPB DAILY SATURNINO PRN Reason: Protocol Last Admin: 06/20/17 09:45 Dose: 100 mls/hr Azithromycin 500 mg/ Sodium (Chloride) 250 mls @ 250 mls/hr IVPB DAILY SATURNINO PRN Reason: Protocol Last Admin: 06/20/17 09:45 Dose: 250 mls/hr Tramadol HCl (Ultram) 50 mg PO Q6 PRN PRN Reason: Pain, severe (8-10) Results - Vital Signs Recent Vital Signs: Last Vital Signs Temp 97.3 F L 06/20/17 08:00 Pulse 76 06/20/17 08:00 Resp 35 H 06/20/17 08:00 BP 89/39 L 06/20/17 08:00 Pulse Ox 100 06/20/17 08:00 - Labs Result Diagrams: 06/19/17 22:35 06/20/17 08:40 Labs: Laboratory Results - last 24 hr 06/19/17 06/19/17 06/19/17 19:59 21:03 22:35 WBC RBC Hgb Hct MCV MCH MCHC RDW Plt Count MPV Neut % (Auto) Lymph % (Auto) Collin % (Auto) Eos % (Auto) Baso % (Auto) Neut # Lymph # Collin # Eos # Baso # ESR PT INR APTT Sodium Potassium Chloride Carbon Dioxide Anion Gap BUN Creatinine Est GFR ( Amer) Est GFR (Non-Af Amer) Random Glucose Lactic Acid 1.9 Calcium Total Bilirubin AST ALT Alkaline Phosphatase Troponin I 3.5700 H* NT-Pro-B Natriuret Pep 87363 H Total Protein Albumin Globulin Albumin/Globulin Ratio Triglycerides Cholesterol HDL Cholesterol HIV-1 Ab Rapid Screen Influenza Typ A,B (EIA) Negative for flu a/b Blood Type Antibody Screen Crossmatch BBK History Checked 06/19/17 06/19/17 06/20/17 22:35 22:35 00:01 WBC 36.3 H D RBC 1.61 L Hgb 5.5 L* D Hct 18.6 L MCV 115.1 H D MCH 34.4 H MCHC 29.9 L RDW 22.1 H Plt Count 319 MPV 11.1 Neut % (Auto) 93.4 H Lymph % (Auto) 4.6 L Collin % (Auto) 0.8 Eos % (Auto) 0.7 Baso % (Auto) 0.5 Neut # 33.9 H Lymph # 1.7 Collin # 0.3 Eos # 0.2 Baso # 0.2 ESR PT 23.9 H INR 2.1 H APTT 41.6 H Sodium Potassium Chloride Carbon Dioxide Anion Gap BUN Creatinine Est GFR ( Amer) Est GFR (Non-Af Amer) Random Glucose Lactic Acid Calcium Total Bilirubin AST ALT Alkaline Phosphatase Troponin I NT-Pro-B Natriuret Pep Total Protein Albumin Globulin Albumin/Globulin Ratio Triglycerides Cholesterol HDL Cholesterol HIV-1 Ab Rapid Screen Influenza Typ A,B (EIA) Blood Type A POSITIVE Antibody Screen Negative Crossmatch See Detail BBK History Checked Patient has bt 06/20/17 06/20/17 06/20/17 00:40 00:40 00:47 WBC RBC Hgb Hct MCV MCH MCHC RDW Plt Count MPV Neut % (Auto) Lymph % (Auto) Collin % (Auto) Eos % (Auto) Baso % (Auto) Neut # Lymph # Collin # Eos # Baso # ESR PT INR APTT Sodium 138 Potassium 5.7 H Chloride 113 H Carbon Dioxide 15 L Anion Gap 16 BUN 55 H Creatinine 2.1 H Est GFR ( Amer) 37 Est GFR (Non-Af Amer) 30 Random Glucose 89 Lactic Acid 1.0 Calcium 7.7 L Total Bilirubin 0.9 AST 66 H ALT 32 Alkaline Phosphatase 103 Troponin I NT-Pro-B Natriuret Pep Total Protein 6.8 Albumin 3.5 Globulin 3.3 Albumin/Globulin Ratio 1.1 Triglycerides Cholesterol HDL Cholesterol HIV-1 Ab Rapid Screen Non reactive Influenza Typ A,B (EIA) Blood Type Antibody Screen Crossmatch BBK History Checked 06/20/17 06/20/17 06/20/17 00:55 08:40 09:51 WBC RBC Hgb Hct MCV MCH MCHC RDW Plt Count MPV Neut % (Auto) Lymph % (Auto) Collin % (Auto) Eos % (Auto) Baso % (Auto) Neut # Lymph # Collin # Eos # Baso # ESR 43 H PT INR APTT Sodium 140 Potassium 5.1 H Chloride 114 H Carbon Dioxide 16 L Anion Gap 15 BUN 60 H Creatinine 2.2 H Est GFR ( Amer) 35 Est GFR (Non-Af Amer) 29 Random Glucose 93 Lactic Acid Calcium 7.7 L Total Bilirubin 1.2 AST 78 H ALT 33 Alkaline Phosphatase 89 Troponin I 6.5800 H* NT-Pro-B Natriuret Pep Total Protein 6.3 Albumin 3.2 L Globulin 3.1 Albumin/Globulin Ratio 1.1 Triglycerides 107 Cholesterol 58 HDL Cholesterol 15 L HIV-1 Ab Rapid Screen Influenza Typ A,B (EIA) Blood Type Antibody Screen Crossmatch BBK History Checked
--- NOTE | 2017-06-20 10:36 | CARD ---
APPROVED REPORT EKG Measurement Heart [id number] <Conclusion> Sinus rhythm with 1st degree AV block Cannot rule out Anterior infarct, age undetermined ST & T wave abnormality, consider lateral ischemia Abnormal ECG
[2017-06-20 10:40] LABS: THYROID STIMULATING HORMONE 5.95 mIU/ML (0.46-4.68)
--- NOTE | 2017-06-20 10:41 | CARD ---
APPROVED REPORT EKG Measurement Heart [id number] <Conclusion> Sinus rhythm with premature supraventricular complexes Left axis deviation Anterior infarct, age undetermined ST & T wave abnormality, consider lateral ischemia Abnormal ECG
--- NOTE | 2017-06-20 12:19 | CP.PCM.CON ---
History of Present Illness - History of Present Illness History of Present Illness: Infectious Disease Consultation Note- asked to see this patient at the request of family practice team for pneumonia/ fever and help with antibiotic management. HPI- History obtained mostly from the patient's medical chart and his who is at bedside. Patient is a 81 yaer old male with pmh of Aortic stenosis, gout, Myeloproliferative disorder, hypothyroidism , DVt s/p IVC filter who was brought in for evaluation of worsening sosb and cough and hemoptysis . as per pt's he has been c/o sob for past few days more than before and he has been having cough but w/o any phlegm , as per her he could not expectorate but the day before admission he did bring up phlegm and was dark and blood tinged. as per pt's there was only one episode of hemoptysis at home. He denies any fevers, night sweats, generalized pruritus, N/V/D/C, urinary symptoms, melena, hematochezia, hematuria, changes in appetite, unintentional weight loss, calf pain, numbness/tingling. pt. also denies any sick contacts and denies any recent travel PMHx: aortic stenosis, gout, CKD, DVT, myeloproliferative disorder, hypothyroidism, osteoporosis Meds: Levothyroxine 100mcg QD, Allopurinol 100mg QD ALL: morphine (pruritus, agitation) PHospHx: DVT, acute GI bleed, multiple transfusions, cellulitis PsurgHx; Henria repair, IVC filter (2017), R THR SocialHx: former heavy smoker, >1PPD for >60 years, quit 2 years ago. Former heavy ETOH abuser, sober 8 years. Denies illicit drug abuse -lives in [place] with brother, former chung -POA: daughter and mother. Daughter Rossy: [phone] -Code status: upon questioning, pt wishes to be a DNI/DNR. FamilyHx: denies hx of cancer, CAD, RI, Stroke. Review of Systems - Review of Systems Review of Systems: ROS- denies any fever or chills, , + cough with blood tinged sputum x 1 episode, + sob more for past few days, denies any chest pain, denies any nausea or vomiting , denies any abd. pain, denies any dysurea, denies any diarrhea denies any calf pain. denies any recent travel denies any sick contacts Past Patient History - Infectious Disease Hx of Infectious Diseases: None - Tetanus Immunizations Tetanus Immunization: Unknown - Past Medical History & Family History Past Medical History?: Yes - Past Social History Smoking Status: Former Smoker Alcohol: None Drugs: Denies Home Situation {Lives}: With Family - CARDIAC Hx Hypertension: Yes Other/Comment: aortic stenosis - PULMONARY Hx Emphysema: Yes - NEUROLOGICAL Hx Neurological Disorder: No - HEENT Other/Comment: red eyes - RENAL Hx Chronic Kidney Disease: No - ENDOCRINE/METABOLIC Hx Hypothyroidism: Yes - HEMATOLOGICAL/ONCOLOGICAL Hx Blood Disorders: Yes (chronic leukocytosis) - INTEGUMENTARY Hx Dermatological Problems: Yes Hx Psoriasis: Yes - MUSCULOSKELETAL/RHEUMATOLOGICAL Hx Arthritis: Yes Hx Fractures: Yes (Hx of Compression Vertebral Fx at T and L spine) Hx Osteoporosis: (Chronically elevated WBCs) - GASTROINTESTINAL Hx Diverticulitis: Yes - GENITOURINARY/GYNECOLOGICAL Hx Genitourinary Disorders: No - PSYCHIATRIC Hx Psychophysiologic Disorder: No Hx Substance Use: No - SURGICAL HISTORY Hx Cholecystectomy: Yes - ANESTHESIA Hx Anesthesia: Yes Hx Anesthesia Reactions: No Meds Allergies/Adverse Reactions: Allergies Allergy/AdvReac Type Severity Reaction Status Date / Time morphine Allergy URTICARIA Verified 10/31/16 12:44 iohexol [From Omnipaque] AdvReac VOMITING Verified 10/31/16 14:56 - Medications Medications: Current Medications Acetaminophen (Tylenol 325mg Tab) 650 mg PO Q6H PRN PRN Reason: Fever >100.4 F Albuterol/Ipratropium (Duoneb 3 Mg/0.5 Mg (3 Ml) Ud) 3 ml INH RQ6 PRN PRN Reason: Shortness of Breath Azithromycin 500 mg/ Sodium (Chloride) 250 mls @ 250 mls/hr IVPB DAILY SATURNINO PRN Reason: Protocol Last Admin: 06/20/17 09:45 Dose: 250 mls/hr Ceftriaxone Sodium (Rocephin Iv 1 Gm Duplex) 50 mls @ 50 mls/hr IVPB DAILY SATURNINO PRN Reason: Protocol Tramadol HCl (Ultram) 50 mg PO Q6 PRN PRN Reason: Pain, severe (8-10) Physical Exam - Constitutional Appears: No Acute Distress, Chronically Ill - Head Exam Head Exam: ATRAUMATIC - Eye Exam Eye Exam: EOMI, PERRL - ENT Exam ENT Exam: Normal Oropharynx - Neck Exam Neck exam: Positive for: Full Rom Additional comments: supple - Respiratory Exam Respiratory Exam: NORMAL BREATHING PATTERN Additional comments: No wheezing slight crackles at left base only good aeration b/l - Cardiovascular Exam Cardiovascular Exam: RRR, +S1, +S2 Additional comments: 3/6 ejection murmur heard at LSB - GI/Abdominal Exam GI & Abdominal Exam: Normal Bowel Sounds, Soft Additional comments: NT, ND - Extremities Exam Extremities exam: Positive for: normal inspection - Neurological Exam Neurological exam: Alert, Oriented x3 Results - Vital Signs Recent Vital Signs: Last Vital Signs Temp 97.3 F L 06/20/17 08:00 Pulse 76 06/20/17 08:00 Resp 35 H 06/20/17 08:00 BP 92/59 L 06/20/17 10:56 Pulse Ox 100 06/20/17 08:00 - Labs Result Diagrams: 06/19/17 22:35 06/20/17 08:40 Labs: Laboratory Results - last 24 hr 06/19/17 06/19/17 06/19/17 19:59 21:03 22:35 WBC RBC Hgb Hct MCV MCH MCHC RDW Plt Count MPV Neut % (Auto) Lymph % (Auto) [place] % (Auto) Eos % (Auto) Baso % (Auto) Neut # Lymph # [place] # Eos # Baso # ESR PT INR APTT Sodium Potassium Chloride Carbon Dioxide Anion Gap BUN Creatinine Est GFR ( Amer) Est GFR (Non-Af Amer) Random Glucose Lactic Acid 1.9 Calcium Total Bilirubin AST ALT Alkaline Phosphatase Troponin I 3.5700 H* NT-Pro-B Natriuret Pep 23085 H Total Protein Albumin Globulin Albumin/Globulin Ratio Triglycerides Cholesterol LDL Cholesterol Direct HDL Cholesterol Vitamin B12 TSH 3rd Generation HIV-1 Ab Rapid Screen Influenza Typ A,B (EIA) Negative for flu a/b Blood Type Antibody Screen Crossmatch BBK History Checked 06/19/17 06/19/17 06/20/17 22:35 22:35 00:01 WBC 36.3 H D RBC 1.61 L Hgb 5.5 L* D Hct 18.6 L MCV 115.1 H D MCH 34.4 H MCHC 29.9 L RDW 22.1 H Plt Count 319 MPV 11.1 Neut % (Auto) 93.4 H Lymph % (Auto) 4.6 L [place] % (Auto) 0.8 Eos % (Auto) 0.7 Baso % (Auto) 0.5 Neut # 33.9 H Lymph # 1.7 [place] # 0.3 Eos # 0.2 Baso # 0.2 ESR PT 23.9 H INR 2.1 H APTT 41.6 H Sodium Potassium Chloride Carbon Dioxide Anion Gap BUN Creatinine Est GFR ( Amer) Est GFR (Non-Af Amer) Random Glucose Lactic Acid Calcium Total Bilirubin AST ALT Alkaline Phosphatase Troponin I NT-Pro-B Natriuret Pep Total Protein Albumin Globulin Albumin/Globulin Ratio Triglycerides Cholesterol LDL Cholesterol Direct HDL Cholesterol Vitamin B12 TSH 3rd Generation HIV-1 Ab Rapid Screen Influenza Typ A,B (EIA) Blood Type A POSITIVE Antibody Screen Negative Crossmatch See Detail BBK History Checked Patient has bt 06/20/17 06/20/17 06/20/17 00:40 00:40 00:47 WBC RBC Hgb Hct MCV MCH MCHC RDW Plt Count MPV Neut % (Auto) Lymph % (Auto) [place] % (Auto) Eos % (Auto) Baso % (Auto) Neut # Lymph # [place] # Eos # Baso # ESR PT INR APTT Sodium 138 Potassium 5.7 H Chloride 113 H Carbon Dioxide 15 L Anion Gap 16 BUN 55 H Creatinine 2.1 H Est GFR ( Amer) 37 Est GFR (Non-Af Amer) 30 Random Glucose 89 Lactic Acid 1.0 Calcium 7.7 L Total Bilirubin 0.9 AST 66 H ALT 32 Alkaline Phosphatase 103 Troponin I NT-Pro-B Natriuret Pep Total Protein 6.8 Albumin 3.5 Globulin 3.3 Albumin/Globulin Ratio 1.1 Triglycerides Cholesterol LDL Cholesterol Direct HDL Cholesterol Vitamin B12 TSH 3rd Generation HIV-1 Ab Rapid Screen Non reactive Influenza Typ A,B (EIA) Blood Type Antibody Screen Crossmatch BBK History Checked 06/20/17 06/20/17 06/20/17 00:55 08:40 09:51 WBC RBC Hgb Hct MCV MCH MCHC RDW Plt Count MPV Neut % (Auto) Lymph % (Auto) [place] % (Auto) Eos % (Auto) Baso % (Auto) Neut # Lymph # [place] # Eos # Baso # ESR 43 H PT INR APTT Sodium 140 Potassium 5.1 H Chloride 114 H Carbon Dioxide 16 L Anion Gap 15 BUN 60 H Creatinine 2.2 H Est GFR ( Amer) 35 Est GFR (Non-Af Amer) 29 Random Glucose 93 Lactic Acid Calcium 7.7 L Total Bilirubin 1.2 AST 78 H ALT 33 Alkaline Phosphatase 89 Troponin I 6.5800 H* NT-Pro-B Natriuret Pep Total Protein 6.3 Albumin 3.2 L Globulin 3.1 Albumin/Globulin Ratio 1.1 Triglycerides 107 Cholesterol 58 LDL Cholesterol Direct < 30 HDL Cholesterol 15 L Vitamin B12 > 1000 H TSH 3rd Generation 5.95 H HIV-1 Ab Rapid Screen Influenza Typ A,B (EIA) Blood Type Antibody Screen Crossmatch BBK History Checked Intake & Output 06/19/17 06/20/17 06/20/17 18:59 06:59 18:59 Weight 120 lb Microbiology 03/17/17 17:43 Blood-Venous Blood Culture - Final 03/17/17 17:43 Blood-Venous Gram Stain - Final NO GROWTH AFTER 5 DAYS TEST NOT PERFORMED 03/17/17 16:11 Blood-Venous Blood Culture - Final 03/17/17 16:11 Blood-Venous Gram Stain - Final NO GROWTH AFTER 5 DAYS TEST NOT PERFORMED Accession No. : [id number] Patient Name / ID : SANAM WATERS / [id number] Exam Date : 06/19/2017 23:22:18 ( Approved ) Study Comment : Sex / Age : M / 82Y Creator : YASMEEN POWER Dictator : Slot Machine Mechanic : Reducer : YAMSEEN POWER Approver2 : Report Date : 06/20/2017 00:20:00 My Comment : [facility] Division of Radiology [address] [place] [address] Tel. no. Patient Name: SANAMJT Pt. Address: [address] [place] [address]. Rec #: [id number] [place] [address]: Surya VAZQUEZ, Chay Bennett Pt CELL Order Location: [facility] : 1935 Male Age: 82 Order #: [id number] Reason for exam: cough/hemoptysis CT Scan CHEST W/O CONTRAST Exam Date: 06/19/17 This imaging exam was performed at [facility] EXAM: CT Chest Without Intravenous Contrast CLINICAL HISTORY: 82 years old, male; Signs and symptoms; Cough; Cough with hemorrhage; Additional info: Cough/hemoptysis TECHNIQUE: Axial computed tomography images of the chest without intravenous contrast. All CT scans at this facility use one or more dose reduction techniques, viz.: automated exposure control; ma/kV adjustment per patient size (including targeted exams where dose is matched to indication; i.e. head); or iterative reconstruction technique. Coronal and sagittal reformatted images were created and reviewed. COMPARISON: CT - CHEST W/O CONTRAST 2014-03-18 16:00 FINDINGS: Lungs: No mass. Patchy groundglass consolidation of the bilateral lung reyna, sparing the periphery. Trace bilateral pleural effusions are identified, with adjacent compressive atelectasis. Pleural spaces: As above. Heart: The heart is significantly enlarged, without pericardial effusion. Vasculature: No aortic aneurysm. Calcified atherosclerotic disease. Lymph nodes: No pathologically enlarged lymph nodes. Bones: No acute fracture. IMPRESSION: Findings suggesting moderate pulmonary edema, as detailed above. Dictated By: Yasmeen Power MD Dictated Date/Time: 06/20/1719 Signed By: Yasmeen Power MD Date Signed: 19 Transcribed By: DEJAN Transcribe Date/Time : 06/20/1719 CAYDEN/JOHNIE Accession No. : [id number] Patient Name / ID : SANAM WATERS / [id number] Exam Date : 06/19/2017 20:27:28 ( Approved ) Study Comment : Sex / Age : M / 82Y Creator : richard dumont Dictator : Chris Gonzalez MD Slot Machine Mechanic : Reducer : Chris Gonzalez MD Approver2 : Report Date : 06/19/2017 20:43:05 My Comment : HISTORY: chest pain COMPARISON: Chest radiograph dated 10/31/2016 FINDINGS: LUNGS: Bilateral airspace opacities which may represent edema. PLEURA: No significant pleural effusion identified, no pneumothorax apparent. CARDIOVASCULAR: Atherosclerotic aortic calcifications. Cardiomediastinal silhouette stably prominent. OSSEOUS STRUCTURES: Unchanged. VISUALIZED UPPER ABDOMEN: Normal. OTHER FINDINGS: Right upper quadrant surgical clips redemonstrated. Inferior vena cava filter. IMPRESSION: Bilateral airspace opacities which may represent pulmonary edema. Assessment & Plan (1) Cough Status: Acute (2) Hemoptysis Status: Acute (3) Leukocytosis Status: Acute Priority: High (4) Pulmonary edema Status: Acute - Assessment and Plan (Free Text) Assessment: A/P- 82 year old male with multiple medical conditions icnluding aortic stenosis, myeloproliferative disease, hypothyroidism dvt s/p IVC filter in 03/2017 who is admitted with sob and blood tinged sputum with cough . found to have graound glass opacities inb b/l lungs and pulmonary edema based on cxr and chest CT reports. very high leukocytosis could be from combination of pneumonia and his Myeloproliferative disease. as per med records pt. was recently hospitalized in 03/2017 was seen by from DC on that admission and based on the med records pt. was on IV vanco for leg cellulitis and d/c on oral bactrim . Hence in light of recent hospitalization would advise to broaden the IV antibiotics to cover for nosocomial pathogens. would advise to get goos putum sample for culture. may need bronch for further evaluation. would also advise to rule put malignancy of the lung in light of h/o previous tobacco and blood tinged phlegm. PLan- check sputum culture. check urine legionella AG. check mycoplasma IGG and IGM. check blood cx x 2. advise to continue with IV zithromax to cover for atypicals. However advise to d/c ceftriaxone and place on Meropenem instead for broader coverage. would also advise to start empiric vanco (renal dose ) to cover empirically for MRSA as well. would also advise to get pulm consult, pt may need bronch if no improvement . all above d/w patient and his and grandson whoa re at his bedside and with Primary team here Dr.Pierre Crook. ICU time spent 60 minutes. Thank you for allowing me to take part in the care of this patient.
[2017-06-20 12:28] LABS: BLASTS 2 % (0-0); METAMYELOCYTE 2 % (0-0); MYELOCYTE 1 % (0-0); NEUTROPHIL 77 % (42-75); TOTAL CELLS COUNTED 100
--- NOTE | 2017-06-20 12:33 | CP.PCM.PN ---
Subjective - Date & Time of Evaluation Date of Evaluation: 06/20/17 Time of Evaluation: 10:30 - Subjective Subjective: Pt seen and examined at bedside with Dr. Dang. Pt is tachypneic and on NC O2. Pt reports productive cough and shortness of breath. Denies chest pain, nausea, vomiting, abdominal pain, headache or dizziness. Denies melena, hematochezia, BRBPR. Pt is tolerating PO fluids. Objective - Vital Signs/Intake and Output Vital Signs (last 24 hours): Temp Pulse Resp BP Pulse Ox 98.1 F 86 14 132/59 L 89 L 06/20/17 12:00 06/20/17 12:00 06/20/17 12:00 06/20/17 12:00 06/20/17 12:00 - Medications Medications: Current Medications Acetaminophen (Tylenol 325mg Tab) 650 mg PO Q6H PRN PRN Reason: Fever >100.4 F Albuterol/Ipratropium (Duoneb 3 Mg/0.5 Mg (3 Ml) Ud) 3 ml INH RQ6 PRN PRN Reason: Shortness of Breath Azithromycin 500 mg/ Sodium (Chloride) 250 mls @ 250 mls/hr IVPB DAILY SATURNINO PRN Reason: Protocol Last Admin: 06/20/17 09:45 Dose: 250 mls/hr Ceftriaxone Sodium (Rocephin Iv 1 Gm Duplex) 50 mls @ 50 mls/hr IVPB DAILY SATURNINO PRN Reason: Protocol Tramadol HCl (Ultram) 50 mg PO Q6 PRN PRN Reason: Pain, severe (8-10) - Labs Labs: 06/19/17 22:35 06/20/17 08:40 PT 23.9 Seconds (9.8-13.1) H 06/19/17 22:35 INR 2.1 (0.9-1.2) H 06/19/17 22:35 APTT 41.6 Seconds (25.6-37.1) H 06/19/17 22:35 - Constitutional Appears: Other (Labored breathing, looks in mild acute distress, on NC O2) - ENT Exam ENT Exam: Mucous Membranes Moist - Neck Exam Neck Exam: Full ROM, Normal Inspection - Respiratory Exam Respiratory Exam: absent: Rales, Rhonchi Additional comments: Expiratory wheezing throughout the lung field, with crackles in B/L lower lung filed. No rhonchi - Cardiovascular Exam Cardiovascular Exam: REGULAR RHYTHM, +S1, +S2, Murmur - GI/Abdominal Exam GI & Abdominal Exam: Soft, Normal Bowel Sounds. absent: Tenderness Additional comments: Large abdominal hernia, non-strangulated, non-tender. - Extremities Exam Extremities Exam: Normal Capillary Refill. absent: Calf Tenderness, Pedal Edema Additional comments: Mild erythema of B/L 1st toe, no skin breakage. No signs of infection. Mild erythema of left heel. No skin breakage. No oozing. - Neurological Exam Neurological Exam: Alert, Awake, Oriented x3 - Psychiatric Exam Psychiatric exam: Normal Affect, Normal Mood - Skin Additional comments: small erythematous area in the occyx region. No skin breakage. No swelling or oozing seen. Assessment and Plan - Assessment and Plan (Free Text) Assessment: 82 yo male w/ multiple significant medical problems is admitted for HCAP and CHF w/ increased troponin level Plan: Suspected hospital acquired pneumonia. -Pt's last discharge from [facility] on 03/26/17 -ID consult w/ Dr. Banda appreciated. -Stop ceftriaxone IV 1gm QD -Continue azithromycin IV 500mg QD -Start meropenem 500 mg IVP Q8H -Start vanco 500mg qotherday. -WBC trending down: 31.1 -HIV: negative -F/U on legionella ag, p. pneumonia ab. -F/U on Blood/sputum cx -Continue duonebs Q6h PRN Acute Congestive Heart Failure -Cardiology Consult w/ Dr. Sevilla appreciated. -Troponin 3.57, 6.58. Increase in troponin likely due to left ventricular strain. -Nt-pro-bnp: 28715, prior value in 02/2016: 4200 -ECHO done today ( last ECHO on 10/05: LVEF 45-50%) -EKG on 06/20/17: sinus rhythm with premature supraventricular complexes. ST and T wave abnormality,consider lateral ischemia. -Lasix 20 mg IV given to decrease volume overload from transfusion. Severe anemia -Hb 5.5 on admission. -Received 2 units of PRBC -Hb 7.3 after blood transfusion. -B12: >1000 -f/u folate -FOBT:ordered. -repeat CBC in AM Chronic Kidney Disease -BUN/Cr: 60/2.2 (pt's baseline level) -Correct Ca: 8.9 -Lasix IV as above to prevent worsening fluid overload Diet -renal/heart healthy Code Status: -DNR/DNI DVT Prophylaxis: -hemoptysis -IVC filter -SCDs
--- NOTE | 2017-06-20 13:24 | CP.CCUPN ---
CCU Subjective - Physician Review Subjective (Free Text): Awake and responsive, denies any chest discomfort now, no further hemoptysis, denies any SOB at bed rest. T spike to 101.2F overnight, denies any chills or diaphoresis. Undergoing 2nd PRBC transfusion now. BP still borderline with MAPs approx. 55- 60. He did diurese slightly after Lasix 20mg. Asked for food and ate half of breakfast meal. Other vitals and I/O's reviewed. ROS: No other pertinent negs or positives on 10+ system review. PMSFH: All other Nursing and physician documentation reviewed to date; no new pertinent info noted relevant to current medical problems. CXR / CT Chest reviewed: marked diffuse bilat infiltrative changes, possible congestive changes versus consolidation, there appear to be air b-grams present bilat(my interp). EKG: sinus 75/min, inverted Ts II, III< F, V3-6 IMPRESSION / MAJOR PROBLEMS NOW: 1. Acute resp insuff with bilateral Pulm Vasc Congestion vs bilateral pneumonia, both with assoc hemoptysis; vs. Acute PTE 2. Acute / Subacute [place] 3. Severe Anemia, r/o GI Blood Loss (r/o Heyde Syndrome) 4. Coagulopathy PLAN: 1. Present lung opacities could explain and account for hypoxemia. Auto- anticoagulation noted as well. If PTE is apparent and found to be present, poor risk for full therapeutic AC given unexplained anemia. 2. Empiric abx coverage noted with John Lerner. Pulm eval, appropriateness for FOB. Consider broadening coverage for nosocomial organisms with h/o recent hospitalizations. 3. ECHO, given ASA in ER, not continued yet. Track troponins, serial EKGs, necessity of other cardiac meds: BBs, other antiplatelet meds, statin, etc. 4. Needs ABG. 5. Details on Myeloproliferative Disease, leukocytosis apparent. Would check Procalcitonin level. Present wbc elevation appears acute compared to previous visits. CCU Objective - Vital Signs / Intake & Output Vital Signs (Last 4 hours): Vital Signs Temp Pulse Resp BP Pulse Ox 06/20/17 12:00 98.1 F 86 14 132/59 L 89 L 06/20/17 10:56 92/59 L Intake and Output (Last 8hrs): Intake & Output 11/06/20/17 06/20/17 22:59 06:59 14:59 Weight 120 lb - Physical Exam Head: Positive for: Normocephalic Pupils: Positive for: PERRL Extroacular Muscles: Positive for: EOMI Conjunctiva: Positive for: Normal. Negative for: Icteric Mouth: Positive for: Moist Mucous Membranes Neck: Positive for: Normal Range of Motion. Negative for: JVD Respiratory/Chest: Positive for: Decreased Breath Sounds, Rales, Rhonchi. Negative for: Respiratory Distress Cardiovascular: Positive for: Regular Rate and Rhythm, Murmurs (apical systolic 2-3/6 murmur) Abdomen: Positive for: Normal Bowel Sounds. Negative for: Tenderness, Distention, Mass/Organomegaly Lower Extremity: Positive for: NORMAL PULSES. Negative for: CALF TENDERNESS, Cyanosis Neurological: Positive for: GCS=15, Motor Func Grossly Intact, Normal Sensory Function Skin: Positive for: Warm, Dry. Negative for: Rashes Psychiatric: Positive for: Alert, Oriented x 3 - Medications Active Medications: Active Medications Generic Name Dose Route Start Last Admin Trade Name Freq PRN Reason Stop Dose Admin Acetaminophen 650 mg 06/19/17 23:49 Tylenol 325mg Tab PO Q6H PRN Fever >100.4 F Albuterol/Ipratropium 3 ml 06/20/17 02:46 Duoneb 3 Mg/0.5 Mg (3 Ml) Ud INH RQ6 PRN Shortness of Breath Azithromycin 500 mg/ Sodium 250 mls @ 250 mls/hr 06/20/17 09:00 06/20/17 09: 45 Chloride IVPB 250 mls/hr DAILY SATURNINO Administration Protocol Ceftriaxone Sodium 50 mls @ 50 mls/hr 06/21/17 09:00 Rocephin Iv 1 Gm Duplex IVPB DAILY SATURNINO Protocol Tramadol HCl 50 mg 06/20/17 02:57 Ultram PO Q6 PRN Pain, severe (8-10) - Patient Studies Lab Studies: Lab Studies 06/20/17 06/20/17 06/20/17 Range/Units 09:51 08:40 00:55 WBC (4.8-10.8) K/uL RBC (4.40-5.90) Mil/uL Hgb (12.0-18.0) g/dL Hct (35.0-51.0) % MCV (80.0-94.0) fl MCH (27.0-31.0) pg MCHC (33.0-37.0) g/dL RDW (11.5-14.5) % Plt Count (130-400) K/uL MPV (7.2-11.7) fl Neut % (Auto) (50.0-75.0) % Lymph % (Auto) (20.0-40.0) % [place] % (Auto) (0.0-10.0) % Eos % (Auto) (0.0-4.0) % Baso % (Auto) (0.0-2.0) % Neut # (1.8-7.0) K/uL Lymph # (1.0-4.3) K/uL [place] # (0.0-0.8) K/uL Eos # (0.0-0.7) K/uL Baso # (0.0-0.2) K/uL ESR 43 H (0-20) mm/hr PT (9.8-13.1) Seconds INR (0.9-1.2) APTT (25.6-37.1) Seconds Sodium 140 (132-148) mmol/l Potassium 5.1 H (3.6-5.0) MMOL/L Chloride 114 H (98-107) mmol/L Carbon Dioxide 16 L (22-30) mmol/L Anion Gap 15 (10-20) BUN 60 H (9-20) mg/dl Creatinine 2.2 H (0.8-1.5) mg/dl Est GFR ( Amer) 35 Est GFR (Non-Af Amer) 29 Random Glucose 93 (75-110) mg/dL Lactic Acid (0.7-2.1) MMOL/L Calcium 7.7 L (8.4-10.2) mg/dL Total Bilirubin 1.2 (0.2-1.3) mg/dl AST 78 H (17-59) U/L ALT 33 (21-72) U/L Alkaline Phosphatase 89 (38-126) U/L Troponin I 6.5800 H* (0.00-0.120) ng/mL NT-Pro-B Natriuret Pep (0-900) pg/ml Total Protein 6.3 (6.3-8.2) G/DL Albumin 3.2 L (3.5-5.0) g/dL Globulin 3.1 (2.2-3.9) gm/dL Albumin/Globulin Ratio 1.1 (1.0-2.1) Triglycerides 107 (0-149) mg/DL Cholesterol 58 (0-199) mg/dL LDL Cholesterol Direct < 30 (0-129) mg/dL HDL Cholesterol 15 L (30-70) MG/DL Vitamin B12 > 1000 H (239-931) pg/mL TSH 3rd Generation 5.95 H (0.46-4.68) mIU/ML HIV-1 Ab Rapid Screen (NON REAC) Influenza Typ A,B (EIA) (NEGATIVE) Blood Type Antibody Screen Crossmatch BBK History Checked 06/20/17 06/20/17 06/20/17 Range/Units 00:47 00:40 00:40 WBC (4.8-10.8) K/uL RBC (4.40-5.90) Mil/uL Hgb (12.0-18.0) g/dL Hct (35.0-51.0) % MCV (80.0-94.0) fl MCH (27.0-31.0) pg MCHC (33.0-37.0) g/dL RDW (11.5-14.5) % Plt Count (130-400) K/uL MPV (7.2-11.7) fl Neut % (Auto) (50.0-75.0) % Lymph % (Auto) (20.0-40.0) % [place] % (Auto) (0.0-10.0) % Eos % (Auto) (0.0-4.0) % Baso % (Auto) (0.0-2.0) % Neut # (1.8-7.0) K/uL Lymph # (1.0-4.3) K/uL [place] # (0.0-0.8) K/uL Eos # (0.0-0.7) K/uL Baso # (0.0-0.2) K/uL ESR (0-20) mm/hr PT (9.8-13.1) Seconds INR (0.9-1.2) APTT (25.6-37.1) Seconds Sodium 138 (132-148) mmol/l Potassium 5.7 H (3.6-5.0) MMOL/L Chloride 113 H (98-107) mmol/L Carbon Dioxide 15 L (22-30) mmol/L Anion Gap 16 (10-20) BUN 55 H (9-20) mg/dl Creatinine 2.1 H (0.8-1.5) mg/dl Est GFR ( Amer) 37 Est GFR (Non-Af Amer) 30 Random Glucose 89 (75-110) mg/dL Lactic Acid 1.0 (0.7-2.1) MMOL/L Calcium 7.7 L (8.4-10.2) mg/dL Total Bilirubin 0.9 (0.2-1.3) mg/dl AST 66 H (17-59) U/L ALT 32 (21-72) U/L Alkaline Phosphatase 103 (38-126) U/L Troponin I (0.00-0.120) ng/mL NT-Pro-B Natriuret Pep (0-900) pg/ml Total Protein 6.8 (6.3-8.2) G/DL Albumin 3.5 (3.5-5.0) g/dL Globulin 3.3 (2.2-3.9) gm/dL Albumin/Globulin Ratio 1.1 (1.0-2.1) Triglycerides (0-149) mg/DL Cholesterol (0-199) mg/dL LDL Cholesterol Direct (0-129) mg/dL HDL Cholesterol (30-70) MG/DL Vitamin B12 (239-931) pg/mL TSH 3rd Generation (0.46-4.68) mIU/ML HIV-1 Ab Rapid Screen Non reactive (NON REAC) Influenza Typ A,B (EIA) (NEGATIVE) Blood Type Antibody Screen Crossmatch BBK History Checked 06/20/17 06/19/17 06/19/17 Range/Units 00:01 22:35 22:35 WBC 36.3 H D (4.8-10.8) K/uL RBC 1.61 L (4.40-5.90) Mil/uL Hgb 5.5 L* D (12.0-18.0) g/dL Hct 18.6 L (35.0-51.0) % MCV 115.1 H D (80.0-94.0) fl MCH 34.4 H (27.0-31.0) pg MCHC 29.9 L (33.0-37.0) g/dL RDW 22.1 H (11.5-14.5) % Plt Count 319 (130-400) K/uL MPV 11.1 (7.2-11.7) fl Neut % (Auto) 93.4 H (50.0-75.0) % Lymph % (Auto) 4.6 L (20.0-40.0) % [place] % (Auto) 0.8 (0.0-10.0) % Eos % (Auto) 0.7 (0.0-4.0) % Baso % (Auto) 0.5 (0.0-2.0) % Neut # 33.9 H (1.8-7.0) K/uL Lymph # 1.7 (1.0-4.3) K/uL [place] # 0.3 (0.0-0.8) K/uL Eos # 0.2 (0.0-0.7) K/uL Baso # 0.2 (0.0-0.2) K/uL ESR (0-20) mm/hr PT 23.9 H (9.8-13.1) Seconds INR 2.1 H (0.9-1.2) APTT 41.6 H (25.6-37.1) Seconds Sodium (132-148) mmol/l Potassium (3.6-5.0) MMOL/L Chloride (98-107) mmol/L Carbon Dioxide (22-30) mmol/L Anion Gap (10-20) BUN (9-20) mg/dl Creatinine (0.8-1.5) mg/dl Est GFR ( Amer) Est GFR (Non-Af Amer) Random Glucose (75-110) mg/dL Lactic Acid (0.7-2.1) MMOL/L Calcium (8.4-10.2) mg/dL Total Bilirubin (0.2-1.3) mg/dl AST (17-59) U/L ALT (21-72) U/L Alkaline Phosphatase (38-126) U/L Troponin I (0.00-0.120) ng/mL NT-Pro-B Natriuret Pep (0-900) pg/ml Total Protein (6.3-8.2) G/DL Albumin (3.5-5.0) g/dL Globulin (2.2-3.9) gm/dL Albumin/Globulin Ratio (1.0-2.1) Triglycerides (0-149) mg/DL Cholesterol (0-199) mg/dL LDL Cholesterol Direct (0-129) mg/dL HDL Cholesterol (30-70) MG/DL Vitamin B12 (239-931) pg/mL TSH 3rd Generation (0.46-4.68) mIU/ML HIV-1 Ab Rapid Screen (NON REAC) Influenza Typ A,B (EIA) (NEGATIVE) Blood Type A POSITIVE Antibody Screen Negative Crossmatch See Detail BBK History Checked Patient has bt 06/19/17 06/19/17 06/19/17 Range/Units 22:35 21:03 19:59 WBC (4.8-10.8) K/uL RBC (4.40-5.90) Mil/uL Hgb (12.0-18.0) g/dL Hct (35.0-51.0) % MCV (80.0-94.0) fl MCH (27.0-31.0) pg MCHC (33.0-37.0) g/dL RDW (11.5-14.5) % Plt Count (130-400) K/uL MPV (7.2-11.7) fl Neut % (Auto) (50.0-75.0) % Lymph % (Auto) (20.0-40.0) % [place] % (Auto) (0.0-10.0) % Eos % (Auto) (0.0-4.0) % Baso % (Auto) (0.0-2.0) % Neut # (1.8-7.0) K/uL Lymph # (1.0-4.3) K/uL [place] # (0.0-0.8) K/uL Eos # (0.0-0.7) K/uL Baso # (0.0-0.2) K/uL ESR (0-20) mm/hr PT (9.8-13.1) Seconds INR (0.9-1.2) APTT (25.6-37.1) Seconds Sodium (132-148) mmol/l Potassium (3.6-5.0) MMOL/L Chloride (98-107) mmol/L Carbon Dioxide (22-30) mmol/L Anion Gap (10-20) BUN (9-20) mg/dl Creatinine (0.8-1.5) mg/dl Est GFR ( Amer) Est GFR (Non-Af Amer) Random Glucose (75-110) mg/dL Lactic Acid 1.9 (0.7-2.1) MMOL/L Calcium (8.4-10.2) mg/dL Total Bilirubin (0.2-1.3) mg/dl AST (17-59) U/L ALT (21-72) U/L Alkaline Phosphatase (38-126) U/L Troponin I 3.5700 H* (0.00-0.120) ng/mL NT-Pro-B Natriuret Pep 13834 H (0-900) pg/ml Total Protein (6.3-8.2) G/DL Albumin (3.5-5.0) g/dL Globulin (2.2-3.9) gm/dL Albumin/Globulin Ratio (1.0-2.1) Triglycerides (0-149) mg/DL Cholesterol (0-199) mg/dL LDL Cholesterol Direct (0-129) mg/dL HDL Cholesterol (30-70) MG/DL Vitamin B12 (239-931) pg/mL TSH 3rd Generation (0.46-4.68) mIU/ML HIV-1 Ab Rapid Screen (NON REAC) Influenza Typ A,B (EIA) Negative for flu a/b (NEGATIVE) Blood Type Antibody Screen Crossmatch BBK History Checked Laboratory Results - last 24 hr 06/19/17 06/19/17 06/19/17 19:59 21:03 22:35 WBC RBC Hgb Hct MCV MCH MCHC RDW Plt Count MPV Neut % (Auto) Lymph % (Auto) [place] % (Auto) Eos % (Auto) Baso % (Auto) Neut # Lymph # [place] # Eos # Baso # ESR PT INR APTT Sodium Potassium Chloride Carbon Dioxide Anion Gap BUN Creatinine Est GFR ( Amer) Est GFR (Non-Af Amer) Random Glucose Lactic Acid 1.9 Calcium Total Bilirubin AST ALT Alkaline Phosphatase Troponin I 3.5700 H* NT-Pro-B Natriuret Pep 69374 H Total Protein Albumin Globulin Albumin/Globulin Ratio Triglycerides Cholesterol LDL Cholesterol Direct HDL Cholesterol Vitamin B12 TSH 3rd Generation HIV-1 Ab Rapid Screen Influenza Typ A,B (EIA) Negative for flu a/b Blood Type Antibody Screen Crossmatch BBK History Checked 06/19/17 06/19/17 06/20/17 22:35 22:35 00:01 WBC 36.3 H D RBC 1.61 L Hgb 5.5 L* D Hct 18.6 L MCV 115.1 H D MCH 34.4 H MCHC 29.9 L RDW 22.1 H Plt Count 319 MPV 11.1 Neut % (Auto) 93.4 H Lymph % (Auto) 4.6 L [place] % (Auto) 0.8 Eos % (Auto) 0.7 Baso % (Auto) 0.5 Neut # 33.9 H Lymph # 1.7 [place] # 0.3 Eos # 0.2 Baso # 0.2 ESR PT 23.9 H INR 2.1 H APTT 41.6 H Sodium Potassium Chloride Carbon Dioxide Anion Gap BUN Creatinine Est GFR ( Amer) Est GFR (Non-Af Amer) Random Glucose Lactic Acid Calcium Total Bilirubin AST ALT Alkaline Phosphatase Troponin I NT-Pro-B Natriuret Pep Total Protein Albumin Globulin Albumin/Globulin Ratio Triglycerides Cholesterol LDL Cholesterol Direct HDL Cholesterol Vitamin B12 TSH 3rd Generation HIV-1 Ab Rapid Screen Influenza Typ A,B (EIA) Blood Type A POSITIVE Antibody Screen Negative Crossmatch See Detail BBK History Checked Patient has bt 06/20/17 06/20/17 06/20/17 00:40 00:40 00:47 WBC RBC Hgb Hct MCV MCH MCHC RDW Plt Count MPV Neut % (Auto) Lymph % (Auto) [place] % (Auto) Eos % (Auto) Baso % (Auto) Neut # Lymph # [place] # Eos # Baso # ESR PT INR APTT Sodium 138 Potassium 5.7 H Chloride 113 H Carbon Dioxide 15 L Anion Gap 16 BUN 55 H Creatinine 2.1 H Est GFR ( Amer) 37 Est GFR (Non-Af Amer) 30 Random Glucose 89 Lactic Acid 1.0 Calcium 7.7 L Total Bilirubin 0.9 AST 66 H ALT 32 Alkaline Phosphatase 103 Troponin I NT-Pro-B Natriuret Pep Total Protein 6.8 Albumin 3.5 Globulin 3.3 Albumin/Globulin Ratio 1.1 Triglycerides Cholesterol LDL Cholesterol Direct HDL Cholesterol Vitamin B12 TSH 3rd Generation HIV-1 Ab Rapid Screen Non reactive Influenza Typ A,B (EIA) Blood Type Antibody Screen Crossmatch BBK History Checked 06/20/17 06/20/17 06/20/17 00:55 08:40 09:51 WBC RBC Hgb Hct MCV MCH MCHC RDW Plt Count MPV Neut % (Auto) Lymph % (Auto) [place] % (Auto) Eos % (Auto) Baso % (Auto) Neut # Lymph # [place] # Eos # Baso # ESR 43 H PT INR APTT Sodium 140 Potassium 5.1 H Chloride 114 H Carbon Dioxide 16 L Anion Gap 15 BUN 60 H Creatinine 2.2 H Est GFR ( Amer) 35 Est GFR (Non-Af Amer) 29 Random Glucose 93 Lactic Acid Calcium 7.7 L Total Bilirubin 1.2 AST 78 H ALT 33 Alkaline Phosphatase 89 Troponin I 6.5800 H* NT-Pro-B Natriuret Pep Total Protein 6.3 Albumin 3.2 L Globulin 3.1 Albumin/Globulin Ratio 1.1 Triglycerides 107 Cholesterol 58 LDL Cholesterol Direct < 30 HDL Cholesterol 15 L Vitamin B12 > 1000 H TSH 3rd Generation 5.95 H HIV-1 Ab Rapid Screen Influenza Typ A,B (EIA) Blood Type Antibody Screen Crossmatch BBK History Checked Radiology Interpretations (Free Text): See Above Review of Systems - Review of Systems All systems: reviewed and no additional remarkable complaints except (as above) Critical Care Progress Note - Nutrition Nutrition: Nutrition Category Date Time Status Heart Healthy Diet [DIET] Diets 06/20/17 Breakfast Active
[2017-06-20 13:59] LABS: ABG ALLEN TEST YES; ARTERIAL BLOOD GAS HCO3 17.1 mmol/L (21-28); ARTERIAL BLOOD GAS O2 CAPACITY 10.4 mL/dL (16-24); ARTERIAL BLOOD GAS O2 CONTENT 10.5 ML/dL (15-23); ARTERIAL BLOOD GAS PO2 91 mm/Hg (80-100); ARTERIAL BLOOD HGB O2 SAT 95.9 % (95.0-98.0); CARBOXYHEMOGLOBIN 3.6 % (0.5-1.5); HHB -0.6 % (0.0-5.0); METHEMOGLOBIN 1.1 % (0.0-3.0)
[2017-06-20 16:20] LABS: HEMATOCRIT 23.2 % (35.0-51.0); MEAN CELL VOLUME 98.2 fl (80.0-94.0); MEAN CORPUSCULAR HEMOGLOBIN 30.9 pg (27.0-31.0); MEAN CORPUSCULAR HGB CONC 31.5 g/dL (33.0-37.0); RED CELL DISTRIBUTION WIDTH 28.4 % (11.5-14.5); WHITE BLOOD COUNT 31.1 K/uL (4.8-10.8)
--- NOTE | 2017-06-20 16:32 | CP.PCM.PN ---
Subjective - Date & Time of Evaluation Date of Evaluation: 06/20/17 Time of Evaluation: 16:25 - Subjective Subjective: Family Meeting Note [employer] [id number] [address] Pt. seen with family members at bedside. Pt. agrees to Family Meeting. Pt. states he wishes to be home with his . Pt. states he feels "ok" and would prefer to be home and be made comfortable. Pt. also understands that stopping hospital treatment may make his symptoms worse. Pt. states he knows he is in the hospital and that his treatment options at home would be limited to comfort care. Pt. states he does not wish to be intubated or have his heart compressed in case of an emergency. Pt. also goes on to say he does not remember the last time he was in the hospital and that he feels ok right now. Pt. also states he would like the Ortega Catheter catheter taken out as soon as possible. Pt. also states his heart and lungs feel "ok" but that he can't carry out routine task like he did previously. Pt. states he currently lives with his and son, who is currently not present at the meeting. Family members and pt. agreeable to hospice consult for home. Present during Family Meeting Dr. Alton Parker - Laxmi Daughter- Faye Daughter- Yaneth Daughter- Naida Grandson- [place] Objective - Vital Signs/Intake and Output Vital Signs (last 24 hours): Temp Pulse Resp BP Pulse Ox 98.0 F 76 21 100/77 100 06/20/17 16:17 06/20/17 16:17 06/20/17 16:17 06/20/17 16:17 06/20/17 16:17 Intake and Output: 06/20/17 06/20/17 06:59 18:59 Intake Total 1420 Output Total 900 Balance 520 - Medications Medications: Current Medications Acetaminophen (Tylenol 325mg Tab) 650 mg PO Q6H PRN PRN Reason: Fever >100.4 F Albuterol/Ipratropium (Duoneb 3 Mg/0.5 Mg (3 Ml) Ud) 3 ml INH RQ6 PRN PRN Reason: Shortness of Breath Azithromycin 500 mg/ Sodium (Chloride) 250 mls @ 250 mls/hr IVPB DAILY SATURNINO PRN Reason: Protocol Last Admin: 06/20/17 09:45 Dose: 250 mls/hr Meropenem 500 mg/ Sodium (Chloride) 100 mls @ 100 mls/hr IVPB Q8 SATURNINO PRN Reason: Protocol Vancomycin HCl 500 mg/ Sodium (Chloride) 100 mls @ 100 mls/hr IVPB QOTHERDAY SATURNINO PRN Reason: Protocol Tramadol HCl (Ultram) 50 mg PO Q6 PRN PRN Reason: Pain, severe (8-10) - Labs Labs: 06/19/17 22:35 06/20/17 08:40 PT 23.9 Seconds (9.8-13.1) H 06/19/17 22:35 INR 2.1 (0.9-1.2) H 06/19/17 22:35 APTT 41.6 Seconds (25.6-37.1) H 06/19/17 22:35
[2017-06-20] MEDS: Meropenem 500 MG in Sodium Chloride 0.9% 100 ML IVPB SCH (16:41)
[2017-06-20 18:37] LABS: FOLATE 10.1 ng/mL
--- NOTE | 2017-06-20 22:15 | CP.PCM.CON ---
History of Present Illness - History of Present Illness History of Present Illness: Acute Resp Insuff CHF / Tracheobronchitis. Chronic Medical Conditions Former Smoker. No ETOH. S/ Breathing better compared to when he came it. O: Afebrile, VSS Head: Neg Adeno, Pos SOURAV, Neg JVD Heart: RRR, ns1s2 Lungs: Crackles at bases. Abdo, Soft, NT Pos BS. Ext: No C,C, No Edema LE Neuro: A * O times 3. Non Focal. X-ray c/w ? CHF and PNA. Cont Supp O2, maintain O2 Sat > 90% Cont IV Abx, monitor WBC#, temp curve and cultures. Cont Nebulized treatments. Cont maintain neg balance with IV lasix. Cardio optimization. PUD and DVT px. Signing out of case; please reconsult prn. Past Patient History - Infectious Disease Hx of Infectious Diseases: None - Tetanus Immunizations Tetanus Immunization: Unknown - Past Medical History & Family History Past Medical History?: Yes - Past Social History Smoking Status: Former Smoker Alcohol: None Drugs: Denies Home Situation {Lives}: With Family - CARDIAC Hx Hypertension: Yes Other/Comment: aortic stenosis - PULMONARY Hx Emphysema: Yes - NEUROLOGICAL Hx Neurological Disorder: No - HEENT Other/Comment: red eyes - RENAL Hx Chronic Kidney Disease: No - ENDOCRINE/METABOLIC Hx Hypothyroidism: Yes - HEMATOLOGICAL/ONCOLOGICAL Hx Blood Disorders: Yes (chronic leukocytosis) - INTEGUMENTARY Hx Dermatological Problems: Yes Hx Psoriasis: Yes - MUSCULOSKELETAL/RHEUMATOLOGICAL Hx Arthritis: Yes Hx Fractures: Yes (Hx of Compression Vertebral Fx at T and L spine) Hx Osteoporosis: (Chronically elevated WBCs) - GASTROINTESTINAL Hx Diverticulitis: Yes - GENITOURINARY/GYNECOLOGICAL Hx Genitourinary Disorders: No - PSYCHIATRIC Hx Psychophysiologic Disorder: No Hx Substance Use: No - SURGICAL HISTORY Hx Cholecystectomy: Yes - ANESTHESIA Hx Anesthesia: Yes Hx Anesthesia Reactions: No Meds Allergies/Adverse Reactions: Allergies Allergy/AdvReac Type Severity Reaction Status Date / Time morphine Allergy URTICARIA Verified 10/31/16 12:44 iohexol [From Omnipaque] AdvReac VOMITING Verified 10/31/16 14:56 - Medications Medications: Current Medications Acetaminophen (Tylenol 325mg Tab) 650 mg PO Q6H PRN PRN Reason: Fever >100.4 F Albuterol/Ipratropium (Duoneb 3 Mg/0.5 Mg (3 Ml) Ud) 3 ml INH RQ6 PRN PRN Reason: Shortness of Breath Azithromycin 500 mg/ Sodium (Chloride) 250 mls @ 250 mls/hr IVPB DAILY SATURNINO PRN Reason: Protocol Last Admin: 06/20/17 09:45 Dose: 250 mls/hr Meropenem 500 mg/ Sodium (Chloride) 100 mls @ 100 mls/hr IVPB Q8 SATURNINO PRN Reason: Protocol Last Admin: 06/20/17 16:41 Dose: 100 mls/hr Vancomycin HCl 500 mg/ Sodium (Chloride) 100 mls @ 100 mls/hr IVPB QOTHERDAY SATURNINO PRN Reason: Protocol Tramadol HCl (Ultram) 50 mg PO Q6 PRN PRN Reason: Pain, severe (8-10) Results - Vital Signs Recent Vital Signs: Last Vital Signs Temp 99 F 06/20/17 20:00 Pulse 78 06/20/17 22:00 Resp 18 06/20/17 22:00 BP 102/53 L 06/20/17 22:00 Pulse Ox 98 06/20/17 22:00 - Labs Result Diagrams: 06/20/17 16:09 06/20/17 08:40 Labs: Laboratory Results - last 24 hr 06/19/17 06/19/17 06/19/17 19:59 22:35 22:35 WBC 36.3 H D RBC 1.61 L Hgb 5.5 L* D Hct 18.6 L MCV 115.1 H D MCH 34.4 H MCHC 29.9 L RDW 22.1 H Plt Count 319 MPV 11.1 Neut % (Auto) 93.4 H Lymph % (Auto) 4.6 L Mcduffie % (Auto) 0.8 Eos % (Auto) 0.7 Baso % (Auto) 0.5 Neut # 33.9 H Lymph # 1.7 Mcduffie # 0.3 Eos # 0.2 Baso # 0.2 Neutrophils % (Manual) 77 H Band Neutrophils % 8 H Lymphocytes % (Manual) 6 L Monocytes % (Manual) 4 Metamyelocytes % 2 H Myelocytes % 1 H Blast Cells % 2 H Platelet Estimate Normal Polychromasia Slight Hypochromasia (manual) Moderate Poikilocytosis (manual Moderate Anisocytosis (manual) Moderate Macrocytosis (manual) Marked Tear Drop Cells Slight Ovalocytes Slight Baltic Cells Moderate Acanthocytes (Spur) Schistocytes Moderate ESR PT INR APTT pCO2 pO2 HCO3 ABG pH ABG Total CO2 ABG O2 Saturation ABG O2 Content ABG Base Excess ABG Hemoglobin ABG Carboxyhemoglobin POC ABG HHb (Measured) ABG Methemoglobin ABG O2 Capacity Tylor Test A-a O2 Difference Hgb O2 Saturation FiO2 Sodium Potassium Chloride Carbon Dioxide Anion Gap BUN Creatinine Est GFR ( Amer) Est GFR (Non-Af Amer) Random Glucose Hemoglobin A1c Lactic Acid 1.9 Calcium Total Bilirubin AST ALT Alkaline Phosphatase Troponin I 3.5700 H* NT-Pro-B Natriuret Pep 98794 H Total Protein Albumin Globulin Albumin/Globulin Ratio Triglycerides Cholesterol LDL Cholesterol Direct HDL Cholesterol Vitamin B12 Folate Procalcitonin TSH 3rd Generation HIV-1 Ab Rapid Screen Blood Type Antibody Screen Crossmatch BBK History Checked 06/19/17 06/20/17 06/20/17 22:35 00:01 00:40 WBC RBC Hgb Hct MCV MCH MCHC RDW Plt Count MPV Neut % (Auto) Lymph % (Auto) Mcduffie % (Auto) Eos % (Auto) Baso % (Auto) Neut # Lymph # Mcduffie # Eos # Baso # Neutrophils % (Manual) Band Neutrophils % Lymphocytes % (Manual) Monocytes % (Manual) Metamyelocytes % Myelocytes % Blast Cells % Platelet Estimate Polychromasia Hypochromasia (manual) Poikilocytosis (manual Anisocytosis (manual) Macrocytosis (manual) Tear Drop Cells Ovalocytes Baltic Cells Acanthocytes (Spur) Schistocytes ESR PT 23.9 H INR 2.1 H APTT 41.6 H pCO2 pO2 HCO3 ABG pH ABG Total CO2 ABG O2 Saturation ABG O2 Content ABG Base Excess ABG Hemoglobin ABG Carboxyhemoglobin POC ABG HHb (Measured) ABG Methemoglobin ABG O2 Capacity Tylor Test A-a O2 Difference Hgb O2 Saturation FiO2 Sodium Potassium Chloride Carbon Dioxide Anion Gap BUN Creatinine Est GFR ( Amer) Est GFR (Non-Af Amer) Random Glucose Hemoglobin A1c Lactic Acid 1.0 Calcium Total Bilirubin AST ALT Alkaline Phosphatase Troponin I NT-Pro-B Natriuret Pep Total Protein Albumin Globulin Albumin/Globulin Ratio Triglycerides Cholesterol LDL Cholesterol Direct HDL Cholesterol Vitamin B12 Folate Procalcitonin TSH 3rd Generation HIV-1 Ab Rapid Screen Blood Type A POSITIVE Antibody Screen Negative Crossmatch See Detail BBK History Checked Patient has bt 06/20/17 06/20/17 06/20/17 00:40 00:47 00:55 WBC RBC Hgb Hct MCV MCH MCHC RDW Plt Count MPV Neut % (Auto) Lymph % (Auto) Mcduffie % (Auto) Eos % (Auto) Baso % (Auto) Neut # Lymph # Mcduffie # Eos # Baso # Neutrophils % (Manual) Band Neutrophils % Lymphocytes % (Manual) Monocytes % (Manual) Metamyelocytes % Myelocytes % Blast Cells % Platelet Estimate Polychromasia Hypochromasia (manual) Poikilocytosis (manual Anisocytosis (manual) Macrocytosis (manual) Tear Drop Cells Ovalocytes Angel Cells Acanthocytes (Spur) Schistocytes ESR 43 H PT INR APTT pCO2 pO2 HCO3 ABG pH ABG Total CO2 ABG O2 Saturation ABG O2 Content ABG Base Excess ABG Hemoglobin ABG Carboxyhemoglobin POC ABG HHb (Measured) ABG Methemoglobin ABG O2 Capacity Tylor Test A-a O2 Difference Hgb O2 Saturation FiO2 Sodium 138 Potassium 5.7 H Chloride 113 H Carbon Dioxide 15 L Anion Gap 16 BUN 55 H Creatinine 2.1 H Est GFR ( Amer) 37 Est GFR (Non-Af Amer) 30 Random Glucose 89 Hemoglobin A1c Lactic Acid Calcium 7.7 L Total Bilirubin 0.9 AST 66 H ALT 32 Alkaline Phosphatase 103 Troponin I NT-Pro-B Natriuret Pep Total Protein 6.8 Albumin 3.5 Globulin 3.3 Albumin/Globulin Ratio 1.1 Triglycerides Cholesterol LDL Cholesterol Direct HDL Cholesterol Vitamin B12 Folate Procalcitonin TSH 3rd Generation HIV-1 Ab Rapid Screen Non reactive Blood Type Antibody Screen Crossmatch BBK History Checked 06/20/17 06/20/17 06/20/17 08:40 09:51 09:51 WBC RBC Hgb Hct MCV MCH MCHC RDW Plt Count MPV Neut % (Auto) Lymph % (Auto) Mcduffie % (Auto) Eos % (Auto) Baso % (Auto) Neut # Lymph # Mcduffie # Eos # Baso # Neutrophils % (Manual) Band Neutrophils % Lymphocytes % (Manual) Monocytes % (Manual) Metamyelocytes % Myelocytes % Blast Cells % Platelet Estimate Polychromasia Hypochromasia (manual) Poikilocytosis (manual Anisocytosis (manual) Macrocytosis (manual) Tear Drop Cells Ovalocytes Angel Cells Acanthocytes (Spur) Schistocytes ESR PT INR APTT pCO2 pO2 HCO3 ABG pH ABG Total CO2 ABG O2 Saturation ABG O2 Content ABG Base Excess ABG Hemoglobin ABG Carboxyhemoglobin POC ABG HHb (Measured) ABG Methemoglobin ABG O2 Capacity Tylor Test A-a O2 Difference Hgb O2 Saturation FiO2 Sodium 140 Potassium 5.1 H Chloride 114 H Carbon Dioxide 16 L Anion Gap 15 BUN 60 H Creatinine 2.2 H Est GFR ( Amer) 35 Est GFR (Non-Af Amer) 29 Random Glucose 93 Hemoglobin A1c 5.3 Lactic Acid Calcium 7.7 L Total Bilirubin 1.2 AST 78 H ALT 33 Alkaline Phosphatase 89 Troponin I 6.5800 H* NT-Pro-B Natriuret Pep Total Protein 6.3 Albumin 3.2 L Globulin 3.1 Albumin/Globulin Ratio 1.1 Triglycerides 107 Cholesterol 58 LDL Cholesterol Direct < 30 HDL Cholesterol 15 L Vitamin B12 > 1000 H Folate 10.1 Procalcitonin TSH 3rd Generation 5.95 H HIV-1 Ab Rapid Screen Blood Type Antibody Screen Crossmatch BBK History Checked 06/20/17 06/20/17 06/20/17 13:45 16:09 16:09 WBC 31.1 H RBC 2.36 L Hgb 7.3 L Hct 23.2 L MCV 98.2 H D MCH 30.9 MCHC 31.5 L RDW 28.4 H Plt Count 265 MPV Neut % (Auto) Lymph % (Auto) Mcduffie % (Auto) Eos % (Auto) Baso % (Auto) Neut # Lymph # Mcduffie # Eos # Baso # Neutrophils % (Manual) Band Neutrophils % Lymphocytes % (Manual) Monocytes % (Manual) Metamyelocytes % Myelocytes % Blast Cells % Platelet Estimate Polychromasia Hypochromasia (manual) Poikilocytosis (manual Anisocytosis (manual) Macrocytosis (manual) Tear Drop Cells Ovalocytes Baltic Cells Acanthocytes (Spur) Schistocytes ESR PT INR APTT pCO2 22 L pO2 91 HCO3 17.1 L ABG pH 7.40 ABG Total CO2 14.3 L ABG O2 Saturation 100.6 H ABG O2 Content 10.5 L ABG Base Excess -10.0 L ABG Hemoglobin 7.7 L ABG Carboxyhemoglobin 3.6 H POC ABG HHb (Measured) -0.6 L ABG Methemoglobin 1.1 ABG O2 Capacity 10.4 L Tylor Test Yes A-a O2 Difference 81.0 Hgb O2 Saturation 95.9 FiO2 28.0 Sodium Potassium Chloride Carbon Dioxide Anion Gap BUN Creatinine Est GFR ( Amer) Est GFR (Non-Af Amer) Random Glucose Hemoglobin A1c Lactic Acid Calcium Total Bilirubin AST ALT Alkaline Phosphatase Troponin I NT-Pro-B Natriuret Pep Total Protein Albumin Globulin Albumin/Globulin Ratio Triglycerides Cholesterol LDL Cholesterol Direct HDL Cholesterol Vitamin B12 Folate Procalcitonin 0.94 H TSH 3rd Generation HIV-1 Ab Rapid Screen Blood Type Antibody Screen Crossmatch BBK History Checked 06/20/17 18:18 WBC RBC Hgb Hct MCV MCH MCHC RDW Plt Count MPV Neut % (Auto) Lymph % (Auto) Mcduffie % (Auto) Eos % (Auto) Baso % (Auto) Neut # Lymph # Mcduffie # Eos # Baso # Neutrophils % (Manual) Band Neutrophils % Lymphocytes % (Manual) Monocytes % (Manual) Metamyelocytes % Myelocytes % Blast Cells % Platelet Estimate Polychromasia Hypochromasia (manual) Poikilocytosis (manual Anisocytosis (manual) Macrocytosis (manual) Tear Drop Cells Ovalocytes Angel Cells Acanthocytes (Spur) Schistocytes ESR PT INR APTT pCO2 pO2 HCO3 ABG pH ABG Total CO2 ABG O2 Saturation ABG O2 Content ABG Base Excess ABG Hemoglobin ABG Carboxyhemoglobin POC ABG HHb (Measured) ABG Methemoglobin ABG O2 Capacity Tylor Test A-a O2 Difference Hgb O2 Saturation FiO2 Sodium Potassium Chloride Carbon Dioxide Anion Gap BUN Creatinine Est GFR ( Amer) Est GFR (Non-Af Amer) Random Glucose Hemoglobin A1c Lactic Acid Calcium Total Bilirubin AST ALT Alkaline Phosphatase Troponin I 6.0700 H* NT-Pro-B Natriuret Pep Total Protein Albumin Globulin Albumin/Globulin Ratio Triglycerides Cholesterol LDL Cholesterol Direct HDL Cholesterol Vitamin B12 Folate Procalcitonin TSH 3rd Generation HIV-1 Ab Rapid Screen Blood Type Antibody Screen Crossmatch BBK History Checked
--- NOTE | 2017-06-20 23:40 | US ---
EXAM: US Duplex Bilateral Lower Extremity Veins EXAM DATE/TIME: 06/19/2017 10:30 PM CLINICAL HISTORY: 82 years old, male; Pain; Leg, lower; Bilateral; Additional info: HX dvt TECHNIQUE: Real-time ultrasound scan of the veins of the bilateral lower extremities with color Doppler flow, spectral waveform analysis and compression. COMPARISON: There are no prior studies for comparison. FINDINGS: Right deep veins:Common femoral, superficial femoral, popliteal and posterior tibial veins were evaluated. Left deep veins:Common femoral, superficial femoral, popliteal and posterior tibial veins were evaluated. All veins examined are compressible. There are no intraluminal filling defects. There is expected blood flow on Doppler imaging. There is change in waveform with augmentation. Impression: No deep venous thrombosis in the visualized vascular segments of the lower extremities
[2017-06-21] MEDS: Meropenem 500 MG in Sodium Chloride 0.9% 100 ML IVPB SCH ×3 (00:26→16:44)
[2017-06-21 05:52] LABS: BASO # 0.2 K/uL (0.0-0.2); BASO % 0.6 % (0.0-2.0); EOS # 0.2 K/uL (0.0-0.7); EOS % 0.8 % (0.0-4.0); HEMATOCRIT 23.2 % (35.0-51.0); LYMPH % 6.9 % (20.0-40.0); MEAN CELL VOLUME 98.6 fl (80.0-94.0); MEAN CORPUSCULAR HEMOGLOBIN 31.1 pg (27.0-31.0); MEAN CORPUSCULAR HGB CONC 31.5 g/dL (33.0-37.0); MEAN PLATELET VOLUME 9.9 fl (7.2-11.7); MONO # 3.1 K/uL (0.0-0.8); MONO % 10.6 % (0.0-10.0); NEUT # 23.9 K/uL (1.8-7.0); NEUT % 81.1 % (50.0-75.0); RED CELL DISTRIBUTION WIDTH 28.2 % (11.5-14.5); WHITE BLOOD COUNT 29.5 K/uL (4.8-10.8)
[2017-06-21 05:59] LABS: BILIRUBIN,TOTAL 0.9 mg/dl (0.2-1.3); CALCIUM 7.4 mg/dL (8.4-10.2); POTASSIUM 4.6 MMOL/L (3.6-5.0)
[2017-06-21] MEDS ORDERED: cefTRIAXone IV 1 gm in Dextros 50 ML IVPB SCH (09:00)
--- NOTE | 2017-06-21 09:14 | CP.PCM.PN ---
Subjective - Date & Time of Evaluation Date of Evaluation: 06/21/17 Time of Evaluation: 08:00 - Subjective Subjective: Had PRBCs transfused with improvement in his Hb/HCT Denies orthopnoea during night Sinus rhythm at 80 BPM BP 100/64 mm Hg JVP flat Few rales at botj bases Ejection syst murmur of +/ S2 absent Echo reviewed Severe LV syst dysfunction (EF < 20%) + (Severe) MR/TR+ Daughter indicates pt has progressive dementia and confusion Surgical nature of explained to her She does not wish to subject her father to Sx Med Rx will be followed Prognosis explained Objective - Vital Signs/Intake and Output Vital Signs (last 24 hours): Temp Pulse Resp BP Pulse Ox 99.3 F 77 23 108/60 100 06/21/17 08:00 06/21/17 08:00 06/21/17 08:00 06/21/17 08:00 06/21/17 08:00 Intake and Output: 06/21/17 06/21/17 06:59 18:59 Intake Total 300 Output Total 850 Balance -550 - Medications Medications: Current Medications Acetaminophen (Tylenol 325mg Tab) 650 mg PO Q6H PRN PRN Reason: Fever >100.4 F Albuterol/Ipratropium (Duoneb 3 Mg/0.5 Mg (3 Ml) Ud) 3 ml INH RQ6 PRN PRN Reason: Shortness of Breath Azithromycin 500 mg/ Sodium (Chloride) 250 mls @ 250 mls/hr IVPB DAILY SATURNINO PRN Reason: Protocol Last Admin: 06/20/17 09:45 Dose: 250 mls/hr Meropenem 500 mg/ Sodium (Chloride) 100 mls @ 100 mls/hr IVPB Q8 SATURNINO PRN Reason: Protocol Last Admin: 06/21/17 00:26 Dose: 100 mls/hr Vancomycin HCl 500 mg/ Sodium (Chloride) 100 mls @ 100 mls/hr IVPB QOTHERDAY SATURNINO PRN Reason: Protocol Tramadol HCl (Ultram) 50 mg PO Q6 PRN PRN Reason: Pain, severe (8-10) - Labs Labs: 06/21/17 04:20 06/21/17 04:20 PT 23.9 Seconds (9.8-13.1) H 06/19/17 22:35 INR 2.1 (0.9-1.2) H 06/19/17 22:35 APTT 41.6 Seconds (25.6-37.1) H 06/19/17 22:35
[2017-06-21] MEDS: Azithromycin 500 MG in Sodium Chloride 0.9% 250 ML IVPB SCH (09:19)
--- NOTE | 2017-06-21 11:32 | CP.PCM.PN ---
Subjective - Date & Time of Evaluation Date of Evaluation: 06/21/17 Time of Evaluation: 07:20 - Subjective Subjective: No acute overnight events. Pt seen and evaluated at bedside this morning. Complains of freedman and SCD's. States he wants both removed as it is making him uncomfortable and difficult to get out of bed. Denies any SOB, CP, Cough, Calf pain, fever, or chills. Later in the morning, pt seen to be in good spirits surrounded by family members visiting. Objective - Vital Signs/Intake and Output Vital Signs (last 24 hours): Temp Pulse Resp BP Pulse Ox 99.3 F 77 23 108/60 100 06/21/17 08:00 06/21/17 08:00 06/21/17 08:00 06/21/17 08:00 06/21/17 08:00 Intake and Output: 06/21/17 06/21/17 06:59 18:59 Intake Total 300 Output Total 850 Balance -550 - Medications Medications: Current Medications Acetaminophen (Tylenol 325mg Tab) 650 mg PO Q6H PRN PRN Reason: Fever >100.4 F Albuterol/Ipratropium (Duoneb 3 Mg/0.5 Mg (3 Ml) Ud) 3 ml INH RQ6 PRN PRN Reason: Shortness of Breath Allopurinol (Zyloprim) 100 mg PO DAILY SATURNINO Azithromycin 500 mg/ Sodium (Chloride) 250 mls @ 250 mls/hr IVPB DAILY SATURNINO PRN Reason: Protocol Last Admin: 06/21/17 09:19 Dose: 250 mls/hr Meropenem 500 mg/ Sodium (Chloride) 100 mls @ 100 mls/hr IVPB Q8 SATURNINO PRN Reason: Protocol Last Admin: 06/21/17 09:18 Dose: 100 mls/hr Vancomycin HCl 500 mg/ Sodium (Chloride) 100 mls @ 100 mls/hr IVPB QOTHERDAY SATURNINO PRN Reason: Protocol Levothyroxine Sodium (Synthroid) 100 mcg PO DAILY@0630 SATURNINO Tramadol HCl (Ultram) 50 mg PO Q6 PRN PRN Reason: Pain, severe (8-10) - Labs Labs: 06/21/17 04:20 06/21/17 04:20 PT 23.9 Seconds (9.8-13.1) H 06/19/17 22:35 INR 2.1 (0.9-1.2) H 06/19/17 22:35 APTT 41.6 Seconds (25.6-37.1) H 06/19/17 22:35 - Constitutional Appears: Well, Non-toxic, No Acute Distress - Head Exam Head Exam: NORMAL INSPECTION - ENT Exam ENT Exam: Mucous Membranes Moist - Respiratory Exam Respiratory Exam: Rales (Bibasilar rales appreciated up to mid lung bases BL). absent: Accessory Muscle Use, Wheezes, Respiratory Distress - Cardiovascular Exam Cardiovascular Exam: REGULAR RHYTHM, +S1, +S2. absent: JVD, Murmur - GI/Abdominal Exam GI & Abdominal Exam: Soft, Normal Bowel Sounds. absent: Tenderness - Extremities Exam Extremities Exam: Normal Inspection. absent: Calf Tenderness, Pedal Edema - Neurological Exam Neurological Exam: Alert, Awake - Skin Skin Exam: Normal Color Assessment and Plan - Assessment and Plan (Free Text) Assessment: 82 yo male w/ PMHx of Myelodysplastic disorder, CHF, severe Aortic Stenosis, CKD , Hx of DVT/PE s/p IVC filter admitted for management of Pneumonia and acute CHF exacerbation. Spoke with pt's daughter, Faye, today with regards to the patients conditions. Family is aware of the severity of his acute heart failure secondary to severe aortic stenosis and have deferred valve replacement. They have decided on home-hospice care for the patient. Present at meeting was Dr. Dejuan Robertson, Dr. Murphy, and myself. Plan for DC tomorrow upon pending home /hospice preparations. Plan: HCAP, acute -Cough improving, afebrile for 24 hours. White count trending down 29.5 today -Pt's [facility] discharge from [facility] on 03/26/17 which places him at risk for HCAP -ID consult w/ Dr. Banda- C/w Empiric ABX coverage Vanco, Meropenem, and Azithro -Sputum gram stain: Few Gram Negative Rods, Few Gram Positive Cocci, Many PMNS, Sputum Cx pending -Procalcitonin elevate at -MRSA Cx nares not detected; BCx-no growth in 24 hours -Continue duonebs Q6h PRN PLAN: Plan is for D/C tomorrow with PO Abx: Azithromycin and Clindimycin. F/U Sputum Cx Acute Congestive Heart Failure -Clinically, patient is asymptomatic- no SOB, Cough, LE Swelling. On PE, no JVD noted, +Bibasilar crackles to mid lung bases indicating active pulmonary congestion. -Cxray (06/19) impressive for BL opacities. Chest CT: moderate pulmonary edema -Troponinemia currently on the downward trend, 6.1 today. Likely 2/2 to left ventricular strain from CHF and CKD. -Nt-pro-bnp: 45995, prior value in 02/2016: 4200 -EKG on 06/20/17: sinus rhythm with premature supraventricular complexes. ST and T wave abnormality,consider lateral ischemia. -ECHO done today, EF 40-45%, discussed findings with Dr. Sevilla ( last ECHO on : LVEF 45-50%). Cardiology on board. -Started pt on Lasix 20mg PO daily for fluid overload as BP tolerated. BP has been in low 100's sytolic. -Hospice consult placed for Acute systolic CHF as per family's request. -Freedman Removed PLAN: Continue to Diurese. On D/C, will continue patient with PO Lasix 20mg to be taken every other day. Patient will have home O2. Severe anemia, resolving -Asymptomatic -Hb 5.5 on admission, received 2 units of PRBC -7.3 today, Baseline chronic anemia with Hg of 8-9 -B12: >1000 -f/u folate -FOBT:ordered PLAN: Follow am CBC Chronic Kidney Disease -BUN/Cr: 60/2.2 (pt's baseline level) -Lasix IV as above to prevent worsening fluid overload Diet -renal/heart healthy Code Status: -DNR/DNI DVT Prophylaxis: -hemoptysis -IVC filter -SCDs
--- NOTE | 2017-06-21 11:32 | CARD ---
APPROVED REPORT EXAM: Two-dimensional and M-mode echocardiogram with Doppler and color Doppler. Other Information Quality : GoodRhythm : NSR INDICATION Dyspnea Peripheral Edema 2D DIMENSIONS IVSd0.87 (0.7-1.1cm)LVDd5.05 (3.9-5.9cm) LVOT Diameter2.17 (1.8-2.4cm)PWd0.96 (0.7-1.1cm) IVSs0.87 (0.8-1.2cm)LVDs3.86 (2.5-4.0cm) FS (%) 23.5 %PWs1.25 (0.8-1.2cm) M-Mode DIMENSIONS Left Atrium (MM)3.74 (2.5-4.0cm)IVSd0.46 (0.7-1.1cm) Aortic Root3.41 (2.2-3.7cm)LVDd7.58 (4.0-5.6cm) PWd0.86 (0.7-1.1cm)IVSs0.69 cm FS (%) 17 %LVDs6.29 (2.0-3.8cm) PWs0.73 cm Aortic Valve AoV Peak Yzhhxmed608.3cm/sAoV VTI44.2cmAO Peak GR.18mmHg LVOT Peak Fwyyczja13.1cm/sLVOT VTI17.46cmAO Mean GR.11mmHg KALEY (VMAX)0.06bh8JUG (VTI)0.95cm2 Mitral Valve MV E Mpzqdarc53.5cm/sMV DECEL [id number] A Lbddrcfu59.3cm/s MV NBB29agM/A ratio1.5MVA (PHT)3.90cm2 TDI Lateral E' Peak V7.09cm/sMedial E' Peak V5.54cm/sE/Lateral E'11.9 E/Medial E'15.3 Tricuspid Valve TR Peak [id number]/sRAP [id number] Peak Gr.31mmHg [id number] LEFT VENTRICLE The left ventricle is normal size. There is normal left ventricular wall thickness. The systolic function is moderately impaired. The Ejection Fraction is <20%. There is global hypokinesis of the left ventricle. The left ventricular diastolic function is normal. No left ventricle thrombus noted on this study. There is no mass noted in the left ventricle. RIGHT VENTRICLE The right ventricle is normal size. There is normal right ventricular wall thickness. The right ventricular systolic function is normal. ATRIA The left atrium size is normal. The right atrium size is normal. AORTIC VALVE The aortic valve is normal in structure. No aortic regurgitation is present. There is moderate valvular aortic stenosis. MITRAL VALVE The mitral valve is normal in structure. There is no mitral valve stenosis. Mitral regurgitation is mild. TRICUSPID VALVE The tricuspid valve is normal in structure. There is no tricuspid valve regurgitation noted. There is no tricuspid valve stenosis. PULMONIC VALVE The pulmonary valve is normal in structure. There is no pulmonic valvular regurgitation. GREAT VESSELS The aortic root is normal in size. The IVC is normal in size and collapses >50% with inspiration. PERICARDIAL EFFUSION The pericardium appears normal. <Conclusion> The left ventricle is normal size. The systolic function is moderately impaired. The Ejection Fraction is <20%. There is global hypokinesis of the left ventricle. There is moderate valvular aortic stenosis. Mitral regurgitation is mild.
--- NOTE | 2017-06-21 12:15 | CP.PCM.PN ---
Subjective - Date & Time of Evaluation Date of Evaluation: 06/21/17 Time of Evaluation: 12:30 - Subjective Subjective: ID note- Pt. seen and examined today in ICU. Pt. is awake and alert with his at his bedside. pt. states he feels better today and his breathing is more comfortable today. denies any fever. Objective - Vital Signs/Intake and Output Vital Signs (last 24 hours): Temp Pulse Resp BP Pulse Ox 99.3 F 77 23 108/60 100 06/21/17 08:00 06/21/17 08:00 06/21/17 08:00 06/21/17 08:00 06/21/17 08:00 Intake and Output: 06/21/17 06/21/17 06:59 18:59 Intake Total 300 Output Total 850 Balance -550 - Medications Medications: Current Medications Acetaminophen (Tylenol 325mg Tab) 650 mg PO Q6H PRN PRN Reason: Fever >100.4 F Albuterol/Ipratropium (Duoneb 3 Mg/0.5 Mg (3 Ml) Ud) 3 ml INH RQ6 PRN PRN Reason: Shortness of Breath Allopurinol (Zyloprim) 100 mg PO DAILY SATURNINO Azithromycin 500 mg/ Sodium (Chloride) 250 mls @ 250 mls/hr IVPB DAILY SATURNINO PRN Reason: Protocol Last Admin: 06/21/17 09:19 Dose: 250 mls/hr Meropenem 500 mg/ Sodium (Chloride) 100 mls @ 100 mls/hr IVPB Q8 SATURNINO PRN Reason: Protocol Last Admin: 06/21/17 09:18 Dose: 100 mls/hr Vancomycin HCl 500 mg/ Sodium (Chloride) 100 mls @ 100 mls/hr IVPB QOTHERDAY SATURNINO PRN Reason: Protocol Levothyroxine Sodium (Synthroid) 100 mcg PO DAILY@0630 SATURNINO Tramadol HCl (Ultram) 50 mg PO Q6 PRN PRN Reason: Pain, severe (8-10) - Labs Labs: - Additional Findings Additional findings: - Constitutional Appears: No Acute Distress - Head Exam Head Exam: ATRAUMATIC - Eye Exam Eye Exam: EOMI, PERRL - ENT Exam ENT Exam: Normal Oropharynx - Neck Exam Neck exam: Positive for: Full Rom Additional comments: supple - Respiratory Exam Respiratory Exam: NORMAL BREATHING PATTERN Additional comments: No wheezing slight crackles at left base only good aeration b/l - Cardiovascular Exam Cardiovascular Exam: RRR, +S1, +S2 Additional comments: 3/6 ejection murmur heard at LSB - GI/Abdominal Exam GI & Abdominal Exam: Normal Bowel Sounds, Soft Additional comments: NT, ND - Extremities Exam Extremities exam: Positive for: normal inspection - Neurological Exam Neurological exam: Alert, Oriented x 3 Laboratory Results - last 72 hr 06/19/17 06/19/17 06/19/17 19:59 21:03 22:35 WBC RBC Hgb Hct MCV MCH MCHC RDW Plt Count MPV Neut % (Auto) Lymph % (Auto) [place] % (Auto) Eos % (Auto) Baso % (Auto) Neut # Lymph # [place] # Eos # Baso # Neutrophils % (Manual) Band Neutrophils % Lymphocytes % (Manual) Monocytes % (Manual) Metamyelocytes % Myelocytes % Blast Cells % Platelet Estimate Polychromasia Hypochromasia (manual) Poikilocytosis (manual Anisocytosis (manual) Macrocytosis (manual) Tear Drop Cells Ovalocytes [place] Cells Acanthocytes (Spur) Schistocytes ESR PT INR APTT pCO2 pO2 HCO3 ABG pH ABG Total CO2 ABG O2 Saturation ABG O2 Content ABG Base Excess ABG Hemoglobin ABG Carboxyhemoglobin POC ABG HHb (Measured) ABG Methemoglobin ABG O2 Capacity [place] Test A-a O2 Difference Hgb O2 Saturation FiO2 Sodium Potassium Chloride Carbon Dioxide Anion Gap BUN Creatinine Est GFR ( Amer) Est GFR (Non-Af Amer) Random Glucose Hemoglobin A1c Lactic Acid 1.9 Calcium Total Bilirubin AST ALT Alkaline Phosphatase Troponin I 3.5700 H* NT-Pro-B Natriuret Pep 51695 H Total Protein Albumin Globulin Albumin/Globulin Ratio Triglycerides Cholesterol LDL Cholesterol Direct HDL Cholesterol Vitamin B12 Folate Procalcitonin TSH 3rd Generation HIV-1 Ab Rapid Screen Influenza Typ A,B (EIA) Negative for flu a/b Blood Type Antibody Screen Crossmatch BBK History Checked 06/19/17 06/19/17 06/20/17 22:35 22:35 00:01 WBC 36.3 H D RBC 1.61 L Hgb 5.5 L* D Hct 18.6 L MCV 115.1 H D MCH 34.4 H MCHC 29.9 L RDW 22.1 H Plt Count 319 MPV 11.1 Neut % (Auto) 93.4 H Lymph % (Auto) 4.6 L [place] % (Auto) 0.8 Eos % (Auto) 0.7 Baso % (Auto) 0.5 Neut # 33.9 H Lymph # 1.7 [place] # 0.3 Eos # 0.2 Baso # 0.2 Neutrophils % (Manual) 77 H Band Neutrophils % 8 H Lymphocytes % (Manual) 6 L Monocytes % (Manual) 4 Metamyelocytes % 2 H Myelocytes % 1 H Blast Cells % 2 H Platelet Estimate Normal Polychromasia Slight Hypochromasia (manual) Moderate Poikilocytosis (manual Moderate Anisocytosis (manual) Moderate Macrocytosis (manual) Marked Tear Drop Cells Slight Ovalocytes Slight [place] Cells Moderate Acanthocytes (Spur) Schistocytes Moderate ESR PT 23.9 H INR 2.1 H APTT 41.6 H pCO2 pO2 HCO3 ABG pH ABG Total CO2 ABG O2 Saturation ABG O2 Content ABG Base Excess ABG Hemoglobin ABG Carboxyhemoglobin POC ABG HHb (Measured) ABG Methemoglobin ABG O2 Capacity [place] Test A-a O2 Difference Hgb O2 Saturation FiO2 Sodium Potassium Chloride Carbon Dioxide Anion Gap BUN Creatinine Est GFR ( Amer) Est GFR (Non-Af Amer) Random Glucose Hemoglobin A1c Lactic Acid Calcium Total Bilirubin AST ALT Alkaline Phosphatase Troponin I NT-Pro-B Natriuret Pep Total Protein Albumin Globulin Albumin/Globulin Ratio Triglycerides Cholesterol LDL Cholesterol Direct HDL Cholesterol Vitamin B12 Folate Procalcitonin TSH 3rd Generation HIV-1 Ab Rapid Screen Influenza Typ A,B (EIA) Blood Type A POSITIVE Antibody Screen Negative Crossmatch See Detail BBK History Checked Patient has bt 06/20/17 06/20/17 06/20/17 00:40 00:40 00:47 WBC RBC Hgb Hct MCV MCH MCHC RDW Plt Count MPV Neut % (Auto) Lymph % (Auto) [place] % (Auto) Eos % (Auto) Baso % (Auto) Neut # Lymph # [place] # Eos # Baso # Neutrophils % (Manual) Band Neutrophils % Lymphocytes % (Manual) Monocytes % (Manual) Metamyelocytes % Myelocytes % Blast Cells % Platelet Estimate Polychromasia Hypochromasia (manual) Poikilocytosis (manual Anisocytosis (manual) Macrocytosis (manual) Tear Drop Cells Ovalocytes [place] Cells Acanthocytes (Spur) Schistocytes ESR PT INR APTT pCO2 pO2 HCO3 ABG pH ABG Total CO2 ABG O2 Saturation ABG O2 Content ABG Base Excess ABG Hemoglobin ABG Carboxyhemoglobin POC ABG HHb (Measured) ABG Methemoglobin ABG O2 Capacity [place] Test A-a O2 Difference Hgb O2 Saturation FiO2 Sodium 138 Potassium 5.7 H Chloride 113 H Carbon Dioxide 15 L Anion Gap 16 BUN 55 H Creatinine 2.1 H Est GFR ( Amer) 37 Est GFR (Non-Af Amer) 30 Random Glucose 89 Hemoglobin A1c Lactic Acid 1.0 Calcium 7.7 L Total Bilirubin 0.9 AST 66 H ALT 32 Alkaline Phosphatase 103 Troponin I NT-Pro-B Natriuret Pep Total Protein 6.8 Albumin 3.5 Globulin 3.3 Albumin/Globulin Ratio 1.1 Triglycerides Cholesterol LDL Cholesterol Direct HDL Cholesterol Vitamin B12 Folate Procalcitonin TSH 3rd Generation HIV-1 Ab Rapid Screen Non reactive Influenza Typ A,B (EIA) Blood Type Antibody Screen Crossmatch BBK History Checked 06/20/17 06/20/17 06/20/17 00:55 08:40 09:51 WBC RBC Hgb Hct MCV MCH MCHC RDW Plt Count MPV Neut % (Auto) Lymph % (Auto) [place] % (Auto) Eos % (Auto) Baso % (Auto) Neut # Lymph # [place] # Eos # Baso # Neutrophils % (Manual) Band Neutrophils % Lymphocytes % (Manual) Monocytes % (Manual) Metamyelocytes % Myelocytes % Blast Cells % Platelet Estimate Polychromasia Hypochromasia (manual) Poikilocytosis (manual Anisocytosis (manual) Macrocytosis (manual) Tear Drop Cells Ovalocytes [place] Cells Acanthocytes (Spur) Schistocytes ESR 43 H PT INR APTT pCO2 pO2 HCO3 ABG pH ABG Total CO2 ABG O2 Saturation ABG O2 Content ABG Base Excess ABG Hemoglobin ABG Carboxyhemoglobin POC ABG HHb (Measured) ABG Methemoglobin ABG O2 Capacity [place] Test A-a O2 Difference Hgb O2 Saturation FiO2 Sodium 140 Potassium 5.1 H Chloride 114 H Carbon Dioxide 16 L Anion Gap 15 BUN 60 H Creatinine 2.2 H Est GFR ( Amer) 35 Est GFR (Non-Af Amer) 29 Random Glucose 93 Hemoglobin A1c Lactic Acid Calcium 7.7 L Total Bilirubin 1.2 AST 78 H ALT 33 Alkaline Phosphatase 89 Troponin I 6.5800 H* NT-Pro-B Natriuret Pep Total Protein 6.3 Albumin 3.2 L Globulin 3.1 Albumin/Globulin Ratio 1.1 Triglycerides 107 Cholesterol 58 LDL Cholesterol Direct < 30 HDL Cholesterol 15 L Vitamin B12 > 1000 H Folate 10.1 Procalcitonin TSH 3rd Generation 5.95 H HIV-1 Ab Rapid Screen Influenza Typ A,B (EIA) Blood Type Antibody Screen Crossmatch BBK History Checked 06/20/17 06/20/17 06/20/17 09:51 13:45 16:09 WBC RBC Hgb Hct MCV MCH MCHC RDW Plt Count MPV Neut % (Auto) Lymph % (Auto) [place] % (Auto) Eos % (Auto) Baso % (Auto) Neut # Lymph # [place] # Eos # Baso # Neutrophils % (Manual) Band Neutrophils % Lymphocytes % (Manual) Monocytes % (Manual) Metamyelocytes % Myelocytes % Blast Cells % Platelet Estimate Polychromasia Hypochromasia (manual) Poikilocytosis (manual Anisocytosis (manual) Macrocytosis (manual) Tear Drop Cells Ovalocytes [place] Cells Acanthocytes (Spur) Schistocytes ESR PT INR APTT pCO2 22 L pO2 91 HCO3 17.1 L ABG pH 7.40 ABG Total CO2 14.3 L ABG O2 Saturation 100.6 H ABG O2 Content 10.5 L ABG Base Excess -10.0 L ABG Hemoglobin 7.7 L ABG Carboxyhemoglobin 3.6 H POC ABG HHb (Measured) -0.6 L ABG Methemoglobin 1.1 ABG O2 Capacity 10.4 L [place] Test Yes A-a O2 Difference 81.0 Hgb O2 Saturation 95.9 FiO2 28.0 Sodium Potassium Chloride Carbon Dioxide Anion Gap BUN Creatinine Est GFR ( Amer) Est GFR (Non-Af Amer) Random Glucose Hemoglobin A1c 5.3 Lactic Acid Calcium Total Bilirubin AST ALT Alkaline Phosphatase Troponin I NT-Pro-B Natriuret Pep Total Protein Albumin Globulin Albumin/Globulin Ratio Triglycerides Cholesterol LDL Cholesterol Direct HDL Cholesterol Vitamin B12 Folate Procalcitonin 0.94 H TSH 3rd Generation HIV-1 Ab Rapid Screen Influenza Typ A,B (EIA) Blood Type Antibody Screen Crossmatch BBK History Checked 06/20/17 06/20/17 06/21/17 16:09 18:18 04:20 WBC 31.1 H 29.5 H RBC 2.36 L 2.35 L Hgb 7.3 L 7.3 L Hct 23.2 L 23.2 L MCV 98.2 H D 98.6 H MCH 30.9 31.1 H MCHC 31.5 L 31.5 L RDW 28.4 H 28.2 H Plt Count 265 266 MPV 9.9 Neut % (Auto) 81.1 H Lymph % (Auto) 6.9 L [place] % (Auto) 10.6 H Eos % (Auto) 0.8 Baso % (Auto) 0.6 Neut # 23.9 H Lymph # 2.0 [place] # 3.1 H Eos # 0.2 Baso # 0.2 Neutrophils % (Manual) Band Neutrophils % Lymphocytes % (Manual) Monocytes % (Manual) Metamyelocytes % Myelocytes % Blast Cells % Platelet Estimate Polychromasia Hypochromasia (manual) Poikilocytosis (manual Anisocytosis (manual) Macrocytosis (manual) Tear Drop Cells Ovalocytes [place] Cells Acanthocytes (Spur) Schistocytes ESR PT INR APTT pCO2 pO2 HCO3 ABG pH ABG Total CO2 ABG O2 Saturation ABG O2 Content ABG Base Excess ABG Hemoglobin ABG Carboxyhemoglobin POC ABG HHb (Measured) ABG Methemoglobin ABG O2 Capacity [place] Test A-a O2 Difference Hgb O2 Saturation FiO2 Sodium Potassium Chloride Carbon Dioxide Anion Gap BUN Creatinine Est GFR ( Amer) Est GFR (Non-Af Amer) Random Glucose Hemoglobin A1c Lactic Acid Calcium Total Bilirubin AST ALT Alkaline Phosphatase Troponin I 6.0700 H* NT-Pro-B Natriuret Pep Total Protein Albumin Globulin Albumin/Globulin Ratio Triglycerides Cholesterol LDL Cholesterol Direct HDL Cholesterol Vitamin B12 Folate Procalcitonin TSH 3rd Generation HIV-1 Ab Rapid Screen Influenza Typ A,B (EIA) Blood Type Antibody Screen Crossmatch BBK History Checked 06/21/17 04:20 WBC RBC Hgb Hct MCV MCH MCHC RDW Plt Count MPV Neut % (Auto) Lymph % (Auto) [place] % (Auto) Eos % (Auto) Baso % (Auto) Neut # Lymph # [place] # Eos # Baso # Neutrophils % (Manual) Band Neutrophils % Lymphocytes % (Manual) Monocytes % (Manual) Metamyelocytes % Myelocytes % Blast Cells % Platelet Estimate Polychromasia Hypochromasia (manual) Poikilocytosis (manual Anisocytosis (manual) Macrocytosis (manual) Tear Drop Cells Ovalocytes [place] Cells Acanthocytes (Spur) Schistocytes ESR PT INR APTT pCO2 pO2 HCO3 ABG pH ABG Total CO2 ABG O2 Saturation ABG O2 Content ABG Base Excess ABG Hemoglobin ABG Carboxyhemoglobin POC ABG HHb (Measured) ABG Methemoglobin ABG O2 Capacity [place] Test A-a O2 Difference Hgb O2 Saturation FiO2 Sodium 142 Potassium 4.6 Chloride 115 H Carbon Dioxide 15 L Anion Gap 17 BUN 59 H Creatinine 2.2 H Est GFR ( Amer) 35 Est GFR (Non-Af Amer) 29 Random Glucose 89 Hemoglobin A1c Lactic Acid Calcium 7.4 L Total Bilirubin 0.9 AST 50 ALT 38 Alkaline Phosphatase 86 Troponin I NT-Pro-B Natriuret Pep Total Protein 6.0 L Albumin 3.1 L Globulin 2.9 Albumin/Globulin Ratio 1.0 Triglycerides Cholesterol LDL Cholesterol Direct HDL Cholesterol Vitamin B12 Folate Procalcitonin TSH 3rd Generation HIV-1 Ab Rapid Screen Influenza Typ A,B (EIA) Blood Type Antibody Screen Crossmatch BBK History Checked Microbiology 06/20/17 06:06 Nose MRSA Culture (Admit) - Final MRSA NOT DETECTED 06/20/17 10:07 Sputum Gram Stain - Final 06/19/17 20:49 Blood Blood Culture - Preliminary NO GROWTH AFTER 24 HOURS 06/19/17 21:03 Blood Blood Culture - Preliminary NO GROWTH AFTER 24 HOURS Assessment and Plan (1) Cough Status: Acute (2) Hemoptysis Status: Acute (3) Leukocytosis Status: Acute (4) Pulmonary edema Status: Acute - Assessment and Plan (Free Text) Assessment: A/P- 82 year old male with multiple medical conditions including aortic stenosis, myeloproliferative disease, hypothyroidism dvt s/p IVC filter in 03/2017 who is admitted with sob and blood tinged sputum with cough . clinically loos and feels better today. afebrile leukocytosis trending down slowly. blood cx- neg x 2 sputum cx- pending PLan- await urine legionella ag and serum mycoplasma results. advise to continue with IV zithromax to cover for atypicals. day #3 advise to continue with IV Meropenem . day #2 would also advise to continue with empiric vanco (renal dose ) to cover empirically for MRSA as well. day #2 keep trough <15. would also advise to get pulm consult, pt may need bronch if no improvement . ICU time 45 minutes.
--- NOTE | 2017-06-21 12:42 | CP.CCUPN ---
CCU Subjective - Physician Review Subjective (Free Text): Remains awake and responsive, denies any chest discomfort now, no further hemoptysis, denies any SOB nor chest discomfort at bed rest. No further T spikes overnight, denies any chills or diaphoresis. Other vitals and I/O's reviewed. ROS: No other pertinent negs or positives on 10+ system review. PMSFH: All other Nursing and physician documentation reviewed to date; no new pertinent info noted relevant to current medical problems. IMPRESSION / MAJOR PROBLEMS NOW: 1. Acute resp insuff with bilateral Pulm Vasc Congestion vs bilateral pneumonia, both with assoc hemoptysis; vs. Acute PTE 2. Acute / Subacute IN 3. Severe Anemia, r/o GI Blood Loss (r/o Heyde Syndrome) 4. Coagulopathy PLAN: ` 1. Would transfuse more PRBCs given +Trops. 2.. Present lung opacities could explain and account for hypoxemia. Auto- anticoagulation noted as well. If PTE is apparent and found to be present, poor risk for full therapeutic AC given unexplained anemia. 3. PCT level is very low. Repeat CXR now. Empiric abx coverage noted with John Lerner. Pulm eval, appropriateness for FOB. Consider broadening coverage for nosocomial organisms with h/o recent hospitalizations. 3. ECHO reviewed. Still severe , family deferring valve replacment. 4. ABG does not match CXR findings, better than expected. 5. Details on Myeloproliferative Disease, leukocytosis apparent. Present wbc elevation appears acute compared to previous visits. 6. Stable for Tele Bed. CCU Objective - Vital Signs / Intake & Output Vital Signs (Last 4 hours): Afebrile, HR 70, RR 18, SPO2 98% on nasal cannula, SBP 110 Intake and Output (Last 8hrs): Intake & Output 06/20/17 06/21/17 06/21/17 22:59 06:59 14:59 Intake Total 520 300 Output Total 500 850 Balance 20 -550 Weight 121 lb 12.8 oz Intake: IV 100 Intake, Piggyback 100 Oral 420 200 Output: Urine 500 850 Urethral (Ortega) 500 850 - Physical Exam Head: Positive for: Normocephalic Pupils: Positive for: PERRL Extroacular Muscles: Positive for: EOMI Conjunctiva: Positive for: Normal. Negative for: Icteric Mouth: Positive for: Moist Mucous Membranes Neck: Positive for: Normal Range of Motion. Negative for: JVD Respiratory/Chest: Positive for: Decreased Breath Sounds, Rales, Rhonchi. Negative for: Respiratory Distress Cardiovascular: Positive for: Regular Rate and Rhythm, Murmurs (apical systolic 2-3/6 murmur) Abdomen: Positive for: Normal Bowel Sounds. Negative for: Tenderness, Distention, Mass/Organomegaly Lower Extremity: Positive for: NORMAL PULSES. Negative for: CALF TENDERNESS, Cyanosis Neurological: Positive for: GCS=15, Motor Func Grossly Intact, Normal Sensory Function Skin: Positive for: Warm, Dry. Negative for: Rashes Psychiatric: Positive for: Alert, Oriented x 3 - Medications Active Medications: Active Medications Generic Name Dose Route Start Last Admin Trade Name Freq PRN Reason Stop Dose Admin Acetaminophen 650 mg 06/19/17 23:49 Tylenol 325mg Tab PO Q6H PRN Fever >100.4 F Albuterol/Ipratropium 3 ml 06/20/17 02:46 Duoneb 3 Mg/0.5 Mg (3 Ml) Ud INH RQ6 PRN Shortness of Breath Allopurinol 100 mg 06/21/17 10:45 Zyloprim PO DAILY [facility] Azithromycin 500 mg/ Sodium 250 mls @ 250 mls/hr 06/20/17 09:00 06/21/17 09: 19 Chloride IVPB 250 mls/hr DAILY SATURNINO Administration Protocol Meropenem 500 mg/ Sodium 100 mls @ 100 mls/hr 06/20/17 17:00 06/21/17 09:18 Chloride IVPB 100 mls/hr Q8 SATURNINO Administration Protocol Vancomycin HCl 500 mg/ Sodium 100 mls @ 100 mls/hr 06/22/17 09:00 Chloride IVPB QOTHERDAY [facility] Protocol Levothyroxine Sodium 100 mcg 06/22/17 06:30 Synthroid PO DAILY@0630 [facility] Tramadol HCl 50 mg 06/20/17 02:57 Ultram PO Q6 PRN Pain, severe (8-10) - Patient Studies Lab Studies: Microbiology Studies 06/20/17 06:06 MRSA Culture (Admit) - Final Nose MRSA NOT DETECTED 06/20/17 10:07 Gram Stain - Final Sputum 06/19/17 20:49 Blood Culture - Preliminary Blood NO GROWTH AFTER 24 HOURS 06/19/17 21:03 Blood Culture - Preliminary Blood NO GROWTH AFTER 24 HOURS Lab Studies 06/21/17 06/21/17 06/20/17 Range/Units 04:20 04:20 18:18 WBC 29.5 H (4.8-10.8) K/uL RBC 2.35 L (4.40-5.90) Mil/uL Hgb 7.3 L (12.0-18.0) g/dL Hct 23.2 L (35.0-51.0) % MCV 98.6 H (80.0-94.0) fl MCH 31.1 H (27.0-31.0) pg MCHC 31.5 L (33.0-37.0) g/dL RDW 28.2 H (11.5-14.5) % Plt Count 266 (130-400) K/uL MPV 9.9 (7.2-11.7) fl Neut % (Auto) 81.1 H (50.0-75.0) % Lymph % (Auto) 6.9 L (20.0-40.0) % [place] % (Auto) 10.6 H (0.0-10.0) % Eos % (Auto) 0.8 (0.0-4.0) % Baso % (Auto) 0.6 (0.0-2.0) % Neut # 23.9 H (1.8-7.0) K/uL Lymph # 2.0 (1.0-4.3) K/uL [place] # 3.1 H (0.0-0.8) K/uL Eos # 0.2 (0.0-0.7) K/uL Baso # 0.2 (0.0-0.2) K/uL Neutrophils % (Manual) (42-75) % Band Neutrophils % (0-2) % Lymphocytes % (Manual) (20-50) % Monocytes % (Manual) (0-10) % Metamyelocytes % (0-0) % Myelocytes % (0-0) % Blast Cells % (0-0) % Platelet Estimate (NORMAL) Polychromasia Hypochromasia (manual) Poikilocytosis (manual Anisocytosis (manual) Macrocytosis (manual) Tear Drop Cells Ovalocytes [place] Cells Acanthocytes (Spur) Schistocytes pCO2 (35-45) mm/Hg pO2 (80-100) mm/Hg HCO3 (21-28) mmol/L ABG pH (7.35-7.45) ABG Total CO2 (22-28) mmol/L ABG O2 Saturation (95-98) % ABG O2 Content (15-23) ML/dL ABG Base Excess (-2.0-3.0) mmol/L ABG Hemoglobin (11.7-17.4) g/dL ABG Carboxyhemoglobin (0.5-1.5) % POC ABG HHb (Measured) (0.0-5.0) % ABG Methemoglobin (0.0-3.0) % ABG O2 Capacity (16-24) mL/dL Tylor Test A-a O2 Difference mm/Hg Hgb O2 Saturation (95.0-98.0) % FiO2 % Sodium 142 (132-148) mmol/l Potassium 4.6 (3.6-5.0) MMOL/L Chloride 115 H (98-107) mmol/L Carbon Dioxide 15 L (22-30) mmol/L Anion Gap 17 (10-20) BUN 59 H (9-20) mg/dl Creatinine 2.2 H (0.8-1.5) mg/dl Est GFR ( Amer) 35 Est GFR (Non-Af Amer) 29 Random Glucose 89 (75-110) mg/dL Hemoglobin A1c (4.2-6.5) % Calcium 7.4 L (8.4-10.2) mg/dL Total Bilirubin 0.9 (0.2-1.3) mg/dl AST 50 (17-59) U/L ALT 38 (21-72) U/L Alkaline Phosphatase 86 (38-126) U/L Troponin I 6.0700 H* (0.00-0.120) ng/mL Total Protein 6.0 L (6.3-8.2) G/DL Albumin 3.1 L (3.5-5.0) g/dL Globulin 2.9 (2.2-3.9) gm/dL Albumin/Globulin Ratio 1.0 (1.0-2.1) Folate ng/mL Procalcitonin (0.19-0.49) NG/ML 06/20/17 06/20/17 06/20/17 Range/Units 16:09 16:09 13:45 WBC 31.1 H (4.8-10.8) K/uL RBC 2.36 L (4.40-5.90) Mil/uL Hgb 7.3 L (12.0-18.0) g/dL Hct 23.2 L (35.0-51.0) % MCV 98.2 H D (80.0-94.0) fl MCH 30.9 (27.0-31.0) pg MCHC 31.5 L (33.0-37.0) g/dL RDW 28.4 H (11.5-14.5) % Plt Count 265 (130-400) K/uL MPV (7.2-11.7) fl Neut % (Auto) (50.0-75.0) % Lymph % (Auto) (20.0-40.0) % [place] % (Auto) (0.0-10.0) % Eos % (Auto) (0.0-4.0) % Baso % (Auto) (0.0-2.0) % Neut # (1.8-7.0) K/uL Lymph # (1.0-4.3) K/uL [place] # (0.0-0.8) K/uL Eos # (0.0-0.7) K/uL Baso # (0.0-0.2) K/uL Neutrophils % (Manual) (42-75) % Band Neutrophils % (0-2) % Lymphocytes % (Manual) (20-50) % Monocytes % (Manual) (0-10) % Metamyelocytes % (0-0) % Myelocytes % (0-0) % Blast Cells % (0-0) % Platelet Estimate (NORMAL) Polychromasia Hypochromasia (manual) Poikilocytosis (manual Anisocytosis (manual) Macrocytosis (manual) Tear Drop Cells Ovalocytes [place] Cells Acanthocytes (Spur) Schistocytes pCO2 22 L (35-45) mm/Hg pO2 91 (80-100) mm/Hg HCO3 17.1 L (21-28) mmol/L ABG pH 7.40 (7.35-7.45) ABG Total CO2 14.3 L (22-28) mmol/L ABG O2 Saturation 100.6 H (95-98) % ABG O2 Content 10.5 L (15-23) ML/dL ABG Base Excess -10.0 L (-2.0-3.0) mmol/L ABG Hemoglobin 7.7 L (11.7-17.4) g/dL ABG Carboxyhemoglobin 3.6 H (0.5-1.5) % POC ABG HHb (Measured) -0.6 L (0.0-5.0) % ABG Methemoglobin 1.1 (0.0-3.0) % ABG O2 Capacity 10.4 L (16-24) mL/dL Tylor Test Yes A-a O2 Difference 81.0 mm/Hg Hgb O2 Saturation 95.9 (95.0-98.0) % FiO2 28.0 % Sodium (132-148) mmol/l Potassium (3.6-5.0) MMOL/L Chloride (98-107) mmol/L Carbon Dioxide (22-30) mmol/L Anion Gap (10-20) BUN (9-20) mg/dl Creatinine (0.8-1.5) mg/dl Est GFR ( Amer) Est GFR (Non-Af Amer) Random Glucose (75-110) mg/dL Hemoglobin A1c (4.2-6.5) % Calcium (8.4-10.2) mg/dL Total Bilirubin (0.2-1.3) mg/dl AST (17-59) U/L ALT (21-72) U/L Alkaline Phosphatase (38-126) U/L Troponin I (0.00-0.120) ng/mL Total Protein (6.3-8.2) G/DL Albumin (3.5-5.0) g/dL Globulin (2.2-3.9) gm/dL Albumin/Globulin Ratio (1.0-2.1) Folate ng/mL Procalcitonin 0.94 H (0.19-0.49) NG/ML 06/20/17 06/20/17 06/19/17 Range/Units 09:51 09:51 22:35 WBC (4.8-10.8) K/uL RBC (4.40-5.90) Mil/uL Hgb (12.0-18.0) g/dL Hct (35.0-51.0) % MCV (80.0-94.0) fl MCH (27.0-31.0) pg MCHC (33.0-37.0) g/dL RDW (11.5-14.5) % Plt Count (130-400) K/uL MPV (7.2-11.7) fl Neut % (Auto) (50.0-75.0) % Lymph % (Auto) (20.0-40.0) % [place] % (Auto) (0.0-10.0) % Eos % (Auto) (0.0-4.0) % Baso % (Auto) (0.0-2.0) % Neut # (1.8-7.0) K/uL Lymph # (1.0-4.3) K/uL [place] # (0.0-0.8) K/uL Eos # (0.0-0.7) K/uL Baso # (0.0-0.2) K/uL Neutrophils % (Manual) 77 H (42-75) % Band Neutrophils % 8 H (0-2) % Lymphocytes % (Manual) 6 L (20-50) % Monocytes % (Manual) 4 (0-10) % Metamyelocytes % 2 H (0-0) % Myelocytes % 1 H (0-0) % Blast Cells % 2 H (0-0) % Platelet Estimate Normal (NORMAL) Polychromasia Slight Hypochromasia (manual) Moderate Poikilocytosis (manual Moderate Anisocytosis (manual) Moderate Macrocytosis (manual) Marked Tear Drop Cells Slight Ovalocytes Slight [place] Cells Moderate Acanthocytes (Spur) Schistocytes Moderate pCO2 (35-45) mm/Hg pO2 (80-100) mm/Hg HCO3 (21-28) mmol/L ABG pH (7.35-7.45) ABG Total CO2 (22-28) mmol/L ABG O2 Saturation (95-98) % ABG O2 Content (15-23) ML/dL ABG Base Excess (-2.0-3.0) mmol/L ABG Hemoglobin (11.7-17.4) g/dL ABG Carboxyhemoglobin (0.5-1.5) % POC ABG HHb (Measured) (0.0-5.0) % ABG Methemoglobin (0.0-3.0) % ABG O2 Capacity (16-24) mL/dL Tylor Test A-a O2 Difference mm/Hg Hgb O2 Saturation (95.0-98.0) % FiO2 % Sodium (132-148) mmol/l Potassium (3.6-5.0) MMOL/L Chloride (98-107) mmol/L Carbon Dioxide (22-30) mmol/L Anion Gap (10-20) BUN (9-20) mg/dl Creatinine (0.8-1.5) mg/dl Est GFR ( Amer) Est GFR (Non-Af Amer) Random Glucose (75-110) mg/dL Hemoglobin A1c 5.3 (4.2-6.5) % Calcium (8.4-10.2) mg/dL Total Bilirubin (0.2-1.3) mg/dl AST (17-59) U/L ALT (21-72) U/L Alkaline Phosphatase (38-126) U/L Troponin I (0.00-0.120) ng/mL Total Protein (6.3-8.2) G/DL Albumin (3.5-5.0) g/dL Globulin (2.2-3.9) gm/dL Albumin/Globulin Ratio (1.0-2.1) Folate 10.1 ng/mL Procalcitonin (0.19-0.49) NG/ML Laboratory Results - last 24 hr 06/19/17 06/20/17 06/20/17 22:35 09:51 09:51 WBC RBC Hgb Hct MCV MCH MCHC RDW Plt Count MPV Neut % (Auto) Lymph % (Auto) [place] % (Auto) Eos % (Auto) Baso % (Auto) Neut # Lymph # [place] # Eos # Baso # Neutrophils % (Manual) 77 H Band Neutrophils % 8 H Lymphocytes % (Manual) 6 L Monocytes % (Manual) 4 Metamyelocytes % 2 H Myelocytes % 1 H Blast Cells % 2 H Platelet Estimate Normal Polychromasia Slight Hypochromasia (manual) Moderate Poikilocytosis (manual Moderate Anisocytosis (manual) Moderate Macrocytosis (manual) Marked Tear Drop Cells Slight Ovalocytes Slight [place] Cells Moderate Acanthocytes (Spur) Schistocytes Moderate pCO2 pO2 HCO3 ABG pH ABG Total CO2 ABG O2 Saturation ABG O2 Content ABG Base Excess ABG Hemoglobin ABG Carboxyhemoglobin POC ABG HHb (Measured) ABG Methemoglobin ABG O2 Capacity Tylor Test A-a O2 Difference Hgb O2 Saturation FiO2 Sodium Potassium Chloride Carbon Dioxide Anion Gap BUN Creatinine Est GFR ( Amer) Est GFR (Non-Af Amer) Random Glucose Hemoglobin A1c 5.3 Calcium Total Bilirubin AST ALT Alkaline Phosphatase Troponin I Total Protein Albumin Globulin Albumin/Globulin Ratio Folate 10.1 Procalcitonin 06/20/17 06/20/17 06/20/17 13:45 16:09 16:09 WBC 31.1 H RBC 2.36 L Hgb 7.3 L Hct 23.2 L MCV 98.2 H D MCH 30.9 MCHC 31.5 L RDW 28.4 H Plt Count 265 MPV Neut % (Auto) Lymph % (Auto) [place] % (Auto) Eos % (Auto) Baso % (Auto) Neut # Lymph # [place] # Eos # Baso # Neutrophils % (Manual) Band Neutrophils % Lymphocytes % (Manual) Monocytes % (Manual) Metamyelocytes % Myelocytes % Blast Cells % Platelet Estimate Polychromasia Hypochromasia (manual) Poikilocytosis (manual Anisocytosis (manual) Macrocytosis (manual) Tear Drop Cells Ovalocytes [place] Cells Acanthocytes (Spur) Schistocytes pCO2 22 L pO2 91 HCO3 17.1 L ABG pH 7.40 ABG Total CO2 14.3 L ABG O2 Saturation 100.6 H ABG O2 Content 10.5 L ABG Base Excess -10.0 L ABG Hemoglobin 7.7 L ABG Carboxyhemoglobin 3.6 H POC ABG HHb (Measured) -0.6 L ABG Methemoglobin 1.1 ABG O2 Capacity 10.4 L Tylor Test Yes A-a O2 Difference 81.0 Hgb O2 Saturation 95.9 FiO2 28.0 Sodium Potassium Chloride Carbon Dioxide Anion Gap BUN Creatinine Est GFR ( Amer) Est GFR (Non-Af Amer) Random Glucose Hemoglobin A1c Calcium Total Bilirubin AST ALT Alkaline Phosphatase Troponin I Total Protein Albumin Globulin Albumin/Globulin Ratio Folate Procalcitonin 0.94 H 06/20/17 06/21/17 06/21/17 18:18 04:20 04:20 WBC 29.5 H RBC 2.35 L Hgb 7.3 L Hct 23.2 L MCV 98.6 H MCH 31.1 H MCHC 31.5 L RDW 28.2 H Plt Count 266 MPV 9.9 Neut % (Auto) 81.1 H Lymph % (Auto) 6.9 L [place] % (Auto) 10.6 H Eos % (Auto) 0.8 Baso % (Auto) 0.6 Neut # 23.9 H Lymph # 2.0 [place] # 3.1 H Eos # 0.2 Baso # 0.2 Neutrophils % (Manual) Band Neutrophils % Lymphocytes % (Manual) Monocytes % (Manual) Metamyelocytes % Myelocytes % Blast Cells % Platelet Estimate Polychromasia Hypochromasia (manual) Poikilocytosis (manual Anisocytosis (manual) Macrocytosis (manual) Tear Drop Cells Ovalocytes [place] Cells Acanthocytes (Spur) Schistocytes pCO2 pO2 HCO3 ABG pH ABG Total CO2 ABG O2 Saturation ABG O2 Content ABG Base Excess ABG Hemoglobin ABG Carboxyhemoglobin POC ABG HHb (Measured) ABG Methemoglobin ABG O2 Capacity [place]ylor Test A-a O2 Difference Hgb O2 Saturation FiO2 Sodium 142 Potassium 4.6 Chloride 115 H Carbon Dioxide 15 L Anion Gap 17 BUN 59 H Creatinine 2.2 H Est GFR ( Amer) 35 Est GFR (Non-Af Amer) 29 Random Glucose 89 Hemoglobin A1c Calcium 7.4 L Total Bilirubin 0.9 AST 50 ALT 38 Alkaline Phosphatase 86 Troponin I 6.0700 H* Total Protein 6.0 L Albumin 3.1 L Globulin 2.9 Albumin/Globulin Ratio 1.0 Folate Procalcitonin Review of Systems - Review of Systems All systems: reviewed and no additional remarkable complaints except (as above) Critical Care Progress Note - Nutrition Nutrition: Nutrition Category Date Time Status Heart Healthy Diet [DIET] Diets 06/20/17 Breakfast Active
[2017-06-22] MEDS: Meropenem 500 MG in Sodium Chloride 0.9% 100 ML IVPB SCH ×2 (01:17→10:41)
[2017-06-22] MEDS ORDERED: Levothyroxine 100 MCG TAB PO SCH (06:30)
[2017-06-22] MEDS: Azithromycin 500 MG in Sodium Chloride 0.9% 250 ML IVPB SCH (10:40)
[2017-06-22 12:19] VITALS: O2SAT 96
--- NOTE | 2017-06-22 15:15 | CP.PCM.PN ---
Subjective - Date & Time of Evaluation Date of Evaluation: 06/22/17 Time of Evaluation: 15:15 - Subjective Subjective: ID Note- pt. seen and examined on tele floor today. in good spirits. denies any fever or chill, denies nay sob. as per family practice resident patient's family wants to take pt. home to home hospice. Objective - Vital Signs/Intake and Output Vital Signs (last 24 hours): Temp Pulse Resp BP Pulse Ox 97.7 F 78 18 106/63 96 06/22/17 12:18 06/22/17 12:18 06/22/17 12:18 06/22/17 12:18 06/22/17 12:18 Intake and Output: 06/22/17 06/22/17 06:59 18:59 Intake Total 100 Balance 100 - Medications Medications: Current Medications Acetaminophen (Tylenol 325mg Tab) 650 mg PO Q6H PRN PRN Reason: Fever >100.4 F Albuterol/Ipratropium (Duoneb 3 Mg/0.5 Mg (3 Ml) Ud) 3 ml INH RQ6 PRN PRN Reason: Shortness of Breath Allopurinol (Zyloprim) 100 mg PO DAILY [facility] Last Admin: 06/22/17 11:55 Dose: 100 mg Furosemide (Lasix) 20 mg PO DAILY [facility] Last Admin: 06/22/17 09:10 Dose: 20 mg Vancomycin HCl 500 mg/ Sodium (Chloride) 100 mls @ 100 mls/hr IVPB QOTHERDAY SATURNINO PRN Reason: Protocol Last Admin: 06/22/17 11:55 Dose: 100 mls/hr Meropenem 500 mg/ Sodium (Chloride) 50 mls @ 50 mls/hr IVPB Q8 SATURNINO PRN Reason: Protocol Azithromycin 500 mg/ Dextrose 250 mls @ 250 mls/hr IVPB DAILY SATURNINO PRN Reason: Protocol Levothyroxine Sodium (Synthroid) 100 mcg PO DAILY@0630 [facility] Last Admin: 06/22/17 06:35 Dose: 100 mcg Tramadol HCl (Ultram) 50 mg PO Q6 PRN PRN Reason: Pain, severe (8-10) - Labs Labs: - Additional Findings Additional findings: - Constitutional Appears: No Acute Distress - Head Exam Head Exam: ATRAUMATIC - Eye Exam Eye Exam: EOMI, PERRL - ENT Exam ENT Exam: Normal Oropharynx - Neck Exam Neck exam: Positive for: Full Rom Additional comments: supple - Respiratory Exam Respiratory Exam: NORMAL BREATHING PATTERN Additional comments: No wheezing slight crackles at left base only good aeration b/l - Cardiovascular Exam Cardiovascular Exam: RRR, +S1, +S2 Additional comments: 3/6 ejection murmur heard at LSB - GI/Abdominal Exam GI & Abdominal Exam: Normal Bowel Sounds, Soft Additional comments: NT, ND - Extremities Exam Extremities exam: Positive for: normal inspection - Neurological Exam Neurological exam: Alert, Oriented x 3 Laboratory Results - last 72 hr 06/19/17 06/19/17 06/19/17 19:59 21:03 22:35 WBC RBC Hgb Hct MCV MCH MCHC RDW Plt Count MPV Neut % (Auto) Lymph % (Auto) [place] % (Auto) Eos % (Auto) Baso % (Auto) Neut # Lymph # [place] # Eos # Baso # Neutrophils % (Manual) Band Neutrophils % Lymphocytes % (Manual) Monocytes % (Manual) Metamyelocytes % Myelocytes % Blast Cells % Platelet Estimate Polychromasia Hypochromasia (manual) Poikilocytosis (manual Anisocytosis (manual) Macrocytosis (manual) Tear Drop Cells Ovalocytes Angel Cells Acanthocytes (Spur) Schistocytes ESR PT INR APTT pCO2 pO2 HCO3 ABG pH ABG Total CO2 ABG O2 Saturation ABG O2 Content ABG Base Excess ABG Hemoglobin ABG Carboxyhemoglobin POC ABG HHb (Measured) ABG Methemoglobin ABG O2 Capacity Tylor Test A-a O2 Difference Hgb O2 Saturation FiO2 Sodium Potassium Chloride Carbon Dioxide Anion Gap BUN Creatinine Est GFR ( Amer) Est GFR (Non-Af Amer) POC Glucose (mg/dL) Random Glucose Hemoglobin A1c Lactic Acid 1.9 Calcium Total Bilirubin AST ALT Alkaline Phosphatase Troponin I 3.5700 H* NT-Pro-B Natriuret Pep 35278 H Total Protein Albumin Globulin Albumin/Globulin Ratio Triglycerides Cholesterol LDL Cholesterol Direct HDL Cholesterol Vitamin B12 Folate Procalcitonin TSH 3rd Generation Stool Occult Blood HIV-1 Ab Rapid Screen Influenza Typ A,B (EIA) Negative for flu a/b Blood Type Antibody Screen Crossmatch BBK History Checked 06/19/17 06/19/17 06/20/17 22:35 22:35 00:01 WBC 36.3 H D RBC 1.61 L Hgb 5.5 L* D Hct 18.6 L MCV 115.1 H D MCH 34.4 H MCHC 29.9 L RDW 22.1 H Plt Count 319 MPV 11.1 Neut % (Auto) 93.4 H Lymph % (Auto) 4.6 L [place] % (Auto) 0.8 Eos % (Auto) 0.7 Baso % (Auto) 0.5 Neut # 33.9 H Lymph # 1.7 [place] # 0.3 Eos # 0.2 Baso # 0.2 Neutrophils % (Manual) 77 H Band Neutrophils % 8 H Lymphocytes % (Manual) 6 L Monocytes % (Manual) 4 Metamyelocytes % 2 H Myelocytes % 1 H Blast Cells % 2 H Platelet Estimate Normal Polychromasia Slight Hypochromasia (manual) Moderate Poikilocytosis (manual Moderate Anisocytosis (manual) Moderate Macrocytosis (manual) Marked Tear Drop Cells Slight Ovalocytes Slight Angel Cells Moderate Acanthocytes (Spur) Schistocytes Moderate ESR PT 23.9 H INR 2.1 H APTT 41.6 H pCO2 pO2 HCO3 ABG pH ABG Total CO2 ABG O2 Saturation ABG O2 Content ABG Base Excess ABG Hemoglobin ABG Carboxyhemoglobin POC ABG HHb (Measured) ABG Methemoglobin ABG O2 Capacity Tylor Test A-a O2 Difference Hgb O2 Saturation FiO2 Sodium Potassium Chloride Carbon Dioxide Anion Gap BUN Creatinine Est GFR ( Amer) Est GFR (Non-Af Amer) POC Glucose (mg/dL) Random Glucose Hemoglobin A1c Lactic Acid Calcium Total Bilirubin AST ALT Alkaline Phosphatase Troponin I NT-Pro-B Natriuret Pep Total Protein Albumin Globulin Albumin/Globulin Ratio Triglycerides Cholesterol LDL Cholesterol Direct HDL Cholesterol Vitamin B12 Folate Procalcitonin TSH 3rd Generation Stool Occult Blood HIV-1 Ab Rapid Screen Influenza Typ A,B (EIA) Blood Type A POSITIVE Antibody Screen Negative Crossmatch See Detail BBK History Checked Patient has bt 06/20/17 06/20/17 06/20/17 00:40 00:40 00:47 WBC RBC Hgb Hct MCV MCH MCHC RDW Plt Count MPV Neut % (Auto) Lymph % (Auto) [place] % (Auto) Eos % (Auto) Baso % (Auto) Neut # Lymph # [place] # Eos # Baso # Neutrophils % (Manual) Band Neutrophils % Lymphocytes % (Manual) Monocytes % (Manual) Metamyelocytes % Myelocytes % Blast Cells % Platelet Estimate Polychromasia Hypochromasia (manual) Poikilocytosis (manual Anisocytosis (manual) Macrocytosis (manual) Tear Drop Cells Ovalocytes [place] Cells Acanthocytes (Spur) Schistocytes ESR PT INR APTT pCO2 pO2 HCO3 ABG pH ABG Total CO2 ABG O2 Saturation ABG O2 Content ABG Base Excess ABG Hemoglobin ABG Carboxyhemoglobin POC ABG HHb (Measured) ABG Methemoglobin ABG O2 Capacity Tylor Test A-a O2 Difference Hgb O2 Saturation FiO2 Sodium 138 Potassium 5.7 H Chloride 113 H Carbon Dioxide 15 L Anion Gap 16 BUN 55 H Creatinine 2.1 H Est GFR ( Amer) 37 Est GFR (Non-Af Amer) 30 POC Glucose (mg/dL) Random Glucose 89 Hemoglobin A1c Lactic Acid 1.0 Calcium 7.7 L Total Bilirubin 0.9 AST 66 H ALT 32 Alkaline Phosphatase 103 Troponin I NT-Pro-B Natriuret Pep Total Protein 6.8 Albumin 3.5 Globulin 3.3 Albumin/Globulin Ratio 1.1 Triglycerides Cholesterol LDL Cholesterol Direct HDL Cholesterol Vitamin B12 Folate Procalcitonin TSH 3rd Generation Stool Occult Blood HIV-1 Ab Rapid Screen Non reactive Influenza Typ A,B (EIA) Blood Type Antibody Screen Crossmatch BBK History Checked 06/20/17 06/20/17 06/20/17 00:55 08:40 09:51 WBC RBC Hgb Hct MCV MCH MCHC RDW Plt Count MPV Neut % (Auto) Lymph % (Auto) [place] % (Auto) Eos % (Auto) Baso % (Auto) Neut # Lymph # [place] # Eos # Baso # Neutrophils % (Manual) Band Neutrophils % Lymphocytes % (Manual) Monocytes % (Manual) Metamyelocytes % Myelocytes % Blast Cells % Platelet Estimate Polychromasia Hypochromasia (manual) Poikilocytosis (manual Anisocytosis (manual) Macrocytosis (manual) Tear Drop Cells Ovalocytes Angel Cells Acanthocytes (Spur) Schistocytes ESR 43 H PT INR APTT pCO2 pO2 HCO3 ABG pH ABG Total CO2 ABG O2 Saturation ABG O2 Content ABG Base Excess ABG Hemoglobin ABG Carboxyhemoglobin POC ABG HHb (Measured) ABG Methemoglobin ABG O2 Capacity Tylor Test A-a O2 Difference Hgb O2 Saturation FiO2 Sodium 140 Potassium 5.1 H Chloride 114 H Carbon Dioxide 16 L Anion Gap 15 BUN 60 H Creatinine 2.2 H Est GFR ( Amer) 35 Est GFR (Non-Af Amer) 29 POC Glucose (mg/dL) Random Glucose 93 Hemoglobin A1c Lactic Acid Calcium 7.7 L Total Bilirubin 1.2 AST 78 H ALT 33 Alkaline Phosphatase 89 Troponin I 6.5800 H* NT-Pro-B Natriuret Pep Total Protein 6.3 Albumin 3.2 L Globulin 3.1 Albumin/Globulin Ratio 1.1 Triglycerides 107 Cholesterol 58 LDL Cholesterol Direct < 30 HDL Cholesterol 15 L Vitamin B12 > 1000 H Folate 10.1 Procalcitonin TSH 3rd Generation 5.95 H Stool Occult Blood HIV-1 Ab Rapid Screen Influenza Typ A,B (EIA) Blood Type Antibody Screen Crossmatch BBK History Checked 06/20/17 06/20/17 06/20/17 09:51 13:45 16:09 WBC RBC Hgb Hct MCV MCH MCHC RDW Plt Count MPV Neut % (Auto) Lymph % (Auto) [place] % (Auto) Eos % (Auto) Baso % (Auto) Neut # Lymph # [place] # Eos # Baso # Neutrophils % (Manual) Band Neutrophils % Lymphocytes % (Manual) Monocytes % (Manual) Metamyelocytes % Myelocytes % Blast Cells % Platelet Estimate Polychromasia Hypochromasia (manual) Poikilocytosis (manual Anisocytosis (manual) Macrocytosis (manual) Tear Drop Cells Ovalocytes [place] Cells Acanthocytes (Spur) Schistocytes ESR PT INR APTT pCO2 22 L pO2 91 HCO3 17.1 L ABG pH 7.40 ABG Total CO2 14.3 L ABG O2 Saturation 100.6 H ABG O2 Content 10.5 L ABG Base Excess -10.0 L ABG Hemoglobin 7.7 L ABG Carboxyhemoglobin 3.6 H POC ABG HHb (Measured) -0.6 L ABG Methemoglobin 1.1 ABG O2 Capacity 10.4 L Tylor Test Yes A-a O2 Difference 81.0 Hgb O2 Saturation 95.9 FiO2 28.0 Sodium Potassium Chloride Carbon Dioxide Anion Gap BUN Creatinine Est GFR ( Amer) Est GFR (Non-Af Amer) POC Glucose (mg/dL) Random Glucose Hemoglobin A1c 5.3 Lactic Acid Calcium Total Bilirubin AST ALT Alkaline Phosphatase Troponin I NT-Pro-B Natriuret Pep Total Protein Albumin Globulin Albumin/Globulin Ratio Triglycerides Cholesterol LDL Cholesterol Direct HDL Cholesterol Vitamin B12 Folate Procalcitonin 0.94 H TSH 3rd Generation Stool Occult Blood HIV-1 Ab Rapid Screen Influenza Typ A,B (EIA) Blood Type Antibody Screen Crossmatch BBK History Checked 06/20/17 06/20/17 06/21/17 16:09 18:18 04:20 WBC 31.1 H 29.5 H RBC 2.36 L 2.35 L Hgb 7.3 L 7.3 L Hct 23.2 L 23.2 L MCV 98.2 H D 98.6 H MCH 30.9 31.1 H MCHC 31.5 L 31.5 L RDW 28.4 H 28.2 H Plt Count 265 266 MPV 9.9 Neut % (Auto) 81.1 H Lymph % (Auto) 6.9 L [place] % (Auto) 10.6 H Eos % (Auto) 0.8 Baso % (Auto) 0.6 Neut # 23.9 H Lymph # 2.0 [place] # 3.1 H Eos # 0.2 Baso # 0.2 Neutrophils % (Manual) Band Neutrophils % Lymphocytes % (Manual) Monocytes % (Manual) Metamyelocytes % Myelocytes % Blast Cells % Platelet Estimate Polychromasia Hypochromasia (manual) Poikilocytosis (manual Anisocytosis (manual) Macrocytosis (manual) Tear Drop Cells Ovalocytes Angel Cells Acanthocytes (Spur) Schistocytes ESR PT INR APTT pCO2 pO2 HCO3 ABG pH ABG Total CO2 ABG O2 Saturation ABG O2 Content ABG Base Excess ABG Hemoglobin ABG Carboxyhemoglobin POC ABG HHb (Measured) ABG Methemoglobin ABG O2 Capacity Tylor Test A-a O2 Difference Hgb O2 Saturation FiO2 Sodium Potassium Chloride Carbon Dioxide Anion Gap BUN Creatinine Est GFR ( Amer) Est GFR (Non-Af Amer) POC Glucose (mg/dL) Random Glucose Hemoglobin A1c Lactic Acid Calcium Total Bilirubin AST ALT Alkaline Phosphatase Troponin I 6.0700 H* NT-Pro-B Natriuret Pep Total Protein Albumin Globulin Albumin/Globulin Ratio Triglycerides Cholesterol LDL Cholesterol Direct HDL Cholesterol Vitamin B12 Folate Procalcitonin TSH 3rd Generation Stool Occult Blood HIV-1 Ab Rapid Screen Influenza Typ A,B (EIA) Blood Type Antibody Screen Crossmatch BBK History Checked 06/21/17 06/21/17 06/21/17 04:20 12:16 21:23 WBC RBC Hgb Hct MCV MCH MCHC RDW Plt Count MPV Neut % (Auto) Lymph % (Auto) [place] % (Auto) Eos % (Auto) Baso % (Auto) Neut # Lymph # [place] # Eos # Baso # Neutrophils % (Manual) Band Neutrophils % Lymphocytes % (Manual) Monocytes % (Manual) Metamyelocytes % Myelocytes % Blast Cells % Platelet Estimate Polychromasia Hypochromasia (manual) Poikilocytosis (manual Anisocytosis (manual) Macrocytosis (manual) Tear Drop Cells Ovalocytes Angel Cells Acanthocytes (Spur) Schistocytes ESR PT INR APTT pCO2 pO2 HCO3 ABG pH ABG Total CO2 ABG O2 Saturation ABG O2 Content ABG Base Excess ABG Hemoglobin ABG Carboxyhemoglobin POC ABG HHb (Measured) ABG Methemoglobin ABG O2 Capacity Tylor Test A-a O2 Difference Hgb O2 Saturation FiO2 Sodium 142 Potassium 4.6 Chloride 115 H Carbon Dioxide 15 L Anion Gap 17 BUN 59 H Creatinine 2.2 H Est GFR ( Amer) 35 Est GFR (Non-Af Amer) 29 POC Glucose (mg/dL) 108 Random Glucose 89 Hemoglobin A1c Lactic Acid Calcium 7.4 L Total Bilirubin 0.9 AST 50 ALT 38 Alkaline Phosphatase 86 Troponin I NT-Pro-B Natriuret Pep Total Protein 6.0 L Albumin 3.1 L Globulin 2.9 Albumin/Globulin Ratio 1.0 Triglycerides Cholesterol LDL Cholesterol Direct HDL Cholesterol Vitamin B12 Folate Procalcitonin TSH 3rd Generation Stool Occult Blood Positive H HIV-1 Ab Rapid Screen Influenza Typ A,B (EIA) Blood Type Antibody Screen Crossmatch BBK History Checked Microbiology 06/20/17 10:07 Sputum Gram Stain - Final 06/20/17 10:07 Sputum Sputum Culture - Final NORMAL ORAL CLAIR 06/19/17 20:49 Blood Blood Culture - Preliminary NO GROWTH AFTER 48 HOURS 06/19/17 21:03 Blood Blood Culture - Preliminary NO GROWTH AFTER 48 HOURS 06/20/17 06:06 Nose MRSA Culture (Admit) - Final MRSA NOT DETECTED Assessment and Plan (1) Cough Status: Acute (2) Hemoptysis Status: Acute (3) Leukocytosis Status: Acute (4) Pulmonary edema Status: Acute - Assessment and Plan (Free Text) Assessment: A/P- 82 year old male with multiple medical conditions including aortic stenosis, myeloproliferative disease, hypothyroidism dvt s/p IVC filter in 03/2017 who is admitted with sob and blood tinged sputum with cough . clinically better afebrile leukocytosis trending down slowly but also from his MDS blood cx- neg x 2 sputum cx- negative PLan- advise to continue with IV zithromax to cover for atypicals. day #4 advise to continue with IV Meropenem . day #3 would also advise to continue with empiric vanco (renal dose ) to cover empirically for MRSA as well. day #3 keep trough <15. if patient is being d/c home to home hospice as I'm told by resident decision of patient's family then pt. can be d/c home on few days of oral abx namely zithromax for another 2 days and batrim DS BID for 7 days. all above d/w family practice team.
[2017-06-22 16:15] VITALS: BP 115/65; PULSE 95; RESP 17; TEMP 99.2
--- NOTE | 2017-06-22 16:38 | CP.PCM.DIS ---
Provider - Provider Date of Admission: 06/19/17 22:16 Attending physician: Helena Strong MD Consults: KASSIE - Dr. Banda Cardio - Dr. Dalton Sevilla Pulmonary - Dr. Stinson Time Spent in preparation of Discharge (in minutes): 30 Diagnosis - Discharge Diagnosis (1) Pneumonia Status: Acute (2) CHF (congestive heart failure) Status: Acute (3) Aortic stenosis Status: Chronic Hospital Course - Lab Results Lab Results: Micro Results 06/20/17 10:07 Sputum Gram Stain - Final 06/20/17 10:07 Sputum Sputum Culture - Final NORMAL ORAL CLAIR 06/19/17 20:49 Blood Blood Culture - Preliminary NO GROWTH AFTER 48 HOURS 06/19/17 21:03 Blood Blood Culture - Preliminary NO GROWTH AFTER 48 HOURS 06/20/17 06:06 Nose MRSA Culture (Admit) - Final MRSA NOT DETECTED Most Recent Lab Values WBC 29.5 K/uL (4.8-10.8) H 06/21/17 04:20 RBC 2.35 Mil/uL (4.40-5.90) L 06/21/17 04:20 Hgb 7.3 g/dL (12.0-18.0) L 06/21/17 04:20 Hct 23.2 % (35.0-51.0) L 06/21/17 04:20 MCV 98.6 fl (80.0-94.0) H 06/21/17 04:20 MCH 31.1 pg (27.0-31.0) H 06/21/17 04:20 MCHC 31.5 g/dL (33.0-37.0) L 06/21/17 04:20 RDW 28.2 % (11.5-14.5) H 06/21/17 04:20 Plt Count 266 K/uL (130-400) 06/21/17 04:20 MPV 9.9 fl (7.2-11.7) 06/21/17 04:20 Neut % (Auto) 81.1 % (50.0-75.0) H 06/21/17 04:20 Lymph % (Auto) 6.9 % (20.0-40.0) L 06/21/17 04:20 [place] % (Auto) 10.6 % (0.0-10.0) H 06/21/17 04:20 Eos % (Auto) 0.8 % (0.0-4.0) 06/21/17 04:20 Baso % (Auto) 0.6 % (0.0-2.0) 06/21/17 04:20 Neut # 23.9 K/uL (1.8-7.0) H 06/21/17 04:20 Lymph # 2.0 K/uL (1.0-4.3) 06/21/17 04:20 [place] # 3.1 K/uL (0.0-0.8) H 06/21/17 04:20 Eos # 0.2 K/uL (0.0-0.7) 06/21/17 04:20 Baso # 0.2 K/uL (0.0-0.2) 06/21/17 04:20 Neutrophils % (Manual) 77 % (42-75) H 06/19/17 22:35 Band Neutrophils % 8 % (0-2) H 06/19/17 22:35 Lymphocytes % (Manual) 6 % (20-50) L 06/19/17 22:35 Monocytes % (Manual) 4 % (0-10) 06/19/17 22:35 Metamyelocytes % 2 % (0-0) H 06/19/17 22:35 Myelocytes % 1 % (0-0) H 06/19/17 22:35 Blast Cells % 2 % (0-0) H 06/19/17 22:35 Platelet Estimate Normal (NORMAL) 06/19/17 22:35 Polychromasia Slight 06/19/17 22:35 Hypochromasia (manual) Moderate 06/19/17 22:35 Poikilocytosis (manual Moderate 06/19/17 22:35 Anisocytosis (manual) Moderate 06/19/17 22:35 Macrocytosis (manual) Marked 06/19/17 22:35 Tear Drop Cells Slight 06/19/17 22:35 Ovalocytes Slight 06/19/17 22:35 [place] Cells Moderate 06/19/17 22:35 Acanthocytes (Spur) 06/19/17 22:35 Schistocytes Moderate 06/19/17 22:35 ESR 43 mm/hr (0-20) H 06/20/17 00:55 PT 23.9 Seconds (9.8-13.1) H 06/19/17 22:35 INR 2.1 (0.9-1.2) H 06/19/17 22:35 APTT 41.6 Seconds (25.6-37.1) H 06/19/17 22:35 pCO2 22 mm/Hg (35-45) L 06/20/17 13:45 pO2 91 mm/Hg (80-100) 06/20/17 13:45 HCO3 17.1 mmol/L (21-28) L 06/20/17 13:45 ABG pH 7.40 (7.35-7.45) 06/20/17 13:45 ABG Total CO2 14.3 mmol/L (22-28) L 06/20/17 13:45 ABG O2 Saturation 100.6 % (95-98) H 06/20/17 13:45 ABG O2 Content 10.5 ML/dL (15-23) L 06/20/17 13:45 ABG Base Excess -10.0 mmol/L (-2.0-3.0) L 06/20/17 13:45 ABG Hemoglobin 7.7 g/dL (11.7-17.4) L 06/20/17 13:45 ABG Carboxyhemoglobin 3.6 % (0.5-1.5) H 06/20/17 13:45 POC ABG HHb (Measured) -0.6 % (0.0-5.0) L 06/20/17 13:45 ABG Methemoglobin 1.1 % (0.0-3.0) 06/20/17 13:45 ABG O2 Capacity 10.4 mL/dL (16-24) L 06/20/17 13:45 Tylor Test Yes 06/20/17 13:45 A-a O2 Difference 81.0 mm/Hg 06/20/17 13:45 Hgb O2 Saturation 95.9 % (95.0-98.0) 06/20/17 13:45 FiO2 28.0 % 06/20/17 13:45 Sodium 142 mmol/l (132-148) 06/21/17 04:20 Potassium 4.6 MMOL/L (3.6-5.0) 06/21/17 04:20 Chloride 115 mmol/L (98-107) H 06/21/17 04:20 Carbon Dioxide 15 mmol/L (22-30) L 06/21/17 04:20 Anion Gap 17 (10-20) 06/21/17 04:20 BUN 59 mg/dl (9-20) H 06/21/17 04:20 Creatinine 2.2 mg/dl (0.8-1.5) H 06/21/17 04:20 Est GFR ( Amer) 35 06/21/17 04:20 Est GFR (Non-Af Amer) 29 06/21/17 04:20 POC Glucose (mg/dL) 108 mg/dL (65-110) 06/21/17 21:23 Random Glucose 89 mg/dL (75-110) 06/21/17 04:20 Hemoglobin A1c 5.3 % (4.2-6.5) 06/20/17 09:51 Lactic Acid 1.0 MMOL/L (0.7-2.1) 06/20/17 00:40 Calcium 7.4 mg/dL (8.4-10.2) L 06/21/17 04:20 Total Bilirubin 0.9 mg/dl (0.2-1.3) 06/21/17 04:20 AST 50 U/L (17-59) 06/21/17 04:20 ALT 38 U/L (21-72) 06/21/17 04:20 Alkaline Phosphatase 86 U/L (38-126) 06/21/17 04:20 Troponin I 6.0700 ng/mL (0.00-0.120) H* 06/20/17 18:18 NT-Pro-B Natriuret Pep 09342 pg/ml (0-900) H 06/19/17 22:35 Total Protein 6.0 G/DL (6.3-8.2) L 06/21/17 04:20 Albumin 3.1 g/dL (3.5-5.0) L 06/21/17 04:20 Globulin 2.9 gm/dL (2.2-3.9) 06/21/17 04:20 Albumin/Globulin Ratio 1.0 (1.0-2.1) 06/21/17 04:20 Triglycerides 107 mg/DL (0-149) 06/20/17 09:51 Cholesterol 58 mg/dL (0-199) 06/20/17 09:51 LDL Cholesterol Direct < 30 mg/dL (0-129) 06/20/17 09:51 HDL Cholesterol 15 MG/DL (30-70) L 06/20/17 09:51 Vitamin B12 > 1000 pg/mL (239-931) H 06/20/17 09:51 Folate 10.1 ng/mL 06/20/17 09:51 Procalcitonin 0.94 NG/ML (0.19-0.49) H 06/20/17 16:09 TSH 3rd Generation 5.95 mIU/ML (0.46-4.68) H 06/20/17 09:51 Stool Occult Blood Positive (NEGATIVE) H 06/21/17 12:16 HIV-1 Ab Rapid Screen Non reactive (NON REAC) 06/20/17 00:40 Influenza Typ A,B (EIA) Negative for flu a/b (NEGATIVE) 06/19/17 21:03 Blood Type A POSITIVE 06/20/17 00:01 Antibody Screen Negative 06/20/17 00:01 Crossmatch See Detail 06/20/17 00:01 BBK History Checked Patient has bt 06/20/17 00:01 - Hospital Course Hospital Course: 82 yo male w/ PMHx of Myelodysplastic disorder, CHF, severe Aortic Stenosis, CKD , Hx of DVT/PE s/p IVC filter admitted 06/19/17 for management of Pneumonia and acute CHF exacerbation. Patient with severe and LVEF 15-20%. Patient's daughter, Faye, and rest of family had meeting with primary care providers in regards to home hospice. Family and patient aware of hospice, diagnoses, and alternatives. Family and patient are aware of the severity of his acute heart failure secondary to severe aortic stenosis and have deferred valve replacement. They have decided on home-hospice care for the patient. Patient was discharged on home hospice with PO abx for PNA. Discharge Exam - Head Exam Head Exam: NORMAL INSPECTION - Eye Exam Eye Exam: Normal appearance - Neck Exam Neck exam: Normal Inspection - Respiratory Exam Respiratory Exam: Clear to PA & Lateral, NORMAL BREATHING PATTERN, UNREMARKABLE - Cardiovascular Exam Cardiovascular Exam: RRR, +S1, +S2 - GI/Abdominal Exam GI & Abdominal Exam: Hernia, Normal Bowel Sounds, Soft. absent: Tenderness - Extremities Exam Extremities exam: normal inspection - Neurological Exam Neurological exam: Alert, Oriented x3 - Psychiatric Exam Psychiatric exam: Normal Affect, Normal Mood - Skin Skin Exam: Dry, Intact, Normal Color, Warm Discharge Plan - Discharge Medications Prescriptions: Azithromycin [Zithromax] 250 mg PO DAILY #3 tablet - Follow Up Plan Condition: STABLE Disposition: HOSPICE - HOME
[2017-06-22] MEDS ORDERED: Meropenem 500 MG in Sodium Chloride 0.9% 50 ML IVPB SCH (17:00)
== END 2017-06-22 17:00 | disposition hospice, home (50) | DRG 544 ==
LOC: H.ER 19:40 → H.ERHOLD 22:16 → H.ICU/CCU 06-20 01:30 → H.TEL 06-22 06:01
PROVIDERS: ADMIT Family Medicine Geriatric Medicine; ATTEND Family Medicine Geriatric Medicine
PROC: 30233N1 Transfusion of Nonautologous Red Blood Cells into Peripheral Vein, Percutaneous Approach (ICD-10-PCS; 2017-06-20)
PROC: 3E0234Z Introduction of Serum, Toxoid and Vaccine into Muscle, Percutaneous Approach (ICD-10-PCS; principal; 2017-06-22)
DX: I13.0 Hypertensive heart and chronic kidney disease with heart failure and stage 1 through stage 4 chronic kidney disease, or unspecified chronic kidney disease (principal); J18.9 Pneumonia, unspecified organism; E87.5 Hyperkalemia; D68.9 Coagulation defect, unspecified; C94.6 Myelodysplastic disease, not elsewhere classified; J43.9 Emphysema, unspecified; R04.2 Hemoptysis; D64.9 Anemia, unspecified; I50.21 Acute systolic (congestive) heart failure; I35.0 Nonrheumatic aortic (valve) stenosis; R09.02 Hypoxemia; N18.9 Chronic kidney disease, unspecified; K70.30 Alcoholic cirrhosis of liver without ascites; Z87.891 Personal history of nicotine dependence; E03.9 Hypothyroidism, unspecified; Z23 Encounter for immunization; Z88.5 Allergy status to narcotic agent; Z86.718 Personal history of other venous thrombosis and embolism; M81.0 Age-related osteoporosis without current pathological fracture; D75.89 Other specified diseases of blood and blood-forming organs; M10.9 Gout, unspecified; Z66 Do not resuscitate; Y95 Nosocomial condition